=== PATIENT | female | born 1935 | race African-American/Black ===

== ENCOUNTER 2016-05-02 10:50 | Inpatient (IN) | payer MEDICARE, MEDICAID ==
[2016-05-02] MEDS ORDERED: ASPIRIN 81 MG TABLET, CHEWABLE PO ONE (11:33)
--- NOTE | 2016-05-02 11:35 | ER Document Report ---
ED Medical Screen (RME) - General Chief Complaint: Leg Swelling Stated Complaint: WHEEZING,LEG SWELLING Mode of Arrival: Wheelchair Information source: Patient, Relative Notes: pt c/o cp, sob, wheezing and leg swelling for the past week. No fever. No hx of CHF. hx: DM, HTN, cholesterol TRAVEL OUTSIDE OF THE [place] IN LAST 30 DAYS: No - Related Data Allergies/Adverse Reactions: oxycodone [Oxycodone] Allergy (Verified 11/24/13 13:27) Past Medical History - Past Medical History Cardiac Medical History: Reports: Hx Atrial Fibrillation, Hx Hypercholesterolemia, Hx Hypertension - TAKES MEDICATION Denies: Hx Heart Attack Pulmonary Medical History: Denies: Hx Asthma, Hx Tuberculosis Neurological Medical History: Denies: Hx Cerebrovascular Accident, Hx Seizures Endocrine Medical History: Reports: Hx Diabetes Mellitus Type 2 GI Medical History: Reports: Hx Gastroesophageal Reflux Disease Musculoskeltal Medical History: Reports Hx Gout Psychiatric Medical History: Denies: Hx Depression - Immunizations Hx Diphtheria, Pertussis, Tetanus Vaccination: Yes Physical Exam - Vital signs Vitals: Temp Pulse Resp BP Pulse Ox 98.0 F 48 L 18 177/83 H 93 05/02/16 11:19 05/02/16 11:19 05/02/16 11:19 05/02/16 11:19 05/02/16 11:19 - Respiratory Respiratory status: No respiratory distress Chest status: Pain with cough Breath sounds: Nonproductive cough Course - Vital Signs Vital signs: Temp Pulse Resp BP Pulse Ox 98.0 F 48 L 18 177/83 H 93 05/02/16 11:19 05/02/16 11:19 05/02/16 11:19 05/02/16 11:19 05/02/16 11:19
[2016-05-02 12:22] LABS: ABSOLUTE BASOPHILS # (AUTO) 0.1 10^3/uL (0.0-0.2); ABSOLUTE LYMPHOCYTES (AUTO) 0.6 10^3/uL (0.5-4.7); ABSOLUTE MONOCYTES (AUTO) 0.2 10^3/uL (0.1-1.4); ABSOLUTE NEUT (AUTO) 3.2 10^3/uL (1.7-8.2); BASOPHILS % (AUTO) 1.9 % (0-2); EOSINOPHILS % (AUTO) 0.7 % (0-6); HEMATOCRIT 37.6 % (36.0-47.0); HEMOGLOBIN 11.6 g/dL (12.0-15.5); HGB HCT DIFFERENCE -2.8; LYMPHOCYTES % (AUTO) 15.1 % (13-45); MEAN CORPUSCULAR HEMOGLOBIN 25.8 pg (27.0-33.4); MEAN CORPUSCULAR HGB CONC 30.9 g/dL (32.0-36.0); MEAN CORPUSCULAR VOLUME 83 fl (80-97); MONOCYTES % (AUTO) 4.5 % (3-13); RED BLOOD COUNT 4.51 10^6/uL (3.72-5.28); SEGMENTED NEUTROPHILS % (AUTO) 77.8 % (42-78); WHITE BLOOD COUNT 4.1 10^3/uL (4.0-10.5)
--- NOTE | 2016-05-02 12:22 | EKG REPORT ---
SEVERITY:- ABNORMAL ECG - A-FLUTTER W/ VARIED AV BLOCK, A-RATE 294 RIGHT BUNDLE BRANCH BLOCK AND LAFB LVH WITH IVCD AND SECONDARY REPOL ABNRM : Confirmed by: Dexter García MD 02-May-2016 12:21:38
[2016-05-02 12:33] LABS: APPEARANCE,URINE CLOUDY; BILIRUBIN,URINE NEGATIVE (NEGATIVE); GLUCOSE, URINE 150 mg/dL (NEGATIVE); KETONES,URINE NEGATIVE (NEGATIVE); LEUKOCYTE ESTERASE,URINE LARGE (NEGATIVE); NITRITE,URINE NEGATIVE (NEGATIVE); PROTEIN,URINE >=500 mg/dL (NEGATIVE); UROBILINOGEN,URINE NEGATIVE mg/dL (<2.0)
[2016-05-02 12:47] LABS: ALANINE AMINOTRANSFERASE 62 U/L (9-52); ALBUMIN 3.3 g/dL (3.5-5.0); ALKALINE PHOSPHATASE 200 U/L (38-126); ANION GAP 11 (5-19); ASPARTATE AMINO TRANSFERASE 61 U/L (14-36); BILIRUBIN,TOTAL 0.9 mg/dL (0.2-1.3); BLOOD UREA NITROGEN 31 mg/dL (7-20); CALCIUM 9.1 mg/dL (8.4-10.2); CARBON DIOXIDE 24 mmol/L (22-30); CHLORIDE 103 mmol/L (98-107); CREATINE KINASE 101 U/L (30-135); CREATININE RESULT 1.91 mg/dL (0.52-1.25); GLUCOSE 289 mg/dL (75-110); LIPASE 853.3 U/L (23-300); POTASSIUM 4.1 mmol/L (3.6-5.0); TOTAL PROTEIN 6.1 g/dL (6.3-8.2)
[2016-05-02 12:56] LABS: CREATINE KINASE MB 2.42 ng/mL (<4.55)
[2016-05-02 13:02] LABS: TROPONIN I 0.077 ng/mL
[2016-05-02] MEDS ORDERED: FUROSEMIDE INJ/PF 40 MG/4 ML SDV IV ONE (14:56)
[2016-05-02 16:37] LABS: CREATINE KINASE MB 2.04 ng/mL (<4.55)
[2016-05-02 16:39] LABS: TROPONIN I 0.067 ng/mL
--- NOTE | 2016-05-02 17:49 | ER Document Report ---
ED General - General Chief Complaint: Leg Swelling Stated Complaint: WHEEZING,LEG SWELLING Mode of Arrival: Wheelchair TRAVEL OUTSIDE OF THE [place] IN LAST 30 DAYS: No - Related Data Allergies/Adverse Reactions: oxycodone [Oxycodone] Allergy (Verified 11/24/13 13:27) Past Medical History - General Information source: Patient, Relative Last Menstrual Period: menoause - Social History Smoking Status: Never Smoker Frequency of alcohol use: None Drug Abuse: None Family History: Reviewed & Not Pertinent, CAD Patient has suicidal ideation: No Patient has homicidal ideation: No - Past Medical History Cardiac Medical History: Reports: Hx Atrial Fibrillation, Hx Hypercholesterolemia, Hx Hypertension - TAKES MEDICATION Denies: Hx Heart Attack Pulmonary Medical History: Denies: Hx Asthma, Hx Tuberculosis Neurological Medical History: Denies: Hx Cerebrovascular Accident, Hx Seizures Endocrine Medical History: Reports: Hx Diabetes Mellitus Type 2 GI Medical History: Reports: Hx Gastroesophageal Reflux Disease Musculoskeltal Medical History: Reports Hx Gout Psychiatric Medical History: Denies: Hx Depression - Immunizations Hx Diphtheria, Pertussis, Tetanus Vaccination: Yes Physical Exam - Vital signs Vitals: Temp Pulse Resp BP Pulse Ox 98.0 F 48 L 18 177/83 H 93 05/02/16 11:19 05/02/16 11:19 05/02/16 11:19 05/02/16 11:19 05/02/16 11:19 Course - Vital Signs Vital signs: Temp Pulse Resp BP Pulse Ox 98.0 F 48 L 21 H 189/107 H 93 05/02/16 11:19 05/02/16 11:19 05/02/16 17:01 05/02/16 17:01 05/02/16 17:01 - Laboratory Result Diagrams: 05/02/16 12:00 05/02/16 12:00 Laboratory results interpreted by me: 05/02/16 05/02/16 05/02/16 12:00 12:00 12:00 Hgb 11.6 L MCH 25.8 L MCHC 30.9 L RDW 18.0 H BUN 31 H Creatinine 1.91 H Est GFR ( Amer) 31 L Est GFR (Non-Af Amer) 25 L Glucose 289 H AST 61 H ALT 62 H Alkaline Phosphatase 200 H NT-Pro-B Natriuret Pep 2770 H Total Protein 6.1 L Albumin 3.3 L Lipase 853.3 H Urine Protein Urine Glucose (UA) Ur Leukocyte Esterase 05/02/16 12:00 Hgb MCH MCHC RDW BUN Creatinine Est GFR ( Amer) Est GFR (Non-Af Amer) Glucose AST ALT Alkaline Phosphatase NT-Pro-B Natriuret Pep Total Protein Albumin Lipase Urine Protein >=500 H Urine Glucose (UA) 150 H Ur Leukocyte Esterase LARGE H Discharge - Discharge Clinical Impression: Edema of foot Congestive heart failure Qualifiers: Congestive heart failure type: unspecified congestive heart failure type Congestive heart failure chronicity: unspecified congestive heart failure chronicity Qualified Code(s): I50.9 - Heart failure, unspecified Pancreatitis Qualifiers: Pancreatitis type: unspecified pancreatitis type Acute pancreatitis complication: unspecified Condition: Stable Disposition: ADMITTED INPATIENT Admitting Provider: Alejandra kat Unit Admitted: Telemetry
[2016-05-02] MEDS ORDERED: (PENDING PHARMACY ID) (Dexlansoprazole [Dexilant 30 Mg Capsule] 30 MG) PO SCH (19:30)
[2016-05-02] MEDS ORDERED: FISH OIL PO SCH (19:30)
[2016-05-02] MEDS ORDERED: OMEGA PO SCH (19:30)
[2016-05-02] MEDS ORDERED: FATTY ACIDS PO SCH (19:30)
[2016-05-02] MEDS ORDERED: (PENDING PHARMACY ID) (Olmesartan Medoxomil [Benicar] 40 MG) PO SCH (19:30)
[2016-05-02] MEDS ORDERED: [UNRECOGNIZED DRUG - OTHER] PO SCH (19:30)
[2016-05-02] MEDS ORDERED: MORPHINE SULFATE 10 MG/ML INJ IV PRN (19:31)
[2016-05-02 20:32] LABS: CREATINE KINASE MB 2.4 ng/mL (<4.55)
[2016-05-02 20:37] LABS: TROPONIN I 0.077 ng/mL
[2016-05-02 20:50] LABS: THYROID STIMULATING HORMONE 1.19 uIU/mL (0.47-4.68)
[2016-05-02] MEDS ORDERED: OMEGA-3 ACID ETHYL ESTERS 1 GM CAPSULE PO ONE (21:30)
[2016-05-02] MEDS ORDERED: LOSARTAN POTASSIUM 50 MG TABLET PO ONE (21:30)
[2016-05-02] MEDS ORDERED: LANSOPRAZOLE 15 MG TAB.RAP.DR PO ONE (21:30)
[2016-05-02] MEDS: HEPARIN SOD (PORCINE) 5,000 UNIT/ML 1 ML SYRINGE SUBCUT SCH (21:48)
[2016-05-03 02:34] LABS: CREATINE KINASE MB 1.88 ng/mL (<4.55); TROPONIN I 0.08 ng/mL
[2016-05-03] MEDS ORDERED: DEXTROSE 40% GEL 15 GM TUBE PO PRN (03:07)
[2016-05-03] MEDS ORDERED: DEXTROSE 40% GEL 15 GM TUBE X 2 PO PRN (03:07)
[2016-05-03] MEDS ORDERED: DEXTROSE 50%-WATER SYRINGE 12.5 GM/25 ML DOSE IV PRN (03:07)
[2016-05-03] MEDS ORDERED: GLUCAGON,HUMAN RECOMB 1 MG INJ IM PRN (03:07)
[2016-05-03] MEDS ORDERED: DEXTROSE 50%-WATER SYRINGE 25 GM/50 ML DOSE IV PRN (03:07)
[2016-05-03] MEDS: HEPARIN SOD (PORCINE) 5,000 UNIT/ML 1 ML SYRINGE SUBCUT SCH ×3 (05:46→22:22)
[2016-05-03] MEDS: LANSOPRAZOLE 15 MG TAB.RAP.DR PO SCH (05:46)
[2016-05-03 07:53] LABS: ABSOLUTE BASOPHILS # (AUTO) 0.1 10^3/uL (0.0-0.2); ABSOLUTE LYMPHOCYTES (AUTO) 1.2 10^3/uL (0.5-4.7); ABSOLUTE MONOCYTES (AUTO) 0.3 10^3/uL (0.1-1.4); ABSOLUTE NEUT (AUTO) 2.7 10^3/uL (1.7-8.2); BASOPHILS % (AUTO) 1.5 % (0-2); EOSINOPHILS % (AUTO) 1.1 % (0-6); HEMATOCRIT 37.7 % (36.0-47.0); HEMOGLOBIN 12.1 g/dL (12.0-15.5); HGB HCT DIFFERENCE -1.4; LYMPHOCYTES % (AUTO) 27.3 % (13-45); MEAN CORPUSCULAR HEMOGLOBIN 26.3 pg (27.0-33.4); MEAN CORPUSCULAR HGB CONC 32.2 g/dL (32.0-36.0); MEAN CORPUSCULAR VOLUME 82 fl (80-97); MONOCYTES % (AUTO) 7.1 % (3-13); RED BLOOD COUNT 4.61 10^6/uL (3.72-5.28); RED CELL DISTRIBUTION WIDTH 18.1 % (11.5-14.0); WHITE BLOOD COUNT 4.3 10^3/uL (4.0-10.5)
[2016-05-03] MEDS: GLIPIZIDE XL 5 MG TAB.ER.24 PO SCH (08:05)
[2016-05-03 08:20] LABS: ANION GAP 10 (5-19); BLOOD UREA NITROGEN 26 mg/dL (7-20); CALCIUM 9.4 mg/dL (8.4-10.2); CARBON DIOXIDE 27 mmol/L (22-30); CHLORIDE 101 mmol/L (98-107); CREATININE RESULT 1.54 mg/dL (0.52-1.25); GLUCOSE 173 mg/dL (75-110); POTASSIUM 3.8 mmol/L (3.6-5.0)
[2016-05-03 08:31] LABS: TROPONIN I 0.082 ng/mL
[2016-05-03 08:36] LABS: CREATINE KINASE MB 2.79 ng/mL (<4.55)
[2016-05-03] MEDS: OMEGA-3 ACID ETHYL ESTERS 1 GM CAPSULE PO SCH (09:56)
[2016-05-03] MEDS: FUROSEMIDE INJ/PF 40 MG/4 ML SDV IV SCH (09:56)
[2016-05-03] MEDS: ALLOPURINOL 100 MG TABLET PO SCH (09:56)
[2016-05-03] MEDS: ASPIRIN 81 MG TABLET, ENT COATED PO SCH (09:57)
[2016-05-03] MEDS: LOSARTAN POTASSIUM 50 MG TABLET PO SCH (09:57)
[2016-05-03] MEDS: INSULIN LISPRO 100 UNIT/ML 3 ML VIAL SUBCUT PRN ×3 (11:46→22:22)
--- NOTE | 2016-05-03 20:48 | HISTORY AND PHYSICAL E ---
History and Physical NAME: CAROLINA KAYE : 1935 AGE: 80Y ADMITTED: 05/02/2016 ROOM: 328 CHIEF COMPLAINT: Worsening leg swelling. HISTORY OF PRESENT ILLNESS: The patient is an 80-year-old black male patient known to my practice who was brought to the emergency room by family members on 05/02/2016 for above-mentioned complaint. The patient's family reported that over the last preceding couple of days the patient's leg swelling has been worsening with associated shortness of breath and wheezing and due to the office being closed on the presenting date, they decided to come to the emergency room. The patient claimed compliance with medications as well as dietary restriction with regard to salt and restricted fluid intake. He denied any palpitation or associated chest pain. He did admit to 2-pillow orthopnea and paroxysmal nocturnal dyspnea. The patient denied any fever or chills. Upon initial assessment in the emergency room, there was concern for elevated NT-proBNP at over 2000. There was also concern with regard to elevated lipase level about 853. The patient does have a history of diabetes mellitus type 2 on Tradjenta therapy. Also of note, he does have a history of atrial fibrillation as well as hypertension. The patient reported fairly stable home Accu-Chek readings. She denied any nausea, vomiting, constipation, diarrhea or abdominal pain. She denied any alcohol ingestion. REVIEW OF SYSTEMS: Extensive review of HEENT, respiratory, cardiovascular, gastrointestinal, genitourinary, musculoskeletal, [employer] WORK[employer], endocrine, hematologic and psychiatry are all unrevealing except as noted above. PAST MEDICAL HISTORY: 1. Chronic atrial fibrillation. 2. Hypertension. 3. Hyperlipidemia. 4. History of diabetes mellitus type 2. 5. Gastroesophageal reflux disease. 6. Osteoarthritis. 7. History of gouty arthritis. ALLERGIES: OXYCODONE. HOME MEDICATIONS: As listed under on the [facility] system under home medications. This was reviewed and authenticated by myself earlier today. FAMILY HISTORY: Noncontributory to his current acute medical problems. PERSONAL/SOCIAL HISTORY: He denied any cigarette smoke, alcohol abuse or illicit drug usage. The patient does reside with family with good support. PHYSICAL EXAMINATION: GENERAL: Elderly, not in any acute distress at the time of my assessment. VITAL SIGNS: Temperature is 97.4 degrees Fahrenheit. Pulse is 145 per minute, blood pressure 186/132, respiratory rate of 22 per minute, O2 saturation 94% on room air at the time of my assessment earlier this morning. HEENT: Normocephalic, atraumatic. There is no pallor, no icterus. Pupils are equal and reactive to light. Extraocular muscles are intact. Oral mucosa is fairly moist. There is no oropharyngeal inflammation or orifice discharge. There is no elevated JVD, no palpable thyromegaly or adenopathy. CHEST/LUNGS: Satisfactory excursion of air entry bilaterally. There are no rales or rhonchi. HEART: Irregularly irregular rhythm. Normal S1 and S2. No appreciable gallop or murmur. ABDOMEN: Full, soft. Bowel sounds are present. No palpable mass, tenderness, guarding or rebound. EXTREMITIES: There is minimal pitting edema bilaterally. There are features in terms of osteoarthritis. CENTRAL NERVOUS SYSTEM: Generalized deconditioning without any focal motor deficit. Cranial nerves II-XII are essentially intact. SKIN: Warm to touch. Turgor is fair. Integrity is intact. PSYCHIATRIC: Mood and affect are satisfactory. Insight and judgment are satisfactory. LABORATORY ASSESSMENT: Presenting CBC with differential: WBC was 4.1 with normal differential, hemoglobin 11.6, hematocrit 27.6, MCV 83, RDW 18.0 and platelet count of 195,000, aPTT was 34.21 sec. Presenting comprehensive metabolic panel: BUN 31, creatinine 1.91, estimated GFR at 31, glucose 289, AST 61, ALT 62, alkaline phosphatase 200, total protein 6.1, albumin 3.3, otherwise normal indices. Serum lipase was 853.3 and amylase was 169. Total CK was 101, CK-MB 2.42, troponin I 0.077. NT-proBNP was 2770. Urinalysis did reveal yellow cloudy urine with proteinuria over 500 mg, glycosuria at 150 mg/dL and large leukocyte esterase. Otherwise yellow cloudy urine, pH 5.0, specific gravity 1.020. Microscopy did reveal WBC 44, RBC 2, hyaline casts 3, bacteria 1+, squamous epithelial cells 84, urine mucus was rare and urine ascorbic acid was negative. Initial abdominal/pelvic CT scan without contrast was unrevealing with regard to possibility of pancreatitis. There was small bilateral pleural effusion with moderate cardiac enlargement. There was no acute suspicious intraabdominal abnormalities. Chest x-ray did confirm cardiac enlargement and vascular congestion. There was no mass or positive pneumothorax or demonstrable pleural effusion on the chest x-ray. A 12-lead EKG did suggest atrial flutter with a first-degree AV block at a rate of 294, right bundle branch block with left anterior fascicular block, LVH with intraventricular conduction delay and secondary repolarization abnormality. Abdominal ultrasound that was done in view of noncontrast abdominal pelvis CT scan for further evaluation of pancreas did not reveal any pancreatic tissue abnormality. There was right kidney echogenicity suggestive of chronic kidney medical disease. There was a right pleural effusion. IMPRESSION: 1. Uosnm-hc-[id number] diastolic congestive heart failure probably related to chronic atrial fibrillation with rapid ventricular rate. 2. Elevated lipase and amylase level suggestive of acute pancreatitis, although CT scan of abdomen and pelvis along with abdominal ultrasound were not confirming. The patient has been on Tradjenta as a new diabetic medication management, which could account for elevated lipase level. 3. Chronic diseases including chronic atrial fibrillation, hypertension, diabetes mellitus type 2, hyperlipidemia, gouty arthritis and osteoarthritis. PLAN: The patient will be admitted to [facility] and managed appropriately. Please see admission orders for details. It is my hope that he will improve and be discharged soon. Also of note with regard to laboratory assessment, there is concern for possible urinary tract infection in view of urinalysis finding. I will look further into this and treat appropriately. TIME SPENT: Care plan did consume over an hour of my time. DICTATING PHYSICIAN: GABRIELLA SHOOK M.D. [id number] PHY#: [id number] ID: [id number] JOB#: [id number] ACCT: [id number] cc:GABRIELLA SHOOK M.D. > [facility] CENTERFelipa
[2016-05-04] MEDS: LANSOPRAZOLE 15 MG TAB.RAP.DR PO SCH (05:24)
[2016-05-04] MEDS: HEPARIN SOD (PORCINE) 5,000 UNIT/ML 1 ML SYRINGE SUBCUT SCH ×3 (05:26→22:40)
[2016-05-04 06:47] LABS: ABSOLUTE LYMPHOCYTES (AUTO) 1.3 10^3/uL (0.5-4.7); ABSOLUTE MONOCYTES (AUTO) 0.3 10^3/uL (0.1-1.4); ABSOLUTE NEUT (AUTO) 2.3 10^3/uL (1.7-8.2); HEMATOCRIT 38.5 % (36.0-47.0); HEMOGLOBIN 12.3 g/dL (12.0-15.5); HGB HCT DIFFERENCE -1.6; LYMPHOCYTES % (AUTO) 31.9 % (13-45); MEAN CORPUSCULAR HEMOGLOBIN 26.2 pg (27.0-33.4); MEAN CORPUSCULAR HGB CONC 31.8 g/dL (32.0-36.0); MEAN CORPUSCULAR VOLUME 82 fl (80-97); MONOCYTES % (AUTO) 8.3 % (3-13); RED BLOOD COUNT 4.67 10^6/uL (3.72-5.28); RED CELL DISTRIBUTION WIDTH 17.9 % (11.5-14.0); SEGMENTED NEUTROPHILS % (AUTO) 57.8 % (42-78)
[2016-05-04 07:04] LABS: ANION GAP 11 (5-19); BLOOD UREA NITROGEN 21 mg/dL (7-20); CALCIUM 9.4 mg/dL (8.4-10.2); CARBON DIOXIDE 26 mmol/L (22-30); CHLORIDE 101 mmol/L (98-107); CREATININE RESULT 1.36 mg/dL (0.52-1.25); GLUCOSE 145 mg/dL (75-110); LIPASE 603.5 U/L (23-300); PHOSPHORUS 4.2 mg/dL (2.5-4.5); POTASSIUM 3.7 mmol/L (3.6-5.0)
[2016-05-04] MEDS ORDERED: METOPROLOL TARTRATE 50 MG TABLET ONE (07:29)
[2016-05-04] MEDS ORDERED: METOPROLOL TARTRATE 25 MG TABLET PO ONE (08:00)
--- NOTE | 2016-05-04 08:07 | EKG REPORT ---
SEVERITY:- DEFECTIVE ECG - SINUS TACHYCARDIA ARM LEADS REVERSAL, PLEASE REPEAT WITH PROPER LEAD PLACEMENT. : Confirmed by: Dexter García MD 04-May-2016 08:06:23
[2016-05-04] MEDS: GLIPIZIDE XL 5 MG TAB.ER.24 PO SCH (08:12)
--- NOTE | 2016-05-04 09:14 | PDOC PROGRESS REPORT ---
[id number] breathing. No fever or chills since last office visit. Tolerating oral feeding. No nausea or vomiting. No abdominal pain. No diarrhea. No dysuria. There has been episodes of tachycardia with irregular rhythm since last clinical evaluation. Awaiting official report of complete transthoracic echocardiography. Physical Exam Vital Signs: Temp Pulse Resp BP Pulse Ox 97.3 F 115 H 19 150/115 H 97 05/04/16 07:40 05/04/16 08:41 05/04/16 07:40 05/04/16 07:40 05/04/16 07:40 Intake & Output 05/03/16 05/04/16 05/05/16 06:59 06:59 06:59 Intake Total 0 2300 Output Total 400 200 Balance -400 2100 Weight 95.3 kg 94.2 kg General appearance: PRESENT: no acute distress, well-developed, well-nourished Head exam: PRESENT: atraumatic, normocephalic Eye exam: PRESENT: conjunctiva pink, EOMI, PERRLA. ABSENT: scleral icterus Ear exam: PRESENT: normal external ear exam Mouth exam: PRESENT: moist, tongue midline Neck exam: PRESENT: full ROM. ABSENT: carotid bruit, JVD, lymphadenopathy, thyromegaly Respiratory exam: ABSENT: accessory muscle use, chest wall tenderness, clear to auscultation nurys, crackles, decreased breath sounds, prolonged expiratory phas, rales, retraction, rhonchi, stridor, symmetrical, tachypnea, unlabored, wheezes , other Cardiovascular exam: PRESENT: irregular rhythm, tachycardia Vascular exam: PRESENT: normal capillary refill GI/Abdominal exam: PRESENT: normal bowel sounds, soft. ABSENT: distended, guarding, mass, organolmegaly, rebound, tenderness Extremities exam: PRESENT: full ROM Musculoskeletal exam: PRESENT: deformity - of arthrtis, other - improving lower extremities edema. Neurological exam: PRESENT: alert, awake, oriented to person, oriented to place , oriented to time, oriented to situation, CN II-XII grossly intact. ABSENT: motor sensory deficit Psychiatric exam: PRESENT: appropriate affect, normal mood. ABSENT: homicidal ideation, suicidal ideation Skin exam: PRESENT: dry, intact, warm. ABSENT: cyanosis, rash Results Laboratory Results: 05/04/16 05:54 05/04/16 05:54 05/04/16 05/04/16 05:54 05:54 WBC 4.0 RBC 4.67 Hgb 12.3 Hct 38.5 MCV 82 MCH 26.2 L MCHC 31.8 L RDW 17.9 H Plt Count 178 Seg Neutrophils % 57.8 Lymphocytes % 31.9 Monocytes % 8.3 Eosinophils % 1.0 Basophils % 1.0 Absolute Neutrophils 2.3 Absolute Lymphocytes 1.3 Absolute Monocytes 0.3 Absolute Eosinophils 0.0 Absolute Basophils 0.0 Sodium 138.0 Potassium 3.7 Chloride 101 Carbon Dioxide 26 Anion Gap 11 BUN 21 H Creatinine 1.36 H Est GFR ( Amer) 45 L Est GFR (Non-Af Amer) 37 L Glucose 145 H Calcium 9.4 Phosphorus 4.2 Lipase 603.5 H 05/02/16 20:20 Sputum Gram Stain - Final 05/02/16 20:20 Sputum Sputum Culture - Final 05/02/16 05/03/16 05/03/16 19:40 01:54 07:42 CK-MB (CK-2) 2.40 1.88 2.79 Troponin I 0.077 0.080 0.082 Impressions: Abdomen/Pelvis CT 05/02/16 00:00 IMPRESSION: Small bilateral pleural effusions. Moderate cardiac enlargement. No acute or suspicious noncontrast CT abnormality of the abdomen -pelvis. Chest X-Ray 05/02/16 11:33 IMPRESSION: CARDIAC ENLARGEMENT. VASCULAR CONGESTION. Abdomen Ultrasound 05/02/16 14:55 IMPRESSION: Echogenic right kidney. No other significant findings. Status: Imported from PACS Assessment & Plan - Diagnosis (1) Chronic atrial fibrillation with rapid ventricular response Is this a current diagnosis for this admission?: YesPlan: Start on Metoprolol 25 mg po bid with first dose stat in view of her rapid ventricular response rate. Maintain on all other current medication management. In view of Echo official report findings, I will start patient on Eliquis 2.5 mg p.o bid for anticoagulation therapy. I will discontinue SC Heparin for DVT prophylaxis last dose tonight. (2) Congestive heart failure Qualifiers: Congestive heart failure type: diastolic Congestive heart failure chronicity: acute on chronic Qualified Code(s): I50.33 - Acute on chronic diastolic (congestive) heart failure Is this a current diagnosis for this admission?: YesPlan: Continue anti failure therapy with diuretic and ACEI treatment. MAintain on fluid restriction to 1000 ml per day. (3) Pancreatitis Qualifiers: Pancreatitis type: drug induced Acute pancreatitis complication: no infection or necrosis Is this a current diagnosis for this admission?: YesPlan: Maintain off Tradjenta therapy for diabetes mellitus management. Follow up on serum Lipase level. Maintain on Full liquid diet at present time. (4) Chronic kidney disease (CKD) stage G3a/A1, moderately decreased glomerular filtration rate (GFR) between 45-59 mL/min/1.73 square meter and albuminuria creatinine ratio less than 30 mg/g Is this a current diagnosis for this admission?: YesPlan: improving renal indices. - Time Critical Time spent with patient: 25-34 minutes Medications reviewed and adjusted accordingly: Yes - Adjustment made as indicated. Anticipated discharge: Home with Homehealth Within: Other - Inpatient Certification Medical Necessity: Need Close Monitoring Due to Risk of Patient Decompensation, Need For Continuous Telemetry Monitoring, Risk of Complication if Not Cared For in Hospital Post Hospital Care: D/C Psychological Tests Sales Agent Documentation - Plan Summary Plan Summary: Continue above listed medication changes and orders. Follow up on echo official report. Monitor rate control. Repeat serum Lipase in AM.
[2016-05-04] MEDS: LOSARTAN POTASSIUM 50 MG TABLET PO SCH (09:53)
[2016-05-04] MEDS: FUROSEMIDE INJ/PF 40 MG/4 ML SDV IV SCH (09:53)
[2016-05-04] MEDS: TRAMADOL HCL 50 MG TABLET PO PRN ×2 (09:54→20:36)
[2016-05-04] MEDS: OMEGA-3 ACID ETHYL ESTERS 1 GM CAPSULE PO SCH (09:54)
[2016-05-04] MEDS: ALLOPURINOL 100 MG TABLET PO SCH (09:54)
[2016-05-04] MEDS: ASPIRIN 81 MG TABLET, ENT COATED PO SCH (09:55)
[2016-05-04] MEDS: INSULIN LISPRO 100 UNIT/ML 3 ML VIAL SUBCUT PRN ×2 (12:12→17:05)
[2016-05-04] MEDS: METOPROLOL TARTRATE 25 MG TABLET PO SCH (17:06)
--- NOTE | 2016-05-04 18:04 | XCELERA REPORT ---
[address] [address] Transthoracic Echocardiogram Report Name: CAROLINA KAYE Age: 80 yrs Gender: Female : 1935 Patient Status: Inpatient Patient Location: [id number]\S\328\S\A Study Date: 05/03/2016 05:38 PM Height: 66 in Weight: 216 lb BSA: 2.1 m2 Reason For Study: CHF Ordering Physician: RAMONE MARK Performed By: Alisha Kat Interpretation Summary LV diastolic function could not be adequately assessed due to atrial fibrilation.LV systolic function is <25%, severe .with multiple severe segmental disease, see diagrams. Mild and mild AR. peak gradient 16, high possib. of low output low gradient . Mild MS with mild MR but severe LA enlargement Mild TR with mod pulm hypertension, RVSP 48. MMode/2D Measurements \T\ Calculations RVDd: 2.7 cm LVIDd: 3.7 cm FS: 26.4 % Ao root diam: 2.9 cm IVSd: 1.6 cm LVIDs: 2.7 cm EDV(Teich): 58.1 ml LVPWd: 1.4 cm ESV(Teich): 27.6 ml Ao root area: 6.7 cm2 EF(Teich): 52.5 % LA dimension: 4.1 cm LVOT diam: 2.0 cm LVOT area: 3.3 cm2 Doppler Measurements \T\ Calculations MV E max lucy: MV P1/2t max lucy: Ao V2 max: AI max lucy: 187.4 cm/sec 189.7 cm/sec 200.0 cm/sec 401.2 cm/sec MV P1/2t: 76.5 msec Ao max PG: AI max PG: MVA(P1/2t): 2.9 cm2 16.2 mmHg 65.0 mmHg MV dec slope: Ao V2 mean: AI dec slope: 726.1 cm/sec2 131.8 cm/sec 133.0 cm/sec2 MV dec time: Ao mean PG: AI P1/2t: 0.25 sec 8.3 mmHg 883.4 msec Ao V2 VTI: 30.9 cm SHILO(I,D): 1.7 cm2 SHILO(V,D): 1.5 cm2 LV V1 max PG: MR max lucy: SV(LVOT): 51.5 mlPA V2 max: 3.6 mmHg 663.0 cm/sec 68.4 cm/sec LV V1 mean PG: MR max PG: PA max P.0 mmHg 1.7 mmHg 175.8 mmHg LV V1 max: 94.3 cm/sec LV V1 mean: 57.7 cm/sec LV V1 VTI: 15.9 cm LV dP/dt: 1136 mmHg/s PI end-d lucy: TR max lucy: 202.2 cm/sec 306.5 cm/sec TR max P.6 mmHg Left Ventricle The left ventricular cavity is small. Left ventricular systolic function is severely reduced. LV diastolic function could not be adequately assessed due to atrial fibrilation. There is severe global hypokinesis of the left ventricle. There is a small apical thrombus. apical posterior. Right Ventricle The right ventricle is moderately dilated. Atria The right atrium is normal in size. The left atrium is moderately dilated. The interatrial septum is intact with no evidence for an atrial septal defect. Mitral Valve The mitral valve leaflets are sclerotic and show some degree of functional abnormality. There is severe mitral annular calcification. There is no evidence of mitral valve prolapse. There is no vegetation seen on the mitral valve. There is moderate mitral stenosis. There is a mild to moderate amount of mitral regurgitation. Aortic Valve The aortic valve is sclerotic and shows some degree of functional abnormality. The aortic valve is not well visualized secondary to technical limitations. Cannot exclude aortic valvular vegetation. There is mild aortic stenosis. There is a mild amount of aortic regurgitation. Tricuspid Valve There is a mild amount of tricuspid regurgitation. Right ventricular systolic pressure is estimated to be elevated at 40-50mmHg. Pulmonic Valve The pulmonic valve is not well visualized. There is a trace or physiologic amount of pulmonic regurgitation. Great Vessels There is aortic root sclerosis/calcification. Effusions There is no pericardial effusion. I WMSI = 2.43 % Normal = 0 Segments Size X - Cannot 1 - Normal 2 - 3 - Akinetic4 - 1-2 small Interpret Hypokinetic Dyskinetic 3-5 moderate 5 - 6-14 large Aneurysmal 15-16 diffuse : RAMONE MARK > Dexter García
[2016-05-04] MEDS: APIXABAN 2.5 MG TABLET PO SCH (18:46)
[2016-05-05] MEDS: LANSOPRAZOLE 15 MG TAB.RAP.DR PO SCH (05:15)
[2016-05-05] MEDS: METOPROLOL TARTRATE 25 MG TABLET PO SCH ×2 (05:15→18:11)
[2016-05-05 06:10] LABS: ABSOLUTE LYMPHOCYTES (AUTO) 1.8 10^3/uL (0.5-4.7); ABSOLUTE MONOCYTES (AUTO) 0.4 10^3/uL (0.1-1.4); ABSOLUTE NEUT (AUTO) 2.2 10^3/uL (1.7-8.2); EOSINOPHILS % (AUTO) 0.4 % (0-6); HEMATOCRIT 39.7 % (36.0-47.0); HEMOGLOBIN 12.6 g/dL (12.0-15.5); HGB HCT DIFFERENCE -1.9; LYMPHOCYTES % (AUTO) 40.3 % (13-45); MEAN CORPUSCULAR HGB CONC 31.8 g/dL (32.0-36.0); MEAN CORPUSCULAR VOLUME 82 fl (80-97); MONOCYTES % (AUTO) 8.9 % (3-13); RED BLOOD COUNT 4.86 10^6/uL (3.72-5.28); SEGMENTED NEUTROPHILS % (AUTO) 49.4 % (42-78); WHITE BLOOD COUNT 4.4 10^3/uL (4.0-10.5)
[2016-05-05 06:19] LABS: ANION GAP 12 (5-19); BLOOD UREA NITROGEN 27 mg/dL (7-20); CALCIUM 9.3 mg/dL (8.4-10.2); CARBON DIOXIDE 26 mmol/L (22-30); CHLORIDE 99 mmol/L (98-107); CREATININE RESULT 1.82 mg/dL (0.52-1.25); GLUCOSE 100 mg/dL (75-110); LIPASE 815.4 U/L (23-300); PHOSPHORUS 5.1 mg/dL (2.5-4.5); POTASSIUM 3.9 mmol/L (3.6-5.0)
[2016-05-05] MEDS: GLIPIZIDE XL 5 MG TAB.ER.24 PO SCH (08:45)
[2016-05-05] MEDS: APIXABAN 2.5 MG TABLET PO SCH ×2 (08:46→18:11)
[2016-05-05] MEDS: TRAMADOL HCL 50 MG TABLET PO PRN ×2 (08:52→21:02)
[2016-05-05] MEDS: ASPIRIN 81 MG TABLET, ENT COATED PO SCH (10:58)
[2016-05-05] MEDS: OMEGA-3 ACID ETHYL ESTERS 1 GM CAPSULE PO SCH (10:58)
[2016-05-05] MEDS: LOSARTAN POTASSIUM 50 MG TABLET PO SCH (10:58)
[2016-05-05] MEDS: ALLOPURINOL 100 MG TABLET PO SCH (10:58)
[2016-05-05] MEDS: FUROSEMIDE INJ/PF 40 MG/4 ML SDV IV SCH (10:58)
--- NOTE | 2016-05-05 18:56 | PDOC PROGRESS REPORT ---
Subjective Subjective:: Patient denied any chest pain or difficulty with breathing. No fever or chills since last office visit. Tolerating oral feeding. No nausea or vomiting. No abdominal pain. No diarrhea. No dysuria. She is ambulatory on the floor without any significant SOB. Rhythm on monitor mostly sinus with occasional PVCs on Metoprolol therapy. Physical Exam Vital Signs: Temp Pulse Resp BP Pulse Ox 97.4 F 74 19 142/93 H 95 05/05/16 15:48 05/05/16 15:48 05/05/16 15:48 05/05/16 15:48 05/05/16 15:48 Intake & Output 05/04/16 05/05/16 05/06/16 06:59 06:59 06:59 Intake Total 2300 1048 118 Output Total 200 Balance 2100 1048 118 Weight 94.2 kg 94.2 kg General appearance: PRESENT: no acute distress, well-developed, well-nourished Head exam: PRESENT: atraumatic, normocephalic Eye exam: PRESENT: conjunctiva pink, EOMI, PERRLA. ABSENT: scleral icterus Mouth exam: PRESENT: moist, tongue midline Neck exam: PRESENT: full ROM. ABSENT: carotid bruit, JVD, lymphadenopathy, thyromegaly Respiratory exam: ABSENT: accessory muscle use, chest wall tenderness, clear to auscultation nurys, crackles, decreased breath sounds, prolonged expiratory phas, rales, retraction, rhonchi, stridor, symmetrical, tachypnea, unlabored, wheezes , other Cardiovascular exam: PRESENT: irregular rhythm. ABSENT: bradycardia, clicks, diastolic murmur, gallop, RRR, rubs, +S1, +S2, systolic murmur, tachycardia, other GI/Abdominal exam: PRESENT: normal bowel sounds, soft. ABSENT: distended, guarding, mass, organolmegaly, rebound, tenderness Extremities exam: PRESENT: pedal edema - improved. Musculoskeletal exam: PRESENT: ambulatory, deformity - of arthritis, full ROM Neurological exam: PRESENT: alert, awake, oriented to person, oriented to place , oriented to time, oriented to situation, CN II-XII grossly intact. ABSENT: motor sensory deficit Psychiatric exam: PRESENT: appropriate affect, normal mood. ABSENT: homicidal ideation, suicidal ideation Skin exam: PRESENT: dry, intact, warm. ABSENT: cyanosis, rash Results Laboratory Results: 12/29/16 05:21 05/05/16 05:21 05/05/16 05/05/16 05:21 05:21 WBC 4.4 RBC 4.86 Hgb 12.6 Hct 39.7 MCV 82 MCH 26.0 L MCHC 31.8 L RDW 18.0 H Plt Count 182 Seg Neutrophils % 49.4 Lymphocytes % 40.3 Monocytes % 8.9 Eosinophils % 0.4 Basophils % 1.0 Absolute Neutrophils 2.2 Absolute Lymphocytes 1.8 Absolute Monocytes 0.4 Absolute Eosinophils 0.0 Absolute Basophils 0.0 Sodium 137.0 Potassium 3.9 Chloride 99 Carbon Dioxide 26 Anion Gap 12 BUN 27 H Creatinine 1.82 H Est GFR ( Amer) 32 L Est GFR (Non-Af Amer) 27 L Glucose 100 Calcium 9.3 Phosphorus 5.1 H Lipase 815.4 H 05/02/16 05/03/16 05/03/16 19:40 01:54 07:42 CK-MB (CK-2) 2.40 1.88 2.79 Troponin I 0.077 0.080 0.082 Impressions: Abdomen/Pelvis CT 05/02/16 00:00 IMPRESSION: Small bilateral pleural effusions. Moderate cardiac enlargement. No acute or suspicious noncontrast CT abnormality of the abdomen -pelvis. Chest X-Ray 05/02/16 11:33 IMPRESSION: CARDIAC ENLARGEMENT. VASCULAR CONGESTION. Abdomen Ultrasound 05/02/16 14:55 IMPRESSION: Echogenic right kidney. No other significant findings. Assessment & Plan - Diagnosis (1) Chronic atrial fibrillation with rapid ventricular response Is this a current diagnosis for this admission?: YesPlan: Maintain on Metoprolol 25 mg po bid for rapid ventricular response rate control. Maintain on all other current medication management. Continue on Eliquis 2.5 mg p.o bid for anticoagulation therapy. (2) Congestive heart failure Qualifiers: Congestive heart failure type: combined Congestive heart failure chronicity: acute on chronic Qualified Code(s): I50.43 - Acute on chronic combined systolic (congestive) and diastolic (congestive) heart failure Is this a current diagnosis for this admission?: YesPlan: Continue anti failure therapy with ACEI treatment but d/c IV Lasix usage. Liberalized fluid restriction to 1200 ml per day in view of worsening renal indices. I will consider starting oral furosemide as her renal indices improves (3) Pancreatitis Qualifiers: Pancreatitis type: drug induced Acute pancreatitis complication: no infection or necrosis Is this a current diagnosis for this admission?: YesPlan: Follow up on serum Lipase level in view of upward trend today. Maintain on Full liquid diet at present time. (4) Chronic kidney disease (CKD) stage G3a/A1, moderately decreased glomerular filtration rate (GFR) between 45-59 mL/min/1.73 square meter and albuminuria creatinine ratio less than 30 mg/g Is this a current diagnosis for this admission?: Yes - Time Time Spent with patient: 25-34 minutes Medications reviewed and adjusted accordingly: Yes Anticipated discharge: Home with Homehealth - Inpatient Certification Based on my medical assessment, after consideration of the patient's comorbidities, presenting symptoms, or acuity I expect that the services needed warrant INPATIENT care.: Yes I certify that my determination is in accordance with my understanding of Medicare's requirements for reasonable and necessary INPATIENT services [42 CFR 412.3e].: Yes Medical Necessity: Need Close Monitoring Due to Risk of Patient Decompensation, Need For Continuous Telemetry Monitoring, Risk of Complication if Not Cared For in Hospital, Risk of Diagnosis Which Will Require Inpatient Eval/Care/Monitoring Post Hospital Care: D/C Compensation/Benefits Specialist Documentation - Plan Summary Plan Summary: See attending physician orders for details.
[2016-05-05] MEDS: INSULIN LISPRO 100 UNIT/ML 3 ML VIAL SUBCUT PRN (22:20)
[2016-05-06] MEDS: LANSOPRAZOLE 15 MG TAB.RAP.DR PO SCH (05:40)
[2016-05-06] MEDS: METOPROLOL TARTRATE 25 MG TABLET PO SCH ×2 (05:40→21:20)
[2016-05-06 06:20] LABS: ANION GAP 9 (5-19); BLOOD UREA NITROGEN 38 mg/dL (7-20); CALCIUM 8.7 mg/dL (8.4-10.2); CARBON DIOXIDE 27 mmol/L (22-30); CHLORIDE 96 mmol/L (98-107); CREATININE RESULT 2.18 mg/dL (0.52-1.25); GLUCOSE 167 mg/dL (75-110); LIPASE 1211.3 U/L (23-300); SODIUM 131.8 mmol/L (137-145)
[2016-05-06] MEDS: APIXABAN 2.5 MG TABLET PO SCH ×2 (06:41→19:20)
[2016-05-06] MEDS: GLIPIZIDE XL 5 MG TAB.ER.24 PO SCH (08:13)
[2016-05-06] MEDS ORDERED: NORMAL SALINE 1000 ML 1,000 ML IV PRN (08:50)
[2016-05-06] MEDS: LOSARTAN POTASSIUM 50 MG TABLET PO SCH (10:32)
[2016-05-06] MEDS: TRAMADOL HCL 50 MG TABLET PO PRN (10:33)
[2016-05-06] MEDS: OMEGA-3 ACID ETHYL ESTERS 1 GM CAPSULE PO SCH (10:33)
[2016-05-06] MEDS: ALLOPURINOL 100 MG TABLET PO SCH (10:33)
[2016-05-06] MEDS: INSULIN LISPRO 100 UNIT/ML 3 ML VIAL SUBCUT PRN (12:05)
--- NOTE | 2016-05-06 17:05 | PDOC PROGRESS REPORT ---
Subjective Progress Note for:: 05/06/16 Subjective:: Patient denied any chest pain or difficulty with breathing. No fever or chills since last office visit. Tolerated oral feeding. No nausea or vomiting. No abdominal pain. No diarrhea. Monitored rhythm mostly sinus with occasional PVCs and episodes of bradycardia on current dosing of Metoprolol tartrate. Physical Exam Vital Signs: Temp Pulse Resp BP Pulse Ox 97.3 F 69 18 127/85 H 98 05/06/16 11:48 05/06/16 11:48 05/06/16 11:48 05/06/16 11:48 05/06/16 11:48 Intake & Output 05/05/16 05/06/16 05/07/16 06:59 06:59 06:59 Intake Total 1048 662 459 Output Total 550 200 Balance 1048 112 259 Weight 94.2 kg 95.9 kg General appearance: PRESENT: no acute distress, cooperative, obese Head exam: PRESENT: atraumatic, normocephalic Eye exam: PRESENT: conjunctiva pink, EOMI, PERRLA. ABSENT: scleral icterus Mouth exam: PRESENT: moist, tongue midline Neck exam: PRESENT: full ROM. ABSENT: carotid bruit, JVD, lymphadenopathy, thyromegaly Respiratory exam: PRESENT: clear to auscultation nurys Cardiovascular exam: PRESENT: irregular rhythm, RRR. ABSENT: diastolic murmur, rubs, systolic murmur GI/Abdominal exam: PRESENT: normal bowel sounds, soft. ABSENT: distended, guarding, mass, organolmegaly, rebound, tenderness Extremities exam: PRESENT: full ROM, pedal edema - improved. ABSENT: left AKA, right AKA, left BKA, right BKA, calf tenderness, joint swelling, tenderness, other Musculoskeletal exam: PRESENT: ambulatory, deformity - features ad deformities of arthritis, full ROM Neurological exam: PRESENT: alert, awake, oriented to person, oriented to place , oriented to time, oriented to situation, CN II-XII grossly intact. ABSENT: motor sensory deficit Psychiatric exam: PRESENT: appropriate affect, normal mood. ABSENT: homicidal ideation, suicidal ideation Skin exam: PRESENT: dry, intact, warm. ABSENT: cyanosis, rash Results Laboratory Results: 05/05/16 05:21 05/06/16 05:19 05/06/16 05:19 Sodium 131.8 L Potassium 4.0 Chloride 96 L Carbon Dioxide 27 Anion Gap 9 BUN 38 H Creatinine 2.18 H Est GFR ( Amer) 26 L Est GFR (Non-Af Amer) 22 L Glucose 167 H Calcium 8.7 Lipase 1211.3 H 05/02/16 05/03/16 05/03/16 19:40 01:54 07:42 CK-MB (CK-2) 2.40 1.88 2.79 Troponin I 0.077 0.080 0.082 Impressions: Abdomen/Pelvis CT 05/02/16 00:00 IMPRESSION: Small bilateral pleural effusions. Moderate cardiac enlargement. No acute or suspicious noncontrast CT abnormality of the abdomen -pelvis. Chest X-Ray 05/02/16 11:33 IMPRESSION: CARDIAC ENLARGEMENT. VASCULAR CONGESTION. Abdomen Ultrasound 05/02/16 14:55 IMPRESSION: Echogenic right kidney. No other significant findings. Assessment & Plan - Diagnosis (1) Chronic atrial fibrillation with rapid ventricular response Is this a current diagnosis for this admission?: YesPlan: Maintain on Metoprolol tartrate but decrease dosage to 12.5 mg p.o bid for rapid ventricular response rate control. Maintain on all other current medication management. Continue on Eliquis 2.5 mg p.o bid for anticoagulation therapy. (2) Congestive heart failure Qualifiers: Congestive heart failure type: combined Congestive heart failure chronicity: acute on chronic Qualified Code(s): I50.43 - Acute on chronic combined systolic (congestive) and diastolic (congestive) heart failure Is this a current diagnosis for this admission?: YesPlan: Continue anti failure therapy with ACEI treatment but d/c IV Lasix usage. In view of her worsening renal indices, I miguel angel give IV fluid infusion of normal saline 1 Liter at 50 mL / hour. I will hold diuretic therapy at this time. (3) Pancreatitis Qualifiers: Pancreatitis type: drug induced Acute pancreatitis complication: no infection or necrosis Is this a current diagnosis for this admission?: YesPlan: In view of her worsening serum Lipase level, I will make patient NPO. Follow up on serum Lipase level in view of upward trend today. (4) Chronic kidney disease (CKD) stage G3a/A1, moderately decreased glomerular filtration rate (GFR) between 45-59 mL/min/1.73 square meter and albuminuria creatinine ratio less than 30 mg/g Is this a current diagnosis for this admission?: YesPlan: Worsening renal indices may be consequence of forced diuretic therapy. I will hydrate with normal saline 1Liter total and repeat BMP for further evaluation and adjustment in care I will re-evaluate ULISES-I usage if serum creatinine raise above 2.0. 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 - Diabetes mellitus due to underlying condition with diabetic chronic kidney disease; N18.3 - Chronic kidney disease, stage 3 (moderate) Is this a current diagnosis for this admission?: Yes (6) Hyperlipidemia associated with type 2 diabetes mellitus Is this a current diagnosis for this admission?: Yes (7) Osteoarthritis involving multiple joints on both sides of body Is this a current diagnosis for this admission?: Yes (8) Gouty arthropathy, chronic, 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 Overall prognosis remain guided in view of her worsening renal indices and acute pancreatitis picture.
[2016-05-07] MEDS: APIXABAN 2.5 MG TABLET PO SCH ×2 (06:15→19:12)
[2016-05-07] MEDS: LANSOPRAZOLE 15 MG TAB.RAP.DR PO SCH (06:16)
[2016-05-07 06:38] LABS: ANION GAP 12 (5-19); BLOOD UREA NITROGEN 36 mg/dL (7-20); CARBON DIOXIDE 23 mmol/L (22-30); CHLORIDE 100 mmol/L (98-107); CREATININE RESULT 1.94 mg/dL (0.52-1.25); GLUCOSE 127 mg/dL (75-110); LIPASE 1254.9 U/L (23-300); POTASSIUM 4.1 mmol/L (3.6-5.0); SODIUM 135.3 mmol/L (137-145)
[2016-05-07] MEDS: GLIPIZIDE XL 5 MG TAB.ER.24 PO SCH (08:55)
--- NOTE | 2016-05-07 10:33 | PDOC PROGRESS REPORT ---
Subjective Progress Note for:: 05/07/16 Subjective:: Patient is doing well denied any abdominal pain no nausea no vomiting no chest pain no shortness of the breath. Patient is lipase slightly elevated but clinically patient's looks much better and denied any abdominal pain at this stage patient's kidney function is also improving patient's family on the bedside and the patient's want to eat and will start the patient on clear liquid diet Physical Exam Vital Signs: Temp Pulse Resp BP Pulse Ox 97.5 F 46 L 20 113/69 95 05/07/16 07:47 05/07/16 07:47 05/07/16 07:47 05/07/16 07:47 05/07/16 07:47 Intake & Output 05/06/16 05/07/16 05/08/16 06:59 06:59 06:59 Intake Total 662 1814 Output Total 550 1750 Balance 112 64 Weight 95.9 kg 95.7 kg General appearance: PRESENT: no acute distress Head exam: PRESENT: normocephalic Eye exam: PRESENT: PERRLA Mouth exam: PRESENT: neck supple Respiratory exam: PRESENT: clear to auscultation nurys Cardiovascular exam: PRESENT: +S1, +S2 GI/Abdominal exam: PRESENT: normal bowel sounds, soft. ABSENT: tenderness Extremities exam: ABSENT: pedal edema Neurological exam: PRESENT: alert, awake, oriented to person, oriented to place , oriented to time, oriented to situation Skin exam: PRESENT: normal color Results Laboratory Results: 05/05/16 05:21 05/07/16 04:56 05/07/16 04:56 Sodium 135.3 L Potassium 4.1 Chloride 100 Carbon Dioxide 23 Anion Gap 12 BUN 36 H Creatinine 1.94 H Est GFR ( Amer) 30 L Est GFR (Non-Af Amer) 25 L Glucose 127 H Calcium 9.0 Lipase 1254.9 H 05/02/16 05/03/16 05/03/16 19:40 01:54 07:42 CK-MB (CK-2) 2.40 1.88 2.79 Troponin I 0.077 0.080 0.082 Impressions: Abdomen/Pelvis CT 05/02/16 00:00 IMPRESSION: Small bilateral pleural effusions. Moderate cardiac enlargement. No acute or suspicious noncontrast CT abnormality of the abdomen -pelvis. Chest X-Ray 05/02/16 11:33 IMPRESSION: CARDIAC ENLARGEMENT. VASCULAR CONGESTION. Abdomen Ultrasound 05/02/16 14:55 IMPRESSION: Echogenic right kidney. No other significant findings. 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, without long-term current use of insulin Qualifiers: Chronic kidney disease stage: stage 3 (moderate) Qualified Code(s): E08.22 - Diabetes mellitus due to underlying condition with diabetic chronic kidney disease Is this a current diagnosis for this admission?: YesPlan: Stable continues the current medications and sliding scale (4) Hyperlipidemia associated with type 2 diabetes mellitus Is this a current diagnosis for this admission?: Yes (5) Pancreatitis Qualifiers: Pancreatitis type: drug induced Acute pancreatitis complication: no infection or necrosis Is this a current diagnosis for this admission?: YesPlan: Clinically patient's looks much better with start the clear liquids in the lipase is slightly elevated and repeat the lipase in the morning (6) Chronic kidney disease (CKD) stage G3a/A1, moderately decreased glomerular filtration rate (GFR) between 45-59 mL/min/1.73 square meter and albuminuria creatinine ratio less than 30 mg/g Is this a current diagnosis for this admission?: YesPlan: Improvement the kidney functions - Time Time Spent with patient: 15-24 minutes Medications reviewed and adjusted accordingly: Yes Anticipated discharge: Home - Inpatient Certification Medical Necessity: Need Close Monitoring Due to Risk of Patient Decompensation, Need For IV Fluids - Plan Summary Plan Summary: Discussed with the patient and the family about the patient's condition start the patient on a clear liquid diets
[2016-05-07] MEDS: OMEGA-3 ACID ETHYL ESTERS 1 GM CAPSULE PO SCH (10:59)
[2016-05-07] MEDS: ALLOPURINOL 100 MG TABLET PO SCH (11:00)
[2016-05-07] MEDS: METOPROLOL TARTRATE 25 MG TABLET PO SCH ×2 (11:00→21:04)
[2016-05-07] MEDS: LOSARTAN POTASSIUM 50 MG TABLET PO SCH (11:01)
[2016-05-07] MEDS: INSULIN LISPRO 100 UNIT/ML 3 ML VIAL SUBCUT PRN ×2 (17:16→21:23)
[2016-05-08] MEDS: TRAMADOL HCL 50 MG TABLET PO PRN (03:41)
[2016-05-08] MEDS: LANSOPRAZOLE 15 MG TAB.RAP.DR PO SCH (05:47)
[2016-05-08 05:49] LABS: ABSOLUTE LYMPHOCYTES (AUTO) 1.6 10^3/uL (0.5-4.7); ABSOLUTE MONOCYTES (AUTO) 0.3 10^3/uL (0.1-1.4); BASOPHILS % (AUTO) 1.1 % (0-2); HEMATOCRIT 38.8 % (36.0-47.0); HEMOGLOBIN 12.6 g/dL (12.0-15.5); LYMPHOCYTES % (AUTO) 39.8 % (13-45); MEAN CORPUSCULAR HEMOGLOBIN 26.6 pg (27.0-33.4); MEAN CORPUSCULAR HGB CONC 32.6 g/dL (32.0-36.0); MEAN CORPUSCULAR VOLUME 82 fl (80-97); MONOCYTES % (AUTO) 8.4 % (3-13); RED BLOOD COUNT 4.75 10^6/uL (3.72-5.28); SEGMENTED NEUTROPHILS % (AUTO) 49.7 % (42-78)
[2016-05-08] MEDS: APIXABAN 2.5 MG TABLET PO SCH ×2 (06:05→19:27)
[2016-05-08 06:14] LABS: ANION GAP 11 (5-19); BLOOD UREA NITROGEN 35 mg/dL (7-20); CALCIUM 9.1 mg/dL (8.4-10.2); CARBON DIOXIDE 25 mmol/L (22-30); CHLORIDE 102 mmol/L (98-107); CREATININE RESULT 1.63 mg/dL (0.52-1.25); GLUCOSE 138 mg/dL (75-110); LIPASE 1555.8 U/L (23-300); POTASSIUM 3.9 mmol/L (3.6-5.0); SODIUM 138.3 mmol/L (137-145)
[2016-05-08] MEDS: GLIPIZIDE XL 5 MG TAB.ER.24 PO SCH (08:13)
[2016-05-08] MEDS: LOSARTAN POTASSIUM 50 MG TABLET PO SCH (10:25)
[2016-05-08] MEDS: OMEGA-3 ACID ETHYL ESTERS 1 GM CAPSULE PO SCH (10:25)
[2016-05-08] MEDS: ALLOPURINOL 100 MG TABLET PO SCH (10:26)
[2016-05-08] MEDS: METOPROLOL TARTRATE 25 MG TABLET PO SCH (10:26)
--- NOTE | 2016-05-08 10:28 | PDOC PROGRESS REPORT ---
Subjective Progress Note for:: 05/08/16 Subjective:: Patient is doing well denied any abdominal pain no nausea no vomiting no chest pain no shortness of the breath on patient's heart rate is dropping Dr. the 30 and 40 range overnight she is currently on a beta chente patient's denied any other symptoms no dizziness no headache and is also on Eliquis. Patient's lipase is slightly elevated but patient's denied any other symptoms patient's kidney function is also improving Physical Exam Vital Signs: Temp Pulse Resp BP Pulse Ox 97.4 F 68 19 147/103 H 98 05/08/16 07:38 05/08/16 07:38 05/08/16 07:38 05/08/16 07:38 05/08/16 07:38 Intake & Output 05/07/16 05/08/16 05/09/16 06:59 06:59 06:59 Intake Total 1814 506 Output Total 1750 850 Balance 64 -344 Weight 95.7 kg 95.6 kg General appearance: PRESENT: no acute distress Head exam: PRESENT: normocephalic Eye exam: PRESENT: PERRLA Mouth exam: PRESENT: neck supple Respiratory exam: PRESENT: clear to auscultation nurys. ABSENT: wheezes Cardiovascular exam: PRESENT: +S1, +S2 GI/Abdominal exam: PRESENT: normal bowel sounds, soft. ABSENT: tenderness Extremities exam: ABSENT: pedal edema Psychiatric exam: PRESENT: normal mood Skin exam: PRESENT: normal color Results Laboratory Results: 05/08/16 05:03 05/08/16 05:03 05/08/16 05/08/16 05:03 05:03 WBC 4.0 RBC 4.75 Hgb 12.6 Hct 38.8 MCV 82 MCH 26.6 L MCHC 32.6 RDW 18.0 H Plt Count 166 Seg Neutrophils % 49.7 Lymphocytes % 39.8 Monocytes % 8.4 Eosinophils % 1.0 Basophils % 1.1 Absolute Neutrophils 2.0 Absolute Lymphocytes 1.6 Absolute Monocytes 0.3 Absolute Eosinophils 0.0 Absolute Basophils 0.0 Sodium 138.3 Potassium 3.9 Chloride 102 Carbon Dioxide 25 Anion Gap 11 BUN 35 H Creatinine 1.63 H Est GFR ( Amer) 37 L Est GFR (Non-Af Amer) 30 L Glucose 138 H Calcium 9.1 Lipase 1555.8 H 05/02/16 21:18 Blood Blood Culture - Final NO GROWTH IN 5 DAYS 05/02/16 19:40 Blood Blood Culture - Final NO GROWTH IN 5 DAYS 05/02/16 05/03/16 05/03/16 19:40 01:54 07:42 CK-MB (CK-2) 2.40 1.88 2.79 Troponin I 0.077 0.080 0.082 Impressions: Abdomen/Pelvis CT 05/02/16 00:00 IMPRESSION: Small bilateral pleural effusions. Moderate cardiac enlargement. No acute or suspicious noncontrast CT abnormality of the abdomen -pelvis. Chest X-Ray 05/02/16 11:33 IMPRESSION: CARDIAC ENLARGEMENT. VASCULAR CONGESTION. Abdomen Ultrasound 05/02/16 14:55 IMPRESSION: Echogenic right kidney. No other significant findings. Assessment & Plan - Diagnosis (1) Chronic atrial fibrillation with rapid ventricular response Is this a current diagnosis for this admission?: YesPlan: Due to the low heart rate was stop the beta chente today. 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, without long-term current use of insulin Qualifiers: Chronic kidney disease stage: stage 3 (moderate) Qualified Code(s): E08.22 - Diabetes mellitus due to underlying condition with diabetic chronic kidney disease Is this a current diagnosis for this admission?: YesPlan: Stable continues the current medications and sliding scale (4) Hyperlipidemia associated with type 2 diabetes mellitus Is this a current diagnosis for this admission?: Yes (5) Pancreatitis Qualifiers: Pancreatitis type: drug induced Acute pancreatitis complication: no infection or necrosis Is this a current diagnosis for this admission?: YesPlan: Patient is doing well this still continues a clear liquid diet and if the patient's remained clinically good will increase the for liquid tomorrow (6) Chronic kidney disease (CKD) stage G3a/A1, moderately decreased glomerular filtration rate (GFR) between 45-59 mL/min/1.73 square meter and albuminuria creatinine ratio less than 30 mg/g Is this a current diagnosis for this admission?: YesPlan: Improvement the kidney functions - Time Time Spent with patient: 15-24 minutes Medications reviewed and adjusted accordingly: Yes Anticipated discharge: Home - Inpatient Certification Medical Necessity: Significant Comorbidiites Make Outpatient Treatment Too Risky , Need Close Monitoring Due to Risk of Patient Decompensation - Plan Summary Plan Summary: Discussed with the patient and family member on the room denied the patient's current conditions patient still multiple comorbidity and continues to close monitor the patient
[2016-05-08] MEDS ORDERED: AMLODIPINE BESYLATE 5 MG TABLET PO ONE (15:45)
[2016-05-08] MEDS ORDERED: AMLODIPINE BESYLATE 5 MG TABLET PO SCH (18:00)
[2016-05-08] MEDS: AMLODIPINE BESYLATE 5 MG TABLET PO SCH (21:04)
[2016-05-09] MEDS: TRAMADOL HCL 50 MG TABLET PO PRN (02:49)
[2016-05-09 06:00] LABS: ABSOLUTE BASOPHILS # (AUTO) 0.1 10^3/uL (0.0-0.2); ABSOLUTE EOSINOPHILS # (AUTO) 0.1 10^3/uL (0.0-0.6); ABSOLUTE MONOCYTES (AUTO) 0.4 10^3/uL (0.1-1.4); ABSOLUTE NEUT (AUTO) 2.2 10^3/uL (1.7-8.2); BASOPHILS % (AUTO) 1.7 % (0-2); EOSINOPHILS % (AUTO) 1.6 % (0-6); HEMATOCRIT 39.6 % (36.0-47.0); HEMOGLOBIN 12.7 g/dL (12.0-15.5); HGB HCT DIFFERENCE -1.5; LYMPHOCYTES % (AUTO) 27.7 % (13-45); MEAN CORPUSCULAR HEMOGLOBIN 26.2 pg (27.0-33.4); MEAN CORPUSCULAR HGB CONC 31.9 g/dL (32.0-36.0); MEAN CORPUSCULAR VOLUME 82 fl (80-97); RED BLOOD COUNT 4.82 10^6/uL (3.72-5.28); RED CELL DISTRIBUTION WIDTH 17.9 % (11.5-14.0); WHITE BLOOD COUNT 3.8 10^3/uL (4.0-10.5)
[2016-05-09 06:18] LABS: ANION GAP 13 (5-19); BLOOD UREA NITROGEN 25 mg/dL (7-20); CALCIUM 9.5 mg/dL (8.4-10.2); CARBON DIOXIDE 26 mmol/L (22-30); CHLORIDE 103 mmol/L (98-107); CREATININE RESULT 1.45 mg/dL (0.52-1.25); GLUCOSE 146 mg/dL (75-110); LIPASE 1154.6 U/L (23-300); POTASSIUM 3.9 mmol/L (3.6-5.0); SODIUM 142.2 mmol/L (137-145); TOTAL PROTEIN 6.5 g/dL (6.3-8.2)
[2016-05-09 06:23] LABS: ASPARTATE AMINO TRANSFERASE 44 U/L (14-36)
[2016-05-09 06:24] LABS: ALANINE AMINOTRANSFERASE 54 U/L (9-52); ALKALINE PHOSPHATASE 172 U/L (38-126)
[2016-05-09] MEDS: LANSOPRAZOLE 15 MG TAB.RAP.DR PO SCH (06:48)
[2016-05-09] MEDS: APIXABAN 2.5 MG TABLET PO SCH ×2 (06:48→18:21)
--- NOTE | 2016-05-09 09:29 | PDOC PROGRESS REPORT ---
Subjective Progress Note for:: 05/09/16 Subjective:: Patient is doing very well patient's denied any abdominal pain no nausea no vomiting patient started the clear liquid diet well. Patient's heart is to go down up to 30-40 range some beta chente was stopped since TSH is normal alsos tart norvasc 5 mg for elevated blood pressures Physical Exam Vital Signs: Temp Pulse Resp BP Pulse Ox 97.3 F 40 L 19 155/58 H 92 05/09/16 07:47 05/09/16 07:47 05/09/16 07:47 05/09/16 07:47 05/09/16 07:47 Intake & Output 05/08/16 05/09/16 05/10/16 06:59 06:59 06:59 Intake Total 506 822 Output Total 850 2900 Balance -344 -2071 Weight 95.6 kg 95.6 kg General appearance: PRESENT: no acute distress Head exam: PRESENT: normocephalic Eye exam: PRESENT: PERRLA Mouth exam: PRESENT: neck supple Respiratory exam: PRESENT: clear to auscultation nurys Cardiovascular exam: PRESENT: +S1, +S2 GI/Abdominal exam: PRESENT: normal bowel sounds, soft. ABSENT: tenderness Extremities exam: PRESENT: pedal edema Neurological exam: PRESENT: alert, awake, oriented to person, oriented to place , oriented to time, oriented to situation Psychiatric exam: PRESENT: normal mood Skin exam: PRESENT: normal color Results Laboratory Results: 05/09/16 05:39 05/09/16 05:39 05/08/16 05/09/16 05/09/16 05:03 05:39 05:39 WBC 3.8 L RBC 4.82 Hgb 12.7 Hct 39.6 MCV 82 MCH 26.2 L MCHC 31.9 L RDW 17.9 H Plt Count 177 Seg Neutrophils % 59.0 Lymphocytes % 27.7 Monocytes % 10.0 Eosinophils % 1.6 Basophils % 1.7 Absolute Neutrophils 2.2 Absolute Lymphocytes 1.0 Absolute Monocytes 0.4 Absolute Eosinophils 0.1 Absolute Basophils 0.1 Sodium 142.2 Potassium 3.9 Chloride 103 Carbon Dioxide 26 Anion Gap 13 BUN 25 H Creatinine 1.45 H Est GFR ( Amer) 42 L Est GFR (Non-Af Amer) 35 L Glucose 146 H Calcium 9.5 Total Bilirubin 1.0 AST 44 H ALT 54 H Alkaline Phosphatase 172 H Total Protein 6.5 Albumin 3.0 L Lipase 1154.6 H TSH 1.95 05/02/16 05/03/16 05/03/16 19:40 01:54 07:42 CK-MB (CK-2) 2.40 1.88 2.79 Troponin I 0.077 0.080 0.082 Impressions: Abdomen/Pelvis CT 05/02/16 00:00 IMPRESSION: Small bilateral pleural effusions. Moderate cardiac enlargement. No acute or suspicious noncontrast CT abnormality of the abdomen -pelvis. Chest X-Ray 05/02/16 11:33 IMPRESSION: CARDIAC ENLARGEMENT. VASCULAR CONGESTION. Abdomen Ultrasound 05/02/16 14:55 IMPRESSION: Echogenic right kidney. No other significant findings. Assessment & Plan - Diagnosis (1) Chronic atrial fibrillation with rapid ventricular response Is this a current diagnosis for this admission?: YesPlan: Due to the low heart rate was stop the beta chente today. 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, without long-term current use of insulin Qualifiers: Chronic kidney disease stage: stage 3 (moderate) Qualified Code(s): E08.22 - Diabetes mellitus due to underlying condition with diabetic chronic kidney disease Is this a current diagnosis for this admission?: YesPlan: Stable continues the current medications and sliding scale (4) Hyperlipidemia associated with type 2 diabetes mellitus Is this a current diagnosis for this admission?: Yes (5) Pancreatitis Qualifiers: Pancreatitis type: drug induced Acute pancreatitis complication: no infection or necrosis Is this a current diagnosis for this admission?: YesPlan: All lipases coming down with increased the full liquid diet today (6) Chronic kidney disease (CKD) stage G3a/A1, moderately decreased glomerular filtration rate (GFR) between 45-59 mL/min/1.73 square meter and albuminuria creatinine ratio less than 30 mg/g Is this a current diagnosis for this admission?: YesPlan: Improvement the kidney functions (7) Bradycardia Is this a current diagnosis for this admission?: YesPlan: The beta chente today. We consulted cardiology for further evaluation in the setting of A. fib with the bradycardia - Time Time Spent with patient: 15-24 minutes Medications reviewed and adjusted accordingly: Yes Anticipated discharge: Home - Inpatient Certification Medical Necessity: Significant Comorbidiites Make Outpatient Treatment Too Risky , Need Close Monitoring Due to Risk of Patient Decompensation Post Hospital Care: D/C [employer] Documentation - Plan Summary Plan Summary: Continues the Norvasc and hold the for the beta chente and CONSULT THE CARDIOLOGY AND DISCUSSED WITH THE PATIENT AND THE FAMILY IN THE ROOM AND ALSO INCREASE TO FULL LIQUID DIET AND REPEAT THE LIPASE IN THE MORNING
[2016-05-09] MEDS: GLIPIZIDE XL 5 MG TAB.ER.24 PO SCH (09:52)
[2016-05-09] MEDS: AMLODIPINE BESYLATE 5 MG TABLET PO SCH ×2 (09:52→22:45)
[2016-05-09] MEDS: ALLOPURINOL 100 MG TABLET PO SCH (09:52)
[2016-05-09] MEDS: OMEGA-3 ACID ETHYL ESTERS 1 GM CAPSULE PO SCH (09:52)
[2016-05-09] MEDS: LOSARTAN POTASSIUM 50 MG TABLET PO SCH (09:53)
[2016-05-09] MEDS: INSULIN LISPRO 100 UNIT/ML 3 ML VIAL SUBCUT PRN (12:34)
--- NOTE | 2016-05-09 20:43 | CONSULTATION REPORT E ---
Consultation Report NAME: CAROLINA KAYE : 1935 AGE: 80Y DATE: 05/09/2015 328 A TO: JAIME LUNA M.D. FROM: GABRIELLA SHOOK M.D. Requesting Physician REASON FOR CONSULTATION: Bradycardia in a patient with chronic atrial fibrillation. HISTORY: The patient is an 80-year-old female with a known history of diabetes mellitus type 2 non-insulin dependent, hypertension, chronic kidney disease stage 3, hypertension, hyperlipidemia, and chronic atrial fibrillation who was admitted on 05/02/2016 for symptoms of worsening leg edema, PND, orthopnea, shortness of breath, and wheezing. There is no cough or sputum production. The patient was treated and felt much better. Note that the patient was on metoprolol 25 mg p.o. q. 12 hours and also the patient's Cozaar substituting for the patient's Benicar, which she takes at home. Her LV ejection fraction was reported as severely reduced. This echocardiogram was done on 05/03/2016 and the report states that LV diastolic function could not be assessed due to atrial fibrillation. LV systolic function is less than 25% with severe global hypokinesis. There is mild aortic stenosis, mild aortic regurgitation, peak AV gradient is 16 mmHg, high possibility of low output, low gradient , mild MS with mild MR but severe left atrial enlargement, mild TR with moderate pulmonary hypertension, right ventricular systolic pressure 48 mmHg. Note that LV ejection fraction has changed from her 2014 echo which showed an LV ejection fraction which was normal at 65%. The patient, on beta chente, was noted to have heart rate in the 30s to 40s with a stable blood pressure and without any symptoms and hence, Cardiology consulted. The patient's beta chente has been stopped and at present, the patient's heart rate is in the 70s to the 90s. The patient denies any chest pain or discomfort. Since the treatment, she has no PND or orthopnea. She is able to lie down flat in bed. There is only trace pedal edema bilaterally. There is no chest pain or discomfort. There is no palpitations or syncope. The patient did have a rapid heart rate in the 120-130 atrial fibrillation when she came in but subsequently her heart rate was controlled and when she went to sleep, her heart rate went to 30-40 beats per minute with the patient being asymptomatic. There was no chest pain or discomfort. There were no palpitations. There was no PND or leg edema. There was no dizziness or near syncope. There were no palpitations. There were no recent symptoms of TIA or CVA. PAST MEDICAL HISTORY: Positive for history of chronic atrial fibrillation. The patient, this admission, has been placed on Eliquis 2.5 mg p.o. b.i.d. She also has a history of chronic kidney disease stage 3. She has a history of hypertension, history of diabetes mellitus type 2 non-insulin dependent. She has a history of GERD. She has a history of gouty arthritis and osteoarthritis. There is no history of GI bleed. She also has a history of hyperlipidemia. ALLERGIES: OXYCODONE. SURGICAL HISTORY: Negative. FAMILY HISTORY: Positive for diabetes mellitus and hypertension and negative for congestive heart failure, coronary artery disease or [place]. MEDICATIONS: Her medications include: 1. Allopurinol 200 mg p.o. daily. 2. Amlodipine 5 mg p.o. q. 12 hours. 3. Eliquis 2.5 mg p.o. q. 12 hours. 4. Glucose 40% gel 15 grams or 30 grams p.o. p.r.n. hypoglycemia. 5. Hypoglycemic precautions with Dextrose 50% 12.5 g IV and 25 g IV respectively p.r.n. hypoglycemia. 6. Glipizide 10 mg p.o. a.m. 7. Glucagon 1 mg IM p.r.n. 8. Accuchecks AC TID and HS with sliding scale insulin coverage. 9. Prevacid 15 mg p.o. q. 6:00 a.m. 10. Losartan 100 mg p.o. daily. 11. [place] 3 acid 1 g p.o. daily, that is, fish oil 1 gram p.o. daily. 12. Tramadol 50 mg p.o. q.i.d. p.r.n. REVIEW OF SYSTEMS: CONSTITUTIONAL: Denies any fevers, chills or rigors. Complains of generalized fatigue and weakness. HEAD: Denies headaches or head injury. No history of dizziness. EYES: No history of amblyopia or diplopia. No history of amaurosis fugax. EARS: No history of hearing loss. No history of tinnitus. No history of vertigo. NOSE: No history of nosebleeds. No history of nasal polyps. No history of hay fever. MOUTH: No altered taste sensation. No ulcers in the mouth. No bleeding from the gums. THROAT: No odynophagia or dysphagia. No history of recurrent sore throats. SKIN: There is no pruritus. There is no psoriasis. There is no skin cancer. NECK: No neck pain. No swelling in the neck. No goiter. LUNGS: No history of asthma or COPD. The patient is a nonsmoker. There is no history of sleep apnea. No history of pulmonary embolism. No history of pleuritic chest pain. No history of hemoptysis. The patient did have orthopnea but that may be related to her biventricular failure due to severely reduced LV ejection fraction. CARDIAC: History of hypertension. History of chronic atrial fibrillation. At present, the patient is on anticoagulation. There is no bleeding on this admission on anticoagulation. She her LV ejection fraction since 2013 has gone down very much and is less than 25%. She was admitted with symptoms of biventricular failure with leg edema and then PND and orthopnea also. There was no chest pain or discomfort. No history of [place]. No history of syncope. History of chronic atrial fibrillation present. GASTROINTESTINAL: History of GERD present. No history of fatty food intolerance. No history of abdominal pain. No history of altered bowel movements. Note, when the patient first came in, her CT scan was unremarkable and there was suspicion about pancreatitis. She had an ultrasound done which did not show pancreatitis. The abdominal ultrasound done on 05/02/2016 showed there is a right pleural effusion. No other significant findings. The right kidney measures 10.7 cm in length. Echogenicity is increased. No hydronephrosis. The gallbladder with no stones. Pancreas: The pancreas is largely obscured by *------* bowel gas. There were no masses. Echotexture is normal. Inferior vena cava normal flow. Aorta: No aneurysm. The common bile duct and the intrahepatic ducts are normal in caliber. No altered bowel movements. No history of GI bleed. No abdominal pain. MUSCULOSKELETAL: History of osteoarthritis present and history of gouty arthritis present. METABOLIC: History of hyperlipidemia. History of gout present. RENAL: History of chronic kidney disease stage 3 has remained the same. There are no symptoms of UTI. No hematuria, pyuria or dysuria. CENTRAL NERVOUS SYSTEM: No history of TIA or CVA. No history of seizures, headaches or migraines. No history of gait imbalance. PSYCHIATRIC: No history of anxiety or depression. No history of suicidal ideation. VASCULAR: No history of calf or buttock claudication. No history of DVT. HEMATOLOGICAL: No history of bleeding diathesis. No history of clotting disorders. DISPOSITION: THE PATIENT IS FULL CODE. Her daughter is the surrogate healthcare decision maker. PHYSICAL EXAMINATION: GENERAL: At present, the patient is lying flat in no acute distress. VITAL SIGNS: She is afebrile with a temperature of 97.3 degrees Fahrenheit. She is mildly obese. No acute distress. She is well nourished. Her pulse is 70 beats per minute. Earlier this morning, it was 40 beats per minute with a stable blood pressure, with the patient being asymptomatic. Her blood pressure now is 146/94. Respirations 19 per minute. O2 sats are 99% on room air. HEENT: Head is atraumatic and normocephalic. Eyes: Pupils are equal, round, regular, reactive to light and accommodation. Extraocular movements are normal. There is no conjunctival pallor. There is no scleral icterus. Ears: Tympanic membranes are intact. External auditory canals are clear. Nose: There is no deviated nasal septum. There is no inflammation of the nasal mucous membranes. Mouth: Mucous membranes of the mouth are moist. The tongue is moist. There are no ulcers. There is no bleeding from the gums. Throat: There is no redness of the oropharynx. There are no exudates. SKIN: There are no skin rashes. There is no petechia or ecchymosis. There are no skin lesions. NECK: Supple. There is mild JVD present. Carotids are equal. There is no bruit. There is no goiter. Trachea is central. LUNGS: Show a small area of absent breath sounds in the right base with dullness. The rest of the lungs are clear without any rhonchi, rales or wheezing. There are no rales of CHF. HEART: S1 and S2 is heard. There is variable S1 in intensity. There is no S3 gallop. There is no S4 gallop. There is mild aortic stenosis murmur present. There is a mild mitral regurgitation murmur present. There is no rub. ABDOMEN: Soft and nontender. There is no hepatosplenomegaly. Bowel sounds are well heard. There are no tender areas or masses. EXTREMITIES: Femorals are diminished. There are no femoral bruits. Leg pulses are diminished. There is trace to mild pedal edema bilaterally. There is no calf tenderness. There is no cellulitis There is no cyanosis or clubbing. CENTRAL NERVOUS SYSTEM: The patient is conscious, awake, alert, and oriented x3 with no focal deficits. PSYCHIATRIC: The patient judgment and insight are intact. Her affect is normal. DIAGNOSTICS: The patient's chest x-ray on admission showed cardiac enlargement with vascular congestion. No masses or contour abnormality. Hardware: None in the chest. Lungs with no opacity, masses, or pneumothorax. No pleural effusion. There is cardiac enlargement with vascular congestion. The patient's echocardiogram, as mentioned earlier, showed an LV ejection fraction of less than 25%. There is mild aortic stenosis and mild aortic regurgitation. There is moderate pulmonary hypertension with right ventricular systolic pressure of 48 mmHg. Her initial EKG on admission on 05/02 showed that she had atrial flutter with variable AV block, right bundle branch block pattern, with left fascicular block, LVH with IVCD and secondary repolarization abnormality. Ventricular rate was 106. The patient's EKG done on 05/04 showed a heart rate of 139 beats per minute, which is most likely atrial flutter with right bundle branch block pattern and left anterior fascicular block. LVH with same pattern most likely. 1 PAC. The patient's white count shows 3800; hemoglobin is 12.7; hematocrit is 39.6; and platelet count is 177,000. The patient's sodium is 142.2, potassium 3.9, chloride 103, CO2 is 26, the patient's BUN is 25, creatinine is 1.45, and GFR is at 42 mL which is stage 3 chronic kidney disease; her glucose is 237, her calcium is 9.7. The patient's AST is elevated at 44, ALT is elevated at 54, alk phos is 172. Direct bilirubin is 0. The total bilirubin is 1.0. The patient's lipase is 1154.6 but albumin is 3.0. The total protein is 6.5. Her TSH is 1.95. The patient's lipase is coming down. On the , it was 1558.8. The patient's hemoglobin A1c was 7.9 on the . IMPRESSION: 1. Bradycardia. 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 Note that the patient has aortic stenosis and there could be calcification of the conduction system. 2. Chronic atrial fibrillation. The patient's heart rate was fast on admission. This could have been related to her heart failure. 3. Cardiomyopathy, severely reduced left ventricular ejection fraction. This is new from a normal left ventricular ejection fraction in 2013. 4. Hypertension, well controlled. 5. Diabetes mellitus type 2, non-insulin dependent. 6. Hyperlipidemia. 7. Gastroesophageal reflux disease. 8. Osteoarthritis and gouty arthritis. 9. Abnormal liver function tests secondary to most likely right heart failure along with left heart failure. 10. Biventricular acute on chronic systolic heart failure most likely, which is now compensated. 11. CKD stage 3. RECOMMENDATIONS: I would continue the patient's Cozaar. Continue the Eliquis. We will hold the patient's beta chente for now and see how she does. She may have AV dmitry disease in addition to SA dmitry disease. If the patient does have tachybrady syndrome and this is proven, then the patient may need a biventricular AICD or a single chamber right ventricular AICD. We will hold the beta chente for now and subsequently once the heart rate remains stable, we will start the patient on Coreg at 3.125 mg p.o. b.i.d. and slowly increase it. Also, continue the patient on Cozaar. We will follow with you. TIME SPENT: Of note, 45 minutes was spent on this patient with more than 50% of the time spent on direct patient care and also review of the patient's old records and current records, and discussion's with the patient, and discussions with Dr. Kadi Curtis, the attending covering Dr. Shook, who is the attending physician on record. We will follow with you. DICTATING PHYSICIAN: JAIME LUNA M.D. [id number] PHY#: [id number] ID: [id number] JOB#: [id number] ACCT: [id number] cc:JAIME LUNA M.D. > MTDD
[2016-05-10 06:18] LABS: ANION GAP 10 (5-19); BLOOD UREA NITROGEN 20 mg/dL (7-20); CARBON DIOXIDE 25 mmol/L (22-30); CHLORIDE 104 mmol/L (98-107); CREATININE RESULT 1.24 mg/dL (0.52-1.25); GLUCOSE 170 mg/dL (75-110); POTASSIUM 3.7 mmol/L (3.6-5.0); SODIUM 139.2 mmol/L (137-145)
[2016-05-10] MEDS: APIXABAN 2.5 MG TABLET PO SCH ×2 (06:25→18:32)
[2016-05-10] MEDS: LANSOPRAZOLE 15 MG TAB.RAP.DR PO SCH (06:25)
[2016-05-10] MEDS: INSULIN LISPRO 100 UNIT/ML 3 ML VIAL SUBCUT PRN ×4 (08:42→22:48)
[2016-05-10] MEDS: GLIPIZIDE XL 5 MG TAB.ER.24 PO SCH (08:54)
[2016-05-10] MEDS: OMEGA-3 ACID ETHYL ESTERS 1 GM CAPSULE PO SCH (11:20)
[2016-05-10] MEDS: AMLODIPINE BESYLATE 5 MG TABLET PO SCH ×2 (11:21→22:43)
[2016-05-10] MEDS: ALLOPURINOL 100 MG TABLET PO SCH (11:21)
[2016-05-10] MEDS: LOSARTAN POTASSIUM 50 MG TABLET PO SCH (11:22)
[2016-05-10] MEDS ORDERED: CARVEDILOL 3.125 MG TABLET PO ONE (11:30)
--- NOTE | 2016-05-10 15:33 | PROGRESS NOTE E ---
Progress Note NAME: CAROLINA KAYE : 1935 AGE: 80Y DATE: 05/10/2016 ROOM: 328 SUBJECTIVE: The patient denies any chest pain or discomfort. There is no further bradycardia. Heart rate is in the 80s. She denies any PND or orthopnea. Her leg edema is much improved. She has no chest pain or discomfort. There are no TIA or CVA symptoms. The patient is in chronic atrial fibrillation with a controlled ventricular response. OBJECTIVE: GENERAL: On examination, the patient is mildly obese in no acute distress. She is well groomed. VITAL SIGNS: She is afebrile with a temperature of 97.7 degrees Fahrenheit. Pulse is 75-80 beats per minute, blood pressure is 150/92, respirations are 14 per minute and O2 saturations are 99% on room air. HEENT: Head is atraumatic, normocephalic. Eyes: Pupils are equal, round, regular and reactive to light and accommodation. Extraocular movements are normal. There is no conjunctival pallor. There is no scleral icterus. ENT is negative. NECK: Supple. There is JVD. Carotids are equal. There is no bruit. There is no goiter. Trachea is central. LUNGS: Clear without any rales, rhonchi or wheezing. There are no areas of dullness today. HEART: S1 and S2 are heard. S1 is of variable intensity. There is no S3 gallop. There is no S4 gallop. There is mild aortic stenosis murmur present with preserved A2. There is mild mitral regurgitation murmur present. There is no rub. ABDOMEN: Soft, nontender. There is no hepatosplenomegaly. Bowel sounds are well heard. There are no tender areas or masses. EXTREMITIES: Femorals are diminished. There are no femoral bruits. Leg pulses are diminished. There is trace pedal edema bilaterally. There is no calf tenderness. There is no cellulitis. There is no cyanosis or clubbing. CENTRAL NERVOUS SYSTEM: The patient is conscious, awake, alert and oriented x2 with no focal deficits. PSYCHIATRIC: The patient's judgment and insight are intact. Her affect is normal. DIAGNOSTIC DATA: The patient's 24-hr intake is 1642 mL and output is 2500 mL. The patient's sodium is 139.2, potassium is 3.7, chloride is 104, CO2 is 25, the patient's BUN is 20, creatinine is 1.24, GFR is improved to 50 mL but still stage 3 and glucose is 157, and calcium is 9.0. IMPRESSION: 1. Bradycardia. This has resolved. In view of patient having a higher heart rate with atrial fibrillation when she came in, we will start the patient on Coreg 3.125 mg p.o. b.i.d. and slowly increase as tolerated. The patient will most likely need a 30-day event monitor to assess for sick sinus and AV dmitry disease, in which case the patient may need an AICD placement. 2. Chronic atrial fibrillation. The patient's heart rate at present is in the 70s to 80s. The patient's metoprolol has been stopped. We will start the patient on Coreg 3.125 mg p.o. b.i.d. and increase as tolerated. 3. Cardiomyopathy with severely reduced left ventricular ejection fraction. This is new from a normal left ventricular ejection fraction in 2013. At present, the heart rate seems to be compensated, although on admission she had symptoms of biventricular failure, which is now controlled. 4. Hypertension. Blood pressure is still slightly on the higher side. 5. Diabetes mellitus type 2, non-insulin dependent. 6. Hyperlipidemia. 7. Gastroesophageal reflux disease. 8. Osteoarthritis and gouty arthritis. 9. Abnormal liver function tests secondary to most likely right heart failure along with left heart failure. 10. Biventricular acute on chronic systolic heart failure (right ventricular systolic and left ventricular systolic heart failure), at present compensated. 11. CKD Stage 3. RECOMMENDATIONS: Continue the patient's Cozaar. Continue Eliquis. We will start the patient on Coreg 3.125 mg p.o. b.i.d. and watch the heart rate. The patient will be recommended to have a 30-day event monitor to assess for bradytachy syndrome, in which case the patient may need an AICD/pacemaker. Also would recommend that the patient as an outpatient to have an IV Lexiscan Cardiolite stress test in view of the sudden deterioration of the LV function. Discussed with the patient and the patient's daughter. TIME SPENT: Thirty-five minutes was spent on this patient including review of the patient's medications and starting patient on current new medication which is Coreg, and also discussions with the attending physician, Dr. Roberts, the attending physician on record. Discussed with the patient's physician. We will follow with you. Thanking you. DICTATING PHYSICIAN: JAIME LUNA M.D. [id number] PHY#: [id number] ID: [id number] JOB#: [id number] ACCT: [id number] cc: > MTDD
--- NOTE | 2016-05-10 18:11 | PDOC PROGRESS REPORT ---
Subjective Progress Note for:: 05/10/16 Subjective:: Patient denied any chest pain or difficulty with breathing. No fever or chills since last office visit. Tolerated oral feeding on full liquid diet. No nausea or vomiting. No abdominal pain. No diarrhea. Monitored rhythm mostly sinus with occasional PVCs and episodes of bradycardia. Currently on Carvedalol. Interval input from Drs. Curtis and Va appreciated. Physical Exam Vital Signs: Temp Pulse Resp BP Pulse Ox 98.3 F 56 L 14 155/82 H 98 05/10/16 15:55 05/10/16 15:55 05/10/16 15:55 05/10/16 15:55 05/10/16 15:55 Intake & Output 05/09/16 05/10/16 05/11/16 06:59 06:59 06:59 Intake Total 822 1642 Output Total 2900 2500 Balance -8 -858 Weight 95.6 kg 92.1 kg General appearance: PRESENT: no acute distress, well-developed, well-nourished Head exam: PRESENT: atraumatic, normocephalic Eye exam: PRESENT: conjunctiva pink, EOMI, PERRLA. ABSENT: scleral icterus Ear exam: PRESENT: normal external ear exam Mouth exam: PRESENT: moist, tongue midline Teeth exam: ABSENT: dental caries, dental tenderness, edentulous, poor dentation , other Throat exam: ABSENT: post pharyngeal erythema, tonsillar erythema, tonsillar exudate, tonsillogmegaly, other Neck exam: PRESENT: full ROM. ABSENT: carotid bruit, JVD, lymphadenopathy, thyromegaly Respiratory exam: ABSENT: accessory muscle use, chest wall tenderness, clear to auscultation nurys, crackles, decreased breath sounds, prolonged expiratory phas, rales, retraction, rhonchi, stridor, symmetrical, tachypnea, unlabored, wheezes , other Cardiovascular exam: PRESENT: irregular rhythm, systolic murmur Pulses: PRESENT: normal dorsalis pedis pul, +2 pedal pulses bilateral Vascular exam: PRESENT: normal capillary refill GI/Abdominal exam: PRESENT: normal bowel sounds, soft. ABSENT: distended, guarding, mass, organolmegaly, rebound, tenderness Extremities exam: PRESENT: full ROM Musculoskeletal exam: PRESENT: ambulatory, deformity - due to arthritis, full ROM Neurological exam: PRESENT: alert, awake, oriented to person, oriented to place , oriented to time, oriented to situation, CN II-XII grossly intact. ABSENT: motor sensory deficit Psychiatric exam: PRESENT: appropriate affect, normal mood. ABSENT: homicidal ideation, suicidal ideation Skin exam: PRESENT: dry, intact, warm. ABSENT: cyanosis, rash Results Laboratory Results: 05/09/16 05:39 05/10/16 04:49 05/10/16 04:49 Sodium 139.2 Potassium 3.7 Chloride 104 Carbon Dioxide 25 Anion Gap 10 BUN 20 Creatinine 1.24 Est GFR ( Amer) 50 L Est GFR (Non-Af Amer) 42 L Glucose 170 H Calcium 9.0 05/02/16 05/03/16 05/03/16 19:40 01:54 07:42 CK-MB (CK-2) 2.40 1.88 2.79 Troponin I 0.077 0.080 0.082 Impressions: Abdomen/Pelvis CT 05/02/16 00:00 IMPRESSION: Small bilateral pleural effusions. Moderate cardiac enlargement. No acute or suspicious noncontrast CT abnormality of the abdomen -pelvis. Chest X-Ray 05/02/16 11:33 IMPRESSION: CARDIAC ENLARGEMENT. VASCULAR CONGESTION. Abdomen Ultrasound 05/02/16 14:55 IMPRESSION: Echogenic right kidney. No other significant findings. Assessment & Plan - Diagnosis (1) Chronic atrial fibrillation with rapid ventricular response Is this a current diagnosis for this admission?: YesPlan: Maintain on Carvedalol therapy. Her bradycardia may be due to unvealing of sick sinus syndrome with addition of Norvasc to her Metoprolol therapy. We will continue to monitor her response and blood pressure control on Carvedalol therapy. Maintain on all other current medication management. Continue on Eliquis 2.5 mg p.o bid for anticoagulation therapy. She will need further cardiovascular evaluation including event monitor and possible cardiac catheterization in view of her echocardiogram findings. (2) Congestive heart failure Qualifiers: Congestive heart failure type: combined Congestive heart failure chronicity: acute on chronic Qualified Code(s): I50.43 - Acute on chronic combined systolic (congestive) and diastolic (congestive) heart failure Is this a current diagnosis for this admission?: Yes (3) Pancreatitis Qualifiers: Pancreatitis type: drug induced Acute pancreatitis complication: no infection or necrosis Is this a current diagnosis for this admission?: YesPlan: Patient continue to demonstrate elevated serum Lipase level. She is currently on full liquid diet. Her elevated Lipase may be due to non pancreatitis source, particularly chronic kidney disease in view of her normal abdominal findings. Follow up on serum Lipase and Amylase levels today. If her Amylase level is normal and Lipase show downward trend in view of her improved renal indices, I will advance diet appropriately. (4) Chronic kidney disease (CKD) stage G3a/A1, moderately decreased glomerular filtration rate (GFR) between 45-59 mL/min/1.73 square meter and albuminuria creatinine ratio less than 30 mg/g Is this a current diagnosis for this admission?: YesPlan: Improved renal indices with rehydration efforts. 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 - Diabetes mellitus due to underlying condition with diabetic chronic kidney disease Is this a current diagnosis for this admission?: Yes (6) Hyperlipidemia associated with type 2 diabetes mellitus Is this a current diagnosis for this admission?: Yes (7) Osteoarthritis involving multiple joints on both sides of body Is this a current diagnosis for this admission?: Yes (8) Gouty arthropathy, chronic, 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
[2016-05-10] MEDS ORDERED: TRAMADOL HCL 50 MG TABLET PO PRN (19:07)
[2016-05-10] MEDS: FAMOTIDINE 20 MG TABLET PO SCH (22:43)
[2016-05-10] MEDS: CARVEDILOL 3.125 MG TABLET PO SCH (22:43)
[2016-05-11] MEDS: APIXABAN 2.5 MG TABLET PO SCH ×2 (06:32→18:16)
[2016-05-11 06:52] LABS: AMYLASE 184 U/L (30-110); ANION GAP 8 (5-19); BLOOD UREA NITROGEN 18 mg/dL (7-20); CALCIUM 8.9 mg/dL (8.4-10.2); CARBON DIOXIDE 29 mmol/L (22-30); CHLORIDE 102 mmol/L (98-107); CHOLESTEROL 176.98 mg/dL (0-200); CREATININE RESULT 1.32 mg/dL (0.52-1.25); Direct HDL 49 mg/dL (>40); GLUCOSE 93 mg/dL (75-110); LIPASE 1375.2 U/L (23-300); POTASSIUM 3.7 mmol/L (3.6-5.0); SODIUM 139.1 mmol/L (137-145); TRIGLYCERIDES 90 mg/dL (<150)
[2016-05-11 07:03] LABS: DIRECT LDL 110 mg/dL (<100)
[2016-05-11] MEDS: FAMOTIDINE 20 MG TABLET PO SCH ×2 (09:23→21:23)
[2016-05-11] MEDS: LOSARTAN POTASSIUM 50 MG TABLET PO SCH (09:24)
[2016-05-11] MEDS: OMEGA-3 ACID ETHYL ESTERS 1 GM CAPSULE PO SCH (09:24)
[2016-05-11] MEDS: CARVEDILOL 3.125 MG TABLET PO SCH (09:24)
[2016-05-11] MEDS: AMLODIPINE BESYLATE 5 MG TABLET PO SCH ×2 (09:25→21:23)
[2016-05-11] MEDS: ALLOPURINOL 100 MG TABLET PO SCH (09:25)
[2016-05-11] MEDS: GLIPIZIDE XL 5 MG TAB.ER.24 PO SCH (09:25)
[2016-05-11] MEDS: INSULIN LISPRO 100 UNIT/ML 3 ML VIAL SUBCUT PRN ×2 (11:45→21:52)
--- NOTE | 2016-05-11 15:45 | EKG REPORT ---
SEVERITY:- ABNORMAL ECG - ATRIAL FIBRILLATION VENTRICULAR PREMATURE COMPLEXES RIGHT BUNDLE BRANCH BLOCK LVH WITH IVCD AND SECONDARY REPOL ABNRM : Confirmed by: Vijaya Mayer 11-May-2016 15:44:52
--- NOTE | 2016-05-11 18:12 | PDOC PROGRESS REPORT ---
Subjective Progress Note for:: 05/11/16 Subjective:: Patient denied any chest pain. No difficulty with breathing. No fever or chills since last office visit. Tolerated oral feeding on full liquid diet. No nausea or vomiting. No abdominal pain. No diarrhea. Monitored rhythm mostly sinus with occasional PVCs. I conference with Dr Ling, printing supplies sales representative, on this case with worsening serum lipase and amylase levels in absence of clinical indication for acute pancreatitis for several days. We concluded to approach case as mild disease process and restart on adequate oral feeding. If she develop abdominal symptoms further evaluation with possible endoscopic ultrasound for deeper assessment of the pancreatic tissue may be necessary. Physical Exam Vital Signs: Temp Pulse Resp BP Pulse Ox 97.9 F 53 L 16 132/99 H 100 05/11/16 15:53 05/11/16 15:53 05/11/16 15:53 05/11/16 15:53 05/11/16 15:53 Intake & Output 05/10/16 05/11/16 05/12/16 06:59 06:59 06:59 Intake Total 1642 2028 Output Total 2500 2250 Balance -858 -222 Weight 92.1 kg 92.2 kg General appearance: PRESENT: no acute distress, well-developed, well-nourished Head exam: PRESENT: atraumatic, normocephalic Eye exam: PRESENT: conjunctiva pink, EOMI, PERRLA. ABSENT: scleral icterus Mouth exam: PRESENT: moist, tongue midline Neck exam: PRESENT: full ROM. ABSENT: carotid bruit, JVD, lymphadenopathy, thyromegaly Respiratory exam: ABSENT: accessory muscle use, chest wall tenderness, clear to auscultation nurys, crackles, decreased breath sounds, prolonged expiratory phas, rales, retraction, rhonchi, stridor, symmetrical, tachypnea, unlabored, wheezes , other Cardiovascular exam: PRESENT: RRR. ABSENT: diastolic murmur, rubs, systolic murmur GI/Abdominal exam: PRESENT: normal bowel sounds, soft. ABSENT: distended, guarding, mass, organolmegaly, rebound, tenderness Extremities exam: PRESENT: full ROM Musculoskeletal exam: PRESENT: ambulatory, deformity - with multiple joints features of arthritis, full ROM, normal inspection Psychiatric exam: PRESENT: appropriate affect, normal mood. ABSENT: homicidal ideation, suicidal ideation Skin exam: PRESENT: dry, intact, warm. ABSENT: cyanosis, rash Results Laboratory Results: 05/09/16 05:39 05/11/16 05:41 05/10/16 05/10/16 05/11/16 04:49 04:49 05:41 Sodium 139.1 Potassium 3.7 Chloride 102 Carbon Dioxide 29 Anion Gap 8 BUN 18 Creatinine 1.32 H Est GFR ( Amer) 47 L Est GFR (Non-Af Amer) 39 L Glucose 93 Calcium 8.9 Triglycerides 90 Cholesterol 176.98 LDL Cholesterol Direct 110 H VLDL Cholesterol 18.0 HDL Cholesterol 49 Amylase 178 H 184 H Lipase 1335.1 H 1375.2 H 05/02/16 05/03/16 05/03/16 19:40 01:54 07:42 CK-MB (CK-2) 2.40 1.88 2.79 Troponin I 0.077 0.080 0.082 NT-Pro-B Natriuret Pep 05/11/16 05:41 CK-MB (CK-2) Troponin I NT-Pro-B Natriuret Pep 1930 H Impressions: Abdomen/Pelvis CT 05/02/16 00:00 IMPRESSION: Small bilateral pleural effusions. Moderate cardiac enlargement. No acute or suspicious noncontrast CT abnormality of the abdomen -pelvis. Chest X-Ray 05/02/16 11:33 IMPRESSION: CARDIAC ENLARGEMENT. VASCULAR CONGESTION. Abdomen Ultrasound 05/02/16 14:55 IMPRESSION: Echogenic right kidney. No other significant findings. Assessment & Plan - Diagnosis (1) Chronic atrial fibrillation with rapid ventricular response Is this a current diagnosis for this admission?: Yes (2) Congestive heart failure Qualifiers: Congestive heart failure type: combined Congestive heart failure chronicity: acute on chronic Qualified Code(s): I50.43 - Acute on chronic combined systolic (congestive) and diastolic (congestive) heart failure Is this a current diagnosis for this admission?: Yes (3) Pancreatitis Qualifiers: Pancreatitis type: drug induced Acute pancreatitis complication: no infection or necrosis Is this a current diagnosis for this admission?: YesPlan: Patient continue to demonstrate elevated serum Lipase level. She is currently on full liquid diet. Her elevated Lipase may be due to non pancreatitis source, particularly chronic kidney disease in view of her normal abdominal findings. Follow up on serum Lipase and Amylase levels today. I will advance diet to mechanical soft with cut meat, cardiac and diabetic dietary limitations. 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 - Diabetes mellitus due to underlying condition with diabetic chronic kidney disease Is this a current diagnosis for this admission?: Yes (6) Hyperlipidemia associated with type 2 diabetes mellitus Is this a current diagnosis for this admission?: Yes (7) Osteoarthritis involving multiple joints on both sides of body Is this a current diagnosis for this admission?: Yes (8) Gouty arthropathy, chronic, 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
--- NOTE | 2016-05-11 20:23 | PROGRESS NOTE E ---
Progress Note NAME: CAROLINA KAYE : 1935 AGE: 80Y DATE: 05/11/2016 ROOM: 328 SUBJECTIVE: The patient denies any chest pain or discomfort. The patient continues to be without any leg edema. There is no PND or orthopnea. The patient continues to be in atrial fibrillation at present. Ventricular response is anywhere from 73 to 92. There is no further bradycardia with the patient tolerating Coreg well. There are no TIA or CVA symptoms. There is no bleeding on Eliquis. OBJECTIVE: GENERAL: On examination, the patient is mildly obese in no acute distress. She is well groomed. VITAL SIGNS: She is afebrile with a temperature of 97.5 degrees Fahrenheit. Pulse is 73 beats per minute. Blood pressure 127/96. Respirations are 16 per minute. O2 saturations are 99% on room air. HEENT: Head is atraumatic, normocephalic. Eyes: Pupils are equal, round, regular, reactive to light and accommodation. Extraocular movements normal. There is no conjunctival pallor. There is no scleral icterus. ENT is negative. NECK: Supple. There is no JVD. Carotids are equal; there is no bruit. There is no goiter. Trachea is central. LUNGS: Clear without any rales, rhonchi or wheezing. There are no areas of dullness. CARDIOVASCULAR: S1, S2 are heard. S1 is of variable intensity. There is no S3 gallop. There is no S4 gallop. There is mild aortic stenosis murmur present with preserved A2. There is mild mitral regurgitation murmur present. There is no rub. ABDOMEN: Soft, nontender. There is no hepatosplenomegaly. Bowel sounds are well heard. There are no tender areas or masses. EXTREMITIES: Femorals are diminished. There are no femoral bruits. Leg pulses are diminished. There is no pedal edema. There is no calf tenderness. There is no cyanosis or clubbing. There is no cellulitis. CENTRAL NERVOUS SYSTEM: The patient is conscious, awake, alert, oriented x3 with no focal deficit. PSYCHIATRIC: The patient's judgement and insight are intact. Her affect is normal. DIAGNOSTIC TESTS: The patient's EKG shows atrial fibrillation, ventricular premature complexes, right bundle branch block pattern, LVH with IVCD and secondary repolarization abnormality. The patient's sodium is 139.1, potassium 3.7, chloride 102, CO2 29. The patient's BUN is 18; creatinine is 1.32. GFR is 47 which is chronic kidney disease stage 3. The patient's glucose is 94. The patient's calcium is 8.9. The patient's anti-ProBNP is 1930; earlier it was 2770. ASSESSMENT: 1. BRADYCARDIA. This has resolved. The patient is on Coreg 3.125 mg p.o. b.i.d. We will increase it to 6.25 mg p.o. b.i.d. 2. CHRONIC ATRIAL FIBRILLATION. The patient's heart rate is at present in 70s to 80s. The patient's metoprolol has been stopped. He is on Coreg which will be increased. The patient is also on Eliquis. 3. CARDIOMYOPATHY WITH SEVERELY REDUCED LEFT VENTRICULAR EJECTION FRACTION. This is new from normal left ventricular ejection fraction in 2013. At present, the heart failure seems to be compensated. The patient has no PND or orthopnea or leg edema and no shortness of breath. 4. HYPERTENSION. Diastolic blood pressure is slightly elevated. 5. DIABETES MELLITUS NON-INSULIN DEPENDENT. Blood sugar slightly up. 6. HYPERLIPIDEMIA. 7. GASTROESOPHAGEAL REFLUX DISEASE. 8. OSTEOARTHRITIS AND GOUTY ARTHRITIS. 9. ABNORMAL LIVER FUNCTION TESTS SECONDARY TO MOST LIKELY RIGHT HEART FAILURE AND LEFT VENTRICULAR HEART FAILURE. 10. BIVENTRICULAR ACUTE ON CHRONIC SYSTOLIC HEART FAILURE, RIGHT VENTRICULAR SYSTOLIC AND LEFT VENTRICULAR SYSTOLIC HEART FAILURE, AT PRESENT COMPENSATED. RECOMMENDATIONS: We will increase the patient's Coreg. Continue Eliquis. Continue the patient on Cozaar. We will follow with you. TIME SPENT: Note 35 minutes spent on this patient including review of the patient's medications and adjusting the patient's medications and discussion with the patient and also with the patient's daughter and also with Dr. Roberts, the attending on record. We will follow with you. DICTATING PHYSICIAN: JAIME LUNA M.D. [id number] PHY#: [id number] ID: [id number] JOB#: [id number] ACCT: [id number] cc: >
[2016-05-11] MEDS: CARVEDILOL 6.25 MG TABLET PO SCH (21:52)
[2016-05-11] MEDS ORDERED: CARVEDILOL 3.125 MG TABLET PO SCH (22:00)
[2016-05-12] MEDS: APIXABAN 2.5 MG TABLET PO SCH ×2 (06:42→19:41)
--- NOTE | 2016-05-12 08:16 | PDOC PROGRESS REPORT ---
Subjective Progress Note for:: 05/12/16 Subjective:: Patient denied any chest pain. No difficulty with breathing. No fever or chills since last office visit. Tolerated advanced oral feeding on mechanical soft with cut meat diet. No nausea or vomiting. No abdominal pain. No diarrhea. Monitored rhythm mostly sinus with occasional PVCs and reported episode of significant bradycardia since increase of her Carvedalol to 6.25mg po bid. Physical Exam Vital Signs: Temp Pulse Resp BP Pulse Ox 98.1 F 86 16 147/79 H 100 05/12/16 07:48 05/12/16 08:00 05/12/16 07:48 05/12/16 07:48 05/12/16 07:48 Intake & Output 05/11/16 05/12/16 05/13/16 06:59 06:59 06:59 Intake Total 2027 2211 Output Total 2250 1800 Balance -222 411 Weight 92.2 kg 94.3 kg General appearance: PRESENT: no acute distress, well-developed, well-nourished Head exam: PRESENT: atraumatic, normocephalic Eye exam: PRESENT: conjunctiva pink, EOMI, PERRLA. ABSENT: scleral icterus Respiratory exam: ABSENT: accessory muscle use, chest wall tenderness, clear to auscultation nurys, crackles, decreased breath sounds, prolonged expiratory phas, rales, retraction, rhonchi, stridor, symmetrical, tachypnea, unlabored, wheezes , other Cardiovascular exam: PRESENT: RRR. ABSENT: diastolic murmur, rubs, systolic murmur GI/Abdominal exam: PRESENT: normal bowel sounds, soft. ABSENT: distended, guarding, mass, organolmegaly, rebound, tenderness Extremities exam: PRESENT: full ROM Musculoskeletal exam: PRESENT: ambulatory, deformity - due to multiple joints arthritis, full ROM Neurological exam: PRESENT: alert, awake, oriented to person, oriented to place , oriented to time, oriented to situation, CN II-XII grossly intact. ABSENT: motor sensory deficit Psychiatric exam: PRESENT: appropriate affect, normal mood. ABSENT: homicidal ideation, suicidal ideation Skin exam: PRESENT: dry, intact, warm. ABSENT: cyanosis, rash Results Laboratory Results: 05/09/16 05:39 05/11/16 05:41 05/12/16 06:09 Lipase 1517.8 H 05/02/16 05/03/16 05/03/16 19:40 01:54 07:42 CK-MB (CK-2) 2.40 1.88 2.79 Troponin I 0.077 0.080 0.082 NT-Pro-B Natriuret Pep 05/11/16 05:41 CK-MB (CK-2) Troponin I NT-Pro-B Natriuret Pep 1930 H Impressions: Abdomen/Pelvis CT 05/02/16 00:00 IMPRESSION: Small bilateral pleural effusions. Moderate cardiac enlargement. No acute or suspicious noncontrast CT abnormality of the abdomen -pelvis. Chest X-Ray 05/02/16 11:33 IMPRESSION: CARDIAC ENLARGEMENT. VASCULAR CONGESTION. Abdomen Ultrasound 05/02/16 14:55 IMPRESSION: Echogenic right kidney. No other significant findings. Assessment & Plan - Diagnosis (1) Chronic atrial fibrillation with rapid ventricular response Is this a current diagnosis for this admission?: YesPlan: Maintain on Carvedalol therapy with possible decrease of dosage to 3.125 mg po bid. Maintain on all other current medication management. Continue on Eliquis 2.5 mg p.o bid for anticoagulation therapy. She will need further cardiovascular evaluation including event monitor and possible event monitor and cardiac catheterization upon discharge. (2) Congestive heart failure Qualifiers: Congestive heart failure type: combined Congestive heart failure chronicity: acute on chronic Qualified Code(s): I50.43 - Acute on chronic combined systolic (congestive) and diastolic (congestive) heart failure Is this a current diagnosis for this admission?: Yes (3) Pancreatitis Qualifiers: Pancreatitis type: drug induced Acute pancreatitis complication: no infection or necrosis Is this a current diagnosis for this admission?: YesPlan: Patient continue to demonstrate elevated serum Lipase level. She is currently on mechanical soft with cut meat diet. I will continue to monitor her serum Lipase level and clinical indices for acute pancreatitis. I will advance diet to regular consistence diet with cardiac and diabetic dietary limitations. 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 - Diabetes mellitus due to underlying condition with diabetic chronic kidney disease Is this a current diagnosis for this admission?: Yes (6) Hyperlipidemia associated with type 2 diabetes mellitus Is this a current diagnosis for this admission?: Yes (7) Osteoarthritis involving multiple joints on both sides of body Is this a current diagnosis for this admission?: Yes (8) Gouty arthropathy, chronic, 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
[2016-05-12] MEDS: GLIPIZIDE XL 5 MG TAB.ER.24 PO SCH (08:31)
[2016-05-12] MEDS: FAMOTIDINE 20 MG TABLET PO SCH ×2 (09:32→22:17)
[2016-05-12] MEDS: LOSARTAN POTASSIUM 50 MG TABLET PO SCH (09:32)
[2016-05-12] MEDS: ALLOPURINOL 100 MG TABLET PO SCH (09:32)
[2016-05-12] MEDS: OMEGA-3 ACID ETHYL ESTERS 1 GM CAPSULE PO SCH (09:32)
[2016-05-12] MEDS: CARVEDILOL 6.25 MG TABLET PO SCH ×2 (09:32→22:17)
[2016-05-12] MEDS: AMLODIPINE BESYLATE 5 MG TABLET PO SCH ×2 (09:32→22:17)
[2016-05-12] MEDS: INSULIN LISPRO 100 UNIT/ML 3 ML VIAL SUBCUT PRN (22:17)
--- NOTE | 2016-05-12 22:18 | PROGRESS NOTE E ---
Progress Note NAME: CAROLINA KAYE : 1935 AGE: 80Y DATE: 05/12/2016 ROOM: 328 SUBJECTIVE: Note that the patient denies any chest pain or discomfort. The patient continues to be without any leg edema. There is no PND or orthopnea. The patient continues to be in atrial fibrillation. At present the heart rate is controlled but the nurse reported that there was a transient drop of the heart rate to the 20's with the patient being asymptomatic and lasting only a few seconds. She states that she was eating something? Patient coughed. But there are no bradycardia episodes. The least amount of Coreg dose to be effective in cardiomyopathy must be at least 6.25 mg p.o. b.i.d. Hence, we will continue this and monitor the patient for any untoward bradycardia. She denied any chest pain or discomfort. There is no leg edema. There is no PND or orthopnea. There are no TIA or CVA symptoms. There is no bleeding on Eliquis. OBJECTIVE: GENERAL: On examination, the patient is mildly obese in no acute distress. She is well groomed. VITAL SIGNS: The patient is afebrile with a temperature of 97.5 degrees Fahrenheit. Pulse is 72 beats per minute. Blood pressure 131/84. Respirations are 18 per minute. O2 saturations are 98% on room air. There are occasional PVC's seen on the monitor but no sustained or nonsustained ventricular tachycardia. HEENT: Head is atraumatic, normocephalic. Eyes: Pupils are equal, round, regular, reactive to light and accommodation. Extraocular movements normal. There is no conjunctival pallor. There is no scleral icterus. ENT is negative. NECK: Supple. There is no JVD. Carotids are equal; there is no bruit. There is no goiter. Trachea is central. LUNGS: Clear without any rales, rhonchi or wheezing. There are no areas of dullness. CARDIOVASCULAR: S1, S2 are heard. S1 is of variable intensity. There is no S3 gallop. There is no S4 gallop. There is mild aortic stenosis murmur present with preserved A2. There is mild mitral regurgitation murmur present. There is no rub. ABDOMEN: Soft. There is no hepatosplenomegaly. Bowel sounds are well heard. There are no tender areas or masses. EXTREMITIES: Femorals are diminished. There are no femoral bruits. Leg pulses are diminished. There is no pedal edema. There is no calf tenderness. There is no cyanosis or clubbing. There is no cellulitis. CENTRAL NERVOUS SYSTEM: The patient is conscious, awake, alert, oriented x3 with no focal deficits. PSYCHIATRIC: The patient's judgement and insight are intact. Her affect is normal. LABORATORY DATA: The patient's blood sugar is 233. ASSESSMENT: 1. BRADYCARDIA. One episode but the patient has remained relatively with a stable heart rate. 2. CHRONIC ATRIAL FIBRILLATION. The patient's heart rate is in 70s to 80s. She is on Coreg 6.25 mg p.o. b.i.d. Will watch for any significant bradycardic episodes. Note that the patient is also on Eliquis for stroke prophylaxis. 3. CARDIOMYOPATHY WITH SEVERELY REDUCED LEFT VENTRICULAR EJECTION FRACTION. At present stable. No evidence of congestive heart failure clinically or symptomatically. 4. HYPERTENSION. The blood pressure systolic and diastolic are well controlled. 5. HYPERLIPIDEMIA. 6. DIABETES MELLITUS NON-INSULIN DEPENDENT. Blood sugar still slightly up. 7. GASTROESOPHAGEAL REFLUX DISEASE. 8. OSTEOARTHRITIS AND GOUTY ARTHRITIS. 9. ABNORMAL LIVER FUNCTION TESTS SECONDARY TO MOST LIKELY RIGHT HEART FAILURE AND LEFT VENTRICULAR HEART FAILURE. Will recheck the patient's liver function tests tomorrow. 10. BIVENTRICULAR ACUTE ON CHRONIC SYSTOLIC HEART FAILURE (RIGHT VENTRICULAR SYSTOLIC AND LEFT VENTRICULAR SYSTOLIC HEART FAILURE), AT PRESENT COMPENSATED. RECOMMENDATIONS: Continue Coreg. Continue Eliquis. Continue the patient on Cozaar. Will check a chest x-ray in the morning and also check liver function tests. TIME SPENT: Note 35 minutes spent on the patient including review of the patient's medications and discussion with the patient and with Dr. Roberts, the attending on record. Note more than 50% of the time spent on direct patient care. Tests ordered. Will follow with you. Will recommend that the patient as an outpatient have a 30-day event monitor to assess tachy/angelo control and also an IV Lexiscan Cardiolite stress test to make sure that coronary artery disease is not contributing to the patient's cardiomyopathy. DICTATING PHYSICIAN: JAIME LUNA M.D. [id number] Y#: [id number] ID: [id number] JOB#: [id number] ACCT: [id number] cc: >
[2016-05-13 05:58] LABS: ALANINE AMINOTRANSFERASE 48 U/L (9-52); ALBUMIN 2.4 g/dL (3.5-5.0); ALKALINE PHOSPHATASE 142 U/L (38-126); ANION GAP 8 (5-19); ASPARTATE AMINO TRANSFERASE 34 U/L (14-36); BILIRUBIN,TOTAL 0.3 mg/dL (0.2-1.3); BLOOD UREA NITROGEN 31 mg/dL (7-20); CALCIUM 8.5 mg/dL (8.4-10.2); CARBON DIOXIDE 28 mmol/L (22-30); CHLORIDE 101 mmol/L (98-107); CREATININE RESULT 1.85 mg/dL (0.52-1.25); GLUCOSE 187 mg/dL (75-110); LIPASE 1848.7 U/L (23-300); MAGNESIUM 1.3 mg/dL (1.6-2.3); POTASSIUM 3.9 mmol/L (3.6-5.0); TOTAL PROTEIN 5.4 g/dL (6.3-8.2)
[2016-05-13] MEDS: APIXABAN 2.5 MG TABLET PO SCH (06:57)
[2016-05-13] MEDS: CARVEDILOL 6.25 MG TABLET PO SCH (09:09)
[2016-05-13] MEDS: FAMOTIDINE 20 MG TABLET PO SCH (09:15)
[2016-05-13] MEDS: AMLODIPINE BESYLATE 5 MG TABLET PO SCH (09:15)
[2016-05-13] MEDS: LOSARTAN POTASSIUM 50 MG TABLET PO SCH (09:15)
[2016-05-13] MEDS: OMEGA-3 ACID ETHYL ESTERS 1 GM CAPSULE PO SCH (09:15)
[2016-05-13] MEDS: GLIPIZIDE XL 5 MG TAB.ER.24 PO SCH (09:15)
[2016-05-13] MEDS: ALLOPURINOL 100 MG TABLET PO SCH (09:15)
[2016-05-13] MEDS: MAGNESIUM SULFATE/D5W 1 GM/100 ML RTUPB IV SCH ×2 (11:08→14:03)
[2016-05-13 16:06] VITALS: BP 111/71
[2016-05-13] MEDS: INSULIN LISPRO 100 UNIT/ML 3 ML VIAL SUBCUT PRN (16:54)
--- NOTE | 2016-05-13 17:02 | PDOC DISCHARGE SUMMARY ---
General - Admit/Disc Date/PCP Admission Date/Primary Care Provider: 05/02/16 19:24 Discharge Date: 05/13/16 - Discharge Diagnosis (1) Chronic atrial fibrillation with rapid ventricular response Is this a current diagnosis for this admission?: Yes (2) Congestive heart failure Is this a current diagnosis for this admission?: Yes (3) Pancreatitis Is this a current diagnosis for this admission?: Yes 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, without long-term current use of insulin Is this a current diagnosis for this admission?: Yes (6) Hyperlipidemia associated with type 2 diabetes mellitus Is this a current diagnosis for this admission?: Yes (7) Osteoarthritis involving multiple joints on both sides of body Is this a current diagnosis for this admission?: Yes (8) Gouty arthropathy, chronic, 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 Is this a current diagnosis for this admission?: Yes - Additional Information Discharge Diet: Cardiac, Diabetic Discharge Activity: Activity As Tolerated, Balance Activity w/Rest, Weigh Daily Home Medications: Allopurinol [Zyloprim 100 mg Tablet] 200 mg PO DAILY 05/02/16 Aspirin [Adult Low Dose Aspirin EC] 81 mg PO DAILY 05/02/16 Dexlansoprazole [Dexilant 30 mg Capsule] 30 mg PO DAILY 05/02/16 Glipizide [Glipizide Xl] 10 mg PO DAILY 05/02/16 Multivitamin [Daily Multiple Vitamin] 1 each PO DAILY 05/02/16 Olmesartan Medoxomil [Benicar] 40 mg PO DAILY 05/02/16 [place]-3 Fatty Acids/Fish Oil [Fish Oil 1,[address]] 1 each PO DAILY Tramadol HCl 50 mg PO QIDP PRN 05/02/16 Amlodipine Besylate [Norvasc 5 mg Tablet] 5 mg PO Q12 #60 tablet 05/13/16 Apixaban [Eliquis 2.5 mg Tablet] 2.5 mg PO Q12@0700,1900 #60 tablet 05/13/16 Carvedilol [Coreg 6.25 mg Tablet] 6.25 mg PO Q12 #60 tablet 05/13/16 History of Present Illness Patient complains of: worsening leg swelling History of Present Illness: CAROLINA KAYE is a 80 year old female admitted on 05/02/2016 for worsening leg swelling. Patient reported onset of symptoms about 3 days prior to presentation with associated worsening SOB, wheezing 2 pillow orthopnea and PND. Her initial NT-pro BNP was over 2000. Her serum Lipase was elevated at 853 with concern for possible acute pancreatitis. She has history of Diabetes Mellitus type 2 and prior to admission was started on Tradjenta therapy. She has history of chronic atrial fibrillation and hypertension. She denied any other significant associated symptoms. Please see her dictated H&P for further details. Hospital Course Hospital Course: Patient did respond to IV Lasix therapy. There was concern for over diuresis with worsening renal indices necessitating IV fluid normal saline 1 liter administration. Her renal indices did improved subsequently. In view of her presentation she had echocardiogram that revealed significant LVEF reduction at less than 25 %. There were episodes of tachybradycardic rhythm suggestive of sick sinus syndrome. She was sen in consultation by Dr. De Dios, financial analysis advisor. She was managed with Metoprolol which was eventually changed to Carvedilol. She remain on ARB therapy. In view of her elevated blood pressure Norvasc was added to her regimen with fairly satisfactory response. It is recommended for cardiac follow up for further outpatient evaluation with eventual need for AICD implant. Patient and family did [facility] in view of her last cardiac event admission and stress test findings. Of concern during this hospitalization was her elevated Lipase level. There was no significant clinical examination findings supportive of acute pancreatitis. I discussed case with Dr. Ling, sr. manager marketing, with recommendation for conservative management. Due to absence of any significant CT scan abdomen and pelvic radiographic findings, an MRI abdomen without contrast was completed today that did not reveal any significant pancreatic pathology. Her renal function indices limit contrast usage. In view of her persistently elevated serum Lipase, patient will follow up wit Dr Ling on outpatient basis for further evaluation and management. Patient did insist upon discharge home today despite persistence of elevated Lipase level. She denied any nausea, vomiting or abdominal pain an tolerating regular consistency diet. Physical Exam Vital Signs: Temp Pulse Resp BP Pulse Ox 97.3 F 84 16 111/71 98 05/13/16 15:59 05/13/16 15:59 05/13/16 15:59 05/13/16 15:59 05/13/16 15:59 Intake & Output 05/12/16 05/13/16 05/14/16 06:59 06:59 06:59 Intake Total 2211 1350 Output Total 1800 1300 Balance 411 50 Weight 94.3 kg 96.6 kg General appearance: PRESENT: no acute distress, well-developed, well-nourished Head exam: PRESENT: atraumatic, normocephalic Eye exam: PRESENT: conjunctiva pink, EOMI, PERRLA. ABSENT: scleral icterus Ear exam: PRESENT: normal external ear exam Mouth exam: PRESENT: moist, tongue midline Teeth exam: ABSENT: dental caries, dental tenderness, edentulous, poor dentation , other Throat exam: ABSENT: post pharyngeal erythema, tonsillar erythema, tonsillar exudate, tonsillogmegaly, other Neck exam: PRESENT: full ROM. ABSENT: carotid bruit, JVD, lymphadenopathy, thyromegaly Respiratory exam: ABSENT: accessory muscle use, chest wall tenderness, clear to auscultation nurys, crackles, decreased breath sounds, prolonged expiratory phas, rales, retraction, rhonchi, stridor, symmetrical, tachypnea, unlabored, wheezes , other Cardiovascular exam: PRESENT: bradycardia, irregular rhythm. ABSENT: clicks, diastolic murmur, gallop, RRR, rubs, +S1, +S2, systolic murmur, tachycardia, other Pulses: PRESENT: normal dorsalis pedis pul, +2 pedal pulses bilateral Vascular exam: PRESENT: normal capillary refill GI/Abdominal exam: PRESENT: normal bowel sounds, soft. ABSENT: distended, guarding, mass, organolmegaly, rebound, tenderness Extremities exam: PRESENT: full ROM, pedal edema - minimal to legs Musculoskeletal exam: PRESENT: ambulatory, deformity - arthritic deformities multiple joints, full ROM Neurological exam: PRESENT: alert, awake, oriented to person, oriented to place , oriented to time, oriented to situation, CN II-XII grossly intact. ABSENT: motor sensory deficit Psychiatric exam: PRESENT: appropriate affect, normal mood. ABSENT: homicidal ideation, suicidal ideation Skin exam: PRESENT: dry, intact, warm. ABSENT: cyanosis, rash Results Laboratory Results: 05/09/16 05:39 05/13/16 04:40 05/13/16 04:40 Sodium 137.0 Potassium 3.9 Chloride 101 Carbon Dioxide 28 Anion Gap 8 BUN 31 H Creatinine 1.85 H Est GFR ( Amer) 32 L Est GFR (Non-Af Amer) 26 L Glucose 187 H Calcium 8.5 Magnesium 1.3 L Total Bilirubin 0.3 AST 34 ALT 48 Alkaline Phosphatase 142 H Total Protein 5.4 L Albumin 2.4 L Lipase 1848.7 H 05/02/16 05/03/16 05/03/16 19:40 01:54 07:42 CK-MB (CK-2) 2.40 1.88 2.79 Troponin I 0.077 0.080 0.082 NT-Pro-B Natriuret Pep 05/11/16 05:41 CK-MB (CK-2) Troponin I NT-Pro-B Natriuret Pep 1930 H Impressions: Abdomen/Pelvis CT 05/02/16 00:00 IMPRESSION: Small bilateral pleural effusions. Moderate cardiac enlargement. No acute or suspicious noncontrast CT abnormality of the abdomen -pelvis. Abdomen Ultrasound 05/02/16 14:55 IMPRESSION: Echogenic right kidney. No other significant findings. Chest X-Ray 05/13/16 06:00 IMPRESSION: No significant interval change. Cardiomegaly with mild pulmonary vascular congestion. No acute consolidations are identified. Abdomen MRI 05/13/16 08:45 IMPRESSION: NORMAL HEPATOBILIARY SYSTEM. NO STONES OR COMMON DUCT ABNORMALITIES. NO PANCREATIC DUCTAL DILATATION. NO PERIPANCREATIC INFLAMMATION OR FLUID COLLECTIONS. NO RETROPERITONEAL INFLAMMATION. Qualifiers PATEINT BEING DISCHARGED WITH ANY OF THE FOLLOWING DIAGNOSIS?: Heart Failure - systolic type with LVEF < 25 % HF Pt being discharged on ACEI for LVEF less than 40%?: No Reason(s) for not prescribing ACEI:: Medical Contraindication HF Pt being discharged on ARBS for LVEF less than 40%?: Yes HF Pt with Afib discharged with Warfarin?: Yes HF Pt discharged on evidence-based Beta Poppy?: Yes Plan Discharge Plan: Patient was discharged home on Eliquis 2.5 mg po bid not warfarin for anticoagulation therapy in management of her chronic atrial fibrillation. She will remain on all other medications as noted above. Time Spent: Greater than 30 Minutes
--- NOTE | 2016-05-13 20:53 | PROGRESS NOTE E ---
Progress Note NAME: CAROLINA KAYE : 1935 AGE: 80Y DATE: 05/13/2016 ROOM: 328 SUBJECTIVE: The patient denies any atrial fibrillation. There are transient episodes where her heart rate goes down to 39 but lasts only a few seconds and the patient is asymptomatic. The patient denies any PND, orthopnea or leg edema. There are no palpitations or syncope or near syncope. There are no TIA or CVA symptoms. There is no bleeding on Eliquis. The patient has no chest pain. OBJECTIVE: GENERAL: On examination, the patient is moderately obese in no acute distress. VITAL SIGNS: She is afebrile with a temperature of 97.6 degrees Fahrenheit. Pulse is 70 beats per minute. Blood pressure is 111/71. Respirations are 16 per minute. Oxygen saturations are 98% on room air. HEENT: Head is atraumatic, normocephalic. Eyes: Pupils are equal, round, regular, reactive to light and accommodation. Extraocular movements normal. There is no conjunctival pallor. There is no scleral icterus. ENT is negative. NECK: Supple. There is no JVD. Carotids are equal; there is no bruit. There is no goiter. Trachea is central. LUNGS: Clear without any rales, rhonchi or wheezing. There are no areas of dullness. CARDIOVASCULAR: S1, S2 are heard. S1 is of variable intensity. There is no S3 gallop. There is no S4 gallop. There is mild aortic stenosis murmur present with preserved A2. There is mild mitral regurgitation murmur present. There is no rub. ABDOMEN: Soft. There is no hepatosplenomegaly. Bowel sounds are well heard. There are no tender areas or masses. EXTREMITIES: Femorals are diminished. There are no femoral bruits. Leg pulses are diminished. There is no DVT or cellulitis. There is no cyanosis or clubbing. There is calf tenderness. There is no pedal edema. CENTRAL NERVOUS SYSTEM: The patient is conscious, awake, alert, oriented x3 with no focal deficits. PSYCHIATRIC: The patient's judgement and insight are intact. Her affect is normal. LABORATORY DATA: The patient had an MRI of the abdomen due to the patient's lipase being high, and this did not show any evidence of pancreatitis or any acute abdominal findings. The patient's sodium was 137, potassium 3.9, chloride 101, CO2 28, the patient's BUN is 31, creatinine 1.85, GFR is reduced to 37 which is chronic kidney disease kenia 3B. The patient's glucose is 183. The patient's gabe is 8.5. The patient's magnesium is low at 1.3. Liver functions are normal with increased alkaline phosphatase of 142. The patient's albumin is 2.4, total protein is 5.4. The patient's 24-hr intake is 1350 mL, output is 1300 mL. ASSESSMENT: 1. BRADYCARDIA. Very rare episodes. 2. CHRONIC ATRIAL FIBRILLATION WITH EPISODES OF TACHYCARDIA ON ADMISSION. Currently the patient is on Coreg 6.25 mg p.o. b.i.d. and will need a 30-day event monitor as an outpatient. 3. CARDIOMYOPATHY WITH SEVERELY REDUCED LEFT VENTRICULAR EJECTION FRACTION. Stable at present. No evidence of congestive heart failure clinically or symptomatically. 4. HYPOMAGNESEMIA Magnesium to be replaced. 5. HYPERTENSION. The blood pressure is well controlled. 5. HYPERLIPIDEMIA. 6. DIABETES MELLITUS NON-INSULIN DEPENDENT WITH CHRONIC KIDNEY DISEASE. Continue her anti-diabetic medication. 7. GASTROESOPHAGEAL REFLUX DISEASE. 8. OSTEOARTHRITIS AND GOUTY ARTHRITIS. 9. ABNORMAL LIVER FUNCTION TESTS SECONDARY TO MOST LIKELY RIGHT HEART FAILURE AND LEFT VENTRICULAR FAILURE. The patient's liver function tests are normal except for a slightly elevated alkaline phosphatase of 142. The rest of the liver function is normal. 10. BIVENTRICULAR ACUTE ON CHRONIC SYSTOLIC HEART FAILURE (RIGHT VENTRICULAR SYSTOLIC AND LEFT VENTRICULAR SYSTOLIC HEART FAILURE), AT PRESENT COMPENSATED. RECOMMENDATIONS: The patient wants to go home. She will be discharged home today since the MRI of the abdomen did not show any major problems and most likely it is elevation secondary to [id number] renal insufficiency. Continue Coreg. Continue Eliquis. Continue the patient ULISES inhibitor. The patient is desirous of following up with me in the outpatient. We will get a 30-day event monitor. Also the patient needs a repeat echo in 3 months to see if the LV ejection fraction is 35% or below in which case she would need to be referred to EP cardiology for possible AICD placement. Note, as per Dr. Roberts, the patient in the recent past has had a Lexiscan Cardiolite stress test in [facility] which was reported as being negative for ischemia or LA. Will try to get the report. Will sign off the case and follow the patient in the office. Note that the patient is given my cell number to call me if there are any problems. TIME SPENT: Note 30 minutes spent on the patient with more than 50% of the time spent on direct patient care and also discussions with the patient of future recommended tests. Also discussed with Dr. Roberts. Will follow with you. Thanking you. DICTATING PHYSICIAN: JAIME LUNA M.D. [id number] PHY#: [id number] ID: [id number] JOB#: [id number] ACCT: [id number] cc: >
== END 2016-05-13 17:15 | disposition home or self-care (01) | DRG 291 ==
LOC: ER 10:50 → UNDOADMIN 18:48 → EH 18:48 → 3S 05-03 01:02
PROVIDERS: ADMIT Internal Medicine Geriatric Medicine; ATTEND Internal Medicine Geriatric Medicine
DX: I13.0 Hypertensive heart and chronic kidney disease with heart failure and stage 1 through stage 4 chronic kidney disease, or unspecified chronic kidney disease (principal); K85.30 Drug induced acute pancreatitis without necrosis or infection; I50.43 Acute on chronic combined systolic (congestive) and diastolic (congestive) heart failure; I45.2 Bifascicular block; I48.2 Chronic atrial fibrillation; I42.9 Cardiomyopathy, unspecified; E11.22 Type 2 diabetes mellitus with diabetic chronic kidney disease; I27.2 Other secondary pulmonary hypertension; I08.3 Combined rheumatic disorders of mitral, aortic and tricuspid valves; K21.9 Gastro-esophageal reflux disease without esophagitis; E78.4 Other hyperlipidemia; M15.9 Polyosteoarthritis, unspecified; M1A.9XX0 Chronic gout, unspecified, without tophus (tophi); E66.9 Obesity, unspecified; N18.3 Chronic kidney disease, stage 3 (moderate); Z79.82 Long term (current) use of aspirin; Z68.34 Body mass index [BMI] 34.0-34.9, adult; Z79.84 Long term (current) use of oral hypoglycemic drugs; Z83.3 Family history of diabetes mellitus; Z82.49 Family history of ischemic heart disease and other diseases of the circulatory system; T38.3X5A Adverse effect of insulin and oral hypoglycemic [antidiabetic] drugs, initial encounter; Y92.018 Other place in single-family (private) house as the place of occurrence of the external cause
CPT/HCPCS: 36415; 71010; 71020; 74176; 74181; 76705; 80048; 80053; 80061; 80076; 81001; 82140; 82150; 82550; 82553; 82962; 83036; 83690; 83735; 83880; 84100; 84439; 84443; 84484; 85025; 85730; 87040; 87070; 87086; 87205; 93005; 93010; 93306; 96374; 99285; J1644; J1815; J1940; J3475

== ENCOUNTER → 2016-05-19 | Outpatient (CLI) | payer MEDICARE, MEDICAID ==
[2016-05-19 10:27] LABS: LIPASE 820.4 U/L (23-300)
== END ==
LOC: OD 08:50
PROVIDERS: ATTEND Internal Medicine Geriatric Medicine
DX: K85.30 Drug induced acute pancreatitis without necrosis or infection (principal)
CPT/HCPCS: 36415; 82150; 83690

== ENCOUNTER → 2016-05-30 | Outpatient (CLI) | payer MEDICARE, MEDICAID ==
[2016-05-30 13:22] LABS: HEMATOCRIT 37.5 % (36.0-47.0); HEMOGLOBIN 11.7 g/dL (12.0-15.5); HGB HCT DIFFERENCE -2.4; MEAN CORPUSCULAR HGB CONC 31.1 g/dL (32.0-36.0); MEAN CORPUSCULAR VOLUME 80 fl (80-97); RED BLOOD COUNT 4.66 10^6/uL (3.72-5.28); RED CELL DISTRIBUTION WIDTH 17.5 % (11.5-14.0); WHITE BLOOD COUNT 4.4 10^3/uL (4.0-10.5)
[2016-05-30 13:33] LABS: PROTHROMBIN TIME 15.6 SEC (11.4-15.4)
[2016-05-30 13:55] LABS: ALANINE AMINOTRANSFERASE 40 U/L (9-52); ALBUMIN 3.7 g/dL (3.5-5.0); ALKALINE PHOSPHATASE 243 U/L (38-126); ANION GAP 15 (5-19); ASPARTATE AMINO TRANSFERASE 32 U/L (14-36); BILIRUBIN,TOTAL 0.6 mg/dL (0.2-1.3); BLOOD UREA NITROGEN 45 mg/dL (7-20); CALCIUM 9.8 mg/dL (8.4-10.2); CARBON DIOXIDE 28 mmol/L (22-30); CHLORIDE 99 mmol/L (98-107); CHOLESTEROL 187.41 mg/dL (0-200); Direct HDL 64 mg/dL (>40); GLUCOSE 253 mg/dL (75-110); POTASSIUM 3.7 mmol/L (3.6-5.0); SODIUM 142.4 mmol/L (137-145); TOTAL PROTEIN 7.1 g/dL (6.3-8.2); TRIGLYCERIDES 108 mg/dL (<150)
[2016-05-30 14:06] LABS: DIRECT LDL 92 mg/dL (<100)
[2016-05-30 14:49] LABS: THYROID STIMULATING HORMONE 1.64 uIU/mL (0.47-4.68)
== END ==
LOC: OD 12:15
PROVIDERS: ATTEND Internal Medicine Cardiovascular Disease
DX: I48.2 Chronic atrial fibrillation (principal); I50.22 Chronic systolic (congestive) heart failure; I42.9 Cardiomyopathy, unspecified; I10 Essential (primary) hypertension; E78.2 Mixed hyperlipidemia; R06.09 Other forms of dyspnea; Z79.01 Long term (current) use of anticoagulants
CPT/HCPCS: 36415; 80053; 80061; 83880; 84439; 84443; 85027; 85610

== ENCOUNTER 2016-06-28 14:15 | Day surgery (SDC) | payer MEDICARE, MEDICAID ==
[2016-06-28] MEDS ORDERED: MIDAZOLAM 2 MG/2 ML INJ ONE (15:33)
[2016-06-28] MEDS ORDERED: NALOXONE HCL INJ/PF 0.4 MG/1 ML SDV ONE ×2 (15:33→15:35)
[2016-06-28] MEDS ORDERED: PROMETHAZINE HCL INJ 25 MG/1 ML VIAL ONE (15:33)
[2016-06-28] MEDS ORDERED: GLUCAGON,HUMAN RECOMB 1 MG INJ ONE (15:34)
[2016-06-28] MEDS ORDERED: EPINEPHRINE INJ 1 MG/10 ML DISP.SYRIN ONE ×2 (15:34→17:43)
[2016-06-28] MEDS ORDERED: FLUMAZENIL INJ 0.5 MG/5 ML VIAL IV ONE (15:34)
[2016-06-28] MEDS ORDERED: ONDANSETRON HCL INJ/PF 4 MG/2 ML SDV ONE (15:35)
[2016-06-28] MEDS: FENTANYL CITRATE INJ/PF 100 MCG/2 ML AMPUL ONE ×2 (16:25→16:32)
[2016-06-28] MEDS ORDERED: INDOMETHACIN 50 MG SUPP.RECT PR ONE (16:30)
--- NOTE | 2016-06-28 16:58 | Operative Report ---
Operative Report DATE OF SURGERY: 06/28/16 Operative Report: Pre-op diagnosis: Recurrent abdominal pain, elevated lipase and transient LFT elevation Post-op diagnosis: Common bile duct sludge Surgery: ERCP with sphincterotomy and balloon sludge extraction Medications: Versed 2mg Fentanyl 50mcg IV push Tissue removed: None Procedure: After informed consent obtained from patient, the throat was sprayed with Hurricane and conscious sedation was achieved. The ERCP endoscope was then inserted into the esophagus blindly and advanced into the stomach. The duodenum was entered and the ampulla was identified. Using the triple-lumen sphincterotomy catheter the common bile duct was freely cannulated. A cholangiogram was obtained which showed possible filling defect in the distal common bile duct. The common bile duct and intrahepatic ducts did not appear dilated. A good sized sphincterotomy was then performed using the endocut mode. The catheter was removed over the guidewire before a 9-12 mm balloon catheter was inserted. The balloon was inflated to 12 mm in the proximal common bile duct and pulled down the duct. Some sludge was extracted. The duct was swept one more time. A balloon occlusion cholangiogram was normal. Patient tolerated procedure well. Findings Common bile duct: Normal size ducts with small amount of sludge Intrahepatic ducts: Normal Pancreatic duct: Partially opacified and Normal Plan: Indomethacin 100 mg MA given. We'll keep in the hospital overnight OPERATION: .
--- NOTE | 2016-06-28 16:59 | PDOC DISCHARGE SUMMARY ---
Discharge Summary (SDC) - Discharge Final Diagnosis: Common bile duct sludge Date of Surgery: 06/28/16 Condition: Stable Discharge Diet: As Tolerated Discharge Activity: Activity As Tolerated Report the Following to Your Physician Immediately: Shortness of Breath, Redness , Swelling, Warmth
[2016-06-28] MEDS ORDERED: 1/2 NORMAL SALINE 1,000 ML IV PRN (18:14)
[2016-06-28] MEDS ORDERED: ONDANSETRON HCL INJ/PF 4 MG/2 ML SDV IV PRN (18:14)
[2016-06-28] MEDS ORDERED: TRAMADOL HCL 50 MG TABLET PO PRN (22:26)
[2016-06-28] MEDS ORDERED: GLUCAGON,HUMAN RECOMB 1 MG INJ IM PRN (22:29)
[2016-06-28] MEDS ORDERED: DEXTROSE 50%-WATER SYRINGE 12.5 GM/25 ML DOSE IV PRN (22:29)
[2016-06-28] MEDS ORDERED: DEXTROSE 40% GEL 15 GM TUBE PO PRN (22:29)
[2016-06-28] MEDS ORDERED: DEXTROSE 40% GEL 15 GM TUBE X 2 PO PRN (22:29)
[2016-06-28] MEDS ORDERED: DEXTROSE 50%-WATER SYRINGE 25 GM/50 ML DOSE IV PRN (22:29)
[2016-06-28] MEDS ORDERED: INSULIN REG, HUMAN 100 UNIT/ML 3 ML VIAL (PYX) SUBCUT PRN (22:29)
[2016-06-28] MEDS ORDERED: TRAMADOL HCL 50 MG TABLET PO ONE (23:00)
[2016-06-29 08:01] LABS: ABSOLUTE LYMPHOCYTES (AUTO) 1.5 10^3/uL (0.5-4.7); ABSOLUTE MONOCYTES (AUTO) 0.6 10^3/uL (0.1-1.4); ABSOLUTE NEUT (AUTO) 4.2 10^3/uL (1.7-8.2); BASOPHILS % (AUTO) 0.5 % (0-2); EOSINOPHILS % (AUTO) 0.4 % (0-6); HEMATOCRIT 31.8 % (36.0-47.0); HEMOGLOBIN 10.1 g/dL (12.0-15.5); HGB HCT DIFFERENCE -1.5; LYMPHOCYTES % (AUTO) 23.3 % (13-45); MEAN CORPUSCULAR HEMOGLOBIN 24.9 pg (27.0-33.4); MEAN CORPUSCULAR HGB CONC 31.9 g/dL (32.0-36.0); MEAN CORPUSCULAR VOLUME 78 fl (80-97); MONOCYTES % (AUTO) 10.2 % (3-13); RED BLOOD COUNT 4.08 10^6/uL (3.72-5.28); RED CELL DISTRIBUTION WIDTH 17.5 % (11.5-14.0); SEGMENTED NEUTROPHILS % (AUTO) 65.6 % (42-78); WHITE BLOOD COUNT 6.4 10^3/uL (4.0-10.5)
[2016-06-29 08:16] LABS: BILIRUBIN,TOTAL 0.6 mg/dL (0.2-1.3); TOTAL PROTEIN 6.5 g/dL (6.3-8.2)
[2016-06-29 09:09] VITALS: BP 119/73
== END 2016-06-29 09:45 | disposition home or self-care (01) ==
LOC: END 14:15 → 2N 18:02 → 2S 18:02 → 2N 18:20 → END 21:30
PROVIDERS: ATTEND Internal Medicine Gastroenterology
PROC: 0FC98ZZ Extirpation of Matter from Common Bile Duct, Via Natural or Artificial Opening Endoscopic (ICD-10-PCS; principal; 2016-06-28 15:30)
PROC: 0F798ZZ Dilation of Common Bile Duct, Via Natural or Artificial Opening Endoscopic (ICD-10-PCS; 2016-06-28 15:30)
DX: K83.8 Other specified diseases of biliary tract (principal); R74.9 Abnormal serum enzyme level, unspecified; R94.5 Abnormal results of liver function studies; I10 Essential (primary) hypertension; E11.9 Type 2 diabetes mellitus without complications; I50.9 Heart failure, unspecified; Z79.899 Other long term (current) drug therapy; Z88.8 Allergy status to other drugs, medicaments and biological substances
CPT/HCPCS: 43264; 43262; 36415; 82962; 85025; 80076; 74328; J2250; J0171; J3010; A9270 ×4; J2405; J1610; J1815; J2310; J2550; J3490

== ENCOUNTER → 2016-08-11 | Outpatient (CLI) | payer MEDICARE ==
[2016-08-11 14:04] LABS: ANION GAP 14 (5-19); BLOOD UREA NITROGEN 39 mg/dL (7-20); CALCIUM 10.4 mg/dL (8.4-10.2); CARBON DIOXIDE 30 mmol/L (22-30); CHLORIDE 100 mmol/L (98-107); CREATININE RESULT 1.68 mg/dL (0.52-1.25); GLUCOSE 207 mg/dL (75-110); POTASSIUM 4.3 mmol/L (3.6-5.0); SODIUM 144.1 mmol/L (137-145)
== END ==
LOC: OD 12:48
PROVIDERS: ATTEND Internal Medicine Geriatric Medicine
DX: E11.21 Type 2 diabetes mellitus with diabetic nephropathy (principal)
CPT/HCPCS: 36415; 80048

== ENCOUNTER → 2017-03-07 | Outpatient (CLI) | payer MEDICARE, MEDICAID ==
--- NOTE | 2017-03-07 15:44 | WOMENS IMAGING REPORT ---
EXAM DESCRIPTION: 3D SCREENING MAMMO BILAT COMPLETED DATE/TIME: 03/07/2017 2:19 pm REASON FOR STUDY: ROUTINE SCREENING;Z12.31 Z12.31 ENCNTR SCREEN MAMMOGRAM FOR MALIGNANT NEOPLASM OF KEY COMPARISON: 04/10/2013 and 11/03/2010. TECHNIQUE: Standard craniocaudal and mediolateral oblique views of each breast recorded using digita l acquisition and breast tomosynthesis. LIMITATIONS: None. FINDINGS: Findings present which are benign by mammographic criteria. No suspicious masses, calcifi cations or architectural distortion. Pertinent benign findings: Stable calcifications, mostly vascular. Read with the assistance of CAD. .[facility] - R2 Cenova Version 1.3 .[facility] Imaging - R2 Cenova Version 1.3 .[facility] - R2 Cenova Version 2.4 .[facility] [place] - R2 Cenova Version 2.4 .[facility] - R2 Pattern [employer] Builder Version 9.2 Benign mammographic findings may include one or more of the following: Smooth masses, popcorn/rim/co arse calcifications, asymmetries, post-procedure changes, and lesions with long-standing stability. IMPRESSION: BENIGN MAMMOGRAPHIC FINDINGS. BIRADS 2 BREAST DENSITY: b. There are scattered areas of fibroglandular density. BIRAD: 2 BENIGN FINDING(S) RECOMMENDATION: RECOMMENDATION: ROUTINE SCREENING COMMENT: The patient has been notified of the results by letter per SA requirements. Additional no tification policies are in place for contacting patient with suspicious or incomplete findings. Quality ID #225: The [employer] recommends an annual screening mammogram for women aged 40 years or over. This facility utilizes a reminder system to ensure that all patients receive reminder letters, and/or direct phone calls for appointments. This includes reminders for routine scr eening mammograms, diagnostic mammograms, or other Breast Imaging Interventions when appropriate. Th is patient will be placed in the appropriate reminder system. The [employer] (ACR) has developed recommendations for screening MRI of the breast s in certain patient populations, to be used in conjunction with mammography. Breast MRI surveillanc e may be appropriate for women with more than 20% lifetime risk of developing breast cancer as deter mined by genetic testing, significant family history of the disease, or history of mantle radiation f or Hodgkins Disease. ACR Practice Guidelines 2008. DBT Technology DBT is a type of tomographic mammography. With conventional mammography, overlapping breast tissue ma y make lesions difficult to detect, even with good compression. DBT uses an x-ray tube that rotates a round the breast, taking images at different angles. These images are then combined to create thin sl ices of the breast that the radiologist can view as a 3D reconstruction. The [employer]io[employer] unit can perform full-field digital mammograms (2D imaging); or DBT (3D imaging); or both, in a combination mode that quickly performs both the mammogram and the tomosynthesis scan while the breast is still compressed. PQRS 6045F: Fluoroscopic imaging is not utilized for breast tomosynthesis. TECHNICAL DOCUMENTATION: FINDING NUMBER: (1) ASSESSMENT: (1) JOB ID: [id number] [employer]- All Rights Reserved
== END ==
LOC: WI 13:51
PROVIDERS: ATTEND Internal Medicine Geriatric Medicine
DX: Z12.31 Encounter for screening mammogram for malignant neoplasm of breast (principal)
CPT/HCPCS: 77063; G0202; 77067

== ENCOUNTER 2018-02-28 02:53 | Inpatient (IN) | payer MEDICARE, MEDICAID ==
[2018-02-28] MEDS ORDERED: ONDANSETRON HCL INJ/PF 4 MG/2 ML SDV IV ONE ×2 (03:09→03:54)
[2018-02-28] MEDS ORDERED: MORPHINE SULFATE 10 MG/ML INJ IV ONE ×2 (03:09→03:54)
[2018-02-28] MEDS ORDERED: NORMAL SALINE 500 ML IV ONE (03:10)
--- NOTE | 2018-02-28 03:13 | ER Document Report ---
ED General - General Chief Complaint: Nausea/Vomiting/Diarrhea Stated Complaint: NAUSEA/VOMITING Time Seen by Provider: 02/28/18 03:03 Notes: Patient is a very pleasant 82-year-old female who presents with complaint of abdominal pain, vomiting, and some loose stool. Says pain is epigastric. It started Monday is worsened and became much worse tonight. She has some vomiting but no blood or emesis. No fevers. She does have hypertension and takes high blood pressure medication for this. She is followed by Dr. Roberts. She has not yet seen him about her current symptoms. No chest pain. Some mild shortness of breath. Some cough. She does have a history of diabetes as well as chronic renal insufficiency. TRAVEL OUTSIDE OF THE [place] IN LAST 30 DAYS: No - Related Data Allergies/Adverse Reactions: oxycodone [Oxycodone] Allergy (Verified 06/24/16 13:42) Past Medical History - Social History Smoking Status: Never Smoker Frequency of alcohol use: None Drug Abuse: None Family History: Reviewed & Not Pertinent, CAD - Past Medical History Cardiac Medical History: Reports: Hx Atrial Fibrillation, Hx Heart Attack, Hx Hypercholesterolemia, Hx Hypertension Denies: Hx Coronary Artery Disease Pulmonary Medical History: Denies: Hx Asthma, Hx Bronchitis, Hx COPD, Hx Pneumonia, Hx Tuberculosis Neurological Medical History: Reports: Hx Cerebrovascular Accident. Denies: Hx Seizures Endocrine Medical History: Reports: Hx Diabetes Mellitus Type 2 GI Medical History: Reports: Hx Gastroesophageal Reflux Disease Musculoskeletal Medical History: Reports Hx Arthritis - KNEES & ARMS & HANDS, OSTEOARTHRITIS, Reports Hx Gout Psychiatric Medical History: Denies: Hx Depression Past Surgical History: Denies: Hx Hysterectomy - Immunizations Hx Diphtheria, Pertussis, Tetanus Vaccination: Yes Physical Exam - Vital signs Vitals: Resp Pulse Ox 25 H 95 02/28/18 03:00 02/28/18 03:00 Course - Re-evaluation Re-evalutation: 02/28/18 03:54 Reevaluation patient is the morphine has helped her pain some. Is not made her feel unwell and therefore I will give her another milligram morphine to try to ease her pain a bit more. She is drinking almost 1 bottle the contrast but is having a hard time sleeping it and continues to feel nauseous and continues to spit up some of it. She is not really tolerating oral contrast well and therefore I will change CT scan with IV contrast being that her kidney function is within range we can still do a CT scan with IV contrast. 02/28/18 05:25 I reviewed the patient's CT scan results. I did reevaluate her abdomen. Her pain is only in the epigastric region on reevaluation. She has no pain in the lower abdomen. No pain in the right lower quadrant. Think is unlikely she has appendicitis. Due to her ongoing pain and vomiting and thinks appropriate to admit her to hospital. I have sent that a call to Dr. Roberts and am waiting to hear back. 02/28/18 06:[address] Roberts who agrees to accept the patient for admission. He does want surgery to evaluate the patient. I did speak with Dr. Correa who is about the check out to the incoming surgeon. He will check patient out to the incoming surgeon and they will performed a consult. - Vital Signs Vital signs: Temp Pulse Resp BP Pulse Ox 98.1 F 27 H 186/85 H 94 02/28/18 05:20 02/28/18 06:16 02/28/18 06:16 02/28/18 06:16 - Laboratory Result Diagrams: 02/28/18 03:05 02/28/18 03:05 Laboratory results interpreted by me: 02/28/18 02/28/18 02/28/18 03:05 03:05 03:25 Hgb 11.1 L Hct 34.4 L RDW 17.3 H Seg Neutrophils % 79.2 H Potassium 5.5 H BUN 41 H Creatinine 1.55 H Est GFR ( Amer) 39 L Est GFR (Non-Af Amer) 32 L Glucose 293 H Direct Bilirubin 0.5 H AST 44 H Alkaline Phosphatase 188 H Lipase 692.6 H Urine Protein 100 H Urine Glucose (UA) >=500 H Discharge - Discharge Clinical Impression: Elevated lipase Abdominal pain Qualifiers: Abdominal location: epigastric Qualified Code(s): R10.13 - Epigastric pain Vomiting Qualifiers: Vomiting type: unspecified Vomiting Intractability: intractable Nausea presence : with nausea Qualified Code(s): R11.2 - Nausea with vomiting, unspecified Condition: Stable Disposition: ADMITTED INPATIENT Admitting Provider: Alejandra Unit Admitted: [facility] Referrals: OSUNKOYA,GABRIELLA, MD [Primary Care Provider] - Follow up as needed
[2018-02-28 03:17] LABS: ABSOLUTE EOSINOPHILS # (AUTO) 0.1 10^3/uL (0.0-0.6); ABSOLUTE LYMPHOCYTES (AUTO) 0.9 10^3/uL (0.5-4.7); ABSOLUTE MONOCYTES (AUTO) 0.2 10^3/uL (0.1-1.4); ABSOLUTE NEUT (AUTO) 4.8 10^3/uL (1.7-8.2); BASOPHILS % (AUTO) 0.5 % (0-2); EOSINOPHILS % (AUTO) 1.1 % (0-6); HEMATOCRIT 34.4 % (36.0-47.0); HEMOGLOBIN 11.1 g/dL (12.0-15.5); LYMPHOCYTES % (AUTO) 15.4 % (13-45); MEAN CORPUSCULAR HEMOGLOBIN 27.6 pg (27.0-33.4); MEAN CORPUSCULAR HGB CONC 32.1 g/dL (32.0-36.0); MEAN CORPUSCULAR VOLUME 86 fl (80-97); MONOCYTES % (AUTO) 3.8 % (3-13); PLATELET COUNT 166 10^3/uL (150-450); RED CELL DISTRIBUTION WIDTH 17.3 % (11.5-14.0); SEGMENTED NEUTROPHILS % (AUTO) 79.2 % (42-78); TOTAL CELLS COUNTED % (AUTO) 100 %; WHITE BLOOD COUNT 6.1 10^3/uL (4.0-10.5)
[2018-02-28 03:31] LABS: ALANINE AMINOTRANSFERASE 47 U/L (9-52); ALBUMIN 3.9 g/dL (3.5-5.0); ALKALINE PHOSPHATASE 188 U/L (38-126); ANION GAP 10 (5-19); ASPARTATE AMINO TRANSFERASE 44 U/L (14-36); BILIRUBIN,DIRECT 0.5 mg/dL (0.0-0.4); BLOOD UREA NITROGEN 41 mg/dL (7-20); CALCIUM 9.9 mg/dL (8.4-10.2); CARBON DIOXIDE 23 mmol/L (22-30); CHLORIDE 105 mmol/L (98-107); GLUCOSE 293 mg/dL (75-110); LIPASE 692.6 U/L (23-300); POTASSIUM 5.5 mmol/L (3.6-5.0); SODIUM 137.7 mmol/L (137-145); TOTAL PROTEIN 7.6 g/dL (6.3-8.2)
[2018-02-28 03:46] LABS: APPEARANCE,URINE CLEAR; BILIRUBIN,URINE NEGATIVE (NEGATIVE); COLOR,URINE STRAW; GLUCOSE, URINE >=500 mg/dL (NEGATIVE); KETONES,URINE NEGATIVE (NEGATIVE); LEUKOCYTE ESTERASE,URINE NEGATIVE (NEGATIVE); NITRITE,URINE NEGATIVE (NEGATIVE); PROTEIN,URINE 100 mg/dL (NEGATIVE); URINE SPECIFIC GRAVITY 1.007; UROBILINOGEN,URINE NEGATIVE mg/dL (<2.0)
--- NOTE | 2018-02-28 04:43 | RADIOLOGY REPORT (SQ) ---
CT abdomen and pelvis with contrast on 02/28/2018 at 4:10 AM CLINICAL INDICATION: Generalized abdominal pain TECHNIQUE: Multiple axial images are obtained throughout the abdomen and pelvis following the administration of IV contrast. This exam was performed according to our departmental dose-optimization program, which includes automated exposure control, adjustment of the mA and/or kV according to patient size and/or use of iterative reconstruction technique. Total DLP is 3228.5 mGy*cm. COMPARISON: None currently available FINDINGS: Abdomen: Coronary artery calcifications and other vascular calcifications are noted. Small bilateral renal cysts are noted. The lung bases are clear. The solid abdominal organs are otherwise unremarkable. There is no abdominal adenopathy. There is no free fluid or free air within the abdomen. The abdominal portion of the GI tract is unremarkable. Pelvis: There is an appendicolith within a dilated appendix that measures up to 9 mm. No adjacent periappendiceal fat stranding is noted. The appearance may be related to a megaappendix but cannot exclude very early acute appendicitis. Recommend clinical correlation and consider short-term follow-up exam with IV and oral contrast if indicated. There is mild diverticulosis. Pelvic portion of the GI tract is otherwise unremarkable. Pelvic organs appear unremarkable by CT. There is no free fluid in the pelvis. There is no pelvic adenopathy. There is rectus diastases and a small umbilical hernia containing only fat. Degenerative changes are noted in the spine. IMPRESSION: 1. Findings raising question of very early acute appendicitis. If surgery is not initially considered would recommend clinical follow-up and consider short-term follow-up CT as above. 2. Mild diverticulosis.
[2018-02-28] MEDS ORDERED: HYDRALAZINE HCL INJ/PF 20 MG/1 ML SDV IV ONE ×2 (05:14→06:39)
[2018-02-28] MEDS ORDERED: DEXTROSE 40% GEL 15 GM TUBE PO PRN ×2 (08:52)
[2018-02-28] MEDS ORDERED: GLUCAGON,HUMAN RECOMB 1 MG INJ IM PRN (08:52)
[2018-02-28] MEDS ORDERED: DEXTROSE 50%-WATER 25 GM/50 ML DISP.SYRIN IV PRN ×2 (08:52)
[2018-02-28] MEDS ORDERED: ONDANSETRON HCL INJ/PF 4 MG/2 ML SDV IV PRN (08:55)
--- NOTE | 2018-02-28 09:01 | PDOC CONSULTATION ---
Consultation Consult Date: 02/28/18 Consult reason:: epigastric pain History of Present Illness Admission Date/PCP: 02/28/18 07:27 GABRIELLA BOONE History of Present Illness: CAROLINA KAYE is a 82 year old female with a 2 day hx of epigastric pain, nausea, she came to the ER with the above complaints and a CT scan A/P has been done revealing an enlarged appendix (9 mm with appendicolith); however, there is no evidence of acute appendicitis and the patient has no complaint of right lower abdominal pain. Her blood work reveals an elevate lipase of 692. The patient's daughter reports that her mother suffered from one episode of pancreatitis 6 months ago, she was transfered to [facility] where she underwent a heart catheterizations and it was negative. The final diagnosis was acute pancreatitis at that time. The patient denies the abuse of alcohol. Past Medical History Cardiac Medical History: Reports: Atrial Fibrillation, Myocardial Infarction, Hyperlipidema, Hypertension Denies: Coronary Artery Disease Pulmonary Medical History: Denies: Asthma, Bronchitis, Chronic Obstructive Pulmonary Disease (COPD), Pneumonia, Tuberculosis Neurological Medical History: Denies: Seizures Endocrine Medical History: Reports: Diabetes Mellitus Type 2 GI Medical History: Reports: Gastroesophageal Reflux Disease Musculoskeltal Medical History: Reports: Arthritis - KNEES & ARMS & HANDS, OSTEOARTHRITIS, Gout Psychiatric Medical History: Denies: Depression Hematology: Denies: Anemia, Sickle Cell Disease Past Surgical History Past Surgical History: Denies: Amputation, Hysterectomy Social History Smoking Status: Never Smoker Frequency of Alcohol Use: None Hx Recreational Drug Use: No Hx Prescription Drug Abuse: No - Advance Directive Resuscitation Status: Full Code Family History Family History: Reviewed & Not Pertinent, CAD Parental Family History Reviewed: No Children Family History Reviewed: No Sibling(s) Family History Reviewed.: No Medication/Allergy Allergies/Adverse Reactions: oxycodone [Oxycodone] Allergy (Verified 06/24/16 13:42) Physical Exam Vital Signs: Temp Pulse Resp BP Pulse Ox 97.8 F 22 H 184/76 H 98 02/28/18 06:47 02/28/18 07:00 02/28/18 07:00 02/28/18 07:00 General appearance: PRESENT: no acute distress Head exam: PRESENT: atraumatic Eye exam: PRESENT: EOMI Mouth exam: PRESENT: neck supple Neck exam: PRESENT: full ROM Respiratory exam: PRESENT: clear to auscultation nurys Cardiovascular exam: PRESENT: RRR GI/Abdominal exam: PRESENT: soft, tenderness - localized at epigastrium Rectal exam: PRESENT: deferred Extremities exam: PRESENT: full ROM Musculoskeletal exam: PRESENT: full ROM Neurological exam: PRESENT: alert, awake, oriented to situation Skin exam: PRESENT: warm Results Impressions: Abdomen/Pelvis CT 02/28/18 03:53 IMPRESSION: 1. Findings raising question of very early acute appendicitis. If surgery is not initially considered would recommend clinical follow-up and consider short-term follow-up CT as above. 2. Mild diverticulosis. Assessment & Plan - Diagnosis (1) Pancreatitis Qualifiers: Pancreatitis type: unspecified pancreatitis type Acute pancreatitis complication: no infection or necrosis Is this a current diagnosis for this admission?: Yes - Plan Summary Plan Summary: A/ Epigastric pain Elevated lipase (692) as per acute pancreatitis Hx of pancreatitis 6 months ago of unknown origin No hx of alcohol abuse 9 mm dilated appendix with appendicolith P/ Recommend US liver and gallbladder to r/o cholelithiasis as cause of pancreatitis In regard to the dilated appendix, I am recommending that the patient undergo elective appendectomy once this episode of pancreatitis has cleared and the cause for it has been identified. NPO IVF Diet can be resumed once the epigastric pain subsides
[2018-02-28] MEDS: PANTOPRAZOLE SODIUM 40 MG VIAL IV SCH ×2 (10:04→21:32)
[2018-02-28] MEDS: MORPHINE SULFATE 10 MG/ML INJ IV PRN (10:04)
[2018-02-28] MEDS: ENOXAPARIN SODIUM INJ 40 MG/0.4 ML DISP.SYRIN SUBCUT SCH (10:04)
[2018-02-28] MEDS: DEXTROSE 5%-NORMAL SALINE 1,000 ML IV PRN (10:04)
[2018-02-28 10:40] LABS: ABSOLUTE BASOPHILS # (AUTO) 0.1 10^3/uL (0.0-0.2); ABSOLUTE EOSINOPHILS # (AUTO) 0.1 10^3/uL (0.0-0.6); ABSOLUTE LYMPHOCYTES (AUTO) 1.5 10^3/uL (0.5-4.7); ABSOLUTE MONOCYTES (AUTO) 0.4 10^3/uL (0.1-1.4); ABSOLUTE NEUT (AUTO) 4.8 10^3/uL (1.7-8.2); BASOPHILS % (AUTO) 1.2 % (0-2); EOSINOPHILS % (AUTO) 1.1 % (0-6); HEMATOCRIT 32.6 % (36.0-47.0); HEMOGLOBIN 10.6 g/dL (12.0-15.5); LYMPHOCYTES % (AUTO) 21.4 % (13-45); MEAN CORPUSCULAR HEMOGLOBIN 27.3 pg (27.0-33.4); MEAN CORPUSCULAR HGB CONC 32.4 g/dL (32.0-36.0); MEAN CORPUSCULAR VOLUME 85 fl (80-97); MONOCYTES % (AUTO) 6.2 % (3-13); PLATELET COUNT 157 10^3/uL (150-450); RED BLOOD COUNT 3.87 10^6/uL (3.72-5.28); RED CELL DISTRIBUTION WIDTH 16.9 % (11.5-14.0); SEGMENTED NEUTROPHILS % (AUTO) 70.1 % (42-78); TOTAL CELLS COUNTED % (AUTO) 100 %; WHITE BLOOD COUNT 6.8 10^3/uL (4.0-10.5)
[2018-02-28 11:33] LABS: ALANINE AMINOTRANSFERASE 42 U/L (9-52); ALBUMIN 3.5 g/dL (3.5-5.0); ALKALINE PHOSPHATASE 170 U/L (38-126); ANION GAP 11 (5-19); ASPARTATE AMINO TRANSFERASE 31 U/L (14-36); BILIRUBIN,DIRECT 0.2 mg/dL (0.0-0.4); BILIRUBIN,TOTAL 0.7 mg/dL (0.2-1.3); BLOOD UREA NITROGEN 37 mg/dL (7-20); CALCIUM 9.6 mg/dL (8.4-10.2); CARBON DIOXIDE 21 mmol/L (22-30); CHLORIDE 105 mmol/L (98-107); GLUCOSE 224 mg/dL (75-110); SODIUM 137.2 mmol/L (137-145); TOTAL PROTEIN 6.7 g/dL (6.3-8.2)
[2018-02-28] MEDS: HYDRALAZINE HCL INJ/PF 20 MG/1 ML SDV IV SCH ×3 (12:56→23:57)
--- NOTE | 2018-02-28 15:04 | RADIOLOGY REPORT (SQ) ---
EXAM DESCRIPTION: U/S ABDOMEN COMPLETE W/DOPPLER COMPLETED DATE/TIME: 02/28/2018 2:51 pm REASON FOR STUDY: Abdominal pain, nausea, vomiting COMPARISON: 05/02/2016 TECHNIQUE: Dynamic and static grayscale images acquired of the abdomen and recorded on PACS. Nayelyo jody selected color Doppler and spectral images recorded. LIMITATIONS: None. FINDINGS: PANCREAS: No masses. Pancreatic tail was not seen. LIVER: No masses. Echotexture normal. LIVER VASCULATURE: Normal directional flow of the main portal vein and hepatic veins. GALLBLADDER: No stones. Normal wall thickness. No pericholecystic fluid. ULTRASOUND-DETECTED BECERRA'S SIGN: Negative. INTRAHEPATIC DUCTS AND COMMON DUCT: Common bile duct is borderline at 6.8 mm. INFERIOR VENA CAVA: Patent. AORTA: No aneurysm. RIGHT KIDNEY: Normal size, 8.8 cm. Normal echogenicity. No solid or suspicious masses. No hydr onephrosis. No calcifications. LEFT KIDNEY: Normal size, 8.4 cm. Normal echogenicity. No solid or suspicious masses. No hydro nephrosis. No calcifications. SPLEEN: Normal size, 7.2 cm. No solid masses. PERITONEAL AND PLEURAL SPACES: No ascites or effusions. OTHER: No other significant finding. IMPRESSION: There is prominence of the common bile duct at 6.8 mm. Correlate for biliary obstructio n. TECHNICAL DOCUMENTATION: JOB ID: [id number] [employer]- All Rights Reserved Reading location - IP/workstation name: [email or web address]
[2018-02-28] MEDS: INSULIN LISPRO 100 UNIT/ML 3 ML VIAL SUBCUT PRN ×2 (18:13→22:29)
--- NOTE | 2018-02-28 19:21 | PDOC H&P ---
History of Present Illness Admission Date/PCP: 02/28/18 07:27 [facility] Patient complains of: Nausea, vomiting and abdominal pain History of Present Illness: CAROLINA KAYE is a 82 year old female known to my practice who presented to the ED with complaints of nausea, vomiting and worsening abdominal pain over last 3 days prior to her presentation. She reported associated loose stool but no miroslava diarrhea, hematochezia, or hematemesis. She localized pain to her epigastric region without any significant radiation. She described pain as colic and tearing in character. She denied any associated fever or chills. No flank pain or hematuria. She denied any chest pain but reported some degree of shortness of breath due to her abdominal pain. Her initial evaluation in the ED was significant for elevated serum lipase level and CT scan of abdomen suggestive of dilated appendix. Due to concern for acute pancreatitis and possible appendicitis she was advised hospitalization for further evaluation and management. Her morbidities include Diabetes Mellitus Type 2, Hypertension, intermittent Atrial fibrillation, Hyperlipidemia, GERD, osteoarthritis and prior CVA with limited motor deficit. Past Medical History Cardiac Medical History: Reports: Atrial Fibrillation, Myocardial Infarction, Hyperlipidema, Hypertension Denies: Coronary Artery Disease Pulmonary Medical History: Denies: Asthma, Bronchitis, Chronic Obstructive Pulmonary Disease (COPD), Pneumonia, Tuberculosis Neurological Medical History: Denies: Seizures Endocrine Medical History: Reports: Diabetes Mellitus Type 2 GI Medical History: Reports: Gastroesophageal Reflux Disease Musculoskeltal Medical History: Reports: Arthritis - KNEES & ARMS & HANDS, OSTEOARTHRITIS, Gout Psychiatric Medical History: Denies: Depression Hematology: Denies: Anemia, Sickle Cell Disease Past Surgical History Past Surgical History: Denies: Amputation, Hysterectomy Social History Smoking Status: Never Smoker Frequency of Alcohol Use: None Hx Recreational Drug Use: No Drugs: None Hx Prescription Drug Abuse: No - Advance Directive Resuscitation Status: Full Code Family History Family History: Reviewed & Not Pertinent, CAD Parental Family History Reviewed: Yes Children Family History Reviewed: Yes Sibling(s) Family History Reviewed.: Yes Medication/Allergy Home Medications: Allopurinol [Zyloprim 100 mg Tablet] 200 mg PO DAILY 02/28/18 Calcitriol [Rocaltrol 0.25 mcg Capsule] 0.25 mcg PO MOWEFR 02/28/18 Carvedilol [Coreg 6.25 mg Tablet] 6.25 mg PO Q12 02/28/18 Insulin Aspart [Novolog Flexpen] 0 units SQ .PERSLIDINGSCALE 02/28/18 Irbesartan [Avapro] 300 mg PO DAILY 02/28/18 Multivit-Min/Iron/Folic/Lutein [Centrum Silver Women Tablet] 1 tab PO DAILY Nateglinide [Starlix] 120 mg PO TID 02/28/18 George-3 Acid Ethyl Esters [Lovaza 1 gm Capsule] 1 gm PO DAILY 02/28/18 Rosuvastatin Calcium [Crestor 10 mg Tablet] 10 mg PO QHS 02/28/18 Torsemide [Demadex 20 mg Tablet] 20 mg PO DAILY 02/28/18 Tramadol HCl [Ultram 50 mg Tablet] 50 mg PO Q12HP PRN 02/28/18 Allergies/Adverse Reactions: oxycodone [Oxycodone] Allergy (Verified 06/24/16 13:42) Review of Systems Constitutional: PRESENT: chills Eyes: PRESENT: visual disturbances Ears: ABSENT: hearing changes Nose, Mouth, and Throat: ABSENT: as per HPI, headache(s), mouth pain, sore throat, vertigo, other Cardiovascular: ABSENT: chest pain, dyspnea on exertion, edema, orthropnea, palpitations Respiratory: PRESENT: cough, dyspnea - with abdominal pain Gastrointestinal: PRESENT: abdominal pain, nausea, vomiting. ABSENT: as per HPI , bloating, coffee ground emesis, constipation, diarrhea, dysphagia, heartburn, hematemesis, hematochezia, melena, other Genitourinary: ABSENT: dysuria, hematuria Musculoskeletal: PRESENT: deformity - related to multiple joints involvement with arthritis Integumentary: ABSENT: rash, wounds Neurological: ABSENT: abnormal gait, abnormal speech, confusion, dizziness, focal weakness, syncope Psychiatric: ABSENT: anxiety, depression, homidical ideation, suicidal ideation Endocrine: ABSENT: cold intolerance, heat intolerance, polydipsia, polyuria Hematologic/Lymphatic: ABSENT: easy bleeding, easy bruising, lymphadenopathy Allergic/Immunologic: ABSENT: seasonal rhinorrhea Physical Exam Vital Signs: Temp Pulse Resp BP Pulse Ox 97.8 F 70 16 166/67 H 100 02/28/18 16:16 02/28/18 18:40 02/28/18 16:16 02/28/18 16:16 02/28/18 16:16 Intake & Output 10/02/28/18 03/01/18 06:59 06:59 06:59 Weight 99.5 kg General appearance: PRESENT: no acute distress, obese Head exam: PRESENT: atraumatic, normocephalic Eye exam: PRESENT: conjunctiva pink, EOMI, PERRLA. ABSENT: scleral icterus Ear exam: PRESENT: normal external ear exam Mouth exam: PRESENT: moist Neck exam: PRESENT: full ROM. ABSENT: carotid bruit, JVD, lymphadenopathy, thyromegaly Respiratory exam: PRESENT: clear to auscultation nurys Cardiovascular exam: PRESENT: RRR. ABSENT: diastolic murmur, rubs, systolic murmur Pulses: PRESENT: +1 pedal pulses bilateral Vascular exam: PRESENT: normal capillary refill. ABSENT: pallor GI/Abdominal exam: PRESENT: normal bowel sounds, soft, tenderness - epigastric region. ABSENT: guarding, Grissom's sign, organolmegaly, rebound Rectal exam: PRESENT: deferred Extremities exam: ABSENT: pedal edema Musculoskeletal exam: PRESENT: deformity - related o multiple joints involvement with arthritis Neurological exam: PRESENT: alert, awake, oriented to person, oriented to place , oriented to time, oriented to situation, CN II-XII grossly intact. ABSENT: motor sensory deficit Psychiatric exam: PRESENT: appropriate affect, normal mood. ABSENT: homicidal ideation, suicidal ideation Skin exam: PRESENT: dry, intact, warm. ABSENT: cyanosis, rash Results Laboratory Results: 02/28/18 10:23 02/28/18 10:23 02/28/18 02/28/18 10:23 10:23 WBC 6.8 RBC 3.87 Hgb 10.6 L Hct 32.6 L MCV 85 MCH 27.3 MCHC 32.4 RDW 16.9 H Plt Count 157 Seg Neutrophils % 70.1 Lymphocytes % 21.4 Monocytes % 6.2 Eosinophils % 1.1 Basophils % 1.2 Absolute Neutrophils 4.8 Absolute Lymphocytes 1.5 Absolute Monocytes 0.4 Absolute Eosinophils 0.1 Absolute Basophils 0.1 Sodium 137.2 Potassium 5.0 Chloride 105 Carbon Dioxide 21 L Anion Gap 11 BUN 37 H Creatinine 1.58 H Est GFR ( Amer) 38 L Est GFR (Non-Af Amer) 31 L Glucose 224 H Calcium 9.6 Total Bilirubin 0.7 AST 31 ALT 42 Alkaline Phosphatase 170 H Total Protein 6.7 Albumin 3.5 Impressions: Abdomen Ultrasound 02/28/18 00:00 IMPRESSION: There is prominence of the common bile duct at 6.8 mm. Correlate for biliary obstruction. Abdomen/Pelvis CT 02/28/18 03:53 IMPRESSION: 1. Findings raising question of very early acute appendicitis. If surgery is not initially considered would recommend clinical follow-up and consider short-term follow-up CT as above. 2. Mild diverticulosis. Assessment & Plan - Diagnosis (1) Acute pancreatitis Qualifiers: Pancreatitis type: unspecified pancreatitis type Acute pancreatitis complication: unspecified Qualified Code(s): K85.90 - Acute pancreatitis without necrosis or infection, unspecified Is this a current diagnosis for this admission?: Yes Plan: See admitting attending physician orders. (2) Appendicolith Is this a current diagnosis for this admission?: Yes Plan: See admitting attending physician orders. I discussed case with surgicalist and presently less likely appendicitis and no urgent surgical intervention need at this time. (3) GERD (gastroesophageal reflux disease) Qualifiers: Esophagitis presence: without esophagitis Qualified Code(s): K21.9 - Gastro -esophageal reflux disease without esophagitis Is this a current diagnosis for this admission?: Yes Plan: See admitting attending physician orders. (4) Diabetes mellitus type 2 in obese Is this a current diagnosis for this admission?: Yes Plan: See admitting attending physician orders. (5) Intermittent atrial fibrillation Is this a current diagnosis for this admission?: Yes Plan: See admitting attending physician orders. (6) HTN (hypertension) Qualifiers: Hypertension type: essential hypertension Qualified Code(s): I10 - Essential (primary) hypertension Is this a current diagnosis for this admission?: Yes Plan: See admitting attending physician orders. (7) Chronic atrial fibrillation Is this a current diagnosis for this admission?: Yes Plan: See admitting attending physician orders. (8) Hyperlipidemia associated with type 2 diabetes mellitus Is this a current diagnosis for this admission?: Yes Plan: See admitting attending physician orders. (9) Osteoarthritis involving multiple joints on both sides of body Is this a current diagnosis for this admission?: Yes Plan: See admitting attending physician orders. 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 - Time Time Spent: 50 to 70 Minutes Medications reviewed and adjusted accordingly: Yes Anticipated discharge: Home with Homehealth Within: Other - Inpatient Certification Based on my medical assessment, after consideration of the patient's comorbidities, presenting symptoms, or acuity I expect that the services needed warrant INPATIENT care.: Yes I certify that my determination is in accordance with my understanding of Medicare's requirements for reasonable and necessary INPATIENT services [42 CFR 412.3e].: Yes Medical Necessity: Need Close Monitoring Due to Risk of Patient Decompensation, Need For IV Fluids, Need For Continuous Telemetry Monitoring, Need for Pain Control, Need for Surgery, Risk of Complication if Not Cared For in Hospital Post Hospital Care: D/C Corporate Consultant Documentation - Plan Summary Plan Summary: See admitting attending physician orders.
[2018-03-01] MEDS: DEXTROSE 5%-NORMAL SALINE 1,000 ML IV PRN ×2 (02:34→18:45)
[2018-03-01 05:03] LABS: ABSOLUTE BASOPHILS # (AUTO) 0.1 10^3/uL (0.0-0.2); ABSOLUTE EOSINOPHILS # (AUTO) 0.1 10^3/uL (0.0-0.6); ABSOLUTE LYMPHOCYTES (AUTO) 1.5 10^3/uL (0.5-4.7); ABSOLUTE MONOCYTES (AUTO) 0.4 10^3/uL (0.1-1.4); ABSOLUTE NEUT (AUTO) 3.8 10^3/uL (1.7-8.2); BASOPHILS % (AUTO) 0.9 % (0-2); EOSINOPHILS % (AUTO) 1.4 % (0-6); HEMATOCRIT 34.8 % (36.0-47.0); HEMOGLOBIN 11.1 g/dL (12.0-15.5); LYMPHOCYTES % (AUTO) 24.8 % (13-45); MEAN CORPUSCULAR HEMOGLOBIN 26.9 pg (27.0-33.4); MEAN CORPUSCULAR HGB CONC 31.8 g/dL (32.0-36.0); MEAN CORPUSCULAR VOLUME 84 fl (80-97); MONOCYTES % (AUTO) 7.7 % (3-13); PLATELET COUNT 168 10^3/uL (150-450); RED BLOOD COUNT 4.12 10^6/uL (3.72-5.28); RED CELL DISTRIBUTION WIDTH 17.5 % (11.5-14.0); SEGMENTED NEUTROPHILS % (AUTO) 65.2 % (42-78); TOTAL CELLS COUNTED % (AUTO) 100 %; WHITE BLOOD COUNT 5.8 10^3/uL (4.0-10.5)
[2018-03-01] MEDS: HYDRALAZINE HCL INJ/PF 20 MG/1 ML SDV IV SCH ×4 (05:16→23:30)
[2018-03-01] MEDS: INSULIN LISPRO 100 UNIT/ML 3 ML VIAL SUBCUT PRN ×4 (05:57→21:56)
[2018-03-01] MEDS ORDERED: LANSOPRAZOLE 30 MG TAB.RAP.DR PO SCH (06:00)
[2018-03-01 07:53] LABS: ALANINE AMINOTRANSFERASE 30 U/L (9-52); ALBUMIN 3.3 g/dL (3.5-5.0); ALKALINE PHOSPHATASE 151 U/L (38-126); ANION GAP 9 (5-19); ASPARTATE AMINO TRANSFERASE 27 U/L (14-36); BILIRUBIN,DIRECT 0.4 mg/dL (0.0-0.4); BILIRUBIN,TOTAL 0.9 mg/dL (0.2-1.3); BLOOD UREA NITROGEN 35 mg/dL (7-20); CALCIUM 9.3 mg/dL (8.4-10.2); CARBON DIOXIDE 21 mmol/L (22-30); CHLORIDE 109 mmol/L (98-107); GLUCOSE 232 mg/dL (75-110); LIPASE 504.8 U/L (23-300); SODIUM 138.9 mmol/L (137-145); TOTAL PROTEIN 6.8 g/dL (6.3-8.2)
[2018-03-01 08:30] LABS: AMYLASE 149 U/L (30-110)
--- NOTE | 2018-03-01 08:51 | PDOC PROGRESS REPORT ---
Subjective Progress Note for:: 03/01/18 Subjective:: No nausea, vomiting or abdominal pain. No chest pain or difficulty with breathing. No fever or chills. Reason For Visit: NAUSEA,VOMITING,ACUTE PANCREATITIS Physical Exam Vital Signs: Temp Pulse Resp BP Pulse Ox 98.1 F 76 20 164/58 H 95 03/01/18 03:46 03/01/18 03:46 03/01/18 03:46 03/01/18 03:46 03/01/18 03:46 Intake & Output 02/28/18 03/01/18 03/02/18 06:59 06:59 06:59 Intake Total 1000 Balance 1000 Weight 101.5 kg General appearance: PRESENT: no acute distress, obese Head exam: PRESENT: atraumatic, normocephalic Eye exam: PRESENT: conjunctiva pink, EOMI, PERRLA. ABSENT: scleral icterus Ear exam: PRESENT: normal external ear exam Mouth exam: PRESENT: moist Respiratory exam: PRESENT: clear to auscultation nurys Cardiovascular exam: PRESENT: RRR. ABSENT: diastolic murmur, rubs, systolic murmur Vascular exam: PRESENT: normal capillary refill. ABSENT: pallor GI/Abdominal exam: PRESENT: normal bowel sounds, soft. ABSENT: distended, guarding, mass, organolmegaly, rebound, tenderness Extremities exam: ABSENT: pedal edema Musculoskeletal exam: PRESENT: deformity - related to multiple joints involvement with arthritis Neurological exam: PRESENT: alert, awake, oriented to person, oriented to place , oriented to time, oriented to situation, CN II-XII grossly intact. ABSENT: motor sensory deficit Psychiatric exam: PRESENT: appropriate affect, normal mood. ABSENT: homicidal ideation, suicidal ideation Skin exam: PRESENT: dry, intact, warm. ABSENT: cyanosis, rash Results Laboratory Results: 03/01/18 04:53 03/01/18 06:25 02/28/18 02/28/18 03/01/18 10:23 10:23 04:53 WBC 6.8 RBC 3.87 Hgb 10.6 L Hct 32.6 L MCV 85 MCH 27.3 MCHC 32.4 RDW 16.9 H Plt Count 157 Seg Neutrophils % 70.1 Lymphocytes % 21.4 Monocytes % 6.2 Eosinophils % 1.1 Basophils % 1.2 Absolute Neutrophils 4.8 Absolute Lymphocytes 1.5 Absolute Monocytes 0.4 Absolute Eosinophils 0.1 Absolute Basophils 0.1 Sodium 137.2 Cancelled Potassium 5.0 Cancelled Chloride 105 Cancelled Carbon Dioxide 21 L Cancelled Anion Gap 11 Cancelled BUN 37 H Cancelled Creatinine 1.58 H Cancelled Est GFR ( Amer) 38 L Cancelled Est GFR (Non-Af Amer) 31 L Cancelled Glucose 224 H Cancelled Calcium 9.6 Cancelled Total Bilirubin 0.7 Cancelled AST 31 Cancelled ALT 42 Cancelled Alkaline Phosphatase 170 H Cancelled Total Protein 6.7 Cancelled Albumin 3.5 Cancelled Amylase Cancelled Lipase Cancelled 03/01/18 03/01/18 04:53 06:25 WBC 5.8 RBC 4.12 Hgb 11.1 L Hct 34.8 L MCV 84 MCH 26.9 L MCHC 31.8 L RDW 17.5 H Plt Count 168 Seg Neutrophils % 65.2 Lymphocytes % 24.8 Monocytes % 7.7 Eosinophils % 1.4 Basophils % 0.9 Absolute Neutrophils 3.8 Absolute Lymphocytes 1.5 Absolute Monocytes 0.4 Absolute Eosinophils 0.1 Absolute Basophils 0.1 Sodium 138.9 Potassium 5.0 Chloride 109 H Carbon Dioxide 21 L Anion Gap 9 BUN 35 H Creatinine 1.96 H Est GFR ( Amer) 30 L Est GFR (Non-Af Amer) 24 L Glucose 232 H Calcium 9.3 Total Bilirubin 0.9 AST 27 ALT 30 Alkaline Phosphatase 151 H Total Protein 6.8 Albumin 3.3 L Amylase 149 H Lipase 504.8 H Impressions: Abdomen Ultrasound 02/28/18 00:00 IMPRESSION: There is prominence of the common bile duct at 6.8 mm. Correlate for biliary obstruction. Abdomen/Pelvis CT 02/28/18 03:53 IMPRESSION: 1. Findings raising question of very early acute appendicitis. If surgery is not initially considered would recommend clinical follow-up and consider short-term follow-up CT as above. 2. Mild diverticulosis. Assessment & Plan - Diagnosis (1) Acute pancreatitis Qualifiers: Pancreatitis type: unspecified pancreatitis type Acute pancreatitis complication: unspecified Qualified Code(s): K85.90 - Acute pancreatitis without necrosis or infection, unspecified Is this a current diagnosis for this admission?: Yes Plan: Maintain NPO status. Follow up on serum Lipase and Amylase levels. (2) Appendicolith Is this a current diagnosis for this admission?: Yes Plan: Continue current observation status. (3) GERD (gastroesophageal reflux disease) Qualifiers: Esophagitis presence: without esophagitis Qualified Code(s): K21.9 - Gastro -esophageal reflux disease without esophagitis Is this a current diagnosis for this admission?: Yes (4) Diabetes mellitus type 2 in obese Is this a current diagnosis for this admission?: Yes Plan: Maintain on accuchek and IV fluid D5N/S infusion. (5) Intermittent atrial fibrillation Is this a current diagnosis for this admission?: Yes (6) HTN (hypertension) Qualifiers: Hypertension type: essential hypertension Qualified Code(s): I10 - Essential (primary) hypertension Is this a current diagnosis for this admission?: Yes Plan: Continue current management. 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 Is this a current diagnosis for this admission?: Yes - Time Time Spent with patient: 25-34 minutes Medications reviewed and adjusted accordingly: Yes Anticipated discharge: Home with Homehealth Within: Other - Inpatient Certification Based on my medical assessment, after consideration of the patient's comorbidities, presenting symptoms, or acuity I expect that the services needed warrant INPATIENT care.: Yes I certify that my determination is in accordance with my understanding of Medicare's requirements for reasonable and necessary INPATIENT services [42 CFR 412.3e].: Yes Medical Necessity: Need Close Monitoring Due to Risk of Patient Decompensation, Need For IV Fluids, Need For Continuous Telemetry Monitoring, Need for Pain Control, Risk of Complication if Not Cared For in Hospital Post Hospital Care: D/C Exit Booth Agent Documentation - Plan Summary Plan Summary: Continue NPO status with IV fluid support. Follow up on serum Lipase and Amylase level. No need for surgical intervention at this point.
--- NOTE | 2018-03-01 09:11 | EKG REPORT ---
SEVERITY:- ABNORMAL ECG - SINUS RHYTHM FIRST DEGREE AV BLOCK RIGHT BUNDLE BRANCH BLOCK LVH WITH IVCD AND SECONDARY REPOL ABNRM : Confirmed by: Vijaya Mayer 01-Mar-2018 09:10:49
[2018-03-01] MEDS: ENOXAPARIN SODIUM INJ 40 MG/0.4 ML DISP.SYRIN SUBCUT SCH (09:41)
[2018-03-01] MEDS: PANTOPRAZOLE SODIUM 40 MG VIAL IV SCH ×2 (09:41→21:53)
--- NOTE | 2018-03-01 15:39 | PDOC PROGRESS REPORT ---
Subjective Progress Note for:: 03/01/18 Subjective:: This is an 82-year-old female with acute pancreatitis. She reports feeling better today. She denies any abdominal pain. She specifically denies any right lower quadrant pain. She has not had any fevers or chills. She denies chest pain, shortness of breath, nausea, vomiting, melena, hematochezia, dizziness, orthostasis. Reason For Visit: NAUSEA,VOMITING,ACUTE PANCREATITIS Physical Exam Vital Signs: Temp Pulse Resp BP Pulse Ox 98.9 F 70 16 140/70 H 94 03/01/18 12:31 03/01/18 12:31 03/01/18 12:31 03/01/18 12:31 03/01/18 12:31 Intake & Output 02/28/18 03/01/18 03/02/18 06:59 06:59 06:59 Intake Total 1000 Balance 1000 Weight 101.5 kg General appearance: PRESENT: no acute distress Head exam: PRESENT: atraumatic, normocephalic Eye exam: PRESENT: EOMI, PERRLA. ABSENT: scleral icterus Mouth exam: PRESENT: neck supple Neck exam: ABSENT: meningismus, tenderness, thyromegaly, tracheal deviation Respiratory exam: PRESENT: clear to auscultation nurys. ABSENT: chest wall tenderness Cardiovascular exam: PRESENT: RRR Pulses: PRESENT: normal radial pulses Vascular exam: PRESENT: normal capillary refill. ABSENT: pallor GI/Abdominal exam: PRESENT: soft. ABSENT: distended, rebound, tenderness Rectal exam: PRESENT: deferred Extremities exam: ABSENT: clubbing Musculoskeletal exam: ABSENT: deformity Neurological exam: PRESENT: alert, awake, oriented to person, oriented to place , oriented to time, oriented to situation, CN II-XII grossly intact Psychiatric exam: ABSENT: agitated, anxious, depressed Focused psych exam: ABSENT: delusional Skin exam: ABSENT: cyanosis, erythema, jaundice Results Laboratory Results: 03/01/18 04:53 03/01/18 06:25 03/01/18 03/01/18 03/01/18 04:53 04:53 06:25 WBC 5.8 RBC 4.12 Hgb 11.1 L Hct 34.8 L MCV 84 MCH 26.9 L MCHC 31.8 L RDW 17.5 H Plt Count 168 Seg Neutrophils % 65.2 Lymphocytes % 24.8 Monocytes % 7.7 Eosinophils % 1.4 Basophils % 0.9 Absolute Neutrophils 3.8 Absolute Lymphocytes 1.5 Absolute Monocytes 0.4 Absolute Eosinophils 0.1 Absolute Basophils 0.1 Sodium Cancelled 138.9 Potassium Cancelled 5.0 Chloride Cancelled 109 H Carbon Dioxide Cancelled 21 L Anion Gap Cancelled 9 BUN Cancelled 35 H Creatinine Cancelled 1.96 H Est GFR ( Amer) Cancelled 30 L Est GFR (Non-Af Amer) Cancelled 24 L Glucose Cancelled 232 H Calcium Cancelled 9.3 Total Bilirubin Cancelled 0.9 AST Cancelled 27 ALT Cancelled 30 Alkaline Phosphatase Cancelled 151 H Total Protein Cancelled 6.8 Albumin Cancelled 3.3 L Amylase Cancelled 149 H Lipase Cancelled 504.8 H Impressions: Abdomen Ultrasound 02/28/18 00:00 IMPRESSION: There is prominence of the common bile duct at 6.8 mm. Correlate for biliary obstruction. Abdomen/Pelvis CT 02/28/18 03:53 IMPRESSION: 1. Findings raising question of very early acute appendicitis. If surgery is not initially considered would recommend clinical follow-up and consider short-term follow-up CT as above. 2. Mild diverticulosis. Assessment & Plan - Diagnosis (1) Acute pancreatitis Qualifiers: Pancreatitis type: unspecified pancreatitis type Acute pancreatitis complication: unspecified Qualified Code(s): K85.90 - Acute pancreatitis without necrosis or infection, unspecified Is this a current diagnosis for this admission?: Yes - Plan Summary Plan Summary: This is an 82-year-old female with acute pancreatitis. The patient does not have gallstones or sludge. It is possible that her pancreatitis could be medication related. At this time I do not recommend cholecystectomy. If the patient has recurrent episodes of idiopathic pancreatitis, cholecystectomy may be warranted. There was some concern for possible appendicitis on CT scan. The patient has no signs or symptoms consistent with acute appendicitis. I would not recommend appendectomy at this time. I will see the patient again on an as-needed basis. Please renotify with any questions or concerns.
[2018-03-02] MEDS: HYDRALAZINE HCL INJ/PF 20 MG/1 ML SDV IV SCH ×4 (05:12→23:47)
[2018-03-02] MEDS: INSULIN LISPRO 100 UNIT/ML 3 ML VIAL SUBCUT PRN ×4 (06:29→21:53)
[2018-03-02 06:42] LABS: LIPASE 539.3 U/L (23-300)
[2018-03-02] MEDS: DEXTROSE 5%-NORMAL SALINE 1,000 ML IV PRN ×2 (08:07→21:57)
[2018-03-02] MEDS: PANTOPRAZOLE SODIUM 40 MG VIAL IV SCH (11:40)
[2018-03-02] MEDS: ENOXAPARIN SODIUM INJ 40 MG/0.4 ML DISP.SYRIN SUBCUT SCH (11:41)
--- NOTE | 2018-03-02 17:47 | PDOC PROGRESS REPORT ---
Subjective Progress Note for:: 03/02/18 Subjective:: Patient experienced hunger cramps today and demanding for soup! There is associated nausea but no vomiting. No chest pain or difficulty with breathing. No fever or chills. Reason For Visit: NAUSEA,VOMITING,ACUTE PANCREATITIS Physical Exam Vital Signs: Temp Pulse Resp BP Pulse Ox 97.6 F 73 16 167/73 H 97 03/02/18 11:30 03/02/18 11:30 03/02/18 11:30 03/02/18 11:30 03/02/18 11:30 Intake & Output 03/01/18 03/02/18 03/03/18 06:59 06:59 06:59 Intake Total 1000 1000 1000 Balance 1000 1000 1000 Weight 101.5 kg 101.6 kg General appearance: PRESENT: no acute distress, obese Head exam: PRESENT: atraumatic, normocephalic Eye exam: PRESENT: conjunctiva pink, EOMI, PERRLA. ABSENT: scleral icterus Ear exam: PRESENT: normal external ear exam Mouth exam: PRESENT: moist Respiratory exam: PRESENT: clear to auscultation nurys Cardiovascular exam: PRESENT: RRR. ABSENT: diastolic murmur, rubs, systolic murmur Vascular exam: PRESENT: normal capillary refill. ABSENT: pallor GI/Abdominal exam: PRESENT: normal bowel sounds, soft. ABSENT: distended, guarding, mass, organolmegaly, rebound, tenderness Extremities exam: ABSENT: pedal edema Musculoskeletal exam: PRESENT: deformity - related to multiple joints involvement with arthritis Neurological exam: PRESENT: alert, awake, oriented to person, oriented to place , oriented to time, oriented to situation, CN II-XII grossly intact. ABSENT: motor sensory deficit Psychiatric exam: PRESENT: appropriate affect, normal mood. ABSENT: homicidal ideation, suicidal ideation Skin exam: PRESENT: dry, intact, warm. ABSENT: cyanosis, rash Results Laboratory Results: 03/01/18 04:53 03/01/18 06:25 03/02/18 04:58 Amylase 134 H Lipase 539.3 H Impressions: Abdomen Ultrasound 02/28/18 00:00 IMPRESSION: There is prominence of the common bile duct at 6.8 mm. Correlate for biliary obstruction. Abdomen/Pelvis CT 02/28/18 03:53 IMPRESSION: 1. Findings raising question of very early acute appendicitis. If surgery is not initially considered would recommend clinical follow-up and consider short-term follow-up CT as above. 2. Mild diverticulosis. Assessment & Plan - Diagnosis (1) Acute pancreatitis Qualifiers: Pancreatitis type: unspecified pancreatitis type Acute pancreatitis complication: unspecified Qualified Code(s): K85.90 - Acute pancreatitis without necrosis or infection, unspecified Is this a current diagnosis for this admission?: Yes Plan: Maintain NPO status. Allow to use few ice chips or stick on swab to moisten mouth. Follow up on serum Lipase and Amylase levels. I had extensive discussion with patient and daughter at bedside regarding care plan. I issued educational material on pancreatitis as well as copy of her serum lipase and amylase level trend. She expressed understanding and agreed to ongoing care plan. (2) Appendicolith Is this a current diagnosis for this admission?: Yes Plan: Continue observational status. (3) GERD (gastroesophageal reflux disease) Qualifiers: Esophagitis presence: without esophagitis Qualified Code(s): K21.9 - Gastro -esophageal reflux disease without esophagitis Is this a current diagnosis for this admission?: Yes Plan: D/C IV Protonix due to adverse reaction including pancreatitis. Start on IV Pepcid 20 mg q12 hours. (4) Diabetes mellitus type 2 in obese Is this a current diagnosis for this admission?: Yes Plan: Continue current medication management. (5) Intermittent atrial fibrillation Is this a current diagnosis for this admission?: Yes Plan: Continue current medication management. (6) HTN (hypertension) Qualifiers: Hypertension type: essential hypertension Qualified Code(s): I10 - Essential (primary) hypertension Is this a current diagnosis for this admission?: Yes Plan: Continue current medication management. (7) Hyperlipidemia associated with type 2 diabetes mellitus Is this a current diagnosis for this admission?: Yes Plan: Continue current medication management. (8) Osteoarthritis involving multiple joints on both sides of body Is this a current diagnosis for this admission?: Yes Plan: Continue current medication management. 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 - Time Time Spent with patient: 25-34 minutes Medications reviewed and adjusted accordingly: Yes Anticipated discharge: Home Within: Other - Inpatient Certification Based on my medical assessment, after consideration of the patient's comorbidities, presenting symptoms, or acuity I expect that the services needed warrant INPATIENT care.: Yes I certify that my determination is in accordance with my understanding of Medicare's requirements for reasonable and necessary INPATIENT services [42 CFR 412.3e].: Yes Medical Necessity: Need Close Monitoring Due to Risk of Patient Decompensation, Need For IV Fluids, Need For Continuous Telemetry Monitoring, Need for Pain Control, Risk of Complication if Not Cared For in Hospital Post Hospital Care: D/C Wooden Fence Erector Documentation - Plan Summary Plan Summary: See medication changes regarding PPI usage. Continue other current medication management.
[2018-03-02] MEDS: FAMOTIDINE INJ/PF 20 MG/2 ML SDV IV SCH (21:20)
[2018-03-03] MEDS: HYDRALAZINE HCL INJ/PF 20 MG/1 ML SDV IV SCH ×3 (05:08→17:35)
[2018-03-03 05:35] LABS: LIPASE 585.4 U/L (23-300)
[2018-03-03] MEDS: INSULIN LISPRO 100 UNIT/ML 3 ML VIAL SUBCUT PRN ×4 (05:45→21:33)
[2018-03-03] MEDS: FAMOTIDINE INJ/PF 20 MG/2 ML SDV IV SCH ×2 (09:02→21:33)
[2018-03-03] MEDS: ENOXAPARIN SODIUM INJ 40 MG/0.4 ML DISP.SYRIN SUBCUT SCH (09:03)
[2018-03-03] MEDS: DEXTROSE 5%-NORMAL SALINE 1,000 ML IV PRN (11:09)
[2018-03-03] MEDS: CARVEDILOL 6.25 MG TABLET PO SCH ×2 (14:14→21:34)
[2018-03-03] MEDS: LOSARTAN POTASSIUM 50 MG TABLET PO SCH (14:14)
[2018-03-03] MEDS: TORSEMIDE 20 MG TABLET PO SCH (14:15)
--- NOTE | 2018-03-03 17:05 | PDOC PROGRESS REPORT ---
Subjective Progress Note for:: 03/03/18 Subjective:: Patient is seen by the bedside, there is no vomiting, she was admitted for the management of acute pancreatitis Reason For Visit: NAUSEA,VOMITING,ACUTE PANCREATITIS Physical Exam Vital Signs: Temp Pulse Resp BP Pulse Ox 98.5 F 74 20 155/104 H 100 03/03/18 15:44 03/03/18 15:44 03/03/18 15:44 03/03/18 15:44 03/03/18 15:44 Intake & Output 03/02/18 03/03/18 03/04/18 06:59 06:59 06:59 Intake Total 1000 2000 990 Output Total 300 Balance 1000 1700 990 Weight 101.6 kg 99 kg General appearance: PRESENT: no acute distress Eye exam: PRESENT: PERRLA Respiratory exam: PRESENT: clear to auscultation nurys Cardiovascular exam: PRESENT: +S1, +S2 GI/Abdominal exam: PRESENT: soft Neurological exam: PRESENT: alert Results Laboratory Results: 03/01/18 04:53 03/01/18 06:25 03/03/18 04:59 Amylase 117 H Lipase 585.4 H Impressions: Abdomen Ultrasound 02/28/18 00:00 IMPRESSION: There is prominence of the common bile duct at 6.8 mm. Correlate for biliary obstruction. Abdomen/Pelvis CT 02/28/18 03:53 IMPRESSION: 1. Findings raising question of very early acute appendicitis. If surgery is not initially considered would recommend clinical follow-up and consider short-term follow-up CT as above. 2. Mild diverticulosis. Assessment & Plan - Diagnosis (1) Acute pancreatitis Qualifiers: Pancreatitis type: unspecified pancreatitis type Acute pancreatitis complication: unspecified Qualified Code(s): K85.90 - Acute pancreatitis without necrosis or infection, unspecified Is this a current diagnosis for this admission?: Yes Plan: Patient admitted for the management of acute pancreatitis, there is no vomiting , present clinical study suggest a better clinical outcome when patient with acute pancreatitis started on p.o. diet as soon as possible as long as there is no vomiting, serial lipase is not necessary any longer to determine when to initiate feeds, patient will be started on liquid diet and advance as tolerated.
[2018-03-04] MEDS: HYDRALAZINE HCL INJ/PF 20 MG/1 ML SDV IV SCH ×5 (00:38→23:33)
[2018-03-04] MEDS ORDERED: (PENDING PHARMACY ID) (Irbesartan [Avapro] 300 MG) PO SCH (10:00)
[2018-03-04] MEDS: CARVEDILOL 6.25 MG TABLET PO SCH (10:08)
[2018-03-04] MEDS: TORSEMIDE 20 MG TABLET PO SCH (10:08)
[2018-03-04] MEDS: FAMOTIDINE INJ/PF 20 MG/2 ML SDV IV SCH ×2 (10:08→21:37)
[2018-03-04] MEDS: LOSARTAN POTASSIUM 50 MG TABLET PO SCH (10:08)
[2018-03-04] MEDS: ENOXAPARIN SODIUM INJ 40 MG/0.4 ML DISP.SYRIN SUBCUT SCH (10:09)
[2018-03-04] MEDS: INSULIN LISPRO 100 UNIT/ML 3 ML VIAL SUBCUT PRN ×3 (12:04→21:37)
[2018-03-04] MEDS ORDERED: CARVEDILOL 6.25 MG TABLET PO SCH (13:39)
--- NOTE | 2018-03-04 13:39 | PDOC PROGRESS REPORT ---
Subjective Progress Note for:: 03/04/18 Subjective:: Patient seen by the bedside, she tolerated liquid diet yesterday no more abdominal pain, will advance diet to regular CCD diet, the blood pressure has been somewhat elevated through the day patient stated that typically her blood pressure is controlled at home but it has been elevated since being in the hospital. Reason For Visit: NAUSEA,VOMITING,ACUTE PANCREATITIS Physical Exam Vital Signs: Temp Pulse Resp BP Pulse Ox 98.2 F 67 24 H 178/78 H 98 03/04/18 11:46 03/04/18 12:34 03/04/18 11:46 03/04/18 12:34 03/04/18 11:46 Intake & Output 03/03/18 03/04/18 03/05/18 06:59 06:59 06:59 Intake Total 2000 1090 1505 Output Total 300 1500 Balance 1700 -410 1505 Weight 99 kg 99.2 kg General appearance: PRESENT: no acute distress, well-developed, well-nourished Head exam: PRESENT: atraumatic, normocephalic Eye exam: PRESENT: conjunctiva pink, EOMI, PERRLA Ear exam: PRESENT: normal external ear exam Mouth exam: PRESENT: moist, tongue midline Neck exam: PRESENT: full ROM Respiratory exam: PRESENT: clear to auscultation nurys Cardiovascular exam: PRESENT: RRR, +S1, +S2 Pulses: PRESENT: normal dorsalis pedis pul, +2 pedal pulses bilateral Vascular exam: PRESENT: normal capillary refill GI/Abdominal exam: PRESENT: normal bowel sounds, soft Rectal exam: PRESENT: deferred Neurological exam: PRESENT: alert, awake, oriented to person, oriented to place , oriented to time, oriented to situation, CN II-XII grossly intact. ABSENT: motor sensory deficit Psychiatric exam: PRESENT: appropriate affect, normal mood. ABSENT: homicidal ideation, suicidal ideation Skin exam: PRESENT: dry, intact, warm Results Laboratory Results: 03/01/18 04:53 03/01/18 06:25 Impressions: Abdomen Ultrasound 02/28/18 00:00 IMPRESSION: There is prominence of the common bile duct at 6.8 mm. Correlate for biliary obstruction. Abdomen/Pelvis CT 02/28/18 03:53 IMPRESSION: 1. Findings raising question of very early acute appendicitis. If surgery is not initially considered would recommend clinical follow-up and consider short-term follow-up CT as above. 2. Mild diverticulosis. Assessment & Plan - Diagnosis (1) Acute pancreatitis Qualifiers: Pancreatitis type: unspecified pancreatitis type Acute pancreatitis complication: unspecified Qualified Code(s): K85.90 - Acute pancreatitis without necrosis or infection, unspecified Is this a current diagnosis for this admission?: Yes Plan: Advance diet to regular diet (2) Essential hypertension Is this a current diagnosis for this admission?: Yes Plan: Adjust medication, increase Coreg
[2018-03-04] MEDS ORDERED: (PENDING PHARMACY ID) (Nateglinide [Starlix] 120 MG) PO SCH (14:00)
[2018-03-04] MEDS: ALLOPURINOL 100 MG TABLET PO SCH (14:29)
[2018-03-04] MEDS: OMEGA-3 ACID ETHYL ESTERS 1 GM CAPSULE PO SCH (14:29)
[2018-03-04] MEDS: NATEGLINIDE 60 MG TABLET PO SCH (17:13)
[2018-03-04] MEDS: CARVEDILOL 12.5 MG TABLET PO SCH (21:37)
[2018-03-05] MEDS: HYDRALAZINE HCL INJ/PF 20 MG/1 ML SDV IV SCH ×3 (05:53→17:17)
[2018-03-05 06:49] LABS: ABSOLUTE EOSINOPHILS # (AUTO) 0.2 10^3/uL (0.0-0.6); ABSOLUTE LYMPHOCYTES (AUTO) 1.3 10^3/uL (0.5-4.7); ABSOLUTE MONOCYTES (AUTO) 0.5 10^3/uL (0.1-1.4); ABSOLUTE NEUT (AUTO) 1.8 10^3/uL (1.7-8.2); BASOPHILS % (AUTO) 0.3 % (0-2); EOSINOPHILS % (AUTO) 4.4 % (0-6); HEMATOCRIT 35.8 % (36.0-47.0); HEMOGLOBIN 11.7 g/dL (12.0-15.5); LYMPHOCYTES % (AUTO) 34.3 % (13-45); MEAN CORPUSCULAR HEMOGLOBIN 27.4 pg (27.0-33.4); MEAN CORPUSCULAR HGB CONC 32.6 g/dL (32.0-36.0); MEAN CORPUSCULAR VOLUME 84 fl (80-97); MONOCYTES % (AUTO) 12.4 % (3-13); PLATELET COUNT 154 10^3/uL (150-450); RED BLOOD COUNT 4.26 10^6/uL (3.72-5.28); SEGMENTED NEUTROPHILS % (AUTO) 48.6 % (42-78); TOTAL CELLS COUNTED % (AUTO) 100 %; WHITE BLOOD COUNT 3.7 10^3/uL (4.0-10.5)
[2018-03-05 07:14] LABS: ALANINE AMINOTRANSFERASE 23 U/L (9-52); ALBUMIN 3.3 g/dL (3.5-5.0); ALKALINE PHOSPHATASE 131 U/L (38-126); ANION GAP 12 (5-19); ASPARTATE AMINO TRANSFERASE 29 U/L (14-36); BILIRUBIN,DIRECT 0.4 mg/dL (0.0-0.4); BILIRUBIN,TOTAL 1.1 mg/dL (0.2-1.3); BLOOD UREA NITROGEN 23 mg/dL (7-20); CALCIUM 8.9 mg/dL (8.4-10.2); CARBON DIOXIDE 23 mmol/L (22-30); CHLORIDE 106 mmol/L (98-107); GLUCOSE 161 mg/dL (75-110); LIPASE 619.6 U/L (23-300); POTASSIUM 4.2 mmol/L (3.6-5.0); SODIUM 141.1 mmol/L (137-145); TOTAL PROTEIN 6.8 g/dL (6.3-8.2)
[2018-03-05] MEDS: INSULIN LISPRO 100 UNIT/ML 3 ML VIAL SUBCUT PRN ×3 (08:24→17:17)
[2018-03-05] MEDS: NATEGLINIDE 60 MG TABLET PO SCH ×3 (08:24→17:17)
[2018-03-05] MEDS: LOSARTAN POTASSIUM 50 MG TABLET PO SCH (10:45)
[2018-03-05] MEDS: ALLOPURINOL 100 MG TABLET PO SCH (10:45)
[2018-03-05] MEDS: TORSEMIDE 20 MG TABLET PO SCH (10:45)
[2018-03-05] MEDS: CALCITRIOL 0.25 MCG CAPSULE PO SCH (10:45)
[2018-03-05] MEDS: OMEGA-3 ACID ETHYL ESTERS 1 GM CAPSULE PO SCH (10:45)
[2018-03-05] MEDS: FAMOTIDINE INJ/PF 20 MG/2 ML SDV IV SCH (10:46)
[2018-03-05] MEDS: ENOXAPARIN SODIUM INJ 40 MG/0.4 ML DISP.SYRIN SUBCUT SCH (10:46)
[2018-03-05] MEDS: CARVEDILOL 12.5 MG TABLET PO SCH ×2 (10:46→21:08)
--- NOTE | 2018-03-05 18:25 | PDOC PROGRESS REPORT ---
Subjective Progress Note for:: 03/05/18 Subjective:: Patient denied any abdominal pain, nausea, or vomiting. Currently on regular diet with diabetic carbohydrate restriction level 3. No chest pain or difficulty with breathing. No fever or chills. Reason For Visit: NAUSEA,VOMITING,ACUTE PANCREATITIS Physical Exam Vital Signs: Temp Pulse Resp BP Pulse Ox 98.0 F 61 20 151/71 H 100 03/05/18 15:40 03/05/18 15:40 03/05/18 15:40 03/05/18 15:40 03/05/18 15:40 Intake & Output 03/04/18 03/05/18 03/06/18 06:59 06:59 06:59 Intake Total 1090 1505 655 Output Total 1500 1150 600 Balance -410 355 55 Weight 99.2 kg 97.5 kg Results Laboratory Results: 03/05/18 06:40 03/05/18 06:40 03/05/18 03/05/18 06:40 06:40 WBC 3.7 L RBC 4.26 Hgb 11.7 L Hct 35.8 L MCV 84 MCH 27.4 MCHC 32.6 RDW 17.0 H Plt Count 154 Seg Neutrophils % 48.6 Lymphocytes % 34.3 Monocytes % 12.4 Eosinophils % 4.4 Basophils % 0.3 Absolute Neutrophils 1.8 Absolute Lymphocytes 1.3 Absolute Monocytes 0.5 Absolute Eosinophils 0.2 Absolute Basophils 0.0 Sodium 141.1 Potassium 4.2 Chloride 106 Carbon Dioxide 23 Anion Gap 12 BUN 23 H Creatinine 2.26 H Est GFR ( Amer) 25 L Est GFR (Non-Af Amer) 21 L Glucose 161 H Calcium 8.9 Total Bilirubin 1.1 AST 29 ALT 23 Alkaline Phosphatase 131 H Total Protein 6.8 Albumin 3.3 L Lipase 619.6 H Impressions: Abdomen Ultrasound 02/28/18 00:00 IMPRESSION: There is prominence of the common bile duct at 6.8 mm. Correlate for biliary obstruction. Abdomen/Pelvis CT 02/28/18 03:53 IMPRESSION: 1. Findings raising question of very early acute appendicitis. If surgery is not initially considered would recommend clinical follow-up and consider short-term follow-up CT as above. 2. Mild diverticulosis. Assessment & Plan - Diagnosis (1) Acute pancreatitis Qualifiers: Pancreatitis type: unspecified pancreatitis type Acute pancreatitis complication: unspecified Qualified Code(s): K85.90 - Acute pancreatitis without necrosis or infection, unspecified Is this a current diagnosis for this admission?: Yes Plan: Worsening serum lipase level. Change diet to clear liquid with carbohydrate restrictions to level 3. Monitor lipase/amylase levels. (2) Appendicolith Is this a current diagnosis for this admission?: Yes Plan: Continue with observational status. (3) GERD (gastroesophageal reflux disease) Qualifiers: Esophagitis presence: without esophagitis Qualified Code(s): K21.9 - Gastro -esophageal reflux disease without esophagitis Is this a current diagnosis for this admission?: Yes Plan: Continue current medication management. (4) Diabetes mellitus type 2 in obese Is this a current diagnosis for this admission?: Yes Plan: Continue current medication management. (5) Intermittent atrial fibrillation Is this a current diagnosis for this admission?: Yes Plan: Continue current medication management. (6) HTN (hypertension) Qualifiers: Hypertension type: essential hypertension Qualified Code(s): I10 - Essential (primary) hypertension Is this a current diagnosis for this admission?: Yes Plan: Continue current medication management. (7) Hyperlipidemia associated with type 2 diabetes mellitus Is this a current diagnosis for this admission?: Yes Plan: Continue current medication management. (8) Osteoarthritis involving multiple joints on both sides of body Is this a current diagnosis for this admission?: Yes Plan: Continue current medication management. 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 - Time Time Spent with patient: 25-34 minutes Medications reviewed and adjusted accordingly: Yes Anticipated discharge: Home with Homehealth Within: Other - Inpatient Certification Based on my medical assessment, after consideration of the patient's comorbidities, presenting symptoms, or acuity I expect that the services needed warrant INPATIENT care.: Yes I certify that my determination is in accordance with my understanding of Medicare's requirements for reasonable and necessary INPATIENT services [42 CFR 412.3e].: Yes Medical Necessity: Need Close Monitoring Due to Risk of Patient Decompensation, Need For Continuous Telemetry Monitoring, Need for Pain Control, Risk of Complication if Not Cared For in Hospital Post Hospital Care: D/C Decorative Engraver Apprentice Documentation - Plan Summary Plan Summary: Continue current medication management. See attending physician orders.
[2018-03-05] MEDS: HYDRALAZINE HCL 25 MG TABLET PO SCH (20:32)
[2018-03-05] MEDS: MORPHINE SULFATE 10 MG/ML INJ IV PRN (20:36)
[2018-03-06] MEDS: HYDRALAZINE HCL 25 MG TABLET PO SCH ×4 (00:33→18:10)
[2018-03-06] MEDS: HYDRALAZINE HCL INJ/PF 20 MG/1 ML SDV IV SCH ×2 (00:35→05:54)
[2018-03-06 05:08] LABS: ABSOLUTE EOSINOPHILS # (AUTO) 0.1 10^3/uL (0.0-0.6); ABSOLUTE LYMPHOCYTES (AUTO) 1.6 10^3/uL (0.5-4.7); ABSOLUTE MONOCYTES (AUTO) 0.6 10^3/uL (0.1-1.4); ABSOLUTE NEUT (AUTO) 1.5 10^3/uL (1.7-8.2); BASOPHILS % (AUTO) 0.7 % (0-2); EOSINOPHILS % (AUTO) 3.1 % (0-6); HEMATOCRIT 37.3 % (36.0-47.0); MEAN CORPUSCULAR HEMOGLOBIN 27.2 pg (27.0-33.4); MEAN CORPUSCULAR VOLUME 85 fl (80-97); MONOCYTES % (AUTO) 14.8 % (3-13); PLATELET COUNT 174 10^3/uL (150-450); RED BLOOD COUNT 4.39 10^6/uL (3.72-5.28); RED CELL DISTRIBUTION WIDTH 16.8 % (11.5-14.0); SEGMENTED NEUTROPHILS % (AUTO) 40.4 % (42-78); TOTAL CELLS COUNTED % (AUTO) 100 %; WHITE BLOOD COUNT 3.8 10^3/uL (4.0-10.5)
[2018-03-06 05:22] LABS: ALANINE AMINOTRANSFERASE 25 U/L (9-52); ALBUMIN 3.6 g/dL (3.5-5.0); ALKALINE PHOSPHATASE 135 U/L (38-126); AMYLASE 126 U/L (30-110); ANION GAP 13 (5-19); ASPARTATE AMINO TRANSFERASE 30 U/L (14-36); BILIRUBIN,DIRECT 0.4 mg/dL (0.0-0.4); BILIRUBIN,TOTAL 0.9 mg/dL (0.2-1.3); BLOOD UREA NITROGEN 27 mg/dL (7-20); CARBON DIOXIDE 25 mmol/L (22-30); CHLORIDE 102 mmol/L (98-107); GLUCOSE 126 mg/dL (75-110); LIPASE 673.5 U/L (23-300); POTASSIUM 4.5 mmol/L (3.6-5.0); SODIUM 140.2 mmol/L (137-145); TOTAL PROTEIN 7.1 g/dL (6.3-8.2)
[2018-03-06] MEDS: NATEGLINIDE 60 MG TABLET PO SCH (08:11)
[2018-03-06] MEDS ORDERED: DEXTROSE 50%-WATER 25 GM/50 ML DISP.SYRIN IV PRN (08:37)
[2018-03-06] MEDS ORDERED: GLUCAGON,HUMAN RECOMB 1 MG INJ SUBCUT PRN (08:37)
--- NOTE | 2018-03-06 08:45 | PDOC PROGRESS REPORT ---
Subjective Progress Note for:: 03/06/18 Subjective:: No abdominal pain, nausea, or vomiting. No chest pain or difficulty with breathing. No fever or chills. Reason For Visit: NAUSEA,VOMITING,ACUTE PANCREATITIS Physical Exam Vital Signs: Temp Pulse Resp BP Pulse Ox 98.0 F 58 L 17 123/58 L 100 03/06/18 07:58 03/06/18 07:58 03/06/18 07:58 03/06/18 07:58 03/06/18 07:58 Intake & Output 03/05/18 03/06/18 03/07/18 06:59 06:59 06:59 Intake Total 1505 892 Output Total 1150 903 Balance 355 -11 Weight 97.5 kg 97.2 kg Physical Exam: General appearance: PRESENT: no acute distress, obese Head exam: PRESENT: atraumatic, normocephalic Ear exam: PRESENT: normal external ear exam Mouth exam: PRESENT: moist Respiratory exam: PRESENT: clear to auscultation nurys, decreased breath sounds - at lung bases Cardiovascular exam: PRESENT: RRR. ABSENT: diastolic murmur, rubs, systolic murmur Vascular exam: PRESENT: normal capillary refill. ABSENT: pallor GI/Abdominal exam: PRESENT: normal bowel sounds, soft. ABSENT: distended, guarding, mass, organomegaly, rebound, tenderness Extremities exam: PRESENT: pedal edema - chronic stasis edema Musculoskeletal exam: PRESENT: deformity - related to multiple joints involvement with arthritis Neurological exam: PRESENT: alert, awake, oriented to person, oriented to place , oriented to time, oriented to situation, CN II-XII grossly intact. ABSENT: motor sensory deficit Psychiatric exam: PRESENT: appropriate affect, normal mood. ABSENT: homicidal ideation, suicidal ideation Skin exam: PRESENT: dry, intact, warm. ABSENT: cyanosis, rash Results Laboratory Results: 03/06/18 04:20 03/06/18 04:20 03/06/18 03/06/18 04:20 04:20 WBC 3.8 L RBC 4.39 Hgb 12.0 Hct 37.3 MCV 85 MCH 27.2 MCHC 32.0 RDW 16.8 H Plt Count 174 Seg Neutrophils % 40.4 L Lymphocytes % 41.0 Monocytes % 14.8 H Eosinophils % 3.1 Basophils % 0.7 Absolute Neutrophils 1.5 L Absolute Lymphocytes 1.6 Absolute Monocytes 0.6 Absolute Eosinophils 0.1 Absolute Basophils 0.0 Sodium 140.2 Potassium 4.5 Chloride 102 Carbon Dioxide 25 Anion Gap 13 BUN 27 H Creatinine 2.70 H Est GFR ( Amer) 20 L Est GFR (Non-Af Amer) 17 L Glucose 126 H Calcium 9.0 Total Bilirubin 0.9 AST 30 ALT 25 Alkaline Phosphatase 135 H Total Protein 7.1 Albumin 3.6 Amylase 126 H Lipase 673.5 H Impressions: Abdomen Ultrasound 02/28/18 00:00 IMPRESSION: There is prominence of the common bile duct at 6.8 mm. Correlate for biliary obstruction. Abdomen/Pelvis CT 02/28/18 03:53 IMPRESSION: 1. Findings raising question of very early acute appendicitis. If surgery is not initially considered would recommend clinical follow-up and consider short-term follow-up CT as above. 2. Mild diverticulosis. Assessment & Plan - Diagnosis (1) Acute pancreatitis Qualifiers: Pancreatitis type: unspecified pancreatitis type Acute pancreatitis complication: unspecified Qualified Code(s): K85.90 - Acute pancreatitis without necrosis or infection, unspecified Is this a current diagnosis for this admission?: Yes Plan: Worsening serum Lipase and Amylase levels. Change diet to NPO status. Allow ice chips and moisten swab usage. (2) Appendicolith Is this a current diagnosis for this admission?: Yes (3) GERD (gastroesophageal reflux disease) Qualifiers: Esophagitis presence: without esophagitis Qualified Code(s): K21.9 - Gastro -esophageal reflux disease without esophagitis Is this a current diagnosis for this admission?: Yes (4) Diabetes mellitus type 2 in obese Is this a current diagnosis for this admission?: Yes Plan: Continue current medication management. (5) Intermittent atrial fibrillation Is this a current diagnosis for this admission?: Yes Plan: Decrease Carvedilol to 12.5 mg po q12 hours due to reported significant bradycardia. (6) HTN (hypertension) Qualifiers: Hypertension type: essential hypertension Qualified Code(s): I10 - Essential (primary) hypertension Is this a current diagnosis for this admission?: Yes Plan: Continue current medication management. Change IV Hydralazine to q6 prn for sbp > 160 mmHg. 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 Is this a current diagnosis for this admission?: Yes - Time Time Spent with patient: 25-34 minutes Medications reviewed and adjusted accordingly: Yes Anticipated discharge: Home with Homehealth Within: Other - Inpatient Certification Based on my medical assessment, after consideration of the patient's comorbidities, presenting symptoms, or acuity I expect that the services needed warrant INPATIENT care.: Yes I certify that my determination is in accordance with my understanding of Medicare's requirements for reasonable and necessary INPATIENT services [42 CFR 412.3e].: Yes Medical Necessity: Need Close Monitoring Due to Risk of Patient Decompensation, Need For IV Fluids, Need For Continuous Telemetry Monitoring, Need for Pain Control, Risk of Complication if Not Cared For in Hospital Post Hospital Care: D/C Wind Development Director Documentation - Plan Summary Plan Summary: Continue current medication management with adjustment and change in diet. See attending physician orders.
[2018-03-06] MEDS ORDERED: HYDRALAZINE HCL INJ/PF 20 MG/1 ML SDV IV PRN (08:47)
[2018-03-06] MEDS: ENOXAPARIN SODIUM INJ 30 MG/0.3 ML DISP.SYRIN SUBCUT SCH (09:36)
[2018-03-06] MEDS: FAMOTIDINE 20 MG TABLET PO SCH (09:36)
[2018-03-06] MEDS: DEXTROSE 5%-NORMAL SALINE 1,000 ML IV PRN (09:36)
[2018-03-06] MEDS: CARVEDILOL 12.5 MG TABLET PO SCH ×2 (10:23→21:24)
[2018-03-06] MEDS: INSULIN LISPRO 100 UNIT/ML 3 ML VIAL SUBCUT PRN (18:13)
[2018-03-07] MEDS: HYDRALAZINE HCL 25 MG TABLET PO SCH ×4 (00:10→17:26)
[2018-03-07] MEDS: DEXTROSE 5%-NORMAL SALINE 1,000 ML IV PRN (05:26)
[2018-03-07 10:16] LABS: LIPASE 694.7 U/L (23-300)
[2018-03-07] MEDS: ENOXAPARIN SODIUM INJ 30 MG/0.3 ML DISP.SYRIN SUBCUT SCH (10:38)
[2018-03-07] MEDS: CALCITRIOL 0.25 MCG CAPSULE PO SCH (10:38)
[2018-03-07] MEDS: FAMOTIDINE 20 MG TABLET PO SCH (10:38)
[2018-03-07] MEDS: CARVEDILOL 12.5 MG TABLET PO SCH ×2 (10:38→21:19)
--- NOTE | 2018-03-07 18:14 | PDOC PROGRESS REPORT ---
Subjective Progress Note for:: 03/07/18 Subjective:: Patient denied any abdominal pain, nausea, vomiting or diarrhea. No fever or chills. She remain NPO in last 498 hours. No chest pain or difficulty with breathing. Reason For Visit: NAUSEA,VOMITING,ACUTE PANCREATITIS Physical Exam Vital Signs: Temp Pulse Resp BP Pulse Ox 98.1 F 63 16 146/89 H 100 03/07/18 15:56 03/07/18 15:56 03/07/18 15:56 03/07/18 15:56 03/07/18 15:56 Intake & Output 03/06/18 03/07/18 03/08/18 06:59 06:59 06:59 Intake Total 892 992 Output Total 903 600 Balance -11 392 Weight 97.2 kg 97 kg Physical Exam: General appearance: PRESENT: no acute distress, obese Head exam: PRESENT: atraumatic, normocephalic Ear exam: PRESENT: normal external ear exam Mouth exam: PRESENT: fairly moist Respiratory exam: PRESENT: clear to auscultation nurys, decreased breath sounds - at lung bases Cardiovascular exam: PRESENT: RRR. ABSENT: diastolic murmur, rubs, systolic murmur Vascular exam: ABSENT: pallor GI/Abdominal exam: PRESENT: normal bowel sounds, soft. ABSENT: distended, guarding, mass, organomegaly, rebound, tenderness Extremities exam: PRESENT: pedal edema - chronic stasis edema Musculoskeletal exam: PRESENT: deformity - related to multiple joints involvement with arthritis Neurological exam: PRESENT: alert, awake, oriented to person, oriented to place , oriented to time, oriented to situation, CN II-XII grossly intact. ABSENT: motor sensory deficit Psychiatric exam: PRESENT: appropriate affect, normal mood. ABSENT: homicidal ideation, suicidal ideation Skin exam: PRESENT: dry, intact, warm. ABSENT: cyanosis, rash Results Laboratory Results: 03/06/18 04:20 03/06/18 04:20 03/07/18 09:12 Amylase 116 H Lipase 694.7 H Impressions: Abdomen Ultrasound 02/28/18 00:00 IMPRESSION: There is prominence of the common bile duct at 6.8 mm. Correlate for biliary obstruction. Abdomen/Pelvis CT 02/28/18 03:53 IMPRESSION: 1. Findings raising question of very early acute appendicitis. If surgery is not initially considered would recommend clinical follow-up and consider short-term follow-up CT as above. 2. Mild diverticulosis. Assessment & Plan - Diagnosis (1) Acute pancreatitis Qualifiers: Pancreatitis type: unspecified pancreatitis type Acute pancreatitis complication: unspecified Qualified Code(s): K85.90 - Acute pancreatitis without necrosis or infection, unspecified Is this a current diagnosis for this admission?: Yes Plan: There is persistently elevated serum Lipase level with minimal improvement in her Amylase level today. If her Lipase level continue to raise consider repeat CT abdomen to evaluate for any worsening inflammation versus pseudocyst formation. (2) Appendicolith Is this a current diagnosis for this admission?: Yes (3) GERD (gastroesophageal reflux disease) Qualifiers: Esophagitis presence: without esophagitis Qualified Code(s): K21.9 - Gastro -esophageal reflux disease without esophagitis Is this a current diagnosis for this admission?: Yes (4) Diabetes mellitus type 2 in obese Is this a current diagnosis for this admission?: Yes Plan: Continue current medication management. 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 Is this a current diagnosis for this admission?: Yes - Time Time Spent with patient: 25-34 minutes Medications reviewed and adjusted accordingly: Yes Anticipated discharge: Home with Homehealth Within: Other - Inpatient Certification Based on my medical assessment, after consideration of the patient's comorbidities, presenting symptoms, or acuity I expect that the services needed warrant INPATIENT care.: Yes I certify that my determination is in accordance with my understanding of Medicare's requirements for reasonable and necessary INPATIENT services [42 CFR 412.3e].: Yes Medical Necessity: Need Close Monitoring Due to Risk of Patient Decompensation, Need For IV Fluids, Need For Continuous Telemetry Monitoring, Risk of Complication if Not Cared For in Hospital Post Hospital Care: D/C Tube Winder Hand Documentation - Plan Summary Plan Summary: Continue all current medication management and IV fluid support. Obtain Lipase, Amylase, CMP, CBC with diff in AM.
[2018-03-08] MEDS: HYDRALAZINE HCL 25 MG TABLET PO SCH ×2 (00:37→05:32)
[2018-03-08] MEDS: DEXTROSE 5%-NORMAL SALINE 1,000 ML IV PRN (00:38)
[2018-03-08 05:24] LABS: ABSOLUTE EOSINOPHILS # (AUTO) 0.1 10^3/uL (0.0-0.6); ABSOLUTE LYMPHOCYTES (AUTO) 1.2 10^3/uL (0.5-4.7); ABSOLUTE MONOCYTES (AUTO) 0.7 10^3/uL (0.1-1.4); ABSOLUTE NEUT (AUTO) 1.9 10^3/uL (1.7-8.2); BASOPHILS % (AUTO) 1.1 % (0-2); EOSINOPHILS % (AUTO) 2.6 % (0-6); HEMATOCRIT 36.6 % (36.0-47.0); HEMOGLOBIN 11.5 g/dL (12.0-15.5); LYMPHOCYTES % (AUTO) 31.3 % (13-45); MEAN CORPUSCULAR HGB CONC 31.5 g/dL (32.0-36.0); MEAN CORPUSCULAR VOLUME 86 fl (80-97); MONOCYTES % (AUTO) 17.3 % (3-13); PLATELET COUNT 190 10^3/uL (150-450); RED BLOOD COUNT 4.27 10^6/uL (3.72-5.28); RED CELL DISTRIBUTION WIDTH 16.5 % (11.5-14.0); SEGMENTED NEUTROPHILS % (AUTO) 47.7 % (42-78); TOTAL CELLS COUNTED % (AUTO) 100 %; WHITE BLOOD COUNT 3.9 10^3/uL (4.0-10.5)
[2018-03-08 05:45] LABS: ALANINE AMINOTRANSFERASE 20 U/L (9-52); ALBUMIN 3.6 g/dL (3.5-5.0); ALKALINE PHOSPHATASE 129 U/L (38-126); AMYLASE 121 U/L (30-110); ANION GAP 15 (5-19); ASPARTATE AMINO TRANSFERASE 30 U/L (14-36); BILIRUBIN,DIRECT 0.3 mg/dL (0.0-0.4); BILIRUBIN,TOTAL 0.9 mg/dL (0.2-1.3); BLOOD UREA NITROGEN 27 mg/dL (7-20); CALCIUM 9.1 mg/dL (8.4-10.2); CARBON DIOXIDE 22 mmol/L (22-30); CHLORIDE 108 mmol/L (98-107); GLUCOSE 172 mg/dL (75-110); LIPASE 654.6 U/L (23-300); POTASSIUM 4.2 mmol/L (3.6-5.0); TOTAL PROTEIN 7.1 g/dL (6.3-8.2)
[2018-03-08] MEDS: INSULIN LISPRO 100 UNIT/ML 3 ML VIAL SUBCUT PRN (06:12)
--- NOTE | 2018-03-08 08:37 | PDOC PROGRESS REPORT ---
Subjective Progress Note for:: 03/08/18 Subjective:: No chest pain or difficulty with breathing. No abdominal pain, nausea, vomiting or diarrhea. No fever or chills. She remain NPO with slight decline in her serum lipase level. Reason For Visit: NAUSEA,VOMITING,ACUTE PANCREATITIS Physical Exam Vital Signs: Temp Pulse Resp BP Pulse Ox 97.5 F 58 L 20 167/76 H 94 03/08/18 03:04 03/08/18 07:00 03/08/18 03:04 03/08/18 03:04 03/08/18 03:04 Intake & Output 03/07/18 03/08/18 03/09/18 06:59 06:59 06:59 Intake Total 992 960 Output Total 600 1450 Balance 392 -490 Weight 97 kg 95.5 kg Physical Exam: General appearance: PRESENT: no acute distress, obese Head exam: PRESENT: atraumatic, normocephalic Ear exam: PRESENT: normal external ear exam Mouth exam: PRESENT: fairly moist Respiratory exam: PRESENT: clear to auscultation nurys, decreased breath sounds - at lung bases Cardiovascular exam: PRESENT: RRR. ABSENT: diastolic murmur, rubs, systolic murmur Vascular exam: ABSENT: pallor GI/Abdominal exam: PRESENT: normal bowel sounds, soft. ABSENT: distended, guarding, mass, organomegaly, rebound, tenderness Extremities exam: PRESENT: pedal edema - chronic stasis edema Musculoskeletal exam: PRESENT: deformity - related to multiple joints involvement with arthritis Neurological exam: PRESENT: alert, awake, oriented to person, oriented to place , oriented to time, oriented to situation, CN II-XII grossly intact. ABSENT: motor sensory deficit Psychiatric exam: PRESENT: appropriate affect, normal mood. ABSENT: homicidal ideation, suicidal ideation Skin exam: PRESENT: dry, intact, warm. ABSENT: cyanosis, rash Results Laboratory Results: 03/08/18 04:39 03/08/18 04:39 03/07/18 03/08/18 03/08/18 09:12 04:39 04:39 WBC 3.9 L RBC 4.27 Hgb 11.5 L Hct 36.6 MCV 86 MCH 27.0 MCHC 31.5 L RDW 16.5 H Plt Count 190 Seg Neutrophils % 47.7 Lymphocytes % 31.3 Monocytes % 17.3 H Eosinophils % 2.6 Basophils % 1.1 Absolute Neutrophils 1.9 Absolute Lymphocytes 1.2 Absolute Monocytes 0.7 Absolute Eosinophils 0.1 Absolute Basophils 0.0 Sodium 145.0 Potassium 4.2 Chloride 108 H Carbon Dioxide 22 Anion Gap 15 BUN 27 H Creatinine 1.78 H Est GFR ( Amer) 33 L Est GFR (Non-Af Amer) 27 L Glucose 172 H Calcium 9.1 Total Bilirubin 0.9 AST 30 ALT 20 Alkaline Phosphatase 129 H Total Protein 7.1 Albumin 3.6 Amylase 116 H 121 H Lipase 694.7 H 654.6 H Impressions: Abdomen Ultrasound 02/28/18 00:00 IMPRESSION: There is prominence of the common bile duct at 6.8 mm. Correlate for biliary obstruction. Abdomen/Pelvis CT 02/28/18 03:53 IMPRESSION: 1. Findings raising question of very early acute appendicitis. If surgery is not initially considered would recommend clinical follow-up and consider short-term follow-up CT as above. 2. Mild diverticulosis. Assessment & Plan - Diagnosis (1) Acute pancreatitis Qualifiers: Pancreatitis type: unspecified pancreatitis type Acute pancreatitis complication: unspecified Qualified Code(s): K85.90 - Acute pancreatitis without necrosis or infection, unspecified Is this a current diagnosis for this admission?: Yes Plan: Continue NPO status. Hold off on CT A/P with contrast in view f her renal status and last evaluation was on 02/28 and decreasing Lipase level. Continue IV fluid support. (2) Appendicolith Is this a current diagnosis for this admission?: Yes (3) GERD (gastroesophageal reflux disease) Qualifiers: Esophagitis presence: without esophagitis Qualified Code(s): K21.9 - Gastro -esophageal reflux disease without esophagitis Is this a current diagnosis for this admission?: Yes (4) Diabetes mellitus type 2 in obese Is this a current diagnosis for this admission?: Yes Plan: Continue current medication management and [id number] accu chek with sliding scale humalog insulin coverage. (5) Intermittent atrial fibrillation Is this a current diagnosis for this admission?: Yes (6) HTN (hypertension) Qualifiers: Hypertension type: essential hypertension Qualified Code(s): I10 - Essential (primary) hypertension Is this a current diagnosis for this admission?: Yes Plan: Increase oral Hydralazine to 50mg po [id number]. Maintain on other current medication management. 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 Is this a current diagnosis for this admission?: Yes - Time Time Spent with patient: 25-34 minutes Medications reviewed and adjusted accordingly: Yes Anticipated discharge: Home with Homehealth Within: Other - Inpatient Certification Based on my medical assessment, after consideration of the patient's comorbidities, presenting symptoms, or acuity I expect that the services needed warrant INPATIENT care.: Yes I certify that my determination is in accordance with my understanding of Medicare's requirements for reasonable and necessary INPATIENT services [42 CFR 412.3e].: Yes Medical Necessity: Need Close Monitoring Due to Risk of Patient Decompensation, Need For IV Fluids, Need For Continuous Telemetry Monitoring, Need for Pain Control, Risk of Complication if Not Cared For in Hospital Post Hospital Care: D/C Pathology Laboratory Technologist Documentation - Plan Summary Plan Summary: See attending physician orders.
[2018-03-08] MEDS: ENOXAPARIN SODIUM INJ 30 MG/0.3 ML DISP.SYRIN SUBCUT SCH (10:24)
[2018-03-08] MEDS: CARVEDILOL 12.5 MG TABLET PO SCH ×2 (10:24→21:40)
[2018-03-08] MEDS: FAMOTIDINE 20 MG TABLET PO SCH (10:24)
[2018-03-08] MEDS: HYDRALAZINE HCL 50 MG TABLET PO SCH ×2 (14:30→21:36)
[2018-03-09] MEDS: HYDRALAZINE HCL 50 MG TABLET PO SCH ×3 (05:01→21:32)
[2018-03-09 05:41] LABS: LIPASE 589.9 U/L (23-300)
[2018-03-09] MEDS: DEXTROSE 5%-NORMAL SALINE 1,000 ML IV PRN (06:51)
[2018-03-09] MEDS: INSULIN LISPRO 100 UNIT/ML 3 ML VIAL SUBCUT PRN (06:56)
[2018-03-09] MEDS: CALCITRIOL 0.25 MCG CAPSULE PO SCH (10:17)
[2018-03-09] MEDS: CARVEDILOL 12.5 MG TABLET PO SCH ×2 (10:17→22:00)
[2018-03-09] MEDS: FAMOTIDINE 20 MG TABLET PO SCH (10:17)
[2018-03-09] MEDS: ENOXAPARIN SODIUM INJ 30 MG/0.3 ML DISP.SYRIN SUBCUT SCH (10:18)
[2018-03-09] MEDS: HYDRALAZINE HCL INJ/PF 20 MG/1 ML SDV IV PRN (11:28)
--- NOTE | 2018-03-09 16:05 | PDOC PROGRESS REPORT ---
Subjective Progress Note for:: 03/09/18 Subjective:: No chest pain or difficulty with breathing. No abdominal pain, nausea, vomiting or diarrhea. No fever or chills. She remain NPO. Reason For Visit: NAUSEA,VOMITING,ACUTE PANCREATITIS Physical Exam Vital Signs: Temp Pulse Resp BP Pulse Ox 98.1 F 57 L 18 169/67 H 97 03/09/18 11:16 03/09/18 14:00 03/09/18 11:16 03/09/18 11:16 03/09/18 11:16 Intake & Output 03/08/18 03/09/18 03/10/18 06:59 06:59 06:59 Intake Total 960 1000 Output Total 1450 850 Balance -490 150 Weight 95.5 kg 95.4 kg Physical Exam: General appearance: PRESENT: no acute distress, obese Head exam: PRESENT: atraumatic, normocephalic Ear exam: PRESENT: normal external ear exam Mouth exam: PRESENT: fairly moist Respiratory exam: PRESENT: clear to auscultation nurys, decreased breath sounds - at lung bases Cardiovascular exam: PRESENT: RRR. ABSENT: diastolic murmur, rubs, systolic murmur Vascular exam: ABSENT: pallor GI/Abdominal exam: PRESENT: normal bowel sounds, soft. ABSENT: distended, guarding, mass, organomegaly, rebound, tenderness Extremities exam: PRESENT: pedal edema - chronic stasis edema Musculoskeletal exam: PRESENT: deformity - related to multiple joints involvement with arthritis Neurological exam: PRESENT: alert, awake, oriented to person, oriented to place , oriented to time, oriented to situation, CN II-XII grossly intact. ABSENT: motor sensory deficit Psychiatric exam: PRESENT: appropriate affect, normal mood. ABSENT: homicidal ideation, suicidal ideation Skin exam: PRESENT: dry, intact, warm. ABSENT: cyanosis, rash Results Laboratory Results: 03/08/18 04:39 03/08/18 04:39 03/09/18 04:56 Amylase 106 Lipase 589.9 H Impressions: Abdomen Ultrasound 02/28/18 00:00 IMPRESSION: There is prominence of the common bile duct at 6.8 mm. Correlate for biliary obstruction. Abdomen/Pelvis CT 02/28/18 03:53 IMPRESSION: 1. Findings raising question of very early acute appendicitis. If surgery is not initially considered would recommend clinical follow-up and consider short-term follow-up CT as above. 2. Mild diverticulosis. Assessment & Plan - Diagnosis (1) Acute pancreatitis Qualifiers: Pancreatitis type: unspecified pancreatitis type Acute pancreatitis complication: unspecified Qualified Code(s): K85.90 - Acute pancreatitis without necrosis or infection, unspecified Is this a current diagnosis for this admission?: Yes Plan: Maintain on NPO status. Continue IV fluid support. Acute Pancreatitis may be due to combination use of Calcitrol, Torsamide and Rosuvastatin. (2) Appendicolith Is this a current diagnosis for this admission?: Yes (3) GERD (gastroesophageal reflux disease) Qualifiers: Esophagitis presence: without esophagitis Qualified Code(s): K21.9 - Gastro -esophageal reflux disease without esophagitis Is this a current diagnosis for this admission?: Yes (4) Diabetes mellitus type 2 in obese Is this a current diagnosis for this admission?: Yes Plan: Continue current medication management. (5) Intermittent atrial fibrillation Is this a current diagnosis for this admission?: Yes (6) HTN (hypertension) Qualifiers: Hypertension type: essential hypertension Qualified Code(s): I10 - Essential (primary) hypertension Is this a current diagnosis for this admission?: Yes Plan: Continue current medication management. 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 Is this a current diagnosis for this admission?: Yes - Time Time Spent with patient: 25-34 minutes Medications reviewed and adjusted accordingly: Yes Anticipated discharge: Home with Homehealth Within: Other - Inpatient Certification Based on my medical assessment, after consideration of the patient's comorbidities, presenting symptoms, or acuity I expect that the services needed warrant INPATIENT care.: Yes I certify that my determination is in accordance with my understanding of Medicare's requirements for reasonable and necessary INPATIENT services [42 CFR 412.3e].: Yes Medical Necessity: Need Close Monitoring Due to Risk of Patient Decompensation, Need For IV Fluids, Need For Continuous Telemetry Monitoring, Need for Pain Control, Risk of Complication if Not Cared For in Hospital Post Hospital Care: D/C Pan Cleaner Documentation - Plan Summary Plan Summary: Continue NPO status. Serum Amylase in normal range with slight improvement in her serum Lipase level. Maintain on current medication management and IV fluid support. We will consider starting on clear liquid if Lipase is less than 350. Patient continue to need hospitalization due to acute pancreatitis of unknown etiology but concern for drug induced.
[2018-03-10] MEDS: DEXTROSE 5%-NORMAL SALINE 1,000 ML IV PRN ×2 (03:25→23:34)
[2018-03-10] MEDS: HYDRALAZINE HCL 50 MG TABLET PO SCH ×3 (05:23→21:08)
[2018-03-10] MEDS: INSULIN LISPRO 100 UNIT/ML 3 ML VIAL SUBCUT PRN ×2 (05:26→13:06)
[2018-03-10 05:37] LABS: LIPASE 531.6 U/L (23-300)
[2018-03-10] MEDS: ENOXAPARIN SODIUM INJ 30 MG/0.3 ML DISP.SYRIN SUBCUT SCH (09:18)
[2018-03-10] MEDS: FAMOTIDINE 20 MG TABLET PO SCH (09:19)
[2018-03-10] MEDS: CARVEDILOL 12.5 MG TABLET PO SCH ×2 (09:19→21:06)
--- NOTE | 2018-03-10 10:14 | PDOC PROGRESS REPORT ---
Subjective Progress Note for:: 03/10/18 Subjective:: Patient is feeling much better She is denied any abdominal pain denied any nausea no vomiting Admitted for the pancreatitis She is still currently n.p.o. pt wants to eat Reason For Visit: NAUSEA,VOMITING,ACUTE PANCREATITIS Physical Exam Vital Signs: Temp Pulse Resp BP Pulse Ox 97.9 F 60 18 158/72 H 96 03/10/18 07:30 03/10/18 07:30 03/10/18 07:30 03/10/18 07:30 03/10/18 07:30 Intake & Output 03/09/18 03/10/18 03/11/18 06:59 06:59 05:59 Intake Total 1000 1150 Output Total 850 850 Balance 150 300 Weight 95.4 kg 95.7 kg General appearance: PRESENT: no acute distress, well-developed, well-nourished Head exam: PRESENT: atraumatic, normocephalic Eye exam: PRESENT: conjunctiva pink, EOMI, PERRLA. ABSENT: scleral icterus Ear exam: PRESENT: normal external ear exam Mouth exam: PRESENT: moist, tongue midline Neck exam: PRESENT: full ROM. ABSENT: carotid bruit, JVD, lymphadenopathy, thyromegaly Respiratory exam: PRESENT: clear to auscultation nurys Cardiovascular exam: PRESENT: RRR. ABSENT: diastolic murmur, rubs, systolic murmur Pulses: PRESENT: normal dorsalis pedis pul, +2 pedal pulses bilateral Vascular exam: PRESENT: normal capillary refill GI/Abdominal exam: PRESENT: normal bowel sounds, soft. ABSENT: distended, guarding, mass, organolmegaly, rebound, tenderness Rectal exam: PRESENT: deferred Extremities exam: ABSENT: pedal edema Neurological exam: PRESENT: alert, awake, oriented to person, oriented to place , oriented to time, oriented to situation, CN II-XII grossly intact. ABSENT: motor sensory deficit Psychiatric exam: PRESENT: appropriate affect, normal mood. ABSENT: homicidal ideation, suicidal ideation Skin exam: PRESENT: dry, intact, warm. ABSENT: cyanosis, rash Results Laboratory Results: 03/08/18 04:39 03/08/18 04:39 03/10/18 04:33 Amylase 90 Lipase 531.6 H Impressions: Abdomen Ultrasound 02/28/18 00:00 IMPRESSION: There is prominence of the common bile duct at 6.8 mm. Correlate for biliary obstruction. Abdomen/Pelvis CT 02/28/18 03:53 IMPRESSION: 1. Findings raising question of very early acute appendicitis. If surgery is not initially considered would recommend clinical follow-up and consider short-term follow-up CT as above. 2. Mild diverticulosis. Assessment & Plan - Diagnosis (1) Acute pancreatitis Qualifiers: Pancreatitis type: unspecified pancreatitis type Acute pancreatitis complication: unspecified Qualified Code(s): K85.90 - Acute pancreatitis without necrosis or infection, unspecified Is this a current diagnosis for this admission?: Yes Plan: Currently all stable patient's lipase is still at about 400 patient is desperately wants to eat will try some clear fluid repeat the lipase in the morning (2) Appendicolith Is this a current diagnosis for this admission?: Yes (3) Diabetes mellitus type 2 in obese Is this a current diagnosis for this admission?: Yes Plan: cont the current medication (4) Essential hypertension Is this a current diagnosis for this admission?: Yes Plan: Currently all stable (5) Cerebrovascular accident Is this a current diagnosis for this admission?: Yes (6) Chronic kidney disease (CKD) stage G3a/A1, moderately decreased glomerular filtration rate (GFR) between 45-59 mL/min/1.73 square meter and albuminuria creatinine ratio less than 30 mg/g Is this a current diagnosis for this admission?: Yes (7) Congestive heart failure Qualifiers: Qualified Code(s): I50.43 - Acute on chronic combined systolic (congestive) and diastolic (congestive) heart failure Is this a current diagnosis for this admission?: Yes (8) Osteoarthritis involving multiple joints on both sides of body Is this a current diagnosis for this admission?: Yes - Time Time Spent with patient: 15-24 minutes Medications reviewed and adjusted accordingly: Yes Anticipated discharge: Other Within: Other - Inpatient Certification Based on my medical assessment, after consideration of the patient's comorbidities, presenting symptoms, or acuity I expect that the services needed warrant INPATIENT care.: Yes I certify that my determination is in accordance with my understanding of Medicare's requirements for reasonable and necessary INPATIENT services [42 CFR 412.3e].: Yes Medical Necessity: Need For IV Fluids, Need For Continuous Telemetry Monitoring Post Hospital Care: D/C Material Handling Equipment [employer] Documentation - Plan Summary Plan Summary: Will start some clear fluid while the patient does not have a pain for almost more than 5 days will monitor the patient's blood work
[2018-03-10] MEDS: HYDRALAZINE HCL INJ/PF 20 MG/1 ML SDV IV PRN (23:35)
[2018-03-11] MEDS: INSULIN LISPRO 100 UNIT/ML 3 ML VIAL SUBCUT PRN ×3 (01:26→18:17)
[2018-03-11] MEDS: HYDRALAZINE HCL 50 MG TABLET PO SCH ×3 (05:11→21:04)
[2018-03-11 06:04] LABS: ABSOLUTE EOSINOPHILS # (AUTO) 0.1 10^3/uL (0.0-0.6); ABSOLUTE LYMPHOCYTES (AUTO) 1.1 10^3/uL (0.5-4.7); ABSOLUTE MONOCYTES (AUTO) 0.5 10^3/uL (0.1-1.4); ABSOLUTE NEUT (AUTO) 1.3 10^3/uL (1.7-8.2); BASOPHILS % (AUTO) 0.7 % (0-2); HEMATOCRIT 35.8 % (36.0-47.0); HEMOGLOBIN 11.4 g/dL (12.0-15.5); LYMPHOCYTES % (AUTO) 37.1 % (13-45); MEAN CORPUSCULAR HEMOGLOBIN 27.1 pg (27.0-33.4); MEAN CORPUSCULAR HGB CONC 31.7 g/dL (32.0-36.0); MEAN CORPUSCULAR VOLUME 86 fl (80-97); MONOCYTES % (AUTO) 15.6 % (3-13); PLATELET COUNT 205 10^3/uL (150-450); RED BLOOD COUNT 4.18 10^6/uL (3.72-5.28); RED CELL DISTRIBUTION WIDTH 17.5 % (11.5-14.0); SEGMENTED NEUTROPHILS % (AUTO) 43.6 % (42-78); TOTAL CELLS COUNTED % (AUTO) 100 %
[2018-03-11 06:22] LABS: AMYLASE 84 U/L (30-110); ANION GAP 13 (5-19); BLOOD UREA NITROGEN 13 mg/dL (7-20); CALCIUM 9.5 mg/dL (8.4-10.2); CARBON DIOXIDE 21 mmol/L (22-30); CHLORIDE 110 mmol/L (98-107); GLUCOSE 182 mg/dL (75-110); LIPASE 557.2 U/L (23-300); POTASSIUM 4.1 mmol/L (3.6-5.0); SODIUM 143.7 mmol/L (137-145)
--- NOTE | 2018-03-11 09:05 | PDOC PROGRESS REPORT ---
Subjective Progress Note for:: 03/11/18 Subjective:: Patient is feeling much better She is denied any abdominal pain denied any nausea no vomiting Admitted for the pancreatitis She is still currently n.p.o. pt wants to eat Reason For Visit: NAUSEA,VOMITING,ACUTE PANCREATITIS Physical Exam Vital Signs: Temp Pulse Resp BP Pulse Ox 98.2 F 66 24 H 158/73 H 100 03/11/18 03:42 03/11/18 07:00 03/11/18 03:42 03/11/18 03:42 03/11/18 03:42 Intake & Output 03/10/18 03/11/18 03/12/18 07:59 06:59 06:59 Intake Total Output Total Balance Weight General appearance: PRESENT: no acute distress, well-developed, well-nourished Head exam: PRESENT: atraumatic, normocephalic Eye exam: PRESENT: conjunctiva pink, EOMI, PERRLA. ABSENT: scleral icterus Ear exam: PRESENT: normal external ear exam Mouth exam: PRESENT: moist, tongue midline Neck exam: PRESENT: full ROM. ABSENT: carotid bruit, JVD, lymphadenopathy, thyromegaly Respiratory exam: PRESENT: clear to auscultation nurys Cardiovascular exam: PRESENT: RRR. ABSENT: diastolic murmur, rubs, systolic murmur Pulses: PRESENT: normal dorsalis pedis pul, +2 pedal pulses bilateral Vascular exam: PRESENT: normal capillary refill GI/Abdominal exam: PRESENT: normal bowel sounds, soft. ABSENT: distended, guarding, mass, organolmegaly, rebound, tenderness Rectal exam: PRESENT: deferred Extremities exam: ABSENT: pedal edema Musculoskeletal exam: PRESENT: ambulatory Neurological exam: PRESENT: alert, awake, oriented to person, oriented to place , oriented to time, oriented to situation, CN II-XII grossly intact. ABSENT: motor sensory deficit Psychiatric exam: PRESENT: appropriate affect, normal mood. ABSENT: homicidal ideation, suicidal ideation Skin exam: PRESENT: dry, intact, warm. ABSENT: cyanosis, rash Results Laboratory Results: 03/11/18 05:14 03/11/18 05:14 03/11/18 03/11/18 05:14 05:14 WBC 3.0 L RBC 4.18 Hgb 11.4 L Hct 35.8 L MCV 86 MCH 27.1 MCHC 31.7 L RDW 17.5 H Plt Count 205 Seg Neutrophils % 43.6 Lymphocytes % 37.1 Monocytes % 15.6 H Eosinophils % 3.0 Basophils % 0.7 Absolute Neutrophils 1.3 L Absolute Lymphocytes 1.1 Absolute Monocytes 0.5 Absolute Eosinophils 0.1 Absolute Basophils 0.0 Sodium 143.7 Potassium 4.1 Chloride 110 H Carbon Dioxide 21 L Anion Gap 13 BUN 13 Creatinine 1.33 H Est GFR ( Amer) 46 L Est GFR (Non-Af Amer) 38 L Glucose 182 H Calcium 9.5 Amylase 84 Lipase 557.2 H Impressions: Abdomen Ultrasound 02/28/18 00:00 IMPRESSION: There is prominence of the common bile duct at 6.8 mm. Correlate for biliary obstruction. Abdomen/Pelvis CT 02/28/18 03:53 IMPRESSION: 1. Findings raising question of very early acute appendicitis. If surgery is not initially considered would recommend clinical follow-up and consider short-term follow-up CT as above. 2. Mild diverticulosis. Assessment & Plan - Diagnosis (1) Acute pancreatitis Qualifiers: Pancreatitis type: unspecified pancreatitis type Acute pancreatitis complication: unspecified Qualified Code(s): K85.90 - Acute pancreatitis without necrosis or infection, unspecified Is this a current diagnosis for this admission?: Yes Plan: Patient is clinically doing much better we will start the patient on a clear liquid and advance to the full liquid diet (2) Appendicolith Is this a current diagnosis for this admission?: Yes (3) Diabetes mellitus type 2 in obese Is this a current diagnosis for this admission?: Yes Plan: cont the current medication (4) Essential hypertension Is this a current diagnosis for this admission?: Yes Plan: Currently all stable (5) Cerebrovascular accident Is this a current diagnosis for this admission?: Yes (6) Chronic kidney disease (CKD) stage G3a/A1, moderately decreased glomerular filtration rate (GFR) between 45-59 mL/min/1.73 square meter and albuminuria creatinine ratio less than 30 mg/g Is this a current diagnosis for this admission?: Yes (7) Congestive heart failure Qualifiers: Qualified Code(s): I50.43 - Acute on chronic combined systolic (congestive) and diastolic (congestive) heart failure Is this a current diagnosis for this admission?: Yes (8) Osteoarthritis involving multiple joints on both sides of body Is this a current diagnosis for this admission?: Yes - Time Time Spent with patient: 15-24 minutes Medications reviewed and adjusted accordingly: Yes Anticipated discharge: Home Within: Other - Inpatient Certification Based on my medical assessment, after consideration of the patient's comorbidities, presenting symptoms, or acuity I expect that the services needed warrant INPATIENT care.: Yes I certify that my determination is in accordance with my understanding of Medicare's requirements for reasonable and necessary INPATIENT services [42 CFR 412.3e].: Yes Medical Necessity: Need Close Monitoring Due to Risk of Patient Decompensation Post Hospital Care: D/C Superintendent Terminal Documentation - Plan Summary Plan Summary: Event patient's lipase and a 500 range but clinically patient is doing well will increase the clear liquid diet and advance to full liquid and continues to monitor
[2018-03-11] MEDS: FAMOTIDINE 20 MG TABLET PO SCH (10:02)
[2018-03-11] MEDS: CARVEDILOL 12.5 MG TABLET PO SCH ×2 (10:02→21:03)
[2018-03-11] MEDS: ENOXAPARIN SODIUM INJ 30 MG/0.3 ML DISP.SYRIN SUBCUT SCH (10:02)
[2018-03-12] MEDS: DEXTROSE 5%-NORMAL SALINE 1,000 ML IV PRN (00:57)
[2018-03-12] MEDS: HYDRALAZINE HCL 50 MG TABLET PO SCH ×3 (05:23→21:34)
[2018-03-12 06:40] LABS: ANION GAP 13 (5-19); BLOOD UREA NITROGEN 12 mg/dL (7-20); CALCIUM 8.9 mg/dL (8.4-10.2); CARBON DIOXIDE 20 mmol/L (22-30); CHLORIDE 109 mmol/L (98-107); GLUCOSE 166 mg/dL (75-110); POTASSIUM 3.8 mmol/L (3.6-5.0); SODIUM 142.4 mmol/L (137-145)
[2018-03-12] MEDS: INSULIN LISPRO 100 UNIT/ML 3 ML VIAL SUBCUT PRN ×4 (07:34→23:56)
--- NOTE | 2018-03-12 08:33 | PDOC PROGRESS REPORT ---
Subjective Progress Note for:: 03/12/18 Subjective:: Patient continue to deny any significant abdominal pain. Tolerating clear liquid diet. No nausea, vomiting or diarrhea. No chest pain or difficulty with breathing. No fever or chills. Reason For Visit: NAUSEA,VOMITING,ACUTE PANCREATITIS Physical Exam Vital Signs: Temp Pulse Resp BP Pulse Ox 97.6 F 65 16 144/80 H 96 03/12/18 03:48 03/12/18 08:12 03/12/18 08:12 03/12/18 08:12 03/12/18 08:12 Intake & Output 03/11/18 03/12/18 03/13/18 06:59 06:59 06:59 Intake Total 1731 Output Total Balance 1731 Weight 98 kg Physical Exam: General appearance: PRESENT: no acute distress, obese Head exam: PRESENT: atraumatic, normocephalic Ear exam: PRESENT: normal external ear exam Mouth exam: PRESENT: fairly moist Respiratory exam: PRESENT: clear to auscultation nurys, decreased breath sounds - at lung bases Cardiovascular exam: PRESENT: RRR. ABSENT: diastolic murmur, rubs, systolic murmur Vascular exam: ABSENT: pallor GI/Abdominal exam: PRESENT: normal bowel sounds, soft. ABSENT: distended, guarding, mass, organomegaly, rebound, tenderness Extremities exam: PRESENT: pedal edema - chronic stasis edema Musculoskeletal exam: PRESENT: deformity - related to multiple joints involvement with arthritis Neurological exam: PRESENT: alert, awake, oriented to person, oriented to place , oriented to time, oriented to situation, CN II-XII grossly intact. ABSENT: motor sensory deficit Psychiatric exam: PRESENT: appropriate affect, normal mood. ABSENT: homicidal ideation, suicidal ideation Skin exam: PRESENT: dry, intact, warm. ABSENT: cyanosis, rash Results Laboratory Results: 03/11/18 05:14 03/12/18 05:18 03/12/18 05:18 Sodium 142.4 Potassium 3.8 Chloride 109 H Carbon Dioxide 20 L Anion Gap 13 BUN 12 Creatinine 1.45 H Est GFR ( Amer) 42 L Est GFR (Non-Af Amer) 35 L Glucose 166 H Calcium 8.9 Impressions: Abdomen Ultrasound 02/28/18 00:00 IMPRESSION: There is prominence of the common bile duct at 6.8 mm. Correlate for biliary obstruction. Abdomen/Pelvis CT 02/28/18 03:53 IMPRESSION: 1. Findings raising question of very early acute appendicitis. If surgery is not initially considered would recommend clinical follow-up and consider short-term follow-up CT as above. 2. Mild diverticulosis. Assessment & Plan - Diagnosis (1) Acute pancreatitis Qualifiers: Pancreatitis type: unspecified pancreatitis type Acute pancreatitis complication: unspecified Qualified Code(s): K85.90 - Acute pancreatitis without necrosis or infection, unspecified Is this a current diagnosis for this admission?: Yes (2) Appendicolith Is this a current diagnosis for this admission?: Yes (3) GERD (gastroesophageal reflux disease) Qualifiers: Esophagitis presence: without esophagitis Qualified Code(s): K21.9 - Gastro -esophageal reflux disease without esophagitis Is this a current diagnosis for this admission?: Yes (4) Diabetes mellitus type 2 in obese Is this a current diagnosis for this admission?: Yes 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 Is this a current diagnosis for this admission?: Yes - Time Time Spent with patient: 25-34 minutes Medications reviewed and adjusted accordingly: Yes Anticipated discharge: Home with Homehealth Within: Other - Inpatient Certification Based on my medical assessment, after consideration of the patient's comorbidities, presenting symptoms, or acuity I expect that the services needed warrant INPATIENT care.: Yes I certify that my determination is in accordance with my understanding of Medicare's requirements for reasonable and necessary INPATIENT services [42 CFR 412.3e].: Yes Medical Necessity: Need Close Monitoring Due to Risk of Patient Decompensation, Need For IV Fluids, Need For Continuous Telemetry Monitoring, Risk of Complication if Not Cared For in Hospital Post Hospital Care: D/C Clinical Product Manager Documentation - Plan Summary Plan Summary: Continue clear liquid diet. Obtain serum Amylase and Lipase levels. D/C Calcitrol due to possible contribution to her pancreatitis. Maintain on all other current medication management.
[2018-03-12] MEDS: FAMOTIDINE 20 MG TABLET PO SCH (09:16)
[2018-03-12] MEDS: ENOXAPARIN SODIUM INJ 30 MG/0.3 ML DISP.SYRIN SUBCUT SCH (09:18)
[2018-03-12] MEDS: CARVEDILOL 12.5 MG TABLET PO SCH ×3 (09:19→23:43)
[2018-03-12 09:37] LABS: LIPASE 473.8 U/L (23-300)
[2018-03-13] MEDS: HYDRALAZINE HCL 50 MG TABLET PO SCH (05:22)
[2018-03-13 05:37] LABS: ANION GAP 12 (5-19); BLOOD UREA NITROGEN 10 mg/dL (7-20); CALCIUM 8.8 mg/dL (8.4-10.2); CARBON DIOXIDE 20 mmol/L (22-30); CHLORIDE 111 mmol/L (98-107); GLUCOSE 120 mg/dL (75-110); POTASSIUM 3.8 mmol/L (3.6-5.0); SODIUM 142.7 mmol/L (137-145)
--- NOTE | 2018-03-13 07:57 | PDOC PROGRESS REPORT ---
Subjective Progress Note for:: 03/13/18 Subjective:: Patient is tolerating clear liquid diet. No abdominal pain, nausea, vomiting or diarrhea. No chest pain or difficulty with breathing. No fever or chills. Reason For Visit: NAUSEA,VOMITING,ACUTE PANCREATITIS Physical Exam Vital Signs: Temp Pulse Resp BP Pulse Ox 97.8 F 61 20 149/66 H 97 03/13/18 04:24 03/13/18 07:00 03/13/18 04:24 03/13/18 04:24 03/13/18 04:24 Intake & Output 03/12/18 03/13/18 03/14/18 06:59 06:59 06:59 Intake Total 1731 2936 Balance 1731 2936 Weight 98 kg 97.1 kg Physical Exam: General appearance: PRESENT: no acute distress, obese Head exam: PRESENT: atraumatic, normocephalic Ear exam: PRESENT: normal external ear exam Mouth exam: PRESENT: fairly moist Respiratory exam: PRESENT: clear to auscultation nurys, decreased breath sounds - at lung bases Cardiovascular exam: PRESENT: RRR. ABSENT: diastolic murmur, rubs, systolic murmur Vascular exam: ABSENT: pallor GI/Abdominal exam: PRESENT: normal bowel sounds, soft. ABSENT: distended, guarding, mass, organomegaly, rebound, tenderness Extremities exam: PRESENT: pedal edema - chronic stasis edema Musculoskeletal exam: PRESENT: deformity - related to multiple joints involvement with arthritis Neurological exam: PRESENT: alert, awake, oriented to person, oriented to place , oriented to time, oriented to situation, CN II-XII grossly intact. ABSENT: motor sensory deficit Psychiatric exam: PRESENT: appropriate affect, normal mood. ABSENT: homicidal ideation, suicidal ideation Skin exam: PRESENT: dry, intact, warm. ABSENT: cyanosis, rash Results Laboratory Results: 03/11/18 05:14 03/13/18 04:43 03/12/18 03/13/18 05:18 04:43 Sodium 142.7 Potassium 3.8 Chloride 111 H Carbon Dioxide 20 L Anion Gap 12 BUN 10 Creatinine 1.33 H Est GFR ( Amer) 46 L Est GFR (Non-Af Amer) 38 L Glucose 120 H Calcium 8.8 Amylase 84 Lipase 473.8 H Impressions: Abdomen Ultrasound 02/28/18 00:00 IMPRESSION: There is prominence of the common bile duct at 6.8 mm. Correlate for biliary obstruction. Abdomen/Pelvis CT 02/28/18 03:53 IMPRESSION: 1. Findings raising question of very early acute appendicitis. If surgery is not initially considered would recommend clinical follow-up and consider short-term follow-up CT as above. 2. Mild diverticulosis. Assessment & Plan - Diagnosis (1) Acute pancreatitis Qualifiers: Pancreatitis type: unspecified pancreatitis type Acute pancreatitis complication: unspecified Qualified Code(s): K85.90 - Acute pancreatitis without necrosis or infection, unspecified Is this a current diagnosis for this admission?: Yes (2) Appendicolith Is this a current diagnosis for this admission?: Yes (3) GERD (gastroesophageal reflux disease) Qualifiers: Esophagitis presence: without esophagitis Qualified Code(s): K21.9 - Gastro -esophageal reflux disease without esophagitis Is this a current diagnosis for this admission?: Yes (4) Diabetes mellitus type 2 in obese Is this a current diagnosis for this admission?: Yes 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 Is this a current diagnosis for this admission?: Yes - Time Time Spent with patient: 25-34 minutes - Inpatient Certification Based on my medical assessment, after consideration of the patient's comorbidities, presenting symptoms, or acuity I expect that the services needed warrant INPATIENT care.: Yes I certify that my determination is in accordance with my understanding of Medicare's requirements for reasonable and necessary INPATIENT services [42 CFR 412.3e].: Yes Medical Necessity: Need Close Monitoring Due to Risk of Patient Decompensation, Need For IV Fluids, Need For Continuous Telemetry Monitoring, Risk of Complication if Not Cared For in Hospital Post Hospital Care: D/C Legal Instructor Documentation - Plan Summary Plan Summary: Advance diet gradually as tolerated to regular consistency today. Obtain Lipase level as add on to this am lab request. D/C IV fluid support. Possible d/c home tomorrow.
[2018-03-13] MEDS: CARVEDILOL 12.5 MG TABLET PO SCH ×2 (09:22→21:25)
[2018-03-13] MEDS: VALSARTAN 160 MG TABLET PO SCH (09:23)
[2018-03-13] MEDS: MULTIVITAMIN TABLET PO SCH (09:24)
[2018-03-13] MEDS: FAMOTIDINE 20 MG TABLET PO SCH (09:24)
[2018-03-13] MEDS: ENOXAPARIN SODIUM INJ 30 MG/0.3 ML DISP.SYRIN SUBCUT SCH (09:24)
[2018-03-13] MEDS: INSULIN LISPRO 100 UNIT/ML 3 ML VIAL SUBCUT PRN (12:06)
[2018-03-13] MEDS: NATEGLINIDE 60 MG TABLET PO SCH ×2 (16:59→21:25)
[2018-03-13] MEDS ORDERED: ATORVASTATIN CALCIUM 20 MG TABLET PO SCH (22:00)
[2018-03-14] MEDS: INSULIN LISPRO 100 UNIT/ML 3 ML VIAL SUBCUT PRN (00:10)
[2018-03-14] MEDS: NATEGLINIDE 60 MG TABLET PO SCH (05:40)
--- NOTE | 2018-03-14 08:18 | PDOC DISCHARGE SUMMARY ---
General - Admit/Disc Date/PCP Admission Date/Primary Care Provider: 02/28/18 07:27 GABRIELLAVIC SHOOK Discharge Date: 03/14/18 - Discharge Diagnosis (1) Acute pancreatitis Is this a current diagnosis for this admission?: Yes (2) Appendicolith Is this a current diagnosis for this admission?: Yes (3) GERD (gastroesophageal reflux disease) Is this a current diagnosis for this admission?: Yes (4) Diabetes mellitus type 2 in obese Is this a current diagnosis for this admission?: Yes (5) Intermittent atrial fibrillation Is this a current diagnosis for this admission?: Yes (6) HTN (hypertension) Is this a current diagnosis for this admission?: Yes 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 Is this a current diagnosis for this admission?: Yes - Additional Information Resuscitation Status: Full Code Home Medications: RX: Allopurinol [Zyloprim 100 mg Tablet] 200 mg PO DAILY 02/28/18 RX: Carvedilol [Coreg 6.25 mg Tablet] 6.25 mg PO Q12 02/28/18 RX: Insulin Aspart [Novolog Flexpen] 0 units SQ .PERSLIDINGSCALE 02/28/18 RX: Irbesartan [Avapro] 300 mg PO DAILY 02/28/18 RX: Multivit-Min/Iron/Folic/Lutein [Centrum Silver Women Tablet] 1 tab PO DAILY 02/28/18 RX: Nateglinide [Starlix] 120 mg PO TID 02/28/18 RX: [place]-3 Acid Ethyl Esters [Lovaza 1 gm Capsule] 1 gm PO DAILY 02/28/18 RX: Tramadol HCl [Ultram 50 mg Tablet] 50 mg PO Q12HP PRN 02/28/18 History of Present Illness Patient complains of: Nausea, vomitng, abdominal pain History of Present Illness: CAROLINA KAYE is a 82 year old female known to my practice who presented to the ED with complaints of nausea, vomiting and worsening abdominal pain over last 3 days prior to her presentation. She reported associated loose stool but no miroslava diarrhea, hematochezia, or hematemesis. She localized pain to her epigastric region without any significant radiation. She described pain as colic and tearing in character. She denied any associated fever or chills. No flank pain or hematuria. She denied any chest pain but reported some degree of shortness of breath due to her abdominal pain. Her initial evaluation in the ED was significant for elevated serum lipase level and CT scan of abdomen suggestive of dilated appendix. Due to concern for acute pancreatitis and possible appendicitis she was advised hospitalization for further evaluation and management. Her morbidities include Diabetes Mellitus Type 2, Hypertension, intermittent Atrial fibrillation, Hyperlipidemia, GERD, osteoarthritis and prior CVA with limited motor deficit. Hospital Course Hospital Course: She was admitted for acute pancreatitis and possible appendicitis. She was seen by surgicalist team with less concern for acute appendicitis and related appendix distention to possible appendicolith. Her serum lipase initially revealed downward trend but due to early re-feeding show upward surge that delay her progress and prolong her hospitalization. She eventually was restarted on feeding with continue downward trend in her serum lipase and resolution o her elevated Amylase level to normal range. She remain free of abdominal pain and resolution of her nausea and vomiting. She will follow up with the surgical team and myself as instructed upon discharge. Physical Exam Vital Signs: Temp Pulse Resp BP Pulse Ox 97.6 F 54 L 16 155/62 H 98 03/14/18 04:04 03/14/18 07:00 03/14/18 04:04 03/14/18 04:04 03/14/18 04:04 Intake & Output 03/13/18 03/14/18 03/15/18 06:59 06:59 06:59 Intake Total 2936 1762 Balance 2936 1762 Weight 97.1 kg 91.8 kg Physical Exam: General appearance: PRESENT: no acute distress, obese Head exam: PRESENT: atraumatic, normocephalic Ear exam: PRESENT: normal external ear exam Mouth exam: PRESENT: fairly moist Respiratory exam: PRESENT: clear to auscultation nurys, decreased breath sounds - at lung bases Cardiovascular exam: PRESENT: RRR. ABSENT: diastolic murmur, rubs, systolic murmur Vascular exam: ABSENT: pallor GI/Abdominal exam: PRESENT: normal bowel sounds, soft. ABSENT: distended, guarding, mass, organomegaly, rebound, tenderness Extremities exam: PRESENT: pedal edema - chronic stasis edema Musculoskeletal exam: PRESENT: deformity - related to multiple joints involvement with arthritis Neurological exam: PRESENT: alert, awake, oriented to person, oriented to place , oriented to time, oriented to situation, CN II-XII grossly intact. ABSENT: motor sensory deficit Psychiatric exam: PRESENT: appropriate affect, normal mood. ABSENT: homicidal ideation, suicidal ideation Skin exam: PRESENT: dry, intact, warm. ABSENT: cyanosis, rash Results Laboratory Results: 03/11/18 05:14 03/13/18 04:43 03/13/18 04:43 Lipase 488.3 H Impressions: Abdomen Ultrasound 02/28/18 00:00 IMPRESSION: There is prominence of the common bile duct at 6.8 mm. Correlate for biliary obstruction. Abdomen/Pelvis CT 02/28/18 03:53 IMPRESSION: 1. Findings raising question of very early acute appendicitis. If surgery is not initially considered would recommend clinical follow-up and consider short-term follow-up CT as above. 2. Mild diverticulosis. Qualifiers - * PATIENT BEING DISCHARGED WITH ANY OF THE FOLLOWING DIAGNOSIS: No Plan Discharge Plan: D/C home today. Follow up with surgical team and myself as instructed upon discharge.
[2018-03-14] MEDS: FAMOTIDINE 20 MG TABLET PO SCH (09:13)
[2018-03-14] MEDS: MULTIVITAMIN TABLET PO SCH (09:13)
[2018-03-14] MEDS: VALSARTAN 160 MG TABLET PO SCH (09:13)
[2018-03-14] MEDS: CARVEDILOL 12.5 MG TABLET PO SCH (09:14)
[2018-03-14] MEDS: ENOXAPARIN SODIUM INJ 30 MG/0.3 ML DISP.SYRIN SUBCUT SCH (09:15)
[2018-03-14 09:41] VITALS: BP 160/82
== END 2018-03-14 11:27 | disposition home or self-care (01) | DRG 440 ==
LOC: ER 02:53 → EH 07:27 → 3N 09:05 → 3S 03-11 15:42
PROVIDERS: ADMIT Internal Medicine Geriatric Medicine; ATTEND Internal Medicine Geriatric Medicine
DX: K85.90 Acute pancreatitis without necrosis or infection, unspecified (principal); K38.1 Appendicular concretions; I48.91 Unspecified atrial fibrillation; I10 Essential (primary) hypertension; E78.5 Hyperlipidemia, unspecified; E11.9 Type 2 diabetes mellitus without complications; K21.9 Gastro-esophageal reflux disease without esophagitis; M19.90 Unspecified osteoarthritis, unspecified site; M1A.9XX0 Chronic gout, unspecified, without tophus (tophi); Z79.899 Other long term (current) drug therapy; Z79.4 Long term (current) use of insulin; Z86.73 Personal history of transient ischemic attack (TIA), and cerebral infarction without residual deficits; I25.2 Old myocardial infarction; Z88.8 Allergy status to other drugs, medicaments and biological substances
CPT/HCPCS: 36415; 74177; 76700; 80048; 80053; 81001; 82150; 82962; 83690; 85025; 93005; 93010; 93976; 96361; 96374; 96375; 96376; 99285; J0360; J1650; J1815; J2270; J2405; J7040; S0028; S0164

== ENCOUNTER → 2018-03-20 | Outpatient (CLI) | payer MEDICARE, MEDICAID ==
[2018-03-20 11:30] LABS: LIPASE 409.5 U/L (23-300)
== END ==
LOC: OD 09:48
PROVIDERS: ATTEND Internal Medicine Geriatric Medicine
DX: K85.90 Acute pancreatitis without necrosis or infection, unspecified (principal)
CPT/HCPCS: 36415; 82150; 83690

== ENCOUNTER → 2018-04-05 | Outpatient (CLI) | payer MEDICARE, MEDICAID ==
--- NOTE | 2018-04-05 08:30 | WOMENS IMAGING REPORT ---
EXAM DESCRIPTION: 3D SCREENING MAMMO BILAT COMPLETED DATE/TIME: 04/05/2018 8:10 am REASON FOR STUDY: SCREENING MAMMO Z12.31 ENCNTR SCREEN MAMMOGRAM FOR MALIGNANT NEOPLASM OF KEY COMPARISON: 04/10/2013 and 11/03/2010. TECHNIQUE: Standard craniocaudal and mediolateral oblique views of each breast recorded using digita l acquisition and breast tomosynthesis. LIMITATIONS: None. FINDINGS: No masses, calcifications or architectural distortion. No areas of suspicion. Read with the assistance of CAD. .[facility] R2 Cenova Version 1.3 .[facility] - R2 Cenova Version 1.3 .[facility] - R2 Cenova Version 2.4 [place] [place]ova Version 2.4 .[facility] - R2 [facility] Social [employer]er Version 9.2 IMPRESSION: NORMAL MAMMOGRAM. BIRADS 1. BREAST DENSITY: b. There are scattered areas of fibroglandular density. BIRAD: 1 NEGATIVE RECOMMENDATION: ROUTINE SCREENING COMMENT: The patient has been notified of the results by letter per SA requirements. Additional no tification policies are in place for contacting patient with suspicious or incomplete findings. Quality ID #[id number]: The [employer] recommends an annual screening mammogram for women aged 40 years or over. This facility utilizes a reminder system to ensure that all patients receive reminder letters, and/or direct phone calls for appointments. This includes reminders for routine scr eening mammograms, diagnostic mammograms, or other Breast Imaging Interventions when appropriate. Th is patient will be placed in the appropriate reminder system. The [employer] (ACR) has developed recommendations for screening MRI of the breast s in certain patient populations, to be used in conjunction with mammography. Breast MRI surveillanc e may be appropriate for women with more than 20% lifetime risk of developing breast cancer as deter mined by genetic testing, significant family history of the disease, or history of mantle radiation f or Hodgkins Disease. ACR Practice Guidelines 2008. DBT Technology DBT is a type of tomographic mammography. With conventional mammography, overlapping breast tissue ma y make lesions difficult to detect, even with good compression. DBT uses an x-ray tube that rotates a round the breast, taking images at different angles. These images are then combined to create thin sl ices of the breast that the radiologist can view as a 3D reconstruction. The [facility] unit can perform full-field digital mammograms (2D imaging); or DBT (3D imaging); or both, in a combination mode that quickly performs both the mammogram and the tomosynthesis scan while the breast is still compressed. PQRS 6045F: Fluoroscopic imaging is not utilized for breast tomosynthesis. TECHNICAL DOCUMENTATION: FINDING NUMBER: (1) ASSESSMENT: (1) JOB ID: [id number] [employer]- All Rights Reserved Reading location - IP/workstation name: [facility]-[email or web address]
== END ==
LOC: WI 07:36
PROVIDERS: ATTEND Internal Medicine Geriatric Medicine
DX: Z12.31 Encounter for screening mammogram for malignant neoplasm of breast (principal)
CPT/HCPCS: 77063; 77067

== ENCOUNTER 2018-04-09 12:02 | Inpatient (IN) | payer MEDICARE, MEDICAID ==
--- NOTE | 2018-04-09 14:52 | ER Document Report ---
ED Medical Screen (RME) - General Chief Complaint: Shortness Of Breath Stated Complaint: SHORTNESS OF BREATH,SWELLING Time Seen by Provider: 04/09/18 14:52 Mode of Arrival: Ambulatory Information source: Patient Notes: 82-year-old female with a history of hypertension, CHF, chronic kidney disease who presents to the emergency room with shortness of breath, dyspnea exertion and increased lower extremity edema. TRAVEL OUTSIDE OF THE [place] IN LAST 30 DAYS: No - Related Data Allergies/Adverse Reactions: oxycodone [Oxycodone] Allergy (Verified 04/09/18 12:02) Past Medical History - Past Medical History Cardiac Medical History: Reports: Hx Atrial Fibrillation, Hx Heart Attack, Hx Hypercholesterolemia, Hx Hypertension Denies: Hx Coronary Artery Disease Pulmonary Medical History: Denies: Hx Asthma, Hx Bronchitis, Hx COPD, Hx Pneumonia, Hx Tuberculosis Neurological Medical History: Reports: Hx Cerebrovascular Accident. Denies: Hx Seizures Endocrine Medical History: Reports: Hx Diabetes Mellitus Type 2 Renal/ Medical History: Denies: Hx Peritoneal Dialysis GI Medical History: Reports: Hx Gastroesophageal Reflux Disease Musculoskeltal Medical History: Reports Hx Arthritis - KNEES & ARMS & HANDS, OSTEOARTHRITIS, Reports Hx Gout Psychiatric Medical History: Denies: Hx Depression Infectious Medical History: Past Surgical History: Denies: Hx Hysterectomy - Immunizations Hx Diphtheria, Pertussis, Tetanus Vaccination: Yes Physical Exam - Vital signs Vitals: Temp Pulse Resp BP Pulse Ox 98.2 F 67 14 169/82 H 94 04/09/18 12:03 04/09/18 12:03 04/09/18 12:03 04/09/18 12:03 04/09/18 12:03 Course - Vital Signs Vital signs: Temp Pulse Resp BP Pulse Ox 98.2 F 67 14 169/82 H 94 04/09/18 12:03 04/09/18 12:03 04/09/18 12:03 04/09/18 12:03 04/09/18 12:03 Doctor's Discharge - Discharge Referrals: GABRIELLA SHOOK MD [Primary Care Provider] - Follow up as needed
[2018-04-09] MEDS ORDERED: CARVEDILOL 6.25 MG TABLET PO ONE (15:32)
[2018-04-09] MEDS ORDERED: FUROSEMIDE INJ/PF 20 MG/2 ML SDV IV ONE (15:32)
--- NOTE | 2018-04-09 15:39 | ER Document Report ---
ED General - General Chief Complaint: Shortness Of Breath Stated Complaint: SHORTNESS OF BREATH,SWELLING Time Seen by Provider: 04/09/18 14:52 Mode of Arrival: Ambulatory TRAVEL OUTSIDE OF THE [place] IN LAST 30 DAYS: No - HPI Notes: Patient is an 82-year-old female with a history of Diabetes Mellitus Type 2, Hypertension, intermittent Atrial fibrillation, Hyperlipidemia, GERD, osteoarthritis and prior CVA with limited motor deficit who presents to the ED complaining of increased bilateral lower extremity edema and shortness of breath with exertion only times 2 weeks. Patient was admitted around the same time and and had some of her medications stopped due to the elevation in her lipase at that time. Patient states that she did not take her blood pressure medications today which is why her blood pressure is elevated. She is otherwise been able to eat and drink without any difficulties. She is urinating normally and having normal bowel movements. Patient denies any history of coronary artery disease or stent placement. Denies any headache, fever, neck pain, URI, sore throat, chest pain, palpitations, syncope, cough, wheeze, abdominal pain, nausea/vomiting/diarrhea, urinary retention, dysuria, hematuria, or rash. - Related Data Allergies/Adverse Reactions: oxycodone [Oxycodone] Allergy (Verified 04/09/18 12:02) Past Medical History - General Information source: Patient - Social History Smoking Status: Never Smoker Chew tobacco use (# tins/day): No Drug Abuse: None Family History: Reviewed & Not Pertinent, CAD Patient has suicidal ideation: No Patient has homicidal ideation: No - Past Medical History Cardiac Medical History: Reports: Hx Atrial Fibrillation, Hx Heart Attack, Hx Hypercholesterolemia, Hx Hypertension Denies: Hx Coronary Artery Disease Pulmonary Medical History: Denies: Hx Asthma, Hx Bronchitis, Hx COPD, Hx Pneumonia, Hx Tuberculosis Neurological Medical History: Reports: Hx Cerebrovascular Accident. Denies: Hx Seizures Endocrine Medical History: Reports: Hx Diabetes Mellitus Type 2 Renal/ Medical History: Denies: Hx Peritoneal Dialysis GI Medical History: Reports: Hx Gastroesophageal Reflux Disease Musculoskeletal Medical History: Reports Hx Arthritis - KNEES & ARMS & HANDS, OSTEOARTHRITIS, Reports Hx Gout Psychiatric Medical History: Denies: Hx Depression Infectious Medical History: Past Surgical History: Denies: Hx Hysterectomy - Immunizations Hx Diphtheria, Pertussis, Tetanus Vaccination: Yes Review of Systems - Review of Systems -: Yes All other systems reviewed and negative Physical Exam - Vital signs Vitals: Temp Pulse Resp BP Pulse Ox 98.2 F 67 14 169/82 H 94 04/09/18 12:03 04/09/18 12:03 04/09/18 12:03 04/09/18 12:03 04/09/18 12:03 - Notes Notes: PHYSICAL EXAMINATION: GENERAL: Well-appearing, well-nourished and in no acute distress. A&Ox4. Answers questions appropriately. HEAD: Atraumatic, normocephalic. EYES: Pupils equal round and reactive to light, extraocular movements intact, sclera anicteric, conjunctiva are normal. ENT: Nares patent and without discharge. oropharynx clear without exudates. No tonsilar hypertrophy or erythema. Moist mucous membranes. NECK: Normal range of motion, supple without lymphadenopathy LUNGS: bibasilar rales noted. HEART: Regular rate and rhythm without murmurs, rubs, gallops. ABDOMEN: Soft, nontender, nondistended abdomen. No guarding, no rebound. No masses appreciated. Normal bowel sounds present. No CVA tenderness bilaterally. Musculoskeletal: FROM to passive/active. Strength 5+/5. Cintia neg. No asymmetry to LE's. Extremities: 2+ pitting edema b/l LE's. Peripheral pulses 2+. Capillary refill less than 3 seconds. NEUROLOGICAL: Normal speech, normal gait. PSYCH: Normal mood, normal affect. SKIN: Warm, Dry, normal turgor, no rashes or lesions noted. Course - Re-evaluation Re-evalutation: 04/09/18 17:42 Patient is an afebrile, well-hydrated, 82-year-old female who presents to the ED with new onset a flutter as well as acute exacerbation of congestive heart failure. Vitals are currently acceptable in regards to not being tachycardic, tachypneic, or hypoxic. Blood pressure has been slowly improving after medicines were provided. She is currently 186/111 after receiving Coreg, Lasix , and clonidine. Patient is currently asymptomatic at rest. CBC, CMP, cardiac enzymes are otherwise acceptable. BNP was elevated to 3200 from previous 1900. Chest x-ray was unremarkable. Patient has no new concerns or complaints. I did review with Dr. Palacio who recommended admit. I spoke with Dr. Shook who would like Valsartan 320mg given PO now and to admit to IMCU. Patient is in agreement with this plan. No further labs or imaging warranted at this time. - Vital Signs Vital signs: Temp Pulse Resp BP Pulse Ox 98.2 F 67 20 186/111 H 93 04/09/18 12:03 04/09/18 12:03 04/09/18 17:01 04/09/18 17:01 04/09/18 17:01 - Laboratory Result Diagrams: 04/09/18 15:47 04/09/18 15:47 Laboratory results interpreted by me: 04/09/18 04/09/18 04/09/18 15:47 15:47 15:47 Hgb 10.7 L Hct 33.9 L MCHC 31.6 L RDW 17.9 H VBG HCO3 Carbon Dioxide 33 H BUN 24 H Creatinine 1.81 H Est GFR ( Amer) 32 L Est GFR (Non-Af Amer) 27 L Glucose 199 H Direct Bilirubin 0.5 H AST 54 H Alkaline Phosphatase 172 H NT-Pro-B Natriuret Pep 3260 H Urine Protein Urine Glucose (UA) Urine Urobilinogen Ur Leukocyte Esterase 04/09/18 04/09/18 15:47 16:00 Hgb Hct MCHC RDW VBG HCO3 32.6 H Carbon Dioxide BUN Creatinine Est GFR ( Amer) Est GFR (Non-Af Amer) Glucose Direct Bilirubin AST Alkaline Phosphatase NT-Pro-B Natriuret Pep Urine Protein 100 H Urine Glucose (UA) 50 H Urine Urobilinogen 4.0 H Ur Leukocyte Esterase TRACE H Discharge - Discharge Clinical Impression: New onset atrial flutter Acute exacerbation of CHF (congestive heart failure) Qualifiers: Heart failure type: unspecified Qualified Code(s): I50.9 - Heart failure, unspecified Condition: Stable Disposition: ADMITTED INPATIENT Admitting Provider: Alejandra Unit Admitted: IMCU Referrals: GABRIELLA SHOOK MD [Primary Care Provider] - Follow up as needed
[2018-04-09 15:58] LABS: VENOUS BLOOD BASE EXCESS 6.4 mmol/L; VENOUS BLOOD HCO3 32.6 mmol/L (20-32); VENOUS BLOOD PCO2 55.4 mmHg (35-63); VENOUS BLOOD PH 7.39 (7.30-7.42)
[2018-04-09 16:04] LABS: ABSOLUTE BASOPHILS # (AUTO) 0.1 10^3/uL (0.0-0.2); ABSOLUTE EOSINOPHILS # (AUTO) 0.1 10^3/uL (0.0-0.6); ABSOLUTE LYMPHOCYTES (AUTO) 1.4 10^3/uL (0.5-4.7); ABSOLUTE MONOCYTES (AUTO) 0.4 10^3/uL (0.1-1.4); ABSOLUTE NEUT (AUTO) 2.3 10^3/uL (1.7-8.2); BASOPHILS % (AUTO) 1.8 % (0-2); EOSINOPHILS % (AUTO) 1.6 % (0-6); HEMATOCRIT 33.9 % (36.0-47.0); HEMOGLOBIN 10.7 g/dL (12.0-15.5); LYMPHOCYTES % (AUTO) 32.6 % (13-45); MEAN CORPUSCULAR HEMOGLOBIN 27.1 pg (27.0-33.4); MEAN CORPUSCULAR HGB CONC 31.6 g/dL (32.0-36.0); MEAN CORPUSCULAR VOLUME 86 fl (80-97); MONOCYTES % (AUTO) 9.1 % (3-13); PLATELET COUNT 221 10^3/uL (150-450); RED BLOOD COUNT 3.95 10^6/uL (3.72-5.28); RED CELL DISTRIBUTION WIDTH 17.9 % (11.5-14.0); SEGMENTED NEUTROPHILS % (AUTO) 54.9 % (42-78); TOTAL CELLS COUNTED % (AUTO) 100 %; WHITE BLOOD COUNT 4.2 10^3/uL (4.0-10.5)
--- NOTE | 2018-04-09 16:09 | RADIOLOGY REPORT (SQ) ---
EXAM DESCRIPTION: CHEST SINGLE VIEW COMPLETED DATE/TIME: 04/09/2018 3:48 pm REASON FOR STUDY: sob COMPARISON: 05/13/2016 EXAM PARAMETERS: NUMBER OF VIEWS: One view. TECHNIQUE: Single frontal radiographic view of the chest acquired. RADIATION DOSE: NA LIMITATIONS: None. FINDINGS: LUNGS AND PLEURA: No opacities, masses or pneumothorax. No pleural effusion. MEDIASTINUM AND HILAR STRUCTURES: No masses. Contour normal. HEART AND VASCULAR STRUCTURES: Cardiomegaly. No pulmonary edema. BONES: No acute findings. HARDWARE: None in the chest. OTHER: No other significant finding. IMPRESSION: Cardiomegaly without pulmonary edema. TECHNICAL DOCUMENTATION: JOB ID: [id number] [employer]- All Rights Reserved Reading location - IP/workstation name: [email or web address]
[2018-04-09 16:20] LABS: ALANINE AMINOTRANSFERASE 41 U/L (9-52); ALBUMIN 3.5 g/dL (3.5-5.0); ALKALINE PHOSPHATASE 172 U/L (38-126); ANION GAP 8 (5-19); ASPARTATE AMINO TRANSFERASE 54 U/L (14-36); BILIRUBIN,DIRECT 0.5 mg/dL (0.0-0.4); BILIRUBIN,TOTAL 0.9 mg/dL (0.2-1.3); BLOOD UREA NITROGEN 24 mg/dL (7-20); CALCIUM 9.5 mg/dL (8.4-10.2); CARBON DIOXIDE 33 mmol/L (22-30); CHLORIDE 102 mmol/L (98-107); CREATINE KINASE 63 U/L (30-135); GLUCOSE 199 mg/dL (75-110); POTASSIUM 4.4 mmol/L (3.6-5.0); SODIUM 142.8 mmol/L (137-145); TOTAL PROTEIN 7.2 g/dL (6.3-8.2)
[2018-04-09 16:29] LABS: CREATINE KINASE MB 0.97 ng/mL (<4.55)
[2018-04-09 16:36] LABS: APPEARANCE,URINE SLIGHTLY-CLOUDY; BILIRUBIN,URINE NEGATIVE (NEGATIVE); COLOR,URINE YELLOW; GLUCOSE, URINE 50 mg/dL (NEGATIVE); KETONES,URINE NEGATIVE (NEGATIVE); LEUKOCYTE ESTERASE,URINE TRACE (NEGATIVE); NITRITE,URINE NEGATIVE (NEGATIVE); PROTEIN,URINE 100 mg/dL (NEGATIVE); URINE SPECIFIC GRAVITY 1.013
[2018-04-09 16:45] LABS: TROPONIN I 0.048 ng/mL
[2018-04-09] MEDS ORDERED: CLONIDINE HCL 0.2 MG TABLET PO ONE (16:47)
[2018-04-09] MEDS ORDERED: VALSARTAN 160 MG TABLET PO ONE (17:41)
--- NOTE | 2018-04-09 18:36 | EKG REPORT ---
SEVERITY:- ABNORMAL ECG - A-FLUTTER W/ PREDOM 4:1 AV BLOCK, A-RATE 273 RIGHT BUNDLE BRANCH BLOCK LVH WITH IVCD AND SECONDARY REPOL ABNRM : Confirmed by: Vijaya Mayer 09-Apr-2018 18:36:01
[2018-04-09] MEDS ORDERED: DEXTROSE 40% GEL 15 GM TUBE PO PRN ×2 (20:42)
[2018-04-09] MEDS ORDERED: GLUCAGON,HUMAN RECOMB 1 MG INJ IM PRN (20:42)
[2018-04-09] MEDS ORDERED: DEXTROSE 50%-WATER 25 GM/50 ML DISP.SYRIN IV PRN ×2 (20:42)
[2018-04-09 22:19] LABS: TROPONIN I 0.052 ng/mL
[2018-04-09 22:21] LABS: CREATINE KINASE MB 0.84 ng/mL (<4.55)
[2018-04-09] MEDS: HEPARIN SOD (PORCINE) 5,000 UNIT/ML 1 ML SYRINGE SUBCUT SCH (22:38)
[2018-04-09] MEDS: CARVEDILOL 6.25 MG TABLET PO SCH (23:41)
[2018-04-10 03:49] LABS: ABSOLUTE BASOPHILS # (AUTO) 0.1 10^3/uL (0.0-0.2); ABSOLUTE EOSINOPHILS # (AUTO) 0.1 10^3/uL (0.0-0.6); ABSOLUTE LYMPHOCYTES (AUTO) 1.3 10^3/uL (0.5-4.7); ABSOLUTE MONOCYTES (AUTO) 0.3 10^3/uL (0.1-1.4); ABSOLUTE NEUT (AUTO) 1.8 10^3/uL (1.7-8.2); BASOPHILS % (AUTO) 1.7 % (0-2); HEMATOCRIT 31.5 % (36.0-47.0); HEMOGLOBIN 9.9 g/dL (12.0-15.5); LYMPHOCYTES % (AUTO) 36.1 % (13-45); MEAN CORPUSCULAR HEMOGLOBIN 26.8 pg (27.0-33.4); MEAN CORPUSCULAR HGB CONC 31.5 g/dL (32.0-36.0); MEAN CORPUSCULAR VOLUME 85 fl (80-97); MONOCYTES % (AUTO) 8.6 % (3-13); PLATELET COUNT 177 10^3/uL (150-450); RED BLOOD COUNT 3.71 10^6/uL (3.72-5.28); RED CELL DISTRIBUTION WIDTH 17.8 % (11.5-14.0); SEGMENTED NEUTROPHILS % (AUTO) 50.6 % (42-78); TOTAL CELLS COUNTED % (AUTO) 100 %; WHITE BLOOD COUNT 3.5 10^3/uL (4.0-10.5)
[2018-04-10 04:14] LABS: ALANINE AMINOTRANSFERASE 41 U/L (9-52); ALBUMIN 2.9 g/dL (3.5-5.0); ALKALINE PHOSPHATASE 149 U/L (38-126); ANION GAP 9 (5-19); ASPARTATE AMINO TRANSFERASE 37 U/L (14-36); BILIRUBIN,DIRECT 0.4 mg/dL (0.0-0.4); BILIRUBIN,TOTAL 0.8 mg/dL (0.2-1.3); BLOOD UREA NITROGEN 24 mg/dL (7-20); CARBON DIOXIDE 30 mmol/L (22-30); CHLORIDE 103 mmol/L (98-107); GLUCOSE 204 mg/dL (75-110); PHOSPHORUS 3.5 mg/dL (2.5-4.5); POTASSIUM 4.1 mmol/L (3.6-5.0); SODIUM 141.8 mmol/L (137-145); URIC ACID 6.2 mg/dL (2.5-7.5)
[2018-04-10 04:21] LABS: CREATINE KINASE MB 0.77 ng/mL (<4.55); TROPONIN I 0.046 ng/mL
[2018-04-10] MEDS: LANSOPRAZOLE 30 MG TAB.RAP.DR PO SCH (05:37)
[2018-04-10] MEDS: OMEGA-3 ACID ETHYL ESTERS 1 GM CAPSULE PO SCH (09:50)
[2018-04-10] MEDS: CARVEDILOL 6.25 MG TABLET PO SCH ×2 (09:50→21:13)
[2018-04-10] MEDS: MULTIVITAMIN TABLET PO SCH (09:50)
[2018-04-10] MEDS: LOSARTAN POTASSIUM 50 MG TABLET PO SCH (09:50)
[2018-04-10] MEDS: HEPARIN SOD (PORCINE) 5,000 UNIT/ML 1 ML SYRINGE SUBCUT SCH (09:51)
[2018-04-10] MEDS: NATEGLINIDE 60 MG TABLET PO SCH ×3 (09:51→17:22)
[2018-04-10] MEDS: FUROSEMIDE INJ/PF 20 MG/2 ML SDV IV SCH (09:51)
[2018-04-10] MEDS ORDERED: ALLOPURINOL 100 MG TABLET PO SCH (10:00)
[2018-04-10] MEDS ORDERED: (PENDING PHARMACY ID) (Irbesartan [Avapro] 300 MG) PO SCH (10:00)
[2018-04-10] MEDS ORDERED: (PENDING PHARMACY ID) (Nateglinide [Starlix] 120 MG) PO SCH (10:00)
[2018-04-10 10:37] LABS: CREATINE KINASE MB 0.67 ng/mL (<4.55); TROPONIN I 0.039 ng/mL
[2018-04-10] MEDS: INSULIN LISPRO 100 UNIT/ML 3 ML VIAL SUBCUT PRN ×2 (12:33→17:22)
--- NOTE | 2018-04-10 19:09 | PDOC H&P ---
History of Present Illness Admission Date/PCP: 04/09/18 17:48 GABRIELLA SHOOK History of Present Illness: CAROLINA KAYE is a 82 year old female known to my practice who presented to the Ed with 2 weeks episodes of exertional difficulty with breathing that has been progressively worse. She denied any chest pain, palpitation, orthopnea or PND. She reported associated bilateral lower extremities swelling. She claimed compliance with her medications and dietary restrictions but did not take her blood pressure medication upon presenting to the ED. Her initial evaluation in the ED was significant for severely elevated blood pressure and cardiac monitoring as well as 12 lead EKG revealing atrial flutter. Her laboratory evaluation suggested elevated NT Pro-BNP and worsening renal indices. She was advised hospitalization for further evaluation of uncontrolled hypertension with acute on chronic CHF and chronic kidney disease. Her morbidities include Diabetes Mellitus Type 2, Hypertension, Chronic Atrial fibrillation, Hyperlipidemia, GERD, chronic gouty arthritis, Osteoarthritis and history of CVA with minimal motor deficit and recently treated drug induced pancreatitis. Past Medical History Cardiac Medical History: Reports: Atrial Fibrillation, Myocardial Infarction, Hyperlipidema, Hypertension Denies: Coronary Artery Disease Pulmonary Medical History: Denies: Asthma, Bronchitis, Chronic Obstructive Pulmonary Disease (COPD), Pneumonia, Tuberculosis Neurological Medical History: Denies: Seizures Endocrine Medical History: Reports: Diabetes Mellitus Type 2 GI Medical History: Reports: Gastroesophageal Reflux Disease Musculoskeltal Medical History: Reports: Arthritis - KNEES & ARMS & HANDS, OSTEOARTHRITIS, Gout Psychiatric Medical History: Denies: Depression Hematology: Denies: Anemia, Sickle Cell Disease Past Surgical History Past Surgical History: Denies: Amputation, Hysterectomy Social History Smoking Status: Never Smoker Frequency of Alcohol Use: None Hx Recreational Drug Use: No Drugs: None Hx Prescription Drug Abuse: No Family History Family History: Reviewed & Not Pertinent, CAD Parental Family History Reviewed: Yes Children Family History Reviewed: Yes Sibling(s) Family History Reviewed.: Yes Medication/Allergy Home Medications: Allopurinol [Zyloprim 100 mg Tablet] 200 mg PO DAILY 02/28/18 Carvedilol [Coreg 6.25 mg Tablet] 6.25 mg PO Q12 02/28/18 Insulin Aspart [Novolog Flexpen] 0 units SQ .PERSLIDINGSCALE 02/28/18 Irbesartan [Avapro] 300 mg PO DAILY 02/28/18 Multivit-Min/Iron/Folic/Lutein [Centrum Silver Women Tablet] 1 tab PO DAILY Nateglinide [Starlix] 120 mg PO TID 02/28/18 [place]-3 Acid Ethyl Esters [Lovaza 1 gm Capsule] 1 gm PO DAILY 02/28/18 Tramadol HCl [Ultram 50 mg Tablet] 50 mg PO Q12HP PRN 02/28/18 Allergies/Adverse Reactions: oxycodone [Oxycodone] Allergy (Verified 04/09/18 12:02) Review of Systems Constitutional: ABSENT: chills, fever(s), headache(s), weight gain, weight loss Eyes: PRESENT: visual disturbances Ears: ABSENT: hearing changes Nose, Mouth, and Throat: ABSENT: as per HPI, headache(s), mouth pain, sore throat, vertigo, other Cardiovascular: PRESENT: dyspnea on exertion, edema. ABSENT: as per HPI, chest pain, orthropnea, palpitations, other Respiratory: PRESENT: dyspnea. ABSENT: as per HPI, cough, hemoptysis, sputum, other Gastrointestinal: ABSENT: abdominal pain, constipation, diarrhea, hematemesis, hematochezia, nausea, vomiting Genitourinary: ABSENT: dysuria, hematuria Musculoskeletal: PRESENT: deformity - related to multiple joints involvement with arthritis Integumentary: ABSENT: rash, wounds Neurological: ABSENT: abnormal gait, abnormal speech, confusion, dizziness, focal weakness, syncope Psychiatric: ABSENT: anxiety, depression, homidical ideation, suicidal ideation Endocrine: ABSENT: cold intolerance, heat intolerance, polydipsia, polyuria Hematologic/Lymphatic: ABSENT: easy bleeding, easy bruising, lymphadenopathy Physical Exam Vital Signs: Temp Pulse Resp BP Pulse Ox 98.2 F 67 25 H 195/105 H 93 04/09/18 12:03 04/09/18 12:03 04/09/18 21:10 04/09/18 21:10 04/09/18 21:10 General appearance: PRESENT: no acute distress, obese Head exam: PRESENT: atraumatic, normocephalic Eye exam: PRESENT: conjunctiva pink, EOMI, PERRLA. ABSENT: scleral icterus Ear exam: PRESENT: normal external ear exam Mouth exam: PRESENT: moist Neck exam: PRESENT: full ROM. ABSENT: carotid bruit, JVD, lymphadenopathy, thyromegaly Respiratory exam: PRESENT: clear to auscultation nurys, decreased breath sounds Cardiovascular exam: PRESENT: irregular rhythm, +S1, +S2. ABSENT: diastolic murmur, rubs, systolic murmur Vascular exam: PRESENT: normal capillary refill. ABSENT: pallor GI/Abdominal exam: PRESENT: normal bowel sounds, soft. ABSENT: distended, guarding, mass, organolmegaly, rebound, tenderness Rectal exam: PRESENT: deferred Extremities exam: PRESENT: pedal edema - chronic 1+ bilateral pitting edema Musculoskeletal exam: PRESENT: ambulatory Neurological exam: PRESENT: alert, awake, oriented to person, oriented to place , oriented to time, oriented to situation, CN II-XII grossly intact. ABSENT: motor sensory deficit Psychiatric exam: PRESENT: appropriate affect, normal mood. ABSENT: homicidal ideation, suicidal ideation Skin exam: PRESENT: dry, intact, warm. ABSENT: cyanosis, rash Results Impressions: Chest X-Ray 04/09/18 14:52 IMPRESSION: Cardiomegaly without pulmonary edema. Assessment & Plan - Diagnosis (1) Acute exacerbation of CHF (congestive heart failure) Qualifiers: Heart failure type: systolic Qualified Code(s): I50.23 - Acute on chronic systolic (congestive) heart failure Is this a current diagnosis for this admission?: Yes Plan: See admitting attending physician orders. (2) Chronic atrial fibrillation with rapid ventricular response Is this a current diagnosis for this admission?: Yes Plan: See admitting attending physician orders. (3) HTN, goal below 140/80 Is this a current diagnosis for this admission?: Yes Plan: See admitting attending physician orders. (4) CKD (chronic kidney disease) stage 3, GFR 30-59 ml/min Is this a current diagnosis for this admission?: Yes Plan: See admitting attending physician orders. (5) Diabetes mellitus type 2 in obese Is this a current diagnosis for this admission?: Yes Plan: See admitting attending physician orders. (6) HLD (hyperlipidemia) Qualifiers: Hyperlipidemia type: unspecified Qualified Code(s): E78.5 - Hyperlipidemia , unspecified Is this a current diagnosis for this admission?: Yes Plan: See admitting attending physician orders. (7) Gouty arthropathy, chronic, 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 Is this a current diagnosis for this admission?: Yes Plan: See admitting attending physician orders. - Time Time Spent: 50 to 70 Minutes Medications reviewed and adjusted accordingly: Yes Anticipated discharge: Home with Homehealth Within: Other - Inpatient Certification Based on my medical assessment, after consideration of the patient's comorbidities, presenting symptoms, or acuity I expect that the services needed warrant INPATIENT care.: Yes I certify that my determination is in accordance with my understanding of Medicare's requirements for reasonable and necessary INPATIENT services [42 CFR 412.3e].: Yes Medical Necessity: Need Close Monitoring Due to Risk of Patient Decompensation, Need For Continuous Telemetry Monitoring, Risk of Complication if Not Cared For in Hospital Post Hospital Care: D/C Emergency Communications Operator Documentation - Plan Summary Plan Summary: See admitting attending physician orders.
--- NOTE | 2018-04-10 19:24 | PDOC PROGRESS REPORT ---
Subjective Progress Note for:: 04/10/18 Subjective:: Patient reported some improvement in her breathing. No chest pain. No nausea or vomiting. No fever or chills. Reason For Visit: NEW ATRIAL FLUTTER,ACUTE ON CHRONIC SYSTOLIC CHF Physical Exam Vital Signs: Temp Pulse Resp BP Pulse Ox 98.4 F 66 16 172/84 H 98 04/10/18 15:53 04/10/18 15:53 04/10/18 15:53 04/10/18 15:53 04/10/18 15:53 Intake & Output 04/09/18 04/10/18 04/11/18 06:59 06:59 06:59 Intake Total 120 Balance 120 Weight 99.3 kg General appearance: PRESENT: no acute distress, obese Head exam: PRESENT: atraumatic, normocephalic Eye exam: PRESENT: conjunctiva pink, EOMI, PERRLA. ABSENT: scleral icterus Ear exam: PRESENT: normal external ear exam Mouth exam: PRESENT: moist Respiratory exam: PRESENT: clear to auscultation nurys, decreased breath sounds - at lung bases Cardiovascular exam: PRESENT: irregular rhythm, +S1, +S2, systolic murmur. ABSENT: diastolic murmur Vascular exam: PRESENT: normal capillary refill. ABSENT: pallor GI/Abdominal exam: PRESENT: normal bowel sounds, soft. ABSENT: distended, guarding, mass, organolmegaly, rebound, tenderness Extremities exam: PRESENT: pedal edema Neurological exam: PRESENT: alert, awake, oriented to person, oriented to place , oriented to time, oriented to situation, CN II-XII grossly intact. ABSENT: motor sensory deficit Psychiatric exam: PRESENT: appropriate affect, normal mood. ABSENT: homicidal ideation, suicidal ideation Skin exam: PRESENT: dry, intact, warm. ABSENT: cyanosis, rash Results Laboratory Results: 04/10/18 03:40 04/10/18 03:40 04/10/18 04/10/18 03:40 03:40 WBC 3.5 L RBC 3.71 L Hgb 9.9 L Hct 31.5 L MCV 85 MCH 26.8 L MCHC 31.5 L RDW 17.8 H Plt Count 177 Seg Neutrophils % 50.6 Lymphocytes % 36.1 Monocytes % 8.6 Eosinophils % 3.0 Basophils % 1.7 Absolute Neutrophils 1.8 Absolute Lymphocytes 1.3 Absolute Monocytes 0.3 Absolute Eosinophils 0.1 Absolute Basophils 0.1 Sodium 141.8 Potassium 4.1 Chloride 103 Carbon Dioxide 30 Anion Gap 9 BUN 24 H Creatinine 1.70 H Est GFR ( Amer) 35 L Est GFR (Non-Af Amer) 29 L Glucose 204 H Uric Acid 6.2 Calcium 9.0 Phosphorus 3.5 Total Bilirubin 0.8 AST 37 H ALT 41 Alkaline Phosphatase 149 H Total Protein 6.0 L Albumin 2.9 L 04/09/18 04/09/18 04/10/18 21:43 21:43 03:40 Creatine Kinase 53 47 CK-MB (CK-2) 0.84 Troponin I 0.052 04/10/18 04/10/18 04/10/18 03:40 09:49 09:49 Creatine Kinase 44 CK-MB (CK-2) 0.77 0.67 Troponin I 0.046 0.039 Impressions: Chest X-Ray 04/09/18 14:52 IMPRESSION: Cardiomegaly without pulmonary edema. Assessment & Plan - Diagnosis (1) Acute exacerbation of CHF (congestive heart failure) Qualifiers: Heart failure type: systolic Qualified Code(s): I50.23 - Acute on chronic systolic (congestive) heart failure Is this a current diagnosis for this admission?: Yes Plan: Maintain on diuretic therapy. Follow up on echocardiogram findings. (2) Chronic atrial fibrillation Is this a current diagnosis for this admission?: Yes Plan: Continue current medication management. restart on Eliquis 2.5 mg po bid. D/C Heparin usage for DVT prophylaxis. (3) HTN, goal below 140/80 Is this a current diagnosis for this admission?: Yes Plan: Start on IV Hydralazine 10 mg q8 hours prn for sbp > 160mmHg. Continue all other current medication management. (4) CKD (chronic kidney disease) stage 3, GFR 30-59 ml/min Is this a current diagnosis for this admission?: Yes Plan: Follow up on nephrology consultation. (5) Diabetes mellitus type 2 in obese Is this a current diagnosis for this admission?: Yes Plan: Maintain on current medication management with sliding scale coverage with Humalog insulin. 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 Follow up with nephrology recommendations. - Time Time Spent with patient: 25-34 minutes Medications reviewed and adjusted accordingly: Yes Anticipated discharge: Home with Homehealth Within: Other - Inpatient Certification Based on my medical assessment, after consideration of the patient's comorbidities, presenting symptoms, or acuity I expect that the services needed warrant INPATIENT care.: Yes I certify that my determination is in accordance with my understanding of Medicare's requirements for reasonable and necessary INPATIENT services [42 CFR 412.3e].: Yes Medical Necessity: Need Close Monitoring Due to Risk of Patient Decompensation, Need For Continuous Telemetry Monitoring, Risk of Complication if Not Cared For in Hospital Post Hospital Care: D/C Plasterer Journeyman Documentation - Plan Summary Plan Summary: Continue outlined care plan as noted above.
--- NOTE | 2018-04-10 20:42 | PDOC CONSULTATION ---
Consultation Consult Date: 04/10/18 Attending physician:: GABRIELLA SHOOK Consult reason:: I was asked to see the patient due to chronic kidney disease and worsening lower extremity edema. History of Present Illness Admission Date/PCP: 04/09/18 17:48 GABRIELLA SHOOK History of Present Illness: CAROLINA KAYE is a 82 year old female with history of diabetes mellitus type 2 , hypertension, paroxysmal atrial fibrillation, hyperlipidemia, previous CVA without any residual deficit and most recent drug-induced pancreatitis who came in with shortness of breath and lower extremity edema. Patient gave a 2-week history of progressively worsening lower extremities with swelling associated with shortness of breath in addition exertion on walking to the bathroom. Due to the leg swelling she said it hurts to walk. She has somewhat mild chest pains but not limiting. When she presented in the emergency room she also has elevated blood pressure around 160-180/80 to 90s but then she missed her medications prior to going to the emergency room yesterday. She was given Lasix 20 mg IV yesterday and today which made her lower extremity edema much better. She actually confirms that her leg swelling is much better after 2 doses of IV diuretics. After resuming her blood pressure medications her blood pressure seems to be also slowly improving. Patient denies eating salty foods. She said her blood pressure is usually elevated when she goes to the emergency room but then as an outpatient when she goes to Dr. Shook's office is usually not this bad. Yesterday she also presented with elevated BUN of 24 and creatinine of 1.88 with estimated GFR of 32. Today she has a BUN of 24 ,creatinine of 1.7 with estimated GFR of 35. She is making good amount of urine in response to diuretics. Her baseline kidney function seems to range with BUN of 27-40, creatinine 1.5-2.0, and EGFR of about 29-36. She has seen Dr. Roach and is currently being followed by our Magaly Perez whom we last saw in June. He said that he told her that everything was okay then. Patient is not on any maintenance diuretics. She denies use of any NSAIDs. She denies any history of hepatitis. She drinks appropriate enough fluids. Past Medical History Cardiac Medical History: Reports: Atrial Fibrillation, Hyperlipidemia, Myocardial Infarction Endocrine Medical History: Reports: Diabetes Mellitus Type 2 Renal/ Medical History: Reports: Chronic Kidney Disease Stage III GI Medical History: Reports: Gastroesophageal Reflux Disease Musculoskeltal Medical History: Reports: Arthritis - KNEES & ARMS & HANDS, OSTEOARTHRITIS, Gout Hematology Medical History: Reports Anemia of Chronic Kidney Disease Past Surgical History Past Surgical History: Social History Information Source: Patient, [facility] Records Smoking Status: Never Smoker Frequency of Alcohol Use: None Hx Recreational Drug Use: No Drugs: None Hx Prescription Drug Abuse: No - Advance Directive Resuscitation Status: Full Code Family History Family History: Hypertension - Daughter, Other - Atrial fibrillation on her daughter Parental Family History Reviewed: Yes Children Family History Reviewed: Yes Sibling(s) Family History Reviewed.: Yes Medication/Allergy Home Medications: Allopurinol [Zyloprim 100 mg Tablet] 200 mg PO DAILY 02/28/18 Carvedilol [Coreg 6.25 mg Tablet] 6.25 mg PO Q12 02/28/18 Insulin Aspart [Novolog Flexpen] 0 units SQ .PERSLIDINGSCALE 02/28/18 Irbesartan [Avapro] 300 mg PO DAILY 02/28/18 Multivit-Min/Iron/Folic/Lutein [Centrum Silver Women Tablet] 1 tab PO DAILY Nateglinide [Starlix] 120 mg PO TID 02/28/18 [place]-3 Acid Ethyl Esters [Lovaza 1 gm Capsule] 1 gm PO DAILY 02/28/18 Tramadol HCl [Ultram 50 mg Tablet] 50 mg PO Q12HP PRN 02/28/18 Allergies/Adverse Reactions: oxycodone [Oxycodone] Allergy (Verified 04/09/18 12:02) Review of Systems All systems: reviewed and no additional remarkable complaints except as stated Review of Systems: Constitutional: ABSENT: chills, fatigue, fever(s), headache(s), weight gain, weight loss Eyes: ABSENT: visual disturbances Ears: ABSENT: hearing changes Cardiovascular: ABSENT: Orthropnea, palpitations; admits dyspnea on exertion, admits edema, admits mild occasional chest pains Respiratory: ABSENT: cough, dyspnea, hemoptysis Gastrointestinal: ABSENT: abdominal pain, constipation, diarrhea, hematemesis, hematochezia, nausea, vomiting Genitourinary: ABSENT: dysuria, hematuria Musculoskeletal: ABSENT: joint swelling Integumentary: ABSENT: rash, wounds Neurological: ABSENT: abnormal gait, abnormal speech, confusion, dizziness, focal weakness, numbness, syncope Psychiatric: ABSENT: anxiety, depression Endocrine: ABSENT: cold intolerance, heat intolerance, polydipsia, polyuria Hematologic/Lymphatic: ABSENT: easy bleeding, easy bruising, lymphadenopathy Physical Exam Vital Signs: Temp Pulse Resp BP Pulse Ox 98.4 F 66 16 172/84 H 98 04/10/18 15:53 04/10/18 15:53 04/10/18 15:53 04/10/18 15:53 04/10/18 15:53 Intake & Output 04/09/18 04/10/18 04/11/18 06:59 06:59 06:59 Intake Total 120 Balance 120 Weight 99.3 kg Exam: General appearance: No acute distress, cooperative, well-developed, well- nourished Head exam: PRESENT: atraumatic, normocephalic Eye exam: PRESENT: Conjunctiva slightly pale, EOMI, PERRLA. ABSENT: conjunctival injection, scleral icterus Mouth exam: PRESENT: moist, neck supple, tongue midline Neck exam: PRESENT: full ROM. ABSENT: carotid bruit, JVD, lymphadenopathy, thyromegaly Respiratory exam: PRESENT: clear to auscultation bilaterally. ABSENT: rales, rhonchi, stridor, wheezes Cardiovascular exam: PRESENT: RRR, +S1, +S2. ABSENT: systolic murmur Pulses: PRESENT: normal radial pulses, normal dorsalis pedis pulses GI/Abdominal exam: PRESENT: normal bowel sounds, soft. ABSENT: guarding, mass, tenderness Rectal exam: Deferred Extremities exam: PRESENT: full ROM. Improved grade 2 bilateral lower extremity edema ABSENT: calf tenderness Musculoskeletal: PRESENT: full ROM. ABSENT: deformity Neurological exam: PRESENT: alert, Awake, Oriented to person, Oriented to place , Oriented to time, reflexes normal, CN II-XII grossly intact. ABSENT: motor sensory deficit Psychiatric exam: PRESENT: appropriate affect, normal mood. ABSENT: homicidal ideation, suicidal ideation Skin exam: PRESENT: intact, dry, warm. ABSENT: rash Results Laboratory Results: 04/10/18 03:40 04/10/18 03:40 04/10/18 04/10/18 03:40 03:40 WBC 3.5 L RBC 3.71 L Hgb 9.9 L Hct 31.5 L MCV 85 MCH 26.8 L MCHC 31.5 L RDW 17.8 H Plt Count 177 Seg Neutrophils % 50.6 Lymphocytes % 36.1 Monocytes % 8.6 Eosinophils % 3.0 Basophils % 1.7 Absolute Neutrophils 1.8 Absolute Lymphocytes 1.3 Absolute Monocytes 0.3 Absolute Eosinophils 0.1 Absolute Basophils 0.1 Sodium 141.8 Potassium 4.1 Chloride 103 Carbon Dioxide 30 Anion Gap 9 BUN 24 H Creatinine 1.70 H Est GFR ( Amer) 35 L Est GFR (Non-Af Amer) 29 L Glucose 204 H Uric Acid 6.2 Calcium 9.0 Phosphorus 3.5 Total Bilirubin 0.8 AST 37 H ALT 41 Alkaline Phosphatase 149 H Total Protein 6.0 L Albumin 2.9 L 04/09/18 04/09/18 04/10/18 21:43 21:43 03:40 Creatine Kinase 53 47 CK-MB (CK-2) 0.84 Troponin I 0.052 04/10/18 04/10/18 04/10/18 03:40 09:49 09:49 Creatine Kinase 44 CK-MB (CK-2) 0.77 0.67 Troponin I 0.046 0.039 Impressions: Chest X-Ray 04/09/18 14:52 IMPRESSION: Cardiomegaly without pulmonary edema. Assessment & Plan - Diagnosis (1) Acute exacerbation of CHF (congestive heart failure) Qualifiers: Heart failure type: systolic Qualified Code(s): I50.23 - Acute on chronic systolic (congestive) heart failure Is this a current diagnosis for this admission?: Yes Plan: Agree with initiation of IV Lasix. Current dose seems appropriate and adequate with good response. (2) CKD (chronic kidney disease) stage 3, GFR 30-59 ml/min Is this a current diagnosis for this admission?: Yes Plan: Associated with mild proteinuria likely secondary to diabetic nephropathy and hypertensive nephrosclerosis. Patient's kidney function seems to be within the range of her baseline kidney function from review of records. We will check for other complications of kidney disease. We will quantify her her proteinuria. I think she needs to be on maintenance diuretic therapy even as an outpatient upon discharge. (3) New onset atrial flutter Is this a current diagnosis for this admission?: Yes (4) Anemia in chronic kidney disease Is this a current diagnosis for this admission?: Yes Plan: Check iron panel. (5) Diabetes mellitus type 2 in obese Is this a current diagnosis for this admission?: Yes (6) HTN (hypertension) Qualifiers: Hypertension type: essential hypertension Qualified Code(s): I10 - Essential (primary) hypertension Is this a current diagnosis for this admission?: Yes Plan: Continue current blood pressure regimen per primary provider. (7) Paroxysmal atrial fibrillation Is this a current diagnosis for this admission?: Yes - Notes Notes: Thank you very much for this consultation. We will follow the patient with you. - Time Time Spent: 50 to 70 Minutes
[2018-04-10] MEDS: APIXABAN 2.5 MG TABLET PO SCH (21:13)
[2018-04-10] MEDS: TRAMADOL HCL 50 MG TABLET PO PRN (21:16)
[2018-04-10 22:10] LABS: URINE CREATININE 113.9 mg/dL (15-278)
[2018-04-10 22:19] LABS: UR PRO/CREAT RATIO RESULT 2.4 mg/mg (0.0-0.2); URINE PROTEIN 267.7 mg/dL (<12)
--- NOTE | 2018-04-10 23:09 | XCELERA REPORT ---
[address] [address] Transthoracic Echocardiogram Report Name: CAROLINA KAYE Age: 82 yrs Gender: Female : 1935 Patient Status: Inpatient Patient Location: [address] [place] [address] Study Date: 04/10/2018 10:12 AM Height: 66 in Weight: 217 lb BSA: 2.1 m2 Procedure: A two-dimensional transthoracic echocardiogram with color flow and Doppler was performed. Study Quality: Good. Reason For Study: Acute on chronic systolic CHF, New A.Flutter History: Acute on chronic systolic CHF, New A.Flutter. Ordering Physician: GABRIELLA SHOOK Performed By: Do Dubose Interpretation Summary The left ventricle is normal in size. There is moderate concentric left ventricular hypertrophy. LV EF is > than 60% Left ventricular systolic function is normal. The left ventricular wall motion is normal. There is no thrombus. The right atrium is mildly dilated. The left atrium is severely dilated. There is no Doppler evidence for an interatrial shunt The interatrial septum is intact with no evidence for an atrial septal defect. There is moderate to severe mitral annular calcification. There is no evidence of mitral valve prolapse. There is no vegetation seen on the mitral valve. There is no mitral valve stenosis. There is a mild to moderate amount of mitral regurgitation There is no aortic valvular vegetation. There is no aortic valve stenosis There is no LVOT obstruction. There is aortic sclerosis without aortic stenosis. There is a mild amount of aortic regurgitation There is no tricuspid stenosis. There is a mild amount of tricuspid regurgitation There is moderate pulmonary hypertension by echo RVS is9 mm of Hg ,with RA mean of 10. There is no pulmonic valvular stenosis. There is a trace amount of pulmonic regurgitation The aortic root is normal size. There is no pericardial effusion. MMode/2D Measurements & Calculations RVDd: 3.5 cm LVIDd: 4.7 cm FS: 34.8 % Ao root diam: 3.0 cm IVSd: 1.4 cm LVIDs: 3.1 cm EDV(Teich): 104.0 ml Ao root area: 7.1 cm2 LVPWd: 1.4 cm ESV(Teich): 37.5 ml ACS: 0.95 cm EF(Teich): 63.9 % LA dimension: 5.3 cm Doppler Measurements & Calculations MV E max lucy: MV P1/2t max lucy: Ao V2 max: AI max lucy: 185.7 cm/sec 229.1 cm/sec 192.0 cm/sec 407.8 cm/sec MV A max lucy: MV P1/2t: 58.6 msec Ao max PG: AI max P.8 cm/sec 14.7 mmHg 66.5 mmHg MV E/A: 2.0 MVA(P1/2t): 3.8 cm2 AI dec slope: MV dec slope: 1145 cm/sec2 189.2 cm/sec2 MV dec time: AI P1/2t: 0.20 sec 631.3 msec LV V1 max PG: PA V2 max: PI end-d lucy: TR max lucy: 3.4 mmHg 64.2 cm/sec 183.2 cm/sec 348.8 cm/sec LV V1 max: PA max P.6 mmHg TR max P.8 cm/sec 48.7 mmHg RVSP(TR): 58.7 mmHg RAP systole: AV P1/2t-pr_phl: MV P1/2t-pr_phl: 10.0 mmHg 631.3 msec 58.6 msec Left Ventricle The left ventricle is normal in size. There is moderate concentric left ventricular hypertrophy. LV EF is > than 60%. Left ventricular systolic function is normal. LV diastolic function not assessed. The left ventricular wall motion is normal. There is no thrombus. There is no ventricular septal defect visualized. Right Ventricle The right ventricle is mildly dilated. The right ventricular systolic function is normal. Atria The right atrium is mildly dilated. The left atrium is severely dilated. There is no Doppler evidence for an interatrial shunt. The interatrial septum is intact with no evidence for an atrial septal defect. Mitral Valve There is moderate to severe mitral annular calcification. There is no evidence of mitral valve prolapse. There is no vegetation seen on the mitral valve. There is no mitral valve stenosis. There is a mild to moderate amount of mitral regurgitation. Aortic Valve There is no aortic valvular vegetation. There is no aortic valve stenosis. There is no LVOT obstruction. There is aortic sclerosis without aortic stenosis. There is a mild amount of aortic regurgitation. Tricuspid Valve There is no tricuspid stenosis. There is a mild amount of tricuspid regurgitation. There is moderate pulmonary hypertension by echo. RVS is9 mm of Hg ,with RA mean of 10. Pulmonic Valve There is no pulmonic valvular stenosis. There is a trace amount of pulmonic regurgitation. Great Vessels The aortic root is normal size. Effusions There is no pericardial effusion. : GABRIELLA SHOOK > Lida Burris
[2018-04-11] MEDS: HYDRALAZINE HCL INJ/PF 20 MG/1 ML SDV IV PRN (03:58)
[2018-04-11] MEDS: LANSOPRAZOLE 30 MG TAB.RAP.DR PO SCH (05:37)
[2018-04-11 06:33] LABS: ABSOLUTE EOSINOPHILS # (AUTO) 0.1 10^3/uL (0.0-0.6); ABSOLUTE LYMPHOCYTES (AUTO) 1.4 10^3/uL (0.5-4.7); ABSOLUTE MONOCYTES (AUTO) 0.3 10^3/uL (0.1-1.4); ABSOLUTE RETICS # 0.099 10^6/uL (0.028-0.122); BASOPHILS % (AUTO) 0.7 % (0-2); EOSINOPHILS % (AUTO) 2.5 % (0-6); HEMOGLOBIN 10.9 g/dL (12.0-15.5); LYMPHOCYTES % (AUTO) 35.6 % (13-45); MEAN CORPUSCULAR HEMOGLOBIN 27.2 pg (27.0-33.4); MEAN CORPUSCULAR HGB CONC 32.1 g/dL (32.0-36.0); MEAN CORPUSCULAR VOLUME 85 fl (80-97); MONOCYTES % (AUTO) 8.1 % (3-13); PLATELET COUNT 212 10^3/uL (150-450); RED BLOOD COUNT 4.01 10^6/uL (3.72-5.28); RED CELL DISTRIBUTION WIDTH 17.7 % (11.5-14.0); RETICULOCYTE COUNT (AUTO) 2.47 % (0.66-2.85); SEGMENTED NEUTROPHILS % (AUTO) 53.1 % (42-78); TOTAL CELLS COUNTED % (AUTO) 100 %; WHITE BLOOD COUNT 3.8 10^3/uL (4.0-10.5)
[2018-04-11 06:55] LABS: ANION GAP 12 (5-19); BLOOD UREA NITROGEN 27 mg/dL (7-20); CALCIUM 9.6 mg/dL (8.4-10.2); CARBON DIOXIDE 28 mmol/L (22-30); CHLORIDE 100 mmol/L (98-107); GLUCOSE 156 mg/dL (75-110); IRON(TIBC) 50.7 ug/dL (37-170); POTASSIUM 4.4 mmol/L (3.6-5.0); SODIUM 140.4 mmol/L (137-145)
[2018-04-11 08:04] LABS: FOLATE > 20.00 ng/mL (>2.76)
--- NOTE | 2018-04-11 08:08 | PDOC PROGRESS REPORT ---
Subjective Progress Note for:: 04/11/18 Subjective:: No chest pain or difficulty with breathing. No nausea, vomiting or abdominal pain. No fever or chills. Reason For Visit: NEW ATRIAL FLUTTER,ACUTE ON CHRONIC SYSTOLIC CHF Physical Exam Vital Signs: Temp Pulse Resp BP Pulse Ox 97.6 F 67 20 162/83 H 96 04/11/18 03:44 04/11/18 03:44 04/11/18 03:44 04/11/18 03:44 04/11/18 03:44 Intake & Output 04/10/18 04/11/18 04/12/18 06:59 06:59 06:59 Intake Total 120 150 Output Total 750 Balance 120 -600 Weight 99.3 kg 98 kg Physical Exam: General appearance: PRESENT: no acute distress, obese Head exam: PRESENT: atraumatic, normocephalic Eye exam: PRESENT: conjunctiva pink, EOMI, PERRLA. ABSENT: scleral icterus Ear exam: PRESENT: normal external ear exam Mouth exam: PRESENT: moist Respiratory exam: PRESENT: clear to auscultation nurys, decreased breath sounds - at lung bases Cardiovascular exam: PRESENT: irregular rhythm, +S1, +S2, systolic murmur. ABSENT: diastolic murmur Vascular exam: ABSENT: pallor GI/Abdominal exam: PRESENT: normal bowel sounds, soft. ABSENT: distended, guarding, mass, organomegaly, rebound, tenderness Extremities exam: PRESENT: pedal edema Neurological exam: PRESENT: alert, awake, oriented to person, oriented to place , oriented to time, oriented to situation, CN II-XII grossly intact. ABSENT: motor sensory deficit Psychiatric exam: PRESENT: appropriate affect, normal mood. ABSENT: homicidal ideation, suicidal ideation Skin exam: PRESENT: dry, intact, warm. ABSENT: cyanosis, rash Results Laboratory Results: 04/11/18 06:04 04/11/18 06:04 04/11/18 04/11/18 04/11/18 06:04 06:04 06:04 WBC 3.8 L RBC 4.01 Hgb 10.9 L Hct 34.0 L MCV 85 MCH 27.2 MCHC 32.1 RDW 17.7 H Plt Count 212 Seg Neutrophils % 53.1 Lymphocytes % 35.6 Monocytes % 8.1 Eosinophils % 2.5 Basophils % 0.7 Absolute Neutrophils 2.0 Absolute Lymphocytes 1.4 Absolute Monocytes 0.3 Absolute Eosinophils 0.1 Absolute Basophils 0.0 Retic Count (auto) 2.47 Absolute Retic 0.099 Sodium 140.4 Potassium 4.4 Chloride 100 Carbon Dioxide 28 Anion Gap 12 BUN 27 H Creatinine 1.83 H Est GFR ( Amer) 32 L Est GFR (Non-Af Amer) 26 L Glucose 156 H Calcium 9.6 Iron 50.7 TIBC 281 % Saturation 18 PTH Intact 202.7 H 04/09/18 04/09/18 04/10/18 21:43 21:43 03:40 Creatine Kinase 53 47 CK-MB (CK-2) 0.84 Troponin I 0.052 04/10/18 04/10/18 04/10/18 03:40 09:49 09:49 Creatine Kinase 44 CK-MB (CK-2) 0.77 0.67 Troponin I 0.046 0.039 Impressions: Chest X-Ray 04/09/18 14:52 IMPRESSION: Cardiomegaly without pulmonary edema. Assessment & Plan - Diagnosis (1) Acute exacerbation of CHF (congestive heart failure) Qualifiers: Heart failure type: systolic Qualified Code(s): I50.23 - Acute on chronic systolic (congestive) heart failure Is this a current diagnosis for this admission?: Yes Plan: Echocardiogram revealed LVEF > 60% which is comparatively better than her last echo in 2016. D/C IV Lasix and start on oral Lasix 20 mg po daily. (2) Chronic atrial fibrillation Is this a current diagnosis for this admission?: Yes Plan: Maintain on current medication management. (3) HTN, goal below 140/80 Is this a current diagnosis for this admission?: Yes Plan: Start on Hydralazine 25mg po tid. Continue all other current medication management. (4) CKD (chronic kidney disease) stage 3, GFR 30-59 ml/min Is this a current diagnosis for this admission?: Yes Plan: Procurement Services Manager input appreciated. Continue current medication management. 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 Is this a current diagnosis for this admission?: Yes - Time Time Spent with patient: 25-34 minutes Medications reviewed and adjusted accordingly: Yes Anticipated discharge: Home with Homehealth Within: Other - Inpatient Certification Based on my medical assessment, after consideration of the patient's comorbidities, presenting symptoms, or acuity I expect that the services needed warrant INPATIENT care.: Yes I certify that my determination is in accordance with my understanding of Medicare's requirements for reasonable and necessary INPATIENT services [42 CFR 412.3e].: Yes Medical Necessity: Need Close Monitoring Due to Risk of Patient Decompensation, Need For Continuous Telemetry Monitoring, Risk of Complication if Not Cared For in Hospital Post Hospital Care: D/C [place] [place] Documentation - Plan Summary Plan Summary: Continue current medication management. Patient is aware of possible discharge home tomorrow.
[2018-04-11] MEDS: HYDRALAZINE HCL 25 MG TABLET PO SCH ×3 (08:47→21:28)
[2018-04-11] MEDS: INSULIN LISPRO 100 UNIT/ML 3 ML VIAL SUBCUT PRN ×3 (08:47→23:23)
[2018-04-11] MEDS: CARVEDILOL 6.25 MG TABLET PO SCH ×2 (10:05→21:29)
[2018-04-11] MEDS: FUROSEMIDE INJ/PF 20 MG/2 ML SDV IV SCH (10:05)
[2018-04-11] MEDS: APIXABAN 2.5 MG TABLET PO SCH ×2 (10:05→18:05)
[2018-04-11] MEDS: ALLOPURINOL 100 MG TABLET PO SCH (10:06)
[2018-04-11] MEDS: MULTIVITAMIN TABLET PO SCH (10:06)
[2018-04-11] MEDS: LOSARTAN POTASSIUM 50 MG TABLET PO SCH (10:06)
[2018-04-11] MEDS: OMEGA-3 ACID ETHYL ESTERS 1 GM CAPSULE PO SCH (10:06)
[2018-04-11] MEDS: NATEGLINIDE 60 MG TABLET PO SCH ×3 (10:07→18:05)
[2018-04-11] MEDS: TRAMADOL HCL 50 MG TABLET PO PRN (13:54)
[2018-04-11] MEDS: AMLODIPINE BESYLATE 5 MG TABLET PO SCH (20:43)
--- NOTE | 2018-04-11 21:47 | PDOC PROGRESS REPORT ---
Subjective Progress Note for:: 04/11/18 Subjective:: Patient is feeling much better. Her leg swelling is much improved and resolving. No other new complaints today. Reason For Visit: NEW ATRIAL FLUTTER,ACUTE ON CHRONIC SYSTOLIC CHF Physical Exam Vital Signs: Temp Pulse Resp BP Pulse Ox 97.9 F 66 16 153/85 H 100 04/11/18 19:52 04/11/18 19:52 04/11/18 19:52 04/11/18 19:52 04/11/18 19:52 Intake & Output 04/10/18 04/11/18 04/12/18 06:59 06:59 06:59 Intake Total 120 150 480 Output Total 750 1651 Balance 120 -600 -1171 Weight 99.3 kg 98 kg Exam: General appearance: PRESENT: no acute distress, cooperative, well-developed, well-nourished Head exam: PRESENT: atraumatic, normocephalic Eye exam: PRESENT: conjunctiva slightly pale, PERRLA. ABSENT: scleral icterus Neck exam: ABSENT: JVD Respiratory exam: PRESENT: Diminished breath sounds. ABSENT: crackles, rales, rhonchi, unlabored, wheezes Cardiovascular exam: PRESENT: Regular rate rhythm -+S1, +S2. ABSENT: diastolic murmur, systolic murmur GI/Abdominal exam: PRESENT: normal bowel sounds, soft. ABSENT: guarding, mass, tenderness Extremities exam: Improved bilateral lower extremity grade 1 pitting edema Neurological exam: PRESENT: alert, awake, oriented to person, place and time. Skin exam: PRESENT: dry, warm, Results Laboratory Results: 04/11/18 06:04 04/11/18 06:04 04/11/18 04/11/18 04/11/18 06:04 06:04 06:04 WBC 3.8 L RBC 4.01 Hgb 10.9 L Hct 34.0 L MCV 85 MCH 27.2 MCHC 32.1 RDW 17.7 H Plt Count 212 Seg Neutrophils % 53.1 Lymphocytes % 35.6 Monocytes % 8.1 Eosinophils % 2.5 Basophils % 0.7 Absolute Neutrophils 2.0 Absolute Lymphocytes 1.4 Absolute Monocytes 0.3 Absolute Eosinophils 0.1 Absolute Basophils 0.0 Retic Count (auto) 2.47 Absolute Retic 0.099 Sodium 140.4 Potassium 4.4 Chloride 100 Carbon Dioxide 28 Anion Gap 12 BUN 27 H Creatinine 1.83 H Est GFR ( Amer) 32 L Est GFR (Non-Af Amer) 26 L Glucose 156 H Calcium 9.6 Iron 50.7 TIBC 281 % Saturation 18 Ferritin 72.50 Vitamin B12 752.0 Folate > 20.00 PTH Intact 202.7 H 04/09/18 04/09/18 04/10/18 21:43 21:43 03:40 Creatine Kinase 53 47 CK-MB (CK-2) 0.84 Troponin I 0.052 04/10/18 04/10/18 04/10/18 03:40 09:49 09:49 Creatine Kinase 44 CK-MB (CK-2) 0.77 0.67 Troponin I 0.046 0.039 Impressions: Chest X-Ray 04/09/18 14:52 IMPRESSION: Cardiomegaly without pulmonary edema. Assessment & Plan - Diagnosis (1) Acute exacerbation of CHF (congestive heart failure) Qualifiers: Heart failure type: systolic Qualified Code(s): I50.23 - Acute on chronic systolic (congestive) heart failure Is this a current diagnosis for this admission?: Yes Plan: Improved with diuretics (2) CKD (chronic kidney disease) stage 3, GFR 30-59 ml/min Is this a current diagnosis for this admission?: Yes Plan: Stable kidney function. (3) New onset atrial flutter Is this a current diagnosis for this admission?: Yes (4) Iron deficiency anemia Is this a current diagnosis for this admission?: Yes Plan: Start ferrous sulfate 325 mg p.o. twice daily. (5) Anemia in chronic kidney disease Is this a current diagnosis for this admission?: Yes (6) Secondary hyperparathyroidism Is this a current diagnosis for this admission?: Yes Plan: Start calcitriol 0.25 mcg 3 times a week (7) HTN (hypertension) Qualifiers: Hypertension type: essential hypertension Qualified Code(s): I10 - Essential (primary) hypertension Is this a current diagnosis for this admission?: Yes (8) Diabetes mellitus type 2 in obese Is this a current diagnosis for this admission?: Yes (9) Paroxysmal atrial fibrillation Is this a current diagnosis for this admission?: Yes - Notes Notes: From nephrology standpoint I think the patient can be sent home tomorrow with a low-dose Lasix of 20 mg p.o. daily. If discharged patient is to follow-up with her Magaly Mckeon in 1-2 weeks. - Time Time with patient: 15-25 minutes
[2018-04-12] MEDS: HYDRALAZINE HCL INJ/PF 20 MG/1 ML SDV IV PRN (01:12)
[2018-04-12] MEDS: HYDRALAZINE HCL 25 MG TABLET PO SCH ×2 (05:28→16:11)
[2018-04-12] MEDS: LANSOPRAZOLE 30 MG TAB.RAP.DR PO SCH (05:28)
[2018-04-12] MEDS: INSULIN LISPRO 100 UNIT/ML 3 ML VIAL SUBCUT PRN ×3 (08:43→17:35)
[2018-04-12] MEDS: FERROUS SULFATE 325 MG TABLET PO SCH ×2 (08:43→17:33)
[2018-04-12] MEDS ORDERED: CALCITRIOL 0.25 MCG CAPSULE PO SCH (10:00)
[2018-04-12] MEDS: OMEGA-3 ACID ETHYL ESTERS 1 GM CAPSULE PO SCH (11:13)
[2018-04-12] MEDS: AMLODIPINE BESYLATE 5 MG TABLET PO SCH (11:13)
[2018-04-12] MEDS: CARVEDILOL 6.25 MG TABLET PO SCH (11:14)
[2018-04-12] MEDS: ALLOPURINOL 100 MG TABLET PO SCH (11:14)
[2018-04-12] MEDS: NATEGLINIDE 60 MG TABLET PO SCH ×3 (11:14→17:33)
[2018-04-12] MEDS: MULTIVITAMIN TABLET PO SCH (11:14)
[2018-04-12] MEDS: LOSARTAN POTASSIUM 50 MG TABLET PO SCH (11:14)
[2018-04-12] MEDS: APIXABAN 2.5 MG TABLET PO SCH ×2 (11:14→17:33)
[2018-04-12] MEDS: FUROSEMIDE INJ/PF 20 MG/2 ML SDV IV SCH (11:15)
[2018-04-12 16:39] LABS: A/G RATIO 0.8 (0.7-1.7); ALBUMIN 2 2.8 g/dL (2.9-4.4); ALPHA-2-GLOBULIN 2 0.8 g/dL (0.4-1.0); BETA GLOBULINS 1.1 g/dL (0.7-1.3); GAMMA GLOBULIN 1.2 g/dL (0.4-1.8); GLOBULIN TOTAL 3.4 g/dL (2.2-3.9); MONOCLONAL SPIKE Not Observed g/dL (Not Observ); PROTEIN TOTAL SERUM 6.2 g/dL (6.0-8.5)
--- NOTE | 2018-04-12 18:53 | PDOC DISCHARGE SUMMARY ---
General - Admit/Disc Date/PCP Admission Date/Primary Care Provider: 04/09/18 17:48 GABRIELLA SHOOK Discharge Date: 04/12/18 - Discharge Diagnosis (1) Acute on chronic diastolic CHF (congestive heart failure), NYHA class 2 Is this a current diagnosis for this admission?: Yes Summary: See discharged medication management. 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 Is this a current diagnosis for this admission?: Yes - Additional Information Resuscitation Status: Full Code Prescriptions: Allopurinol [Zyloprim 100 mg Tablet] 100 mg PO DAILY #30 tablet Amlodipine Besylate [Norvasc 5 mg Tablet] 5 mg PO DAILY #30 tablet Apixaban [Eliquis 2.5 mg Tablet] 2.5 mg PO BID #60 tablet Calcitriol [Rocaltrol 0.25 mcg Capsule] 0.25 mcg PO TUTHSA@1000 PRN #30 capsule PRN Reason: Ferrous Sulfate [Feosol 325 mg Tablet] 325 mg PO BIDPCBS #60 tablet Hydralazine HCl [Apresoline 25 mg Tablet] 25 mg PO Q8 #90 tablet Home Medications: Carvedilol [Coreg 6.25 mg Tablet] 6.25 mg PO Q12 02/28/18 Insulin Aspart [Novolog Flexpen] 0 units SQ .PERSLIDINGSCALE 02/28/18 Irbesartan [Avapro] 300 mg PO DAILY 02/28/18 Multivit-Min/Iron/Folic/Lutein [Centrum Silver Women Tablet] 1 tab PO DAILY Nateglinide [Starlix] 120 mg PO TID 02/28/18 [place]-3 Acid Ethyl Esters [Lovaza 1 gm Capsule] 1 gm PO DAILY 02/28/18 Tramadol HCl [Ultram 50 mg Tablet] 50 mg PO Q12HP PRN 02/28/18 Allopurinol [Zyloprim 100 mg Tablet] 100 mg PO DAILY #30 tablet 04/12/18 Amlodipine Besylate [Norvasc 5 mg Tablet] 5 mg PO DAILY #30 tablet 04/12/18 Apixaban [Eliquis 2.5 mg Tablet] 2.5 mg PO BID #60 tablet 04/12/18 Calcitriol [Rocaltrol 0.25 mcg Capsule] 0.25 mcg PO TUTHSA@1000 PRN #30 capsule 04/12/18 Ferrous Sulfate [Feosol 325 mg Tablet] 325 mg PO BIDPCBS #60 tablet 04/12/18 Hydralazine HCl [Apresoline 25 mg Tablet] 25 mg PO Q8 #90 tablet 04/12/18 History of Present Illness Patient complains of: Difficulty with breathing History of Present Illness: CAROLINA KAYE is a 82 year old female known to my practice who presented to the ED with 2 weeks episodes of exertional difficulty with breathing that has been progressively worse. She denied any chest pain, palpitation, orthopnea or PND. She reported associated bilateral lower extremities swelling. She claimed compliance with her medications and dietary restrictions but did not take her blood pressure medication upon presenting to the ED. Her initial evaluation in the ED was significant for severely elevated blood pressure and cardiac monitoring as well as 12 lead EKG revealing atrial flutter. Her laboratory evaluation suggested elevated NT Pro-BNP and worsening renal indices. She was advised hospitalization for further evaluation of uncontrolled hypertension with acute on chronic CHF and chronic kidney disease. Her morbidities include Diabetes Mellitus Type 2, Hypertension, Chronic Atrial fibrillation, Hyperlipidemia, GERD, chronic gouty arthritis, Osteoarthritis and history of CVA with minimal motor deficit and recently treated drug induced pancreatitis. Hospital Course Hospital Course: She was managed with IV anti hypertensive medication with IV Lasix due to severely elevated blood pressure with associated fluid overload. There was initial concern for possible congestive heart failure in view of her presenting symptoms, clinical findings, and elevated NT Pro-BNP level. She was seen in consultation by Dr. De Dios, community affairs director. Her echocardiogram comparatively revealed improvement in her LVEF from about 25 % in 2016 to > 60 % presently. In view of her improved systolic function, her congestive failure is most likely diastolic type, particularly with history of chronic atrial fibrillation. She was seen by Dr. Puentes, tumbling instructor, due to her chronic kidney disease for possible worsening and accounting for her bilateral edema. He renal function indices were stable as per nephrology evaluation with recommendation to maintain her on oral diuretic upon discharge. Kevin blood pressure remain a concern with need for addition of Hydralazine and Amlodipine to her anti hypertensive medication regimen. There was associated resolution of her leg swelling and improvement in her blood pressure although further medication adjustment will be necessary during outpatient follow up. Physical Exam Vital Signs: Temp Pulse Resp BP Pulse Ox 98.2 F 67 14 145/63 H 100 04/12/18 15:39 04/12/18 15:39 04/12/18 15:39 04/12/18 15:39 04/12/18 15:39 Intake & Output 04/11/18 04/12/18 04/13/18 06:59 06:59 06:59 Intake Total 150 1005 887 Output Total 750 1852 1550 Balance -600 -847 -663 Weight 98 kg 95.7 kg Physical Exam: General appearance: PRESENT: no acute distress, obese Head exam: PRESENT: atraumatic, normocephalic Eye exam: PRESENT: conjunctiva pink, EOMI, PERRLA. ABSENT: scleral icterus Ear exam: PRESENT: normal external ear exam Mouth exam: PRESENT: moist Respiratory exam: PRESENT: clear to auscultation nurys Cardiovascular exam: PRESENT: irregular rhythm, +S1, +S2, systolic murmur. ABSENT: diastolic murmur Vascular exam: ABSENT: pallor GI/Abdominal exam: PRESENT: normal bowel sounds, soft. ABSENT: distended, guarding, mass, organomegaly, rebound, tenderness Extremities exam: PRESENT: pedal edema Neurological exam: PRESENT: alert, awake, oriented to person, oriented to place , oriented to time, oriented to situation, CN II-XII grossly intact. ABSENT: motor sensory deficit Psychiatric exam: PRESENT: appropriate affect, normal mood. ABSENT: homicidal ideation, suicidal ideation Skin exam: PRESENT: dry, intact, warm. ABSENT: cyanosis, rash Results Laboratory Results: 04/11/18 06:04 04/11/18 06:04 04/09/18 04/09/18 04/10/18 21:43 21:43 03:40 Creatine Kinase 53 47 CK-MB (CK-2) 0.84 Troponin I 0.052 04/10/18 04/10/18 04/10/18 03:40 09:49 09:49 Creatine Kinase 44 CK-MB (CK-2) 0.77 0.67 Troponin I 0.046 0.039 Impressions: Chest X-Ray 04/09/18 14:52 IMPRESSION: Cardiomegaly without pulmonary edema. Qualifiers - * PATIENT BEING DISCHARGED WITH ANY OF THE FOLLOWING DIAGNOSIS: Heart Failure HF Pt being discharged on ACEI for LVEF less than 40%?: No Reason(s) for not prescribing ACEI:: Medical Contraindication HF Pt being discharged on ARBS for LVEF less than 40%?: Yes HF Pt with Afib discharged with Warfarin?: No Reason(s) for not prescribing Warfarin:: Medical Contraindication - on Eliquis HF Pt discharged on evidence-based Beta Poppy:: Yes Plan Discharge Plan: Discharge home today. Follow up in the office as instructed upon discharge.
[2018-04-12 19:20] VITALS: BP 162/80
== END 2018-04-12 19:33 | disposition home health service (06) | DRG 291 ==
LOC: ER 12:02 → EH 17:48 → 3W 04-10 01:16
PROVIDERS: ADMIT Internal Medicine Geriatric Medicine; ATTEND Internal Medicine Geriatric Medicine
DX: I13.0 Hypertensive heart and chronic kidney disease with heart failure and stage 1 through stage 4 chronic kidney disease, or unspecified chronic kidney disease (principal); I50.23 Acute on chronic systolic (congestive) heart failure; I48.92 Unspecified atrial flutter; E11.22 Type 2 diabetes mellitus with diabetic chronic kidney disease; N18.3 Chronic kidney disease, stage 3 (moderate); E11.21 Type 2 diabetes mellitus with diabetic nephropathy; I48.2 Chronic atrial fibrillation; D63.1 Anemia in chronic kidney disease; E78.5 Hyperlipidemia, unspecified; K21.9 Gastro-esophageal reflux disease without esophagitis; M1A.9XX0 Chronic gout, unspecified, without tophus (tophi); I25.2 Old myocardial infarction; Z79.01 Long term (current) use of anticoagulants; Z79.4 Long term (current) use of insulin; Z79.899 Other long term (current) drug therapy
CPT/HCPCS: 36415; 71045; 80048; 80053; 81001; 82550; 82553; 82570; 82607; 82728; 82746; 82803; 82962; 83540; 83550; 83735; 83880; 83970; 84100; 84156; 84165; 84484; 84550; 85025; 85045; 87086; 93005; 93010; 93306; 96374; 99285; J0360; J1644; J1815; J1940

== ENCOUNTER → 2018-04-23 | Outpatient (CLI) | payer MEDICARE, MEDICAID ==
[2018-04-23 10:32] LABS: HEMATOCRIT 35.5 % (36.0-47.0); HEMOGLOBIN 11.3 g/dL (12.0-15.5); MEAN CORPUSCULAR HEMOGLOBIN 27.2 pg (27.0-33.4); MEAN CORPUSCULAR HGB CONC 31.8 g/dL (32.0-36.0); MEAN CORPUSCULAR VOLUME 86 fl (80-97); PLATELET COUNT 225 10^3/uL (150-450); RED BLOOD COUNT 4.15 10^6/uL (3.72-5.28); RED CELL DISTRIBUTION WIDTH 17.4 % (11.5-14.0); WHITE BLOOD COUNT 4.9 10^3/uL (4.0-10.5)
[2018-04-23 10:40] LABS: APPEARANCE,URINE CLOUDY; BILIRUBIN,URINE NEGATIVE (NEGATIVE); COLOR,URINE YELLOW; GLUCOSE, URINE 50 mg/dL (NEGATIVE); KETONES,URINE NEGATIVE (NEGATIVE); LEUKOCYTE ESTERASE,URINE MODERATE (NEGATIVE); NITRITE,URINE NEGATIVE (NEGATIVE); PROTEIN,URINE >=500 mg/dL (NEGATIVE); URINE SPECIFIC GRAVITY 1.017
[2018-04-23 10:54] LABS: ANION GAP 9 (5-19); BLOOD UREA NITROGEN 34 mg/dL (7-20); CALCIUM 9.7 mg/dL (8.4-10.2); CARBON DIOXIDE 23 mmol/L (22-30); CHLORIDE 108 mmol/L (98-107); GLUCOSE 287 mg/dL (75-110); PHOSPHORUS 3.6 mg/dL (2.5-4.5); POTASSIUM 4.8 mmol/L (3.6-5.0); SODIUM 140.4 mmol/L (137-145)
== END ==
LOC: OD 09:49
PROVIDERS: ATTEND Physician Assistant Medical
DX: I12.9 Hypertensive chronic kidney disease with stage 1 through stage 4 chronic kidney disease, or unspecified chronic kidney disease (principal); E11.22 Type 2 diabetes mellitus with diabetic chronic kidney disease; N18.4 Chronic kidney disease, stage 4 (severe); D64.9 Anemia, unspecified; R60.9 Edema, unspecified
CPT/HCPCS: 36415; 80048; 81001; 83970; 84100; 85027

== ENCOUNTER → 2018-06-08 | Outpatient (CLI) | payer MEDICARE, MEDICAID ==
[2018-06-08 13:27] LABS: HEMATOCRIT 39.4 % (36.0-47.0); HEMOGLOBIN 12.7 g/dL (12.0-15.5); MEAN CORPUSCULAR HEMOGLOBIN 27.6 pg (27.0-33.4); MEAN CORPUSCULAR HGB CONC 32.2 g/dL (32.0-36.0); MEAN CORPUSCULAR VOLUME 86 fl (80-97); PLATELET COUNT 184 10^3/uL (150-450); RED CELL DISTRIBUTION WIDTH 17.5 % (11.5-14.0); WHITE BLOOD COUNT 4.7 10^3/uL (4.0-10.5)
[2018-06-08 13:58] LABS: ANION GAP 9 (5-19); BLOOD UREA NITROGEN 40 mg/dL (7-20); CALCIUM 10.1 mg/dL (8.4-10.2); CARBON DIOXIDE 26 mmol/L (22-30); CHLORIDE 103 mmol/L (98-107); GLUCOSE 271 mg/dL (75-110); PHOSPHORUS 3.6 mg/dL (2.5-4.5); POTASSIUM 5.1 mmol/L (3.6-5.0); SODIUM 138.1 mmol/L (137-145)
[2018-06-08 14:03] LABS: APPEARANCE,URINE CLOUDY; BILIRUBIN,URINE NEGATIVE (NEGATIVE); GLUCOSE, URINE 50 mg/dL (NEGATIVE); KETONES,URINE NEGATIVE (NEGATIVE); LEUKOCYTE ESTERASE,URINE TRACE (NEGATIVE); NITRITE,URINE NEGATIVE (NEGATIVE); PROTEIN,URINE >=500 mg/dL (NEGATIVE); URINE SPECIFIC GRAVITY 1.022
[2018-06-08 14:09] LABS: COLOR,URINE YELLOW
== END ==
LOC: OD 12:36
PROVIDERS: ATTEND Physician Assistant Medical
DX: I12.9 Hypertensive chronic kidney disease with stage 1 through stage 4 chronic kidney disease, or unspecified chronic kidney disease (principal); N18.4 Chronic kidney disease, stage 4 (severe); E11.22 Type 2 diabetes mellitus with diabetic chronic kidney disease; R80.9 Proteinuria, unspecified; D64.9 Anemia, unspecified
CPT/HCPCS: 36415; 80048; 81001; 83970; 84100; 85027

== ENCOUNTER → 2020-01-14 | Outpatient (CLI) | payer MEDICARE, MEDICAID | LOC: OD 11:45 | PROVIDERS: ATTEND Physician Assistant Medical | DX: E83.42 Hypomagnesemia (principal) | CPT/HCPCS: 36415; 83735 ==

== ENCOUNTER 2020-03-16 12:34 | Inpatient (IN) | payer MEDICARE, MEDICAID ==
--- NOTE | 2020-03-16 14:40 | ER Document Report ---
ED General - General Chief Complaint: Shortness Of Breath Stated Complaint: SHORTNESS OF BREATH,WEAKNESS Time Seen by Provider: 03/16/20 14:22 Primary Care Provider: GONZALEZ ROSE PA-C [Primary Care Provider] - Follow up as needed Mode of Arrival: Ambulatory Information source: Patient Notes: Patient is an 84-year-old -[place] female presenting today for ev aluation of shortness of breath, hypoxia, distal extremity swelling. Patient has a history of type 2 diabetes, hypertension, congestive heart failure, chronic kidney disease among others. Does not report fevers and chills. Does not report body aches. She does report epigastric pain with nausea. No vomiting. No diarrhea. Also having some chest pain. TRAVEL OUTSIDE OF THE [place] IN LAST 30 DAYS: No - Related Data Allergies/Adverse Reactions: oxycodone [Oxycodone] Allergy (Verified 04/09/18 12:02) Home Medications: allopurinol, amlodipine, calcitriol, carvedilol, dexilant, eliquis, iron, furosemide, gabapentin, hydralazine, irbesartan, mag oxide, nateglinide, tramadol, novolog, tresiba, vascepa Past Medical History - Social History Smoking Status: Never Smoker Chew tobacco use (# tins/day): No Frequency of alcohol use: None Drug Abuse: None Family History: Reviewed & Not Pertinent, CAD - Past Medical History Cardiac Medical History: Reports: Hx Atrial Fibrillation, Hx Heart Attack, Hx Hypercholesterolemia, Hx Hypertension Denies: Hx Coronary Artery Disease Pulmonary Medical History: Denies: Hx Asthma, Hx Bronchitis, Hx COPD, Hx Pneumonia, Hx Tuberculosis Neurological Medical History: Reports: Hx Cerebrovascular Accident. Denies: Hx Seizures Endocrine Medical History: Reports: Hx Diabetes Mellitus Type 2 Renal/ Medical History: Denies: Hx Peritoneal Dialysis GI Medical History: Reports: Hx Gastroesophageal Reflux Disease Musculoskeletal Medical History: Reports Hx Arthritis - KNEES & ARMS & HANDS, OSTEOARTHRITIS, Reports Hx Gout Psychiatric Medical History: Denies: Hx Depression Infectious Medical History: Past Surgical History: Denies: Hx Hysterectomy - Immunizations Hx Diphtheria, Pertussis, Tetanus Vaccination: Yes Review of Systems - Review of Systems Notes: Constitutional: No fevers. No chills. EENT: No eye redness. No eye pain. No ear pain. No sore throat. Cardiovascular: +chest pain. No palpitations. Edema bilateral lower extremities Respiratory: +shortness of breath. No respiratory distress. Gastrointestinal: No abdominal pain. No nausea, vomiting, or diarrhea. Genitourinary: Atraumatic. No lesions. No pain. No discharge. Musculoskeletal: Atraumatic. No swelling. No deformities. Skin: No rash or lesions. Lymphatic: No swollen lymph nodes. Neurologic: No headache. No syncope. Psychiatric: No suicidal or homicidal ideation. Physical Exam - Vital signs Vitals: Temp Pulse Resp BP Pulse Ox 97.8 F 58 L 20 150/60 H 93 03/16/20 13:24 03/16/20 13:24 03/16/20 13:24 03/16/20 13:24 03/16/20 13:24 - Notes Notes: General: Chronically ill-appearing. Cardiac: Well-perfused. Regular rate and rhythm. No murmurs, rubs, or gallops. Slight bradycardia. 2+ bilateral lower extremity pitting edema. Pulmonary: Silvino breath sounds bilaterally. Rhonchi present. Abdominal: Epigastric tenderness to palpation. No guarding or rebound. HEENT: Head is atraumatic. Conjunctivae not reddened. No tearing. PERRL. EOMI. Orbits atraumatic. No periorbital swelling or erythema. Oropharynx is without erythema, swelling, or exudates. Neck: Supple. No adenopathy. No meningismus. Dermatologic: Warm with good turgor. No rash. Atraumatic. Chest: Atraumatic. No chest wall tenderness to palpation. Musculoskeletal: Moves all extremities well. No range of motion deficits. no muscular or joint tenderness. No paraspinal muscle tenderness. no midline spinal tenderness or step-off. Genitourinary: Examination deferred Neurologic: No gross neurologic deficits. Psychiatric: Normal mood. Course - Re-evaluation Re-evalutation: 03/16/20 14:39 Patient is ill-appearing. She seems to be comfortable on her nasal cannula oxygen. This is atypical for her as she does not use oxygen at home. Is a history of CHF on multiple occasions. Suspect this is at least part of her problem given the amount of edema in her legs. 03/16/20 21:27 Patient was feeling better after some Lasix and some diuresis. She was able to ambulate and maintain a 96% oxygen saturation. Unfortunately after sitting down she became increasingly short of breath and a bit hypoxic down to 91 to 92% on room air. Will call her doctor to have her admitted. - Vital Signs Vital signs: Temp Pulse Resp BP Pulse Ox 97.8 F 58 L 18 160/68 H 99 03/16/20 13:24 03/16/20 13:24 03/16/20 20:00 03/16/20 17:52 03/16/20 20:00 - Laboratory Result Diagrams: 03/16/20 14:50 03/16/20 14:50 Laboratory results interpreted by me: 03/16/20 03/16/20 03/16/20 14:50 14:50 14:50 WBC 3.9 L Hgb 11.5 L MCHC 31.8 L RDW 16.9 H ABG pO2 Chloride 109 H Carbon Dioxide 20 L BUN 37 H Creatinine 1.86 H Est GFR ( Amer) 31 L Est GFR (MDRD) Non-Af 26 L Glucose 119 H Calcium 10.3 H AST 50 H ALT 39 H Alkaline Phosphatase 170 H NT-Pro-B Natriuret Pep 1350 H Lipase 362.2 H Urine Protein 03/16/20 03/16/20 19:00 19:42 WBC Hgb MCHC RDW ABG pO2 76.9 L Chloride Carbon Dioxide BUN Creatinine Est GFR ( Amer) Est GFR (MDRD) Non-Af Glucose Calcium AST ALT Alkaline Phosphatase NT-Pro-B Natriuret Pep Lipase Urine Protein 30 H Discharge - Discharge Clinical Impression: Shortness of breath Congestive heart failure Qualifiers: Heart failure type: unspecified Heart failure chronicity: unspecified Qualified Code(s): I50.9 - Heart failure, unspecified Condition: Good Disposition: ADMITTED INPATIENT Admitting Provider: Alejandra Unit Admitted: [facility] Referrals: GONZALEZ ROSE PA-C [Primary Care Provider] - Follow up as needed
[2020-03-16 15:29] LABS: ABSOLUTE BASOPHILS # (AUTO) 0.1 10^3/uL (0.0-0.2); ABSOLUTE EOSINOPHILS # (AUTO) 0.2 10^3/uL (0.0-0.6); ABSOLUTE LYMPHOCYTES (AUTO) 1.3 10^3/uL (0.5-4.7); ABSOLUTE MONOCYTES (AUTO) 0.3 10^3/uL (0.1-1.4); ABSOLUTE NEUT (AUTO) 2.1 10^3/uL (1.7-8.2); BASOPHILS % (AUTO) 1.4 % (0-2); EOSINOPHILS % (AUTO) 3.9 % (0-6); HEMOGLOBIN 11.5 g/dL (12.0-15.5); LYMPHOCYTES % (AUTO) 33.7 % (13-45); MEAN CORPUSCULAR HEMOGLOBIN 27.9 pg (27.0-33.4); MEAN CORPUSCULAR HGB CONC 31.8 g/dL (32.0-36.0); MEAN CORPUSCULAR VOLUME 88 fl (80-97); MONOCYTES % (AUTO) 7.3 % (3-13); PLATELET COUNT 168 10^3/uL (150-450); RED CELL DISTRIBUTION WIDTH 16.9 % (11.5-14.0); SEGMENTED NEUTROPHILS % (AUTO) 53.7 % (42-78); TOTAL CELLS COUNTED % (AUTO) 100 %; WHITE BLOOD COUNT 3.9 10^3/uL (4.0-10.5)
[2020-03-16 15:52] LABS: ANION GAP 12 (5-19)
[2020-03-16 15:53] LABS: A TYPE INFLUENZA AG NEGATIVE (NEGATIVE); B INFLUENZA AG NEGATIVE (NEGATIVE)
[2020-03-16 16:02] LABS: CREATINE KINASE MB 1.08 ng/mL (<4.55)
[2020-03-16 16:07] LABS: TROPONIN I 0.035 ng/mL
[2020-03-16 16:13] LABS: ALBUMIN 4.1 g/dL (3.5-5.0); ALKALINE PHOSPHATASE 170 U/L (38-126); ASPARTATE AMINO TRANSFERASE 50 U/L (14-36); BILIRUBIN,DIRECT 0.3 mg/dL (0.0-0.4); BILIRUBIN,TOTAL 0.9 mg/dL (0.2-1.3); BLOOD UREA NITROGEN 37 mg/dL (7-20); CALCIUM 10.3 mg/dL (8.4-10.2); CARBON DIOXIDE 20 mmol/L (22-30); CHLORIDE 109 mmol/L (98-107); CREATINE KINASE 59 U/L (30-135); GLUCOSE 119 mg/dL (75-110); TOTAL PROTEIN 8.2 g/dL (6.3-8.2)
--- NOTE | 2020-03-16 16:17 | RADIOLOGY REPORT (SQ) ---
EXAM DESCRIPTION: CHEST SINGLE VIEW IMAGES COMPLETED DATE/TIME: 03/16/2020 4:07 pm REASON FOR STUDY: sob COMPARISON: 04/09/2018 NUMBER OF VIEWS: One view. TECHNIQUE: Single frontal radiographic view of the chest acquired. LIMITATIONS: None. FINDINGS: LUNGS AND PLEURA: No opacities, masses or pneumothorax. No pleural effusion. MEDIASTINUM AND HILAR STRUCTURES: No masses or contour abnormality. HEART AND VASCULATURE: Cardiac enlargement. Vascular congestion. BONES: No acute findings. HARDWARE: None in the chest. OTHER: No other significant finding. IMPRESSION: CARDIAC ENLARGEMENT. VASCULAR CONGESTION. TECHNICAL DOCUMENTATION: JOB ID: [id number] 2010 [employer]- All Rights Reserved Reading location - IP/workstation name: [email or web address]
[2020-03-16] MEDS ORDERED: FUROSEMIDE INJ/PF 40 MG/4 ML SDV IV ONE (17:24)
--- NOTE | 2020-03-16 17:49 | RADIOLOGY REPORT (SQ) ---
EXAM DESCRIPTION: CT ABD/PELVIS NO ORAL OR IV IMAGES COMPLETED DATE/TIME: 03/16/2020 5:30 pm REASON FOR STUDY: epigastric pain COMPARISON: 05/03/2016 TECHNIQUE: CT scan of the abdomen and pelvis performed without intravenous or oral contrast. Images reviewed with lung, soft tissue, and bone windows. Reconstructed coronal and sagittal MPR images revi ewed. All images stored on PACS. All CT scanners at this facility use dose modulation, iterative reconstruction, and/or weight based d osing when appropriate to reduce radiation dose to as low as reasonably achievable (ALARA). [facility]: Dose Right [facility]: CareDose [facility]: Dose Right [facility]: Teradose 4D [facility]: [employer] RADIATION DOSE: Total exam DLP: 891.58 mGy. LIMITATIONS: None. FINDINGS: LOWER CHEST: Coronary artery and mitral annular calcifications. Slight atelectasis or sc arring at the lung bases. NON-CONTRASTED LIVER, SPLEEN, ADRENALS: Evaluation limited by lack of IV contrast. No identified sign ificant masses. PANCREAS: No masses. No peripancreatic inflammatory changes. GALLBLADDER: No identified stones by CT criteria. No inflammatory changes to suggest cholecystitis. RIGHT KIDNEY AND URETER: Stable exophytic right renal cyst. No suspicious masses. Assessment limite d by lack of IV contrast. No significant calcifications. No hydronephrosis or hydroureter. LEFT KIDNEY AND URETER: No suspicious masses. Assessment limited by lack of IV contrast. No signifi cant calcifications. No hydronephrosis or hydroureter. AORTA AND RETROPERITONEUM: No aneurysm. No retroperitoneal masses or adenopathy. BOWEL AND PERITONEAL CAVITY: Colonic diverticulosis without evidence of diverticulitis. No free flu id. A new 2.3 cm in diameter soft tissue mass in the right lower quadrant of the abdomen with small assoc iated calcifications. The mass lies superior and adjacent to a nondilated small bowel loop in the ri t lower quadrant of the abdomen, axial image 57, series 3 and coronal image 36, series 601. Bladde r normal. APPENDIX: Normal. PELVIS, BLADDER, AND ABDOMINAL WALL: An umbilical hernia contains fat and non-dilated small bowel lo ops. Fibroid uterus, stable findings. No free fluid. Small bilateral fat containing inguinal herni as. BONES: The osseous structures are stable in appearance. OTHER: No other significant finding. IMPRESSION: 1. A new soft tissue mass with associated calcifications in the right lower quadrant of the abdomen as above, since the prior study dated 05/03/2016. 2. Umbilical hernia contains fat and nondilated small bowel loops, unchanged finding. 3. Additional stable findings as above. COMMENT: Quality ID # [id number]: Final reports with documentation of one or more dose reduction techniques (e.g., Automated exposure control, adjustment of the mA and/or kV according to patient size, use of iterative reconstruction technique) TECHNICAL DOCUMENTATION: JOB ID: [id number] 2010 [employer]- All Rights Reserved Reading location - IP/workstation name: [email or web address]
--- NOTE | 2020-03-16 18:13 | RADIOLOGY REPORT (SQ) ---
EXAM DESCRIPTION: CT CHEST WITHOUT IMAGES COMPLETED DATE/TIME: 03/16/2020 6:01 pm REASON FOR STUDY: dyspnea, hypoxia COMPARISON: None. TECHNIQUE: CT scan performed of the chest without intravenous contrast. Images reviewed with lung, soft tissue and bone windows. Reconstructed coronal and sagittal MPR images reviewed. All images st ored on PACS. All CT scanners at this facility use dose modulation, iterative reconstruction, and/or weight based d osing when appropriate to reduce radiation dose to as low as reasonably achievable (ALARA). [facility]: Dose Right [facility]: CareDose [facility]: Dose Right [facility]: Teradose 4D [facility]: [employer] RADIATION DOSE: CT Rad equipment meets quality standard of care and radiation dose reduction techniq ues were employed. CTDIvol: 20.4 mGy. DLP: 705 mGy-cm. mGy. LIMITATIONS: No technical limitations. FINDINGS: LUNGS AND PLEURA: Minimal dependent atelectasis, right more than left. No acute infiltrat e or effusion. HILAR AND MEDIASTINAL STRUCTURES: No identified masses or abnormal nodes. No obvious aneurysm. HEART AND VASCULAR STRUCTURES: No aneurysm. No pericardial effusion. UPPER ABDOMEN: No significant findings. Limited exam. THYROID AND OTHER SOFT TISSUES: No masses. No adenopathy. BONES: No significant finding. HARDWARE: None in the chest. OTHER: No other significant findings. IMPRESSION: NO SIGNIFICANT FINDING ON NON-CONTRASTED CHEST CT. TECHNICAL DOCUMENTATION: JOB ID: [id number] Quality ID # [id number]: Final reports with documentation of one or more dose reduction techniques (e.g., Au tomated exposure control, adjustment of the mA and/or kV according to patient size, use of iterative reconstruction technique) 2010 [employer]- All Rights Reserved Reading location - IP/workstation name: [email or web address]
[2020-03-16 19:33] LABS: APPEARANCE,URINE CLEAR; BILIRUBIN,URINE NEGATIVE (NEGATIVE); COLOR,URINE YELLOW; GLUCOSE, URINE NEGATIVE (NEGATIVE); KETONES,URINE NEGATIVE (NEGATIVE); PROTEIN,URINE 30 mg/dL (NEGATIVE); URINE SPECIFIC GRAVITY 1.012; UROBILINOGEN,URINE NEGATIVE mg/dL (<2.0)
[2020-03-16] MEDS ORDERED: IPRATROPIUM/ALBUTEROL 0.5-2.5 MG/3 ML AMPUL NEB ONE (20:07)
[2020-03-16 20:31] LABS: ARTERIAL BLOOD BASE EXCESS -1.3 mmol/L; ARTERIAL BLOOD H2CO3 1.18 mmol/L (1.05-1.35); ARTERIAL BLOOD HCO3 23.4 mmol/L (20-24); ARTERIAL BLOOD O2 SATURATION 95.4 % (94-98); ARTERIAL BLOOD PCO2 39.1 mmHg (35-45); ARTERIAL BLOOD PO2 76.9 mmHg (80-100); ARTERIAL BLOOD TOTAL CO2 24.6 mmol/L (21-25)
[2020-03-16 20:40] LABS: ARTERIAL BLOOD FIO2 98%
--- NOTE | 2020-03-16 22:43 | EKG REPORT ---
SEVERITY:- ABNORMAL ECG - ATRIAL FLUTTER MULTIPLE VENTRICULAR PREMATURE COMPLEXES RIGHT BUNDLE BRANCH BLOCK LVH WITH IVCD AND SECONDARY REPOL ABNRM : Confirmed by: Vijaya Mayer 16-Mar-2020 22:42:43
[2020-03-17] MEDS ORDERED: DEXTROSE 50%-WATER 25 GM/50 ML DISP.SYRIN IV PRN ×2 (08:10)
[2020-03-17] MEDS ORDERED: DEXTROSE 40% GEL 15 GM TUBE PO PRN ×2 (08:10)
[2020-03-17] MEDS ORDERED: GLUCAGON,HUMAN RECOMB 1 MG INJ IM PRN (08:10)
[2020-03-17] MEDS: PANTOPRAZOLE SODIUM 40 MG TABLET.DR PO SCH (09:36)
[2020-03-17] MEDS ORDERED: FUROSEMIDE INJ/PF 40 MG/4 ML SDV IV SCH (10:00)
[2020-03-17] MEDS: INSULIN LISPRO 100 UNIT/ML 3 ML VIAL SUBCUT SCH ×3 (12:25→21:40)
[2020-03-17] MEDS ORDERED: HEPARIN SOD (PORCINE) 5,000 UNIT/ML 1 ML VIAL SUBCUT SCH (14:00)
[2020-03-17] MEDS ORDERED: (PENDING PHARMACY ID) (Dexlansoprazole [Dexilant 30 Mg Capsule] 30 MG) PO PRN (16:25)
[2020-03-17] MEDS ORDERED: INSULIN ASPART 1 UNIT SQ SCH (16:30)
[2020-03-17] MEDS ORDERED: INSULIN DEGLUDEC 25 UNIT SUBCUT SCH (17:15)
--- NOTE | 2020-03-17 17:19 | EKG REPORT ---
SEVERITY:- ABNORMAL ECG - A-FLUTTER W/ PREDOM 4:1 AV BLOCK, A-RATE 230 RIGHT BUNDLE BRANCH BLOCK LVH WITH IVCD AND SECONDARY REPOL ABNRM : Confirmed by: Vijaya Mayer 17-Mar-2020 17:18:20
[2020-03-17] MEDS: FERROUS SULFATE 325 MG TABLET PO SCH (17:24)
[2020-03-17] MEDS: MAGNESIUM OXIDE 400 MG TABLET PO SCH (17:24)
[2020-03-17] MEDS: APIXABAN 2.5 MG TABLET PO SCH (17:24)
[2020-03-17] MEDS: FUROSEMIDE INJ/PF 20 MG/2 ML SDV IV SCH (17:25)
[2020-03-17] MEDS ORDERED: (PENDING PHARMACY ID) (Nateglinide [Starlix] 120 MG) PO SCH (18:00)
[2020-03-17] MEDS: HYDRALAZINE HCL 25 MG TABLET PO SCH (21:40)
[2020-03-17] MEDS ORDERED: CARVEDILOL 12.5 MG TABLET PO SCH (22:00)
[2020-03-17] MEDS ORDERED: HYDRALAZINE HCL 25 MG TABLET PO SCH (22:00)
--- NOTE | 2020-03-17 23:34 | XCELERA REPORT ---
[address] [address] Transthoracic Echocardiogram Report Name: CAROLINA KAYE Age: 84 yrs Gender: Female : 1935 Patient Status: Inpatient Patient Location: [address] [place] [address] Study Date: 03/17/2020 07:26 PM Height: 66 in Weight: 203 lb BSA: 2.0 m2 Procedure: A two-dimensional transthoracic echocardiogram with color flow and Doppler was performed. Study Quality: Fair. Reason For Study: Decompensated CHF, CKD, HTN, DM type 2 History: Decompensated CHF, CKD, HTN, DM type 2. Ordering Physician: GABRIELLA SHOOK Performed By: Bonnie Paez Interpretation Summary The left ventricle is normal in size. LV EF is > than 70% Left ventricular systolic function is normal. : By tissue dopplers. The left ventricular wall motion is normal. No ASD , VSD or PFO seen. The right ventricle is not well visualized secondary to technical limitations Probably mildly enlarged RV with mild RVH and normal systolic function. The right atrium is mildly dilated. The left atrium is moderately dilated. There is moderate mitral annular calcification. There is no evidence of mitral valve prolapse. There is no vegetation seen on the mitral valve. There is no mitral valve stenosis. There is a mild amount of mitral regurgitation There is no aortic valvular vegetation. There is a peak gradient of 23.8 mm of Hg and mean gradient of 10.3 mm of Hg. There is mild aortic stenosis There is a mild amount of aortic regurgitation There is no tricuspid stenosis. There is a moderate amount of tricuspid regurgitation There is servere pulmonary hypertension by echo RVSP is 70 to 75 mm of Hg , with RA mean of 10 to 15. There is no pulmonic valvular stenosis. There is a mild to moderate amount of pulmonic regurgitation The aortic root is normal size. The inferior vena cava appeared normal and decreased < 50% with respiration (RAP 10-15 mmHg) There is no pericardial effusion. MMode/2D Measurements & Calculations RVDd: 3.2 cm LVIDd: 4.2 cm FS: 46.6 % Ao root diam: 2.7 cm IVSd: 1.3 cm LVIDs: 2.3 cm EDV(Teich): 79.9 ml Ao root area: 5.9 cm2 LVPWd: 1.2 cm ESV(Teich): 17.3 ml LA dimension: 4.5 cm EF(Teich): 78.3 % LVOT diam: 1.5 cm LVOT area: 1.8 cm2 Doppler Measurements & Calculations MV E max lucy: MV P1/2t max lucy: Ao V2 max: AI max lucy: 182.0 cm/sec 213.1 cm/sec 244.1 cm/sec 273.8 cm/sec MV A max lucy: MV P1/2t: 67.7 msec Ao max PG: AI max P.0 cm/sec MVA(P1/2t): 3.2 cm2 23.8 mmHg 31.9 mmHg MV E/A: 2.1 MV dec slope: Ao V2 mean: AI dec slope: 140.2 cm/sec 189.1 cm/sec2 921.6 cm/sec2 Ao mean PG: AI P1/2t: MV dec time: 0.16 sec10.3 mmHg 424.1 msec Ao V2 VTI: 58.7 cm SHILO(I,D): 0.83 cm2 SHILO(V,D): 0.90 cm2 LV V1 max PG: SV(LVOT): 49.0 ml PA V2 max: PI end-d lucy: 6.0 mmHg 94.8 cm/sec 126.0 cm/sec LV V1 mean PG: PA max P.9 mmHg 3.6 mmHg LV V1 max: 122.9 cm/sec LV V1 mean: 78.5 cm/sec LV V1 VTI: 27.4 cm TR max lucy: AV P1/2t-pr_phl: MV P1/2t-pr_phl: 388.2 cm/sec 530.7 msec 67.7 msec TR max P.3 mmHg Left Ventricle The left ventricle is normal in size. There is mild to moderate concentric left ventricular hypertrophy. LV EF is > than 70%. Left ventricular systolic function is normal. Doppler measurements suggest impaired left ventricular relaxation, which is associated with grade I/IV or mild diastolic dysfunction. : By tissue dopplers. The left ventricular wall motion is normal. There is no thrombus. No ASD , VSD or PFO seen. Right Ventricle The right ventricle is not well visualized secondary to technical limitations. Probably mildly enlarged RV with mild RVH and normal systolic function. Atria The right atrium is mildly dilated. The left atrium is moderately dilated. Mitral Valve There is moderate mitral annular calcification. There is no evidence of mitral valve prolapse. There is no vegetation seen on the mitral valve. There is no mitral valve stenosis. There is a mild amount of mitral regurgitation. Aortic Valve There is no aortic valvular vegetation. There is a peak gradient of 23.8 mm of Hg and mean gradient of 10.3 mm of Hg. There is mild aortic stenosis. There is a mild amount of aortic regurgitation. Tricuspid Valve There is no tricuspid stenosis. There is a moderate amount of tricuspid regurgitation. There is servere pulmonary hypertension by echo. RVSP is 70 to 75 mm of Hg , with RA mean of 10 to 15. Pulmonic Valve There is no pulmonic valvular stenosis. There is a mild to moderate amount of pulmonic regurgitation. Great Vessels The aortic root is normal size. The inferior vena cava appeared normal and decreased < 50% with respiration (RAP 10-15 mmHg). Effusions There is no pericardial effusion. : GABRIELLA SHOOK Lakshmi
[2020-03-18] MEDS: PANTOPRAZOLE SODIUM 40 MG TABLET.DR PO SCH (05:06)
[2020-03-18] MEDS: HYDRALAZINE HCL 25 MG TABLET PO SCH ×3 (05:06→22:20)
[2020-03-18 06:00] LABS: ABSOLUTE EOSINOPHILS # (AUTO) 0.2 10^3/uL (0.0-0.6); ABSOLUTE LYMPHOCYTES (AUTO) 1.5 10^3/uL (0.5-4.7); ABSOLUTE MONOCYTES (AUTO) 0.4 10^3/uL (0.1-1.4); ABSOLUTE NEUT (AUTO) 2.3 10^3/uL (1.7-8.2); BASOPHILS % (AUTO) 0.6 % (0-2); EOSINOPHILS % (AUTO) 3.8 % (0-6); HEMATOCRIT 35.6 % (36.0-47.0); HEMOGLOBIN 11.2 g/dL (12.0-15.5); LYMPHOCYTES % (AUTO) 33.8 % (13-45); MEAN CORPUSCULAR HEMOGLOBIN 27.7 pg (27.0-33.4); MEAN CORPUSCULAR HGB CONC 31.5 g/dL (32.0-36.0); MEAN CORPUSCULAR VOLUME 88 fl (80-97); MONOCYTES % (AUTO) 8.4 % (3-13); PLATELET COUNT 158 10^3/uL (150-450); RED BLOOD COUNT 4.04 10^6/uL (3.72-5.28); RED CELL DISTRIBUTION WIDTH 16.9 % (11.5-14.0); SEGMENTED NEUTROPHILS % (AUTO) 53.4 % (42-78); TOTAL CELLS COUNTED % (AUTO) 100 %; WHITE BLOOD COUNT 4.3 10^3/uL (4.0-10.5)
[2020-03-18 06:28] LABS: ALBUMIN 3.5 g/dL (3.5-5.0); ALKALINE PHOSPHATASE 146 U/L (38-126); ANION GAP 10 (5-19); ASPARTATE AMINO TRANSFERASE 26 U/L (14-36); BILIRUBIN,DIRECT 0.2 mg/dL (0.0-0.4); BILIRUBIN,TOTAL 0.7 mg/dL (0.2-1.3); BLOOD UREA NITROGEN 38 mg/dL (7-20); CALCIUM 9.6 mg/dL (8.4-10.2); CARBON DIOXIDE 23 mmol/L (22-30); CHLORIDE 106 mmol/L (98-107); GLUCOSE 150 mg/dL (75-110); PHOSPHORUS 4.4 mg/dL (2.5-4.5)
[2020-03-18] MEDS: INSULIN LISPRO 100 UNIT/ML 3 ML VIAL SUBCUT SCH ×4 (07:58→22:21)
[2020-03-18] MEDS ORDERED: FUROSEMIDE 20 MG TABLET PO SCH (08:00)
--- NOTE | 2020-03-18 09:36 | PDOC H&P ---
History of Present Illness Admission Date/PCP: 03/16/20 21:44 GABRIELLA SHOOK MD Patient complains of: Shortness of breath, generalized weakness History of Present Illness: CAROLINA KAYE is a 84 year old female known to my practice who presented to the office with complain of generalized weakness, worsening exertional difficulty with breathing and daughter reported recent onset of hallucination. Her evaluation revealed acutely ill person with demonstrable diaphoresis, inability to complete sentences and chronic bilateral lower extremities edema. She was ref erred to the ED due to lack of bed for direct admission. At the ED she was managed for fluid overload with IV Furosemide and patient reported some improvement in her breathing difficulty but desaturated off supplemental oxygen at the time of attempt to discharge her home. She was subsequently advised hospitalization for possible CHF and concern for COVID-19 infection in view of her morbidities and associated high risk for infection. Past Medical History Cardiac Medical History: Reports: Atrial Fibrillation, Myocardial Infarction, Hyperlipidema, Hypertension Denies: Coronary Artery Disease Pulmonary Medical History: Denies: Asthma, Bronchitis, Chronic Obstructive Pulmonary Disease (COPD), Pneumonia, Tuberculosis Neurological Medical History: Denies: Seizures Endocrine Medical History: Reports: Diabetes Mellitus Type 2 GI Medical History: Reports: Gastroesophageal Reflux Disease Musculoskeltal Medical History: Reports: Arthritis - KNEES & ARMS & HANDS, OSTEOARTHRITIS, Gout Psychiatric Medical History: Denies: Depression Hematology: Denies: Anemia, Sickle Cell Disease Past Surgical History Past Surgical History: Denies: Amputation, Hysterectomy Social History Smoking Status: Never Smoker Electronic Cigarette use?: No Frequency of Alcohol Use: None Hx Recreational Drug Use: No Drugs: None Hx Prescription Drug Abuse: No - Advance Directive Resuscitation Status: Full Code Family History Family History: Reviewed & Not Pertinent, CAD Parental Family History Reviewed: Yes Children Family History Reviewed: Yes Sibling(s) Family History Reviewed.: Yes Medication/Allergy Home Medications: Insulin Aspart [Novolog Flexpen] 0 units SQ .PERSLIDINGSCALE 02/28/18 Irbesartan [Avapro] 300 mg PO DAILY 02/28/18 Nateglinide [Starlix] 120 mg PO TID 02/28/18 Allopurinol [Zyloprim 100 mg Tablet] 100 mg PO DAILY #30 tablet 04/12/18 Amlodipine Besylate [Norvasc 5 mg Tablet] 5 mg PO DAILY #30 tablet 04/12/18 Apixaban [Eliquis 2.5 mg Tablet] 2.5 mg PO BID #60 tablet 04/12/18 Ferrous Sulfate [Feosol 325 mg Tablet] 325 mg PO BIDPCBS #60 tablet 04/12/18 Hydralazine HCl [Apresoline 25 mg Tablet] 25 mg PO Q8 #90 tablet 04/12/18 Calcitriol [Rocaltrol 0.25 mcg Capsule] 0.25 mcg PO DAILY 03/17/20 Carvedilol [Coreg 12.5 mg Tablet] 12.5 mg PO BID 03/17/20 Dexlansoprazole [Dexilant 30 mg Capsule] 30 mg PO QAMP PRN 03/17/20 Furosemide [Lasix 20 mg Tablet] 20 mg PO MOWEFR 03/17/20 Gabapentin [Neurontin 100 mg Capsule] 100 mg PO DAILY 03/17/20 Insulin Degludec [Tresiba Flextouch U-100] 25 units SQ DAILY 03/17/20 Magnesium Oxide [Mag-Ox 400 mg Tablet] 400 mg PO BID 03/17/20 Allergies/Adverse Reactions: oxycodone [Oxycodone] Allergy (Verified 04/09/18 12:02) Review of Systems Constitutional: PRESENT: fatigue, weakness - generalized. ABSENT: chills, fever(s), headache(s) Eyes: ABSENT: visual disturbances Ears: ABSENT: hearing changes Cardiovascular: PRESENT: dyspnea on exertion, edema - bilateral but chronic. ABSENT: chest pain, orthropnea, palpitations Respiratory: PRESENT: dyspnea. ABSENT: cough, hemoptysis Gastrointestinal: ABSENT: abdominal pain, constipation, diarrhea, hematemesis, hematochezia, nausea, vomiting Genitourinary: ABSENT: dysuria, hematuria Musculoskeletal: ABSENT: joint swelling Integumentary: ABSENT: rash, wounds Neurological: PRESENT: abnormal gait - ambulate with walker assistance. ABSENT: abnormal speech, confusion, dizziness, focal weakness, syncope Psychiatric: ABSENT: anxiety, depression, homidical ideation, suicidal ideation Endocrine: ABSENT: cold intolerance, heat intolerance, polydipsia, polyuria Hematologic/Lymphatic: ABSENT: easy bleeding, easy bruising, lymphadenopathy Physical Exam Vital Signs: Temp Pulse Resp BP Pulse Ox 97.9 F 59 L 21 H 148/71 H 92 03/17/20 06:01 03/17/20 06:55 03/17/20 06:01 03/17/20 06:01 03/17/20 06:01 Intake & Output 03/16/20 03/17/20 03/18/20 06:59 06:59 06:59 Output Total 700 Balance -700 Weight 92.4 kg General appearance: PRESENT: mild distress - on supplemental oxygen via nasal cannula, obese Head exam: PRESENT: atraumatic, normocephalic Eye exam: PRESENT: conjunctiva pink, EOMI, PERRLA. ABSENT: scleral icterus Ear exam: PRESENT: normal external ear exam Mouth exam: PRESENT: moist, tongue midline Neck exam: PRESENT: full ROM. ABSENT: carotid bruit, JVD, lymphadenopathy, thyromegaly Respiratory exam: PRESENT: clear to auscultation nurys, decreased breath sounds - at lung bases Cardiovascular exam: PRESENT: irregular rhythm, +S1, +S2, systolic murmur. ABSENT: diastolic murmur, rubs Murmur grade: 3 Vascular exam: PRESENT: normal capillary refill. ABSENT: pallor GI/Abdominal exam: PRESENT: normal bowel sounds, soft. ABSENT: distended, guarding, mass, organolmegaly, rebound, tenderness Rectal exam: PRESENT: deferred Extremities exam: PRESENT: pedal edema - bilateral 2+ Musculoskeletal exam: PRESENT: ambulatory - with walker assistance Neurological exam: PRESENT: alert, awake, oriented to person, oriented to place, oriented to time, oriented to situation, CN II-XII grossly intact. ABSENT: motor sensory deficit Psychiatric exam: PRESENT: appropriate affect, normal mood. ABSENT: homicidal ideation, suicidal ideation Skin exam: PRESENT: dry, intact, warm. ABSENT: cyanosis, rash Results Laboratory Results: 03/16/20 14:50 03/16/20 14:50 03/16/20 03/16/20 03/16/20 14:50 14:50 14:50 WBC 3.9 L RBC 4.10 Hgb 11.5 L Hct 36.0 MCV 88 MCH 27.9 MCHC 31.8 L RDW 16.9 H Plt Count 168 Seg Neutrophils % 53.7 Carbonic Acid HCO3/H2CO3 Ratio ABG pH ABG pCO2 ABG pO2 ABG HCO3 ABG O2 Saturation ABG Base Excess FiO2 Sodium 141.2 Potassium 5.0 Chloride 109 H Carbon Dioxide 20 L Anion Gap 12 BUN 37 H Creatinine 1.86 H Est GFR ( Amer) 31 L Glucose 119 H Lactic Acid 1.0 Calcium 10.3 H Total Bilirubin 0.9 AST 50 H Alkaline Phosphatase 170 H Total Protein 8.2 Albumin 4.1 Lipase 362.2 H Urine Color Urine Appearance Urine pH Ur Specific Clifford Urine Protein Urine Glucose (UA) Urine Ketones Urine Blood Urine RBC (Auto) 03/16/20 03/16/20 19:00 19:42 WBC RBC Hgb Hct MCV MCH MCHC RDW Plt Count Seg Neutrophils % Carbonic Acid 1.18 HCO3/H2CO3 Ratio 19:1 ABG pH 7.40 ABG pCO2 39.1 ABG pO2 76.9 L ABG HCO3 23.4 ABG O2 Saturation 95.4 ABG Base Excess -1.3 FiO2 98% Sodium Potassium Chloride Carbon Dioxide Anion Gap BUN Creatinine Est GFR ( Amer) Glucose Lactic Acid Calcium Total Bilirubin AST Alkaline Phosphatase Total Protein Albumin Lipase Urine Color YELLOW Urine Appearance CLEAR Urine pH 6.0 Ur Specific Clifford 1.012 Urine Protein 30 H Urine Glucose (UA) NEGATIVE Urine Ketones NEGATIVE Urine Blood NEGATIVE Urine RBC (Auto) 0 03/16/20 03/16/20 03/16/20 14:50 14:50 14:50 Creatine Kinase 59 CK-MB (CK-2) 1.08 Troponin I 0.035 NT-Pro-B Natriuret Pep 1350 H Impressions: Chest X-Ray 03/16/20 14:29 IMPRESSION: CARDIAC ENLARGEMENT. VASCULAR CONGESTION. Abdomen/Pelvis CT 03/16/20 14:32 IMPRESSION: 1. A new soft tissue mass with associated calcifications in the right lower quadrant of the abdomen as above, since the prior study dated 05/03/2016. 2. Umbilical hernia contains fat and nondilated small bowel loops, unchanged finding. 3. Additional stable findings as above. Chest CT 03/16/20 17:43 IMPRESSION: NO SIGNIFICANT FINDING ON NON-CONTRASTED CHEST CT. Assessment & Plan - Diagnosis (1) Shortness of breath Is this a current diagnosis for this admission?: Yes Plan: See admitting attending physician orders for details about care plan. (2) Acute on chronic diastolic CHF (congestive heart failure), NYHA class 2 Is this a current diagnosis for this admission?: Yes Plan: See admitting attending physician orders for details about care plan. (3) Chronic atrial fibrillation Is this a current diagnosis for this admission?: Yes Plan: See admitting attending physician orders for details about care plan. (4) Essential hypertension Is this a current diagnosis for this admission?: Yes Plan: See admitting attending physician orders for details about care plan. (5) CKD (chronic kidney disease) stage 4, GFR 15-29 ml/min Is this a current diagnosis for this admission?: Yes Plan: See admitting attending physician orders for details about care plan. (6) Diabetes mellitus type 2 in obese Is this a current diagnosis for this admission?: Yes Plan: See admitting attending physician orders for details about care plan. (7) HLD (hyperlipidemia) Qualifiers: Hyperlipidemia type: unspecified Qualified Code(s): E78.5 - Hyperlipidemia, unspecified Is this a current diagnosis for this admission?: Yes Plan: See admitting attending physician orders for details about care plan. (8) GERD (gastroesophageal reflux disease) Qualifiers: Esophagitis presence: without esophagitis Qualified Code(s): K21.9 - Gastro-esophageal reflux disease without esophagitis Is this a current diagnosis for this admission?: Yes Plan: See admitting attending physician orders for details about care plan. 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 - Time Time Spent: 50 to 70 Minutes Medications reviewed and adjusted accordingly: Yes Anticipated Discharge Disposition: Home with Home Health Anticipated Discharge Timeframe: within 72 hours - Inpatient Certification Based on my medical assessment, after consideration of the patient's comorbidities, presenting symptoms, or acuity I expect that the services needed warrant INPATIENT care.: Yes I certify that my determination is in accordance with my understanding of Medicare's requirements for reasonable and necessary INPATIENT services [42 CFR 412.3e].: Yes Medical Necessity: Significant Comorbidiites Make Outpatient Treatment Too Risky, Need Close Monitoring Due to Risk of Patient Decompensation, Need For Continuous Telemetry Monitoring, Risk of Complication if Not Cared For in Hospital, Risk of Diagnosis Which Will Require Inpatient Eval/Care/Monitoring 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
[2020-03-18] MEDS: CALCITRIOL 0.25 MCG CAPSULE PO SCH (09:57)
[2020-03-18] MEDS: FUROSEMIDE INJ/PF 20 MG/2 ML SDV IV SCH (09:57)
[2020-03-18] MEDS: APIXABAN 2.5 MG TABLET PO SCH ×2 (09:58→17:39)
[2020-03-18] MEDS: MAGNESIUM OXIDE 400 MG TABLET PO SCH ×2 (09:58→17:39)
[2020-03-18] MEDS: ALLOPURINOL 100 MG TABLET PO SCH (09:58)
[2020-03-18] MEDS: GABAPENTIN 100 MG CAPSULE PO SCH (09:58)
[2020-03-18] MEDS: FERROUS SULFATE 325 MG TABLET PO SCH ×2 (09:58→17:39)
[2020-03-18] MEDS: LOSARTAN POTASSIUM 50 MG TABLET PO SCH (09:58)
[2020-03-18] MEDS ORDERED: (PENDING PHARMACY ID) (Irbesartan [Avapro] 300 MG) PO SCH (10:00)
[2020-03-18] MEDS ORDERED: LOSARTAN POTASSIUM 50 MG TABLET PO SCH (10:00)
[2020-03-18] MEDS ORDERED: INSULIN DEGLUDEC 25 UNIT SUBCUT SCH (10:00)
[2020-03-18] MEDS ORDERED: AMLODIPINE BESYLATE 5 MG TABLET PO SCH ×2 (10:00)
--- NOTE | 2020-03-18 17:15 | PDOC PROGRESS REPORT ---
Subjective Date:: 03/18/20 Subjective:: Patient is COVID-19 negative. She reported improvement in her breathing and curr ently off supplemental oxygen. No chest pain. No fever or chills. No nausea, vomiting, abdominal pain, or diarrhea. She continue to demonstrate significant bradycardia. Reason For Visit: DECOMPENSATED CHF; HTN; DIABETES MELLITUS TYPE 2; Physical Exam Vital Signs: Temp Pulse Resp BP Pulse Ox 97.5 F 60 18 126/58 H 96 03/18/20 13:19 03/18/20 14:00 03/18/20 11:44 03/18/20 13:19 03/18/20 13:19 Intake & Output 03/17/20 03/18/20 03/19/20 06:59 06:59 06:59 Intake Total 378 Output Total 700 Balance -700 378 Weight 92.4 kg 92.4 kg General appearance: PRESENT: obese Head exam: PRESENT: atraumatic, normocephalic Eye exam: PRESENT: conjunctiva pink. ABSENT: scleral icterus Mouth exam: PRESENT: moist Respiratory exam: PRESENT: clear to auscultation nurys, decreased breath sounds - at lung bases Cardiovascular exam: PRESENT: bradycardia, +S1, +S2, systolic murmur Murmur grade: 3 Vascular exam: ABSENT: pallor GI/Abdominal exam: PRESENT: normal bowel sounds, soft. ABSENT: tenderness Extremities exam: PRESENT: pedal edema Musculoskeletal exam: PRESENT: deformity - related to multiple joints involvement with arthritis Neurological exam: PRESENT: alert, awake, oriented to person, oriented to place, oriented to time, oriented to situation, CN II-XII grossly intact. ABSENT: motor sensory deficit Psychiatric exam: ABSENT: agitated, anxious Skin exam: PRESENT: dry, warm Results Laboratory Results: 03/18/20 05:19 03/18/20 05:19 03/18/20 03/18/20 05:19 05:19 WBC 4.3 RBC 4.04 Hgb 11.2 L Hct 35.6 L MCV 88 MCH 27.7 MCHC 31.5 L RDW 16.9 H Plt Count 158 Seg Neutrophils % 53.4 Sodium 138.6 Potassium 5.0 Chloride 106 Carbon Dioxide 23 Anion Gap 10 BUN 38 H Creatinine 1.99 H Est GFR ( Amer) 29 L Glucose 150 H Calcium 9.6 Phosphorus 4.4 Magnesium 1.5 L Total Bilirubin 0.7 AST 26 Alkaline Phosphatase 146 H Total Protein 7.0 Albumin 3.5 03/16/20 03/16/20 03/16/20 14:50 14:50 14:50 Creatine Kinase 59 CK-MB (CK-2) 1.08 Troponin I 0.035 NT-Pro-B Natriuret Pep 1350 H Impressions: Chest X-Ray 03/16/20 14:29 IMPRESSION: CARDIAC ENLARGEMENT. VASCULAR CONGESTION. Abdomen/Pelvis CT 03/16/20 14:32 IMPRESSION: 1. A new soft tissue mass with associated calcifications in the right lower quadrant of the abdomen as above, since the prior study dated 05/03/2016. 2. Umbilical hernia contains fat and nondilated small bowel loops, unchanged finding. 3. Additional stable findings as above. Chest CT 03/16/20 17:43 IMPRESSION: NO SIGNIFICANT FINDING ON NON-CONTRASTED CHEST CT. Assessment & Plan - Diagnosis (1) Shortness of breath Is this a current diagnosis for this admission?: Yes (2) Acute on chronic diastolic CHF (congestive heart failure), NYHA class 2 Is this a current diagnosis for this admission?: Yes (3) Chronic atrial fibrillation Is this a current diagnosis for this admission?: Yes (4) Essential hypertension Is this a current diagnosis for this admission?: Yes (5) CKD (chronic kidney disease) stage 4, GFR 15-29 ml/min Is this a current diagnosis for this admission?: Yes (6) Diabetes mellitus type 2 in obese Is this a current diagnosis for this admission?: Yes (7) HLD (hyperlipidemia) Qualifiers: Hyperlipidemia type: unspecified Qualified Code(s): E78.5 - Hyperlipidemia, unspecified Is this a current diagnosis for this admission?: Yes (8) GERD (gastroesophageal reflux disease) Qualifiers: Esophagitis presence: without esophagitis Qualified Code(s): K21.9 - Gastro-esophageal reflux disease without esophagitis Is this a current diagnosis for this admission?: Yes (9) Gouty arthropathy, chronic, 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 Patient emphatically said that she will not use CPAP or BiPAP machine. Nocturnal supplemental oxygen may help in the management of her severe pulmonary hypertension. - Time Time Spent with patient: 25-34 minutes Level of Care: IMCU Anticipated discharge: Home with Homehealth Anticipated DC Timeframe: within 72 hours - Inpatient Certification Based on my medical assessment, after consideration of the patient's comorbidities, presenting symptoms, or acuity I expect that the services needed warrant INPATIENT care.: Yes I certify that my determination is in accordance with my understanding of Medicare's requirements for reasonable and necessary INPATIENT services [42 CFR 412.3e].: Yes Medical Necessity: Significant Comorbidiites Make Outpatient Treatment Too Ri alyson, Need Close Monitoring Due to Risk of Patient Decompensation, Need For Continuous Telemetry Monitoring, Risk of Complication if Not Cared For in Hospital, Risk of Diagnosis Which Will Require Inpatient Eval/Care/Monitoring 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 I will request nephrology and cardiology team consultation.
[2020-03-18] MEDS ORDERED: MAGNESIUM SULFATE/D5W 1 GM/100 ML RTUPB IV ONE (17:45)
--- NOTE | 2020-03-18 22:36 | PDOC CONSULTATION ---
Consultation-Blank Consultation: CARDIOLOGY PROGRESS NOTE by Dr. Lida Burris on 02/16/2020. Patient seen at 8:30 AM. 60 minutes spent on the patient with more than 50% time spent on direct patient care. REASON FOR CONSULTATION: Congestive heart failure. CONSULT REQUESTING PHYSICIAN: Dr. Roberts. HISTORY OF PRESENT ILLNESS: Patient is a 84-year-old Afro-Citizen Of [place] female, with known history of hypertension, sleep apnea who does not use CPAP, history of congestive heart failure, and history of chronic kidney disease admitted with increasing shortness of breath with orthopnea but no PND and increasing leg edema. She was seen in Dr. Roberts's office and had hallucinations and since she did not improved with treatment he was sent to the emergency room where the patient was found to be hypoxic and in volume overload CHF and did improve with IV Lasix. The patient also has a history of chronic atrial flutter and is on Eliquis.,. There is a prior history of CVA from which she is fully recovered. No recurrence of symptoms of TIA or CVA. She also has episodes of asymptomatic bradycardia and is off any SA or AV dmitry blocking agents. There is no dizziness or syncope or near syncope. There is no ventricle arrhythmia seen on the monitor. She has a history of sleep apnea but is intolerant to nasal or conventional CPAP. She denies any chest pain or discomfort. There is no cough or sputum production. There is no hemoptysis. The patient's echocardiogram done this admission shows preserved LV systolic function with LV diastolic dysfunction, and mild aortic stenosis with mild aortic regurgitation. There is mild mitral regurgitation. There is moderate tricuspid regurgitation with severe pulmonary hypertension with right ventricle systolic pressure of 70 to 75 mmHg. Hence the patient's symptoms are consistent with both acute on chronic right pancreas systolic heart failure [cor pulmonale] and also diastolic and systolic heart failure with preserved LV function and volume overload secondary to acute on chronic kidney disease. Past Medical History Cardiac Medical History: Reports: Atrial Fibrillation, Myocardial Infarction, Hyperlipidema, Hypertension Denies: Coronary Artery Disease Pulmonary Medical History: Denies: Asthma, Bronchitis, Chronic Obstructive Pulmonary Disease (COPD), Pne umonia, Tuberculosis. The patient does have a history of sleep apnea but does not use CPAP. She has a history of pulmonary hypertension also. Neurological Medical History: Denies: Seizures Endocrine Medical History: Reports: Diabetes Mellitus Type 2 GI Medical History: Reports: Gastroesophageal Reflux Disease Musculoskeltal Medical History: Reports: Arthritis - KNEES & ARMS & HANDS, OSTEOARTHRITIS, Gout Psychiatric Medical History: Denies: Depression Hematology: Denies: Anemia, Sickle Cell Disease Past Surgical History Past Surgical History: Denies: Amputation, Hysterectomy Social History Smoking Status: Never Smoker Electronic Cigarette use?: No Frequency of Alcohol Use: None Hx Recreational Drug Use: No Drugs: None Hx Prescription Drug Abuse: No Current Medications Generic Name Dose Route Start Last Admin Trade Name Fredg PRN Reason Stop Dose Admin Allopurinol 100 mg 03/18/20 10:00 03/18/20 09:58 Zyloprim 100 Mg Tablet PO 04/17/20 09:59 100 mg DAILY SONIA Administration Amlodipine Besylate 5 mg 03/18/20 10:00 03/18/20 09:58 Norvasc 5 Mg Tablet PO 04/17/20 09:59 5 mg DAILY SONIA Administration Apixaban 2.5 mg 03/17/20 18:00 03/18/20 17:39 Eliquis 2.5 Mg Tablet PO 04/16/20 17:59 2.5 mg BID SONIA Administration Calcitriol 0.25 mcg 03/18/20 10:00 03/18/20 09:57 Rocaltrol 0.25 Mcg Capsule PO 04/17/20 09:59 0.25 mcg DAILY SONIA Administration Dextrose 12.5 gm 03/17/20 08:10 Dextrose Inj 50% Syringe (25 Gm/50 Ml) IV 04/16/20 08:09 PRN PRN FOR BG 50-69 IN ALERT PATIENT Protocol Dextrose 25 gm 03/17/20 08:10 Dextrose Inj 50% Syringe (25 Gm/50 Ml) IV 04/16/20 08:09 PRN PRN PER PROTOCOL Protocol Ferrous Sulfate 325 mg 03/17/20 18:00 03/18/20 17:39 Feosol 325 Mg Tablet PO 04/16/20 17:59 325 mg BIDPCBS SONIA Administration Furosemide 20 mg 03/17/20 18:00 03/18/20 09:57 Lasix Inj/Pf 20 Mg/2 Ml Sdv IV 04/16/20 17:59 20 mg DAILY SONIA Administration Gabapentin 100 mg 03/18/20 10:00 03/18/20 09:58 Neurontin 100 Mg Capsule PO 04/17/20 09:59 100 mg DAILY SONIA Administration Glucagon 1 mg 03/17/20 08:10 Glucagen Inj 1 Mg Vial IM 04/16/20 08:09 PRN PRN Evaluate for BG < 70 Protocol Glucose 15 gm 03/17/20 08:10 Glutose 40% Gel 15 Gm Tube PO 04/16/20 08:09 PRN PRN FOR BG 50-69 IN ALERT PATIENT Protocol Glucose 30 gm 03/17/20 08:10 Glutose 40% Gel 15 Gm Tube PO 04/16/20 08:09 PRN PRN FOR BG < 50 IN ALERT PATIENT Protocol Hydralazine HCl 25 mg 03/17/20 22:00 03/18/20 22:20 Apresoline 25 Mg Tablet PO 04/16/20 21:59 25 mg Q8 SONIA Administration Insulin Human Lispro 0 - 12 unit 03/17/20 11:00 03/18/20 22:21 Humalog Insulin 100 Unit/1 Ml 3 Ml Vial SUBCUT 04/16/20 10:59 2 unit ACHS SONIA Administration Protocol Losartan Potassium 100 mg 03/18/20 10:00 03/18/20 09:58 Cozaar 50 Mg Tablet PO 04/17/20 09:59 100 mg DAILY SONIA Administration Magnesium Oxide 400 mg 03/17/20 18:00 03/18/20 17:39 Mag-Ox 400 Mg Tablet PO 04/16/20 17:59 Not Given BID SONIA Pantoprazole Sodium 40 mg 03/17/20 09:00 03/18/20 05:[address] Tablet PO 04/16/20 08:59 40 mg Q6AM SONIA Administration Patient Own Medication 120 mg 03/17/20 18:00 Nateglinide [Starlix] PO 04/16/20 17:59 .TID SONIA Patient Own Medication 25 units 03/17/20 17:15 Insulin Degludec [Tresiba Flextouch U-100] SUBCUT 04/16/20 17:14 .DAILY SONIA Discontinued Medications Generic Name Dose Route Start Last Admin Trade Name Freq PRN Reason Stop Dose Admin Albuterol/Ipratropium 9 ml 03/16/20 20:07 03/16/20 21:12 Duoneb 3 Ml Ampul NEB 03/16/20 20:08 9 ml NOW ONE Administration Amlodipine Besylate 5 mg 03/18/20 10:00 Norvasc 5 Mg Tablet PO 04/17/20 09:59 DAILY [facility] Carvedilol 12.5 mg 03/17/20 22:00 Coreg 12.5 Mg Tablet PO 04/16/20 21:59 Q12 [facility] Furosemide 40 mg 03/16/20 17:24 03/16/20 17:51 Lasix Inj/Pf 40 Mg/4 Ml Sdv IV 03/16/20 17:25 40 mg NOW ONE Administration Furosemide 40 mg 03/17/20 10:00 03/17/20 09:36 Lasix Inj/Pf 40 Mg/4 Ml Sdv IV 04/16/20 09:59 40 mg DAILY SONIA Administration Furosemide 20 mg 03/18/20 08:00 Lasix 20 Mg Tablet PO 04/17/20 07:59 [id number] [facility] Heparin Sodium (Porcine) 5,000 unit 03/17/20 14:00 03/17/20 16:23 Heparin Inj 5,000 Units/Ml 1 Ml Vial SUBCUT 04/16/20 13:59 Not Given Q8 [facility] Hydralazine HCl 25 mg 03/17/20 22:00 Apresoline 25 Mg Tablet PO 04/16/20 21:59 Q8 [facility] Magnesium Sulfate/Dextrose 1 gm in 100 mls @ 100 mls/hr 03/18/20 17:45 03/18/20 17:45 Magnesium Sulfate [id number] 1 Gm/100 Ml Premix IV 03/18/20 18:44 100 mls/hr NOW ONE 100 mls/hr Administration Losartan Potassium 100 mg 03/18/20 10:00 Cozaar 50 Mg Tablet PO 04/17/20 09:59 DAILY [facility] Patient Own Medication 1 units 03/17/20 16:30 Insulin Aspart [Novolog Flexpen] SQ 04/16/20 16:29 .PERSLIDINGSCALE [facility] Patient Own Medication 30 mg 03/17/20 16:25 Dexlansoprazole [Dexilant 30 Mg Capsule] PO QAMP PRN ACID REFLUX Patient Own Medication 25 units 03/18/20 10:00 Insulin Degludec [Tresiba Flextouch U-100] SUBCUT 04/17/20 09:59 .DAILY [facility] - Advance Directive Resuscitation Status: Full Code. The patient's daughter is her surrogate healthcare decision maker. Family History Family History: Reviewed & Not Pertinent, CAD Parental Family History Reviewed: Yes Children Family History Reviewed: Yes Sibling(s) Family History Reviewed.: Yes Medication/Allergy Home Medications: Insulin Aspart [Novolog Flexpen] 0 units SQ .PERSLIDINGSCALE 02/28/18 Irbesartan [Avapro] 300 mg PO DAILY 02/28/18 Nateglinide [Starlix] 120 mg PO TID 02/28/18 Allopurinol [Zyloprim 100 mg Tablet] 100 mg PO DAILY #30 tablet 04/12/18 Amlodipine Besylate [Norvasc 5 mg Tablet] 5 mg PO DAILY #30 tablet 04/12/18 Apixaban [Eliquis 2.5 mg Tablet] 2.5 mg PO BID #60 tablet 04/12/18 Ferrous Sulfate [Feosol 325 mg Tablet] 325 mg PO BIDPCBS #60 tablet 04/12/18 Hydralazine HCl [Apresoline 25 mg Tablet] 25 mg PO Q8 #90 tablet 04/12/18 Calcitriol [Rocaltrol 0.25 mcg Capsule] 0.25 mcg PO DAILY 03/17/20 Carvedilol [Coreg 12.5 mg Tablet] 12.5 mg PO BID 03/17/20 Dexlansoprazole [Dexilant 30 mg Capsule] 30 mg PO QAMP PRN 03/17/20 Furosemide [Lasix 20 mg Tablet] 20 mg PO MOWEFR 03/17/20 Gabapentin [Neurontin 100 mg Capsule] 100 mg PO DAILY 03/17/20 Insulin Degludec [Tresiba Flextouch U-100] 25 units SQ DAILY 03/17/20 Magnesium Oxide [Mag-Ox 400 mg Tablet] 400 mg PO BID 03/17/20 Allergies/Adverse Reactions: oxycodone [Oxycodone] Allergy (Verified 04/09/18 12:02) Review of Systems Constitutional: PRESENT: fatigue, weakness - generalized. ABSENT: chills, fever(s), headache(s) Eyes: ABSENT: visual disturbances Ears: ABSENT: hearing changes Cardiovascular: PRESENT: dyspnea on exertion, edema - bilateral but chronic. ABSENT: chest pain, orthropnea, palpitations Respiratory: PRESENT: dyspnea. ABSENT: cough, hemoptysis Gastrointestinal: ABSENT: abdominal pain, constipation, diarrhea, hematemesis, hematochezia, nausea, vomiting Genitourinary: ABSENT: dysuria, hematuria Musculoskeletal: ABSENT: joint swelling Integumentary: ABSENT: rash, wounds Neurological: PRESENT: abnormal gait - ambulate with walker assistance. ABSENT: abnormal speech, confusion, dizziness, focal weakness, syncope Psychiatric: ABSENT: anxiety, depression, homidical ideation, suicidal ideation Endocrine: ABSENT: cold intolerance, heat intolerance, polydipsia, polyuria Hematologic/Lymphatic: ABSENT: easy bleeding, easy bruising, lymphadenopathy. Physical EXAMINATION: The patient is mildly obese, in no acute distress. Selected Entries 03/18/20 07:27 Temperature 98.4 F Temperature Oral Source Pulse Rate 66 Respiratory 18 Rate Blood Pressure 158/90 H Blood Pressure 112 Mean BP Location Left Arm BP Position Supine O2 Sat by Pulse 99 Oximetry Oxygen Flow 2.50 Rate Oxygen Delivery Nasal Cannula Method HEAD: Is atraumatic normocephalic. EYES: Pupils are equal round regular reactive to light and accommodation. There is no clinical pallor. There is no scleral icterus. External ocular movements are normal. EARS: Tympanic membranes are intact. External auditory canals are clear. NOSE: Nasal mucous membranes are not inflamed. There is no deviated nasal septum. MOUTH: Mucous membranes of mouth are moist. Tongue is moist. There is no ulcers. There is no bleeding from the gums. THROAT: There is no redness of the oropharynx. There is no exudates in the throat. SKIN: There is no petechia or ecchymosis. There is no skin rashes or skin lesions. NECK: Is supple. There is no JVD. Carotids are equal there is no bruits. There is no carotid delay. There is transmitted murmur from the aortic area heard over both carotids. There is no lymphadenopathy. There is no goiter. There is no accessory muscles of respiration in use. Trachea central. LUNGS: Clear to auscultation and percussion. There is no rales, rhonchi. or wheezing. There is no chest wall tenderness on palpation. HEART: S1-S2 is heard. S1 is of variable intensity. There is no S3 gallop. There is systolic murmur left sternal border and the apex. There is no aortic stenosis present. A2 is well preserved. There is murmur of mitral regurgitation and tricuspid regurgitation present. There is no rub. ABDOMEN: Is obese. Nontender. There is no hepatosplenomegaly. Bowel sounds are well heard. EXTREMITIES: Femorals are deep. Femorals are slightly diminished. There is no femoral bruits. There is at present mild pedal edema. There is no DVT or cellulitis. Leg pulses are diminished. There is no cyanosis or clubbing. Capillary refill is normal. There is no calf tenderness. [employer]: The patient is conscious awake alert oriented x3 with no focal deficits. PSYCHIATRIC: The patient judgment and insight are intact her affect is normal. IMPRES 1. Congestive heart Labs- All tests 24 hr 03/16/20 03/18/20 03/18/20 14:50 05:19 05:19 WBC 4.3 RBC 4.04 Hgb 11.2 L Hct 35.6 L MCV 88 MCH 27.7 MCHC 31.5 L RDW 16.9 H Plt Count 158 Lymph % (Auto) 33.8 [place] % (Auto) 8.4 Eos % (Auto) 3.8 Baso % (Auto) 0.6 Absolute Neuts (auto) 2.3 Absolute Lymphs (auto) 1.5 Absolute Monos (auto) 0.4 Absolute Eos (auto) 0.2 Absolute Basos (auto) 0.0 Seg Neutrophils % 53.4 Sodium 138.6 Potassium 5.0 Chloride 106 Carbon Dioxide 23 Anion Gap 10 BUN 38 H Creatinine 1.99 H Est GFR ( Amer) 29 L Est GFR (MDRD) Non-Af 24 L Glucose 150 H POC Glucose Hemoglobin A1c % Calcium 9.6 Phosphorus 4.4 Magnesium 1.5 L Total Bilirubin 0.7 Direct Bilirubin 0.2 Neonat Total Bilirubin Not Reportable Neonat Direct Bilirubin Not Reportable Neonat Indirect Bili Not Reportable AST 26 ALT 25 Alkaline Phosphatase 146 H Total Protein 7.0 Albumin 3.5 COVID-19 ([facility]) Not Detected 03/18/20 03/18/20 03/18/20 05:19 07:26 11:45 WBC RBC Hgb Hct MCV MCH MCHC RDW Plt Count Lymph % (Auto) [place] % (Auto) Eos % (Auto) Baso % (Auto) Absolute Neuts (auto) Absolute Lymphs (auto) Absolute Monos (auto) Absolute Eos (auto) Absolute Basos (auto) Seg Neutrophils % Sodium Potassium Chloride Carbon Dioxide Anion Gap BUN Creatinine Est GFR ( Amer) Est GFR (MDRD) Non-Af Glucose POC Glucose 140 H 173 H Hemoglobin A1c % 7.5 H Calcium Phosphorus Magnesium Total Bilirubin Direct Bilirubin Neonat Total Bilirubin Neonat Direct Bilirubin Neonat Indirect Bili AST ALT Alkaline Phosphatase Total Protein Albumin COVID-19 ([facility]) 03/18/20 03/18/20 16:22 22:13 WBC RBC Hgb Hct MCV MCH MCHC RDW Plt Count Lymph % (Auto) [place] % (Auto) Eos % (Auto) Baso % (Auto) Absolute Neuts (auto) Absolute Lymphs (auto) Absolute Monos (auto) Absolute Eos (auto) Absolute Basos (auto) Seg Neutrophils % Sodium Potassium Chloride Carbon Dioxide Anion Gap BUN Creatinine Est GFR ( Amer) Est GFR (MDRD) Non-Af Glucose POC Glucose 173 H 171 H Hemoglobin A1c % Calcium Phosphorus Magnesium Total Bilirubin Direct Bilirubin Neonat Total Bilirubin Neonat Direct Bilirubin Neonat Indirect Bili AST ALT Alkaline Phosphatase Total Protein Albumin COVID-19 ([facility]) Chest X-Ray 03/16/20 14:29 IMPRESSION: CARDIAC ENLARGEMENT. VASCULAR CONGESTION. Abdomen/Pelvis CT 03/16/20 14:32 IMPRESSION: 1. A new soft tissue mass with associated calcifications in the right lower quadrant of the abdomen as above, since the prior study dated 05/03/2016. 2. Umbilical hernia contains fat and nondilated small bowel loops, unchanged finding. 3. Additional stable findings as above. Chest CT 03/16/20 17:43 IMPRESSION: NO SIGNIFICANT FINDING ON NON-CONTRASTED CHEST CT. EKG #1:ATRIAL FLUTTER [MVPC] . MULTIPLE VENTRICULAR PREMATURE COMPLEXES [RBBB] . RIGHT BUNDLE BRANCH BLOCK [LVHCO] . LVH WITH IVCD AND SECONDARY REPOL ABNRM. EKG #2:A-FLUTTER W/ PREDOM 4:1 AV BLOCK, A-RATE 230 [RBBB] . RIGHT BUNDLE BRANCH BLOCK [LVHCO] . LVH WITH IVCD AND SECONDARY REPOL ABNRM No intake output recorded accurately. IMPRESSION/RECOMMENDATION: 1. 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 Continue diuretics. Increase his hydralazine. 2. Acute on chronic diastolic heart failure and also acute systolic heart failure with preserved LV ejection fraction secondary to volume overload due to renal failure. 3. Severe pulmonary hypertension: Continue calcium channel chente and ARB. 4. Moderate tricuspid regurgitation. 5.. Atrial flutter: Ventricular response is controlled with episodes of asymptomatic bradycardia with no hemodynamic compromise. The patient is off all any SA or AV dmitry blocking agents. In view of the patient's prior CVA the the patient's corrected chads vas 2 score is 7. Hence the patient is at very high risk for recurrent CVA. Hence would recommend starting the patient on Eliquis 2.5 mg p.o. twice daily. This has been discussed with the patient and the patient's family there are of the bleeding risks, and also the benefits of stroke prophylaxis. Discussed with attending physician also. 6. History of sleep apnea noncompliant with CPAP. The patient states that she cannot withstand bowed nasal or the conventional CPAP. This is most likely the cause of the patient's severe pulmonary hypertension and right heart failure. 7. Mild aortic stenosis and mild aortic regurgitation 8.. Hypertension: Not well controlled. Increase antihypertensives as needed. 9. Diabetes mellitus with diabetic nephropathy.: Continue monitor sugars and continue antidiabetic regimen therapy. 10. Acute on chronic kidney disease. The patient's baseline CKD is but at present the patient is CKD stage IV. Stage III, 11. History of gout: At present no recurrence.. 12. Prior history of CVA with no residual deficits Medications reviewed. Medications adjusted. Medical decision making is of high complexity. Medical management and medical regimen and management plan discussed with Dr. Roberts. 60 minutes spent on patient more than 50% of time spent direct patient care. Will follow
[2020-03-19] MEDS: PANTOPRAZOLE SODIUM 40 MG TABLET.DR PO SCH (06:04)
[2020-03-19] MEDS: HYDRALAZINE HCL 25 MG TABLET PO SCH ×3 (06:04→21:39)
[2020-03-19 06:31] LABS: ANION GAP 12 (5-19); BLOOD UREA NITROGEN 44 mg/dL (7-20); CALCIUM 9.4 mg/dL (8.4-10.2); CARBON DIOXIDE 20 mmol/L (22-30); CHLORIDE 105 mmol/L (98-107); GLUCOSE 151 mg/dL (75-110); POTASSIUM 4.7 mmol/L (3.6-5.0)
[2020-03-19] MEDS: INSULIN LISPRO 100 UNIT/ML 3 ML VIAL SUBCUT SCH ×4 (08:55→21:40)
[2020-03-19] MEDS: AMLODIPINE BESYLATE 5 MG TABLET PO SCH ×2 (09:23→21:39)
[2020-03-19] MEDS: GABAPENTIN 100 MG CAPSULE PO SCH (09:24)
[2020-03-19] MEDS: FUROSEMIDE INJ/PF 20 MG/2 ML SDV IV SCH ×2 (09:24→21:38)
[2020-03-19] MEDS: LOSARTAN POTASSIUM 50 MG TABLET PO SCH (09:24)
[2020-03-19] MEDS: ALLOPURINOL 100 MG TABLET PO SCH (09:24)
[2020-03-19] MEDS: MAGNESIUM OXIDE 400 MG TABLET PO SCH ×2 (09:24→18:25)
[2020-03-19] MEDS: CALCITRIOL 0.25 MCG CAPSULE PO SCH (09:24)
[2020-03-19] MEDS: APIXABAN 2.5 MG TABLET PO SCH ×2 (09:24→18:25)
[2020-03-19] MEDS: FERROUS SULFATE 325 MG TABLET PO SCH ×2 (09:24→18:25)
--- NOTE | 2020-03-19 11:02 | PDOC CONSULTATION ---
Consultation Consult Date: 03/19/20 Provider Consulted: David GALLEGOS Consult reason:: FIORELLA on CKD 4/CHF. History of Present Illness Admission Date/PCP: 03/16/20 21:44 GONZALEZ ROSE PA-C History of Present Illness: CAROLINA KAYE is a 84 year old female with a past medical history significant f or longstanding diabetes mellitus, hypertension, congestive heart failure, sleep apnea intolerant to CPAP, cor pulmonale, anemia, morbid obesity was admitted with history of progressive edema of her legs along with progressive shortness of breath on exertion. She denies any history of chest pain but admits to some epigastric discomfort sounding more like dyspepsia. She denies any history of coughing spells fever or chills. She was initially seen in the office of Dr. Roberts and sent to the ED where she was diagnosed with decompensated heart failure. She has been treated with IV diuretics and currently feels a whole lot better. She is able to briefly talk without stopping and edema is better. Appetite is still poor. Her Covid testing and influenza was negative. Past Medical History Cardiac Medical History: Reports: Atrial Fibrillation, Hyperlipidemia, Hypertension-primary, Myocardial Infarction Denies: Coronary Artery Disease Pulmonary Medical History: Denies: Asthma, Bronchitis, Chronic Obstructive Pulmonary Disease (COPD), Pneumonia, Tuberculosis Neurological Medical History: Denies: Seizures Endocrine Medical History: Reports: Diabetes Mellitus Type 2 Renal/ Medical History: Reports: Chronic Kidney Disease Stage IV GI Medical History: Reports: Gastroesophageal Reflux Disease Musculoskeltal Medical History: Reports: Arthritis - KNEES & ARMS & HANDS, OSTEOARTHRITIS, Gout Psychiatric Medical History: Denies: Depression Past Surgical History Past Surgical History: Denies: Hysterectomy Social History Smoking Status: Never Smoker Electronic Cigarette use?: No Frequency of Alcohol Use: None Hx Recreational Drug Use: No Drugs: None Hx Prescription Drug Abuse: No - Advance Directive Resuscitation Status: Full Code Family History Parental Family History Reviewed: No Children Family History Reviewed: No Sibling(s) Family History Reviewed.: No Medication/Allergy Home Medications: Insulin Aspart [Novolog Flexpen] 0 units SQ .PERSLIDINGSCALE 02/28/18 Irbesartan [Avapro] 300 mg PO DAILY 02/28/18 Nateglinide [Starlix] 120 mg PO TID 02/28/18 Allopurinol [Zyloprim 100 mg Tablet] 100 mg PO DAILY #30 tablet 04/12/18 Amlodipine Besylate [Norvasc 5 mg Tablet] 5 mg PO DAILY #30 tablet 04/12/18 Apixaban [Eliquis 2.5 mg Tablet] 2.5 mg PO BID #60 tablet 04/12/18 Ferrous Sulfate [Feosol 325 mg Tablet] 325 mg PO BIDPCBS #60 tablet 04/12/18 Hydralazine HCl [Apresoline 25 mg Tablet] 25 mg PO Q8 #90 tablet 04/12/18 Calcitriol [Rocaltrol 0.25 mcg Capsule] 0.25 mcg PO DAILY 03/17/20 Carvedilol [Coreg 12.5 mg Tablet] 12.5 mg PO BID 03/17/20 Dexlansoprazole [Dexilant 30 mg Capsule] 30 mg PO QAMP PRN 03/17/20 Furosemide [Lasix 20 mg Tablet] 20 mg PO MOWEFR 03/17/20 Gabapentin [Neurontin 100 mg Capsule] 100 mg PO DAILY 03/17/20 Insulin Degludec [Tresiba Flextouch U-100] 25 units SQ DAILY 03/17/20 Magnesium Oxide [Mag-Ox 400 mg Tablet] 400 mg PO BID 03/17/20 Allergies/Adverse Reactions: oxycodone [Oxycodone] Allergy (Verified 04/09/18 12:02) Review of Systems Constitutional: PRESENT: anorexia, fatigue, weakness, weight gain. ABSENT: chills, fever(s), headache(s) Nose, Mouth, and Throat: ABSENT: mouth pain, sore throat Cardiovascular: PRESENT: dyspnea on exertion, edema. ABSENT: chest pain, orthropnea Respiratory: PRESENT: dyspnea. ABSENT: cough, hemoptysis Gastrointestinal: ABSENT: abdominal pain, coffee ground emesis, constipation, diarrhea, hematemesis Genitourinary: ABSENT: dysuria, hematuria Musculoskeletal: ABSENT: back pain, deformity, joint swelling Integumentary: ABSENT: erythema, lesions, pruritus, rash Neurological: PRESENT: confusion. ABSENT: abnormal speech, focal weakness, frequent falls Hematologic/Lymphatic: ABSENT: easy bruising, lymphadenopathy Physical Exam Vital Signs: Temp Pulse Resp BP Pulse Ox 97.6 F 60 18 143/59 H 95 03/19/20 07:23 03/19/20 07:23 03/19/20 07:23 03/19/20 07:23 03/19/20 07:23 Pulse Oximeter Nocturnal Start: 03/18/20 17:15 Freq: RTQ4 Status: Complete Protocol: Document 03/19/20 04:00 PMU (Rec: 03/19/20 06:08 PMU [id number]) Nocturnal Pulse Oximetry Equipment Usage Equipment in Use Oxygen Delivery Method (includes room Room Air air) O2 Sat by Pulse Oximetry (92-100) 90 Continuous Pulse Oximeter Set Up No Continuous SpO2 Discontinued No Continuous SpO2 Machine # 4 Intake & Output 03/18/20 03/19/20 03/20/20 06:59 06:59 06:59 Intake Total 378 390 Output Total 300 Balance 378 90 Weight 92.4 kg 93.4 kg General appearance: PRESENT: no acute distress Eye exam: PRESENT: EOMI, PERRLA. ABSENT: scleral icterus Ear exam: PRESENT: normal external ear exam Mouth exam: PRESENT: moist, neck supple Neck exam: ABSENT: lymphadenopathy, meningismus, tenderness, thyromegaly, tracheal deviation Respiratory exam: PRESENT: clear to auscultation nurys, decreased breath sounds. ABSENT: crackles Cardiovascular exam: PRESENT: +S1, +S2 GI/Abdominal exam: PRESENT: normal bowel sounds. ABSENT: organomegaly, soft, tenderness Extremities exam: PRESENT: +1 edema Neurological exam: PRESENT: alert, awake, oriented to person, oriented to place Psychiatric exam: PRESENT: appropriate affect Skin exam: ABSENT: erythema, mottled, rash Results Laboratory Results: 03/18/20 05:19 03/19/20 04:42 03/19/20 04:42 Sodium 137.4 Potassium 4.7 Chloride 105 Carbon Dioxide 20 L Anion Gap 12 BUN 44 H Creatinine 2.10 H Est GFR ( Amer) 27 L Glucose 151 H Calcium 9.4 03/16/20 03/16/20 03/16/20 14:50 14:50 14:50 Creatine Kinase 59 CK-MB (CK-2) 1.08 Troponin I 0.035 NT-Pro-B Natriuret Pep 1350 H 03/19/20 04:42 Creatine Kinase CK-MB (CK-2) Troponin I NT-Pro-B Natriuret Pep 1080 H Impressions: Chest X-Ray 03/16/20 14:29 IMPRESSION: CARDIAC ENLARGEMENT. VASCULAR CONGESTION. Abdomen/Pelvis CT 03/16/20 14:32 IMPRESSION: 1. A new soft tissue mass with associated calcifications in the right lower quadrant of the abdomen as above, since the prior study dated 05/03/2016. 2. Umbilical hernia contains fat and nondilated small bowel loops, unchanged finding. 3. Additional stable findings as above. Chest CT 03/16/20 17:43 IMPRESSION: NO SIGNIFICANT FINDING ON NON-CONTRASTED CHEST CT. Assessment & Plan - Diagnosis (1) CKD (chronic kidney disease) stage 4, GFR 15-29 ml/min Is this a current diagnosis for this admission?: Yes Plan: Chronically disease stage IV is relatively stable with a creatinine baseline at around 2. She is at the moment volume overloaded. She needs to have further o ngoing gentle diuresis to also help orders for decompensated heart failure following which kidney failure should also stabilize. Advised on dietary modifications. No acute indications for renal replacements currently.We will go ahead and adjust her IV diuretics. (2) Pulmonary hypertension, moderate to severe Is this a current diagnosis for this admission?: Yes Plan: In the face of morbid obesity/untreated sleep apnea. Reviewed echocardiogram which shows moderate to severe pulmonary hypertension/diastolic left ventricular failure. Adjust diuretics. Dietary modifications advised. Patient improving. (3) Acute exacerbation of CHF (congestive heart failure) Qualifiers: Heart failure type: systolic Qualified Code(s): I50.23 - Acute on chronic systolic (congestive) heart failure Plan: As mentioned earlier. She looks like she is improving. (4) Chronic atrial fibrillation Is this a current diagnosis for this admission?: Yes Plan: On anticoagulation. Management as per PCP/cardiology. (5) Essential hypertension Is this a current diagnosis for this admission?: Yes Plan: Relatively controlled. See response to volume. Monitor.
--- NOTE | 2020-03-19 19:06 | PDOC PROGRESS REPORT ---
Subjective Date:: 03/19/20 Subjective:: Patient reported breathing better and ambulate in her room adequately. No chest pain. No fever or chills. No nausea, vomiting, abdominal pain, or diarrhea. Reason For Visit: DECOMPENSATED CHF; HTN; DIABETES MELLITUS TYPE 2; Physical Exam Vital Signs: Temp Pulse Resp BP Pulse Ox 97.4 F 61 16 130/74 H 95 03/19/20 16:00 03/19/20 16:00 03/19/20 16:00 03/19/20 16:00 03/19/20 16:00 Pulse Oximeter Nocturnal Start: 03/18/20 17:15 Freq: RTQ4 Status: Complete Protocol: Document 03/19/20 04:00 PMU (Rec: 03/19/20 06:08 PMU [id number]) Nocturnal Pulse Oximetry Equipment Usage Equipment in Use Oxygen Delivery Method (includes room Room Air air) O2 Sat by Pulse Oximetry (92-100) 90 Continuous Pulse Oximeter Set Up No Continuous SpO2 Discontinued No Continuous SpO2 Machine # 4 Intake & Output 03/18/20 03/19/20 03/20/20 06:59 06:59 06:59 Intake Total 378 390 462 Output Total 300 375 Balance 378 90 87 Weight 92.4 kg 93.4 kg Physical Exam: General appearance: PRESENT: obese Head exam: PRESENT: atraumatic, normocephalic Eye exam: PRESENT: conjunctiva pink. ABSENT: pallor, scleral icterus Mouth exam: PRESENT: moist Respiratory exam: PRESENT: clear to auscultation nurys, decreased breath sounds - at lung bases Cardiovascular exam: PRESENT: bradycardia, +S1, +S2, systolic murmur Murmur grade: 3 GI/Abdominal exam: PRESENT: normal bowel sounds, soft. ABSENT: tenderness Extremities exam: PRESENT: improved pedal edema Musculoskeletal exam: PRESENT: deformity - related to multiple joints involvement with arthritis Neurological exam: PRESENT: alert, awake, oriented to person, oriented to place, oriented to time, oriented to situation, CN II-XII grossly intact. ABSENT: motor sensory deficit Psychiatric exam: ABSENT: agitated, anxious Skin exam: PRESENT: dry, warm Murmur grade: 3 Results Laboratory Results: 03/18/20 05:19 03/19/20 04:42 03/19/20 04:42 Sodium 137.4 Potassium 4.7 Chloride 105 Carbon Dioxide 20 L Anion Gap 12 BUN 44 H Creatinine 2.10 H Est GFR ( Amer) 27 L Glucose 151 H Calcium 9.4 03/16/20 03/16/20 03/16/20 14:50 14:50 14:50 Creatine Kinase 59 CK-MB (CK-2) 1.08 Troponin I 0.035 NT-Pro-B Natriuret Pep 1350 H 03/19/20 04:42 Creatine Kinase CK-MB (CK-2) Troponin I NT-Pro-B Natriuret Pep 1080 H Impressions: Chest X-Ray 03/16/20 14:29 IMPRESSION: CARDIAC ENLARGEMENT. VASCULAR CONGESTION. Abdomen/Pelvis CT 03/16/20 14:32 IMPRESSION: 1. A new soft tissue mass with associated calcifications in the right lower quadrant of the abdomen as above, since the prior study dated 05/03/2016. 2. Umbilical hernia contains fat and nondilated small bowel loops, unchanged finding. 3. Additional stable findings as above. Chest CT 03/16/20 17:43 IMPRESSION: NO SIGNIFICANT FINDING ON NON-CONTRASTED CHEST CT. Assessment & Plan - Diagnosis (1) Shortness of breath Is this a current diagnosis for this admission?: Yes (2) Acute on chronic diastolic CHF (congestive heart failure), NYHA class 2 Is this a current diagnosis for this admission?: Yes (3) Chronic atrial fibrillation Is this a current diagnosis for this admission?: Yes (4) Essential hypertension Is this a current diagnosis for this admission?: Yes (5) CKD (chronic kidney disease) stage 4, GFR 15-29 ml/min Is this a current diagnosis for this admission?: Yes (6) Diabetes mellitus type 2 in obese Is this a current diagnosis for this admission?: Yes (7) HLD (hyperlipidemia) Qualifiers: Hyperlipidemia type: unspecified Qualified Code(s): E78.5 - Hyperlipidemia, unspecified Is this a current diagnosis for this admission?: Yes (8) GERD (gastroesophageal reflux disease) Qualifiers: Esophagitis presence: without esophagitis Qualified Code(s): K21.9 - Gastro-esophageal reflux disease without esophagitis Is this a current diagnosis for this admission?: Yes (9) Gouty arthropathy, chronic, 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 Is this a current diagnosis for this admission?: Yes (10) Pulmonary hypertension, moderate to severe Is this a current diagnosis for this admission?: Yes - Time Time Spent with patient: 25-34 minutes Level of Care: IMCU Medications reviewed and adjusted accordingly: Yes Anticipated discharge: Home with Homehealth Anticipated DC Timeframe: within 24 hours - Inpatient Certification Based on my medical assessment, after consideration of the patient's comorbi dities, presenting symptoms, or acuity I expect that the services needed warrant INPATIENT care.: Yes I certify that my determination is in accordance with my understanding of Medicare's requirements for reasonable and necessary INPATIENT services [42 CFR 412.3e].: Yes Medical Necessity: Significant Comorbidiites Make Outpatient Treatment Too Risky, Need Close Monitoring Due to Risk of Patient Decompensation, Need For Continuous Telemetry Monitoring, Risk of Complication if Not Cared For in Hospital, Risk of Diagnosis Which Will Require Inpatient Eval/Care/Monitoring Post Hospital Care: D/C [employer]ator Documentation - Plan Summary Plan Summary: Continue current medication management. Convert to oral Furosemide 20 mg po bid. if she continue to improve clinically consider d/c home tomorrow.
--- NOTE | 2020-03-19 22:18 | Progress Note ---
Provider Note Provider Note: CARDIOLOGY PROGRESS NOTE by Dr. Lida Burris 11/17/2019. SUBJECTIVE: The patient states that shortness of breath is much improved. She is able to ambulate inside the room without problems. Leg edema is much better but she still seems to be little volume overloaded. She denies any chest pain discomfort. There is no PND or or palpitations. His leg edema is improved. She does have some degree of orthopnea. She still is in atrial flutter with a controlled ventricular response. Note that she is not on SA or AV dmitry chente blocking agents. There is no bleeding on Eliquis. There is no TIA CVA symptoms. PHYSICAL EXAMINATION: The patient is mildly obese. In no acute distress. Selected Entries 03/19/20 16:00 Temperature 97.4 F Temperature Oral Source Pulse Rate 61 Respiratory 16 Rate Blood Pressure 130/74 H Blood Pressure 92 Mean BP Location Left Arm BP Position Sitting O2 Sat by Pulse 95 Oximetry Oxygen Delivery Room Air Method HEAD: Is atraumatic normocephalic. EYES: Pupils are equal round regular reactive to light and accommodation. There is no clinical pallor. There is no scleral icterus. External ocular movements are normal. EARS: Tympanic membranes are intact. External auditory canals are clear. NOSE: Nasal mucous membranes are not inflamed. There is no deviated nasal septum. MOUTH: Mucous membranes of mouth are moist. Tongue is moist. There is no ulcers. There is no bleeding from the gums. THROAT: There is no redness of the oropharynx. There is no exudates in the throat. SKIN: There is no petechia or ecchymosis. There is no skin rashes or skin lesions. NECK: Is supple. There is no JVD. Carotids are equal there is no bruits. There is no carotid delay. There is transmitted murmur from the aortic area heard over both carotids. There is no lymphadenopathy. There is no goiter. There is no accessory muscles of respiration in use. Trachea central. LUNGS: Clear to auscultation and percussion. There is no rales, rhonchi. or wheezing. There is no chest wall tenderness on palpation. HEART: S1-S2 is heard. S1 is of variable intensity. There is no S3 gallop. There is systolic murmur left sternal border and the apex. There is no aortic stenosis present. A2 is well preserved. There is m urmur of mitral regurgitation and tricuspid regurgitation present. There is no rub. ABDOMEN: Is obese. Nontender. There is no hepatosplenomegaly. Bowel sounds are well heard. EXTREMITIES: Femorals are deep. Femorals are slightly diminished. There is no femoral bruits. There is at present mild pedal edema. There is no DVT or cellulitis. Leg pulses are diminished. There is no cyanosis or clubbing. Capillary refill is normal. There is no calf tenderness. TAPE CALENDER: The patient is conscious awake alert oriented x3 with no focal deficits. PSYCHIATRIC: The patient judgment and insight are intact her affect is normal. Labs- All tests 24 hr 03/18/20 03/19/20 03/19/20 22:13 04:42 04:42 Sodium 137.4 Potassium 4.7 Chloride 105 Carbon Dioxide 20 L Anion Gap 12 BUN 44 H Creatinine 2.10 H Est GFR ( Amer) 27 L Est GFR (MDRD) Non-Af 22 L Glucose 151 H POC Glucose 171 H Calcium 9.4 NT-Pro-B Natriuret Pep 1080 H 03/19/20 03/19/20 03/19/20 07:21 11:20 15:56 Sodium Potassium Chloride Carbon Dioxide Anion Gap BUN Creatinine Est GFR ( Amer) Est GFR (MDRD) Non-Af Glucose POC Glucose 144 H 309 H 112 H Calcium NT-Pro-B Natriuret Pep 03/19/20 21:19 Sodium Potassium Chloride Carbon Dioxide Anion Gap BUN Creatinine Est GFR ( Amer) Est GFR (MDRD) Non-Af Glucose POC Glucose 183 H Calcium NT-Pro-B Natriuret Pep Chest X-Ray 03/16/20 14:29 IMPRESSION: CARDIAC ENLARGEMENT. VASCULAR CONGESTION. Abdomen/Pelvis CT 03/16/20 14:32 IMPRESSION: 1. A new soft tissue mass with associated calcifications in the right lower quadrant of the abdomen as above, since the prior study dated 05/03/2016. 2. Umbilical hernia contains fat and nondilated small bowel loops, unchanged finding. 3. Additional stable findings as above. Chest CT 03/16/20 17:43 IMPRESSION: NO SIGNIFICANT FINDING ON NON-CONTRASTED CHEST CT. IMPRESSION/RECOMMENDATION: 1. 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 Continue diuretics. Increase his hydralazine. 2. Acute on chronic diastolic heart failure and also acute systolic heart failure with preserved LV ejection fraction secondary to volume overload due to renal failure. 3. Severe pulmonary hypertension: Continue calcium channel chente and ARB. 4. Moderate tricuspid regurgitation. 5.. Atrial flutter: Ventricular response is controlled with episodes of asymptomatic bradycardia with no hemodynamic compromise. The patient is off all any SA or AV dmitry blocking agents. In view of the patient's prior CVA the the patient's corrected chads vas 2 score is 7. Hence the patient is at very high risk for recurrent CVA. Hence would recommend starting the patient on Eliquis 2.5 mg p.o. twice daily. This has been discussed with the patient and the patient's family there are of the bleeding risks, and also the benefits of stroke prophylaxis. Discussed with attending physician also. 6. History of sleep apnea noncompliant with CPAP. The patient states that she cannot withstand bowed nasal or the conventional CPAP. This is most likely the cause of the patient's severe pulmonary hypertension and right heart failure. 7. Mild aortic stenosis and mild aortic regurgitation 8.. Hypertension: Not well controlled. Increase antihypertensives as needed. 9. Diabetes mellitus with diabetic nephropathy.: Continue monitor sugars and continue antidiabetic regimen therapy. 10. Acute on chronic kidney disease. The patient's baseline CKD is but at pre sent the patient is CKD stage IV. Stage III, 11. History of gout: At present no recurrence.. 12. Prior history of CVA with no residual deficits. Nephrology consult reviewed and appreciated. Medications reviewed. Medications adjusted. Medical decision making is of moderate complexity. Medical management and medical regimen and management plan discussed with Dr. Roberts. 40 minutes spent on patient more than 50% of time spent direct patient care. Will follow
[2020-03-20] MEDS: PANTOPRAZOLE SODIUM 40 MG TABLET.DR PO SCH (05:15)
[2020-03-20] MEDS: HYDRALAZINE HCL 25 MG TABLET PO SCH ×2 (05:15→14:35)
[2020-03-20 06:41] LABS: ALBUMIN 3.5 g/dL (3.5-5.0); ALKALINE PHOSPHATASE 136 U/L (38-126); ANION GAP 11 (5-19); ASPARTATE AMINO TRANSFERASE 26 U/L (14-36); BILIRUBIN,DIRECT 0.3 mg/dL (0.0-0.4); BILIRUBIN,TOTAL 0.6 mg/dL (0.2-1.3); BLOOD UREA NITROGEN 44 mg/dL (7-20); CALCIUM 9.9 mg/dL (8.4-10.2); CARBON DIOXIDE 23 mmol/L (22-30); CHLORIDE 104 mmol/L (98-107); GLUCOSE 146 mg/dL (75-110); POTASSIUM 4.6 mmol/L (3.6-5.0)
[2020-03-20] MEDS: INSULIN LISPRO 100 UNIT/ML 3 ML VIAL SUBCUT SCH ×3 (07:41→16:35)
[2020-03-20] MEDS: FERROUS SULFATE 325 MG TABLET PO SCH (09:11)
[2020-03-20] MEDS: GABAPENTIN 100 MG CAPSULE PO SCH (09:11)
[2020-03-20] MEDS: AMLODIPINE BESYLATE 5 MG TABLET PO SCH (09:11)
[2020-03-20] MEDS: LOSARTAN POTASSIUM 50 MG TABLET PO SCH (09:12)
[2020-03-20] MEDS: MAGNESIUM OXIDE 400 MG TABLET PO SCH (09:12)
[2020-03-20] MEDS: APIXABAN 2.5 MG TABLET PO SCH (09:12)
[2020-03-20] MEDS: ALLOPURINOL 100 MG TABLET PO SCH (09:12)
[2020-03-20] MEDS: CALCITRIOL 0.25 MCG CAPSULE PO SCH (09:12)
[2020-03-20] MEDS: FUROSEMIDE INJ/PF 20 MG/2 ML SDV IV SCH (09:13)
[2020-03-20 12:23] VITALS: BP 141/61
--- NOTE | 2020-03-20 16:19 | PDOC DISCHARGE SUMMARY ---
Impression - Admit/DC Date/PCP Admission Date/Primary Care Provider: 03/16/20 21:44 GABRIELLA SHOOK MD Discharge Date: 03/20/20 - Discharge Diagnosis (1) Shortness of breath Is this a current diagnosis for this admission?: Yes (2) Acute on chronic diastolic CHF (congestive heart failure), NYHA class 2 Is this a current diagnosis for this admission?: Yes (3) Chronic atrial fibrillation Is this a current diagnosis for this admission?: Yes (4) Essential hypertension Is this a current diagnosis for this admission?: Yes (5) CKD (chronic kidney disease) stage 4, GFR 15-29 ml/min Is this a current diagnosis for this admission?: Yes (6) Diabetes mellitus type 2 in obese Is this a current diagnosis for this admission?: Yes (7) HLD (hyperlipidemia) Is this a current diagnosis for this admission?: Yes (8) GERD (gastroesophageal reflux disease) Is this a current diagnosis for this admission?: Yes (9) Gouty arthropathy, chronic, 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 Her echocardiogram did revealed normal LV EF with severe pulmonary hypertension. she was seen in consultation by Dr. De Dios, store custodian, with recommendation to increase her Amlodipine to 5 mg po bid and discontinuation of her Metoprolol due to severe bradycardia. Patient emphatically refused recommendation for CPAP machine to address contribution of obstructive sleep apnea to her cardiac arrhythmia. Due to worsening renal indices, she was seen in consultation by Dr Luc Roach, mallet and die cutter, with recommendation to increase her diuretic therapy and appropriated she has been discharged home on Furosemide at 20 mg po bid with intent to closely monitor her renal indices and adjust her dosing to avoid over diuresis and dehydration. She will follow up in he office as instructed upon discharge with need for BMP during at follow up visit. - Additional Information Resuscitation Status: Full Code Discharge Diet: Cardiac, Diabetic Discharge Activity: Activity As Tolerated, Balance Activity w/Rest, Weigh Daily Referrals: David ROACH MD [ACTIVE STAFF] - GONZALEZ ROSE PA-C [Primary Care Provider] - Follow up as needed (Wrong PCP) GABRIELLA SHOOK MD [ACTIVE STAFF] - 03/25/20 10:00 am (Correct PCP) Prescriptions: Furosemide [Lasix 20 mg Tablet] 20 mg PO BID #60 Amlodipine Besylate [Norvasc 5 mg Tablet] 5 mg PO Q12 #60 tablet Home Medications: Insulin Aspart [Novolog Flexpen] 0 units SQ .PERSLIDINGSCALE 02/28/18 Irbesartan [Avapro] 300 mg PO DAILY 02/28/18 Nateglinide [Starlix] 120 mg PO TID 02/28/18 Allopurinol [Zyloprim 100 mg Tablet] 100 mg PO DAILY #30 tablet 04/12/18 Apixaban [Eliquis 2.5 mg Tablet] 2.5 mg PO BID #60 tablet 04/12/18 Ferrous Sulfate [Feosol 325 mg Tablet] 325 mg PO BIDPCBS #60 tablet 04/12/18 Hydralazine HCl [Apresoline 25 mg Tablet] 25 mg PO Q8 #90 tablet 04/12/18 Calcitriol [Rocaltrol 0.25 mcg Capsule] 0.25 mcg PO DAILY 03/17/20 Carvedilol [Coreg 12.5 mg Tablet] 12.5 mg PO BID 03/17/20 Dexlansoprazole [Dexilant 30 mg Capsule] 30 mg PO QAMP PRN 03/17/20 Gabapentin [Neurontin 100 mg Capsule] 100 mg PO DAILY 03/17/20 Insulin Degludec [Tresiba Flextouch U-100] 25 units SQ DAILY 03/17/20 Magnesium Oxide [Mag-Ox 400 mg Tablet] 400 mg PO BID 03/17/20 Amlodipine Besylate [Norvasc 5 mg Tablet] 5 mg PO Q12 #60 tablet 03/20/20 Furosemide [Lasix 20 mg Tablet] 20 mg PO BID #60 03/20/20 History of Present Illiness History of Present Illness: CAROLINA KAYE is a 84 year old female known to my practice who presented to the office with complain of generalized weakness, worsening exertional difficulty with breathing and daughter reported recent onset of hallucination. Her evaluation revealed acutely ill person with demonstrable diaphoresis, inability to complete sentences and chronic bilateral lower extremities edema. She was referred to the ED due to lack of bed for direct admission. At the ED she was managed for fluid overload with IV Furosemide and patient reported some improvement in her breathing difficulty but desaturated off supplemental oxygen at the time of attempt to discharge her home. She was subsequently advised hospitalization for possible CHF and concern for COVID-19 infection in view of her morbidities and associated high risk for infection. Hospital Course Hospital Course: She was admitted for generalized weakness, exertional dyspnea and momentary hypoxemia while in the ED with clinical evidence of fluid overload due to bilateral pedal edema and elevated NT-Pro BNP suggestive of acute on chronic CHF. Her echocardiogram did revealed normal LV EF with severe pulmonary hypertension. she was seen in consultation by Dr. De Dios, store custodian, with recommendation to increase her Amlodipine to 5 mg po bid and discontinuation of her Metoprolol due to severe bradycardia. Patient emphatically refused recommendation for CPAP machine to address contribution of obstructive sleep apnea to her cardiac arrhythmia. Due to worsening renal indices, she was seen in consultation by Dr Luc Roach, mallet and die cutter, with recommendation to increase her diuretic therapy and appropriated she has been discharged home on Furosemide at 20 mg po bid with intent to closely monitor her renal indices and adjust her dosing to avoid over diuresis and dehydration. She will follow up in he office as instructed upon discharge with need for BMP during at follow up visit. Physical Exam Vital Signs: Temp Pulse Resp BP Pulse Ox 98.0 F 60 22 H 141/61 H 98 03/20/20 11:26 03/20/20 11:26 03/20/20 11:26 03/20/20 11:26 03/20/20 11:26 Pulse Oximeter Nocturnal Start: 03/18/20 17:15 Freq: RTQ4 Status: Complete Protocol: Document 03/19/20 04:00 PMU (Rec: 03/19/20 06:08 PMU [id number]) Nocturnal Pulse Oximetry Equipment Usage Equipment in Use Oxygen Delivery Method (includes room Room Air air) O2 Sat by Pulse Oximetry (92-100) 90 Continuous Pulse Oximeter Set Up No Continuous SpO2 Discontinued No Continuous SpO2 Machine # 4 Intake & Output 03/19/20 03/20/20 03/21/20 06:59 06:59 06:59 Intake Total 390 942 200 Output Total 300 1175 Balance 90 -233 200 Weight 93.4 kg 92.9 kg General appearance: PRESENT: obese Head exam: PRESENT: atraumatic, normocephalic Eye exam: PRESENT: conjunctiva pink. ABSENT: pallor, sclera icterus Mouth exam: PRESENT: moist Respiratory exam: PRESENT: clear to auscultation nurys, decreased breath sounds - at lung bases Cardiovascular exam: PRESENT: RRR, +S1, +S2, systolic murmur Murmur grade: 3 GI/Abdominal exam: PRESENT: normal bowel sounds, soft. ABSENT: tenderness Extremities exam: PRESENT: improved pedal edema Musculoskeletal exam: PRESENT: deformity - related to multiple joints involvement with arthritis Neurological exam: PRESENT: alert, awake, oriented to person, oriented to place, oriented to time, oriented to situation, CN II-XII grossly intact. ABSENT: motor sensory deficit Psychiatric exam: ABSENT: agitated, anxious Skin exam: PRESENT: dry, warm Results Laboratory Results: WBC 4.3 10^3/uL (4.0-10.5) 03/18/20 05:19 RBC 4.04 10^6/uL (3.72-5.28) 03/18/20 05:19 Hgb 11.2 g/dL (12.0-15.5) L 03/18/20 05:19 Hct 35.6 % (36.0-47.0) L 03/18/20 05:19 MCV 88 fl (80-97) 03/18/20 05:19 MCH 27.7 pg (27.0-33.4) 03/18/20 05:19 MCHC 31.5 g/dL (32.0-36.0) L 03/18/20 05:19 RDW 16.9 % (11.5-14.0) H 03/18/20 05:19 Plt Count 158 10^3/uL (150-450) 03/18/20 05:19 Lymph % (Auto) 33.8 % (13-45) 03/18/20 05:19 [place] % (Auto) 8.4 % (3-13) 03/18/20 05:19 Eos % (Auto) 3.8 % (0-6) 03/18/20 05:19 Baso % (Auto) 0.6 % (0-2) 03/18/20 05:19 Absolute Neuts (auto) 2.3 10^3/uL (1.7-8.2) 03/18/20 05:19 Absolute Lymphs (auto) 1.5 10^3/uL (0.5-4.7) 03/18/20 05:19 Absolute Monos (auto) 0.4 10^3/uL (0.1-1.4) 03/18/20 05:19 Absolute Eos (auto) 0.2 10^3/uL (0.0-0.6) 03/18/20 05:19 Absolute Basos (auto) 0.0 10^3/uL (0.0-0.2) 03/18/20 05:19 Seg Neutrophils % 53.4 % (42-78) 03/18/20 05:19 Carbonic Acid 1.18 mmol/L (1.05-1.35) 03/16/20 19:42 HCO3/H2CO3 Ratio 19:1 03/16/20 19:42 ABG pH 7.40 (7.35-7.45) 03/16/20 19:42 ABG pCO2 39.1 mmHg (35-45) 03/16/20 19:42 ABG pO2 76.9 mmHg (80-100) L 03/16/20 19:42 ABG HCO3 23.4 mmol/L (20-24) 03/16/20 19:42 ABG Total CO2 24.6 mmol/L (21-25) 03/16/20 19:42 ABG O2 Saturation 95.4 % (94-98) 03/16/20 19:42 ABG Base Excess -1.3 mmol/L 03/16/20 19:42 FiO2 98% 03/16/20 19:42 Sodium 138.2 mmol/L (137-145) 03/20/20 05:08 Potassium 4.6 mmol/L (3.6-5.0) 03/20/20 05:08 Chloride 104 mmol/L (98-107) 03/20/20 05:08 Carbon Dioxide 23 mmol/L (22-30) 03/20/20 05:08 Anion Gap 11 (5-19) 03/20/20 05:08 BUN 44 mg/dL (7-20) H 03/20/20 05:08 Creatinine 1.97 mg/dL (0.52-1.25) H 03/20/20 05:08 Est GFR ( Amer) 29 (>60) L 03/20/20 05:08 Est GFR (MDRD) Non-Af 24 (>60) L 03/20/20 05:08 Glucose 146 mg/dL (75-110) H 03/20/20 05:08 POC Glucose 184 mg/dL (70-110) H 03/20/20 11:26 Hemoglobin A1c % 7.5 % (4.7-6.0) H 03/18/20 05:19 Lactic Acid 1.0 mmol/L (0.7-2.1) 03/16/20 14:50 Calcium 9.9 mg/dL (8.4-10.2) 03/20/20 05:08 Phosphorus 4.4 mg/dL (2.5-4.5) 03/18/20 05:19 Magnesium 1.5 mg/dL (1.6-2.3) L 03/18/20 05:19 Total Bilirubin 0.6 mg/dL (0.2-1.3) 03/20/20 05:08 Direct Bilirubin 0.3 mg/dL (0.0-0.4) 03/20/20 05:08 Neonat Total Bilirubin Not Reportable 03/20/20 05:08 Neonat Direct Bilirubin Not Reportable 03/20/20 05:08 Neonat Indirect Bili Not Reportable 03/20/20 05:08 AST 26 U/L (14-36) 03/20/20 05:08 ALT 20 U/L (<35) 03/20/20 05:08 Alkaline Phosphatase 136 U/L (38-126) H 03/20/20 05:08 Creatine Kinase 59 U/L (30-135) 03/16/20 14:50 CK-MB (CK-2) 1.08 ng/mL (<4.55) 03/16/20 14:50 Troponin I 0.035 ng/mL 03/16/20 14:50 NT-Pro-B Natriuret Pep 1080 pg/mL (<450) H 03/19/20 04:42 Total Protein 7.0 g/dL (6.3-8.2) 03/20/20 05:08 Albumin 3.5 g/dL (3.5-5.0) 03/20/20 05:08 Lipase 362.2 U/L (23-300) H 03/16/20 14:50 Urine Color YELLOW 03/16/20 19:00 Urine Appearance CLEAR 03/16/20 19:00 Urine pH 6.0 (5.0-9.0) 03/16/20 19:00 Ur Specific [place] 1.012 03/16/20 19:00 Urine Protein 30 mg/dL (NEGATIVE) H 03/16/20 19:00 Urine Glucose (UA) NEGATIVE mg/dL (NEGATIVE) 03/16/20 19:00 Urine Ketones NEGATIVE mg/dL (NEGATIVE) 03/16/20 19:00 Urine Blood NEGATIVE (NEGATIVE) 03/16/20 19:00 Urine Nitrite (Reflex) NEGATIVE (NEGATIVE) 03/16/20 19:00 Urine Bilirubin NEGATIVE (NEGATIVE) 03/16/20 19:00 Urine Urobilinogen NEGATIVE mg/dL (<2.0) 03/16/20 19:00 Leukocyte Esterase Rfl NEGATIVE (NEGATIVE) 03/16/20 19:00 Urine RBC (Auto) 0 /HPF 03/16/20 19:00 Urine WBC (Reflex) 1 /HPF 03/16/20 19:00 Squamous Epi Cells Auto 3 /HPF 03/16/20 19:00 Urine Ascorbic Acid NEGATIVE (NEGATIVE) 03/16/20 19:00 COVID-19 Source See comment 03/16/20 14:50 COVID-19 ([place]) Not Detected (Not Detect) 03/16/20 14:50 Influenza A (Rapid) NEGATIVE (NEGATIVE) 03/16/20 14:50 Influenza B (Rapid) NEGATIVE (NEGATIVE) 03/16/20 14:50 03/16/20 03/16/20 03/19/20 14:50 14:50 04:42 CK-MB (CK-2) 1.08 Troponin I 0.035 NT-Pro-B Natriuret Pep 1350 H 1080 H Impressions: Chest X-Ray 03/16/20 14:29 IMPRESSION: CARDIAC ENLARGEMENT. VASCULAR CONGESTION. Abdomen/Pelvis CT 03/16/20 14:32 IMPRESSION: 1. A new soft tissue mass with associated calcifications in the right lower quadrant of the abdomen as above, since the prior study dated 05/03/2016. 2. Umbilical hernia contains fat and nondilated small bowel loops, unchanged finding. 3. Additional stable findings as above. Chest CT 03/16/20 17:43 IMPRESSION: NO SIGNIFICANT FINDING ON NON-CONTRASTED CHEST CT. Plan Health Concerns: Medication and dietary restriction compliance with high risk for readmission. Plan of Treatment: Adjustment medication as noted on discharge plan, close follow up with renal function monitoring. Goals: Reduce readmission risk and ensure appropriate service utilization. Time Spent: Greater than 30 Minutes - post acute care coordination and bedside counseling on medication, fluid, and dietary restictions compliance. Stroke Is this a Stroke Patient?: No Acute Heart Failure Is this a Heart Failure Patient?: Yes Documentation of LVEF assessment?: Yes LVEF: LVEF Greater Than 40% Anticoagulant Therapy: Yes Discharged on Evidence-Based Beta Blockers: No, document contraindications Reason(s) not discharged on Evidence-Based Beta Blockers: Bradycardia Discharged on ARNI?: No-Document Contraindications Reason(s) not discharged on ARNI: ACEI use within the prior 36 hours Discharged on ARB?: Yes Discharged on ACEI?: N/A Discharged on ARB For LVEF <35%, discharged on Aldosterone Antagonist?: N/A (LVEF > or = 35%) Follow-up Appointment scheduled within 7 days?: Yes
--- NOTE | 2020-03-20 19:58 | Progress Note ---
Provider Note Provider Note: CARDIOLOGY PROGRESS NOTE by Dr. Lida Richardson on 03/20/2020. SUBJECTIVE: The patient denies any further chest pain or discomfort. She has no shortness of breath at rest or with ambulating in the room also oxygen saturations are up within the normal limits when she ambulates inside the room. The patient continues to be atrial flutter with a ventricular response of 60 bpm. There is no bleeding on anticoagulation. There is no TIA CVA symptoms. His leg edema is almost resolved there being only trace edema. The patient's cardiac status is stable. She is being discharged today by Dr. Roberts. PHYSICAL EXAMINATION: The patient appears to be mildly obese. In no acute distress Selected Entries 03/20/20 11:26 Temperature 98.0 F Temperature Oral Source Pulse Rate 60 Respiratory 22 H Rate Blood Pressure 141/61 H Blood Pressure 87 Mean BP Location Left Arm BP Position Sitting O2 Sat by Pulse 98 Oximetry Oxygen Delivery Room Air Method HEAD: Is atraumatic normocephalic. EYES: Pupils are equal round regular reactive to light and accommodation. There is no clinical pallor. There is no scleral icterus. External ocular movements are normal. EARS: Tympanic membranes are intact. External auditory canals are clear. NOSE: Nasal mucous membranes are not inflamed. There is no deviated nasal septum. MOUTH: Mucous membranes of mouth are moist. Tongue is moist. There is no ulcers. There is no bleeding from the gums. THROAT: There is no redness of the oropharynx. There is no exudates in the throat. SKIN: There is no petechia or ecchymosis. There is no skin rashes or skin lesions. NECK: Is supple. There is no JVD. Carotids are equal there is no bruits. There is no carotid delay. There is transmitted murmur from the aortic area heard over both carotids. There is no lymphadenopathy. There is no goiter. There is no accessory muscles of respiration in use. Trachea central. LUNGS: Clear to auscultation and percussion. There is no rales, rhonchi. or wheezing. There is no chest wall tenderness on palpation. HEART: S1-S2 is heard. S1 is of variable intensity. There is no S3 gallop. There is systolic murmur left sternal border and the apex. There is no aortic stenosis present. A2 is well preserved. There is murmur of mitral regurgitation and tricuspid regurgitation present. There is no rub. ABDOMEN: Is obese. Nontender. There is no hepatosplenomegaly. Bowel sounds are well heard. EXTREMITIES: Femorals are deep. Femorals are slightly diminished. There is no femoral bruits. There is at present only trace pedal edema. There is no DVT or cellulitis. Leg pulses are diminished. There is no cyanosis or clubbing. Capillary refill is normal. There is no calf tenderness. 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 PSYCHIATRIC: The patient judgment and insight are intact her affect is normal. Labs- Entire Visit 03/16/20 03/16/20 03/16/20 14:50 14:50 14:50 WBC 3.9 L RBC 4.10 Hgb 11.5 L Hct 36.0 MCV 88 MCH 27.9 MCHC 31.8 L RDW 16.9 H Plt Count 168 Lymph % (Auto) 33.7 [place] % (Auto) 7.3 Eos % (Auto) 3.9 Baso % (Auto) 1.4 Absolute Neuts (auto) 2.1 Absolute Lymphs (auto) 1.3 Absolute Monos (auto) 0.3 Absolute Eos (auto) 0.2 Absolute Basos (auto) 0.1 Seg Neutrophils % 53.7 Carbonic Acid HCO3/H2CO3 Ratio ABG pH ABG pCO2 ABG pO2 ABG HCO3 ABG Total CO2 ABG O2 Saturation ABG Base Excess FiO2 Sodium 141.2 Potassium 5.0 Chloride 109 H Carbon Dioxide 20 L Anion Gap 12 BUN 37 H Creatinine 1.86 H Est GFR ( Amer) 31 L Est GFR (MDRD) Non-Af 26 L Glucose 119 H POC Glucose Hemoglobin A1c % Lactic Acid Calcium 10.3 H Phosphorus Magnesium Total Bilirubin 0.9 Direct Bilirubin 0.3 Neonat Total Bilirubin Not Reportable Neonat Direct Bilirubin Not Reportable Neonat Indirect Bili Not Reportable AST 50 H ALT 39 H Alkaline Phosphatase 170 H Creatine Kinase 59 CK-MB (CK-2) 1.08 Troponin I 0.035 NT-Pro-B Natriuret Pep Total Protein 8.2 Albumin 4.1 Lipase 362.2 H Urine Color Urine Appearance Urine pH Ur Specific [place] Urine Protein Urine Glucose (UA) Urine Ketones Urine Blood Urine Nitrite (Reflex) Urine Bilirubin Urine Urobilinogen Leukocyte Esterase Rfl Urine RBC (Auto) Urine WBC (Reflex) Squamous Epi Cells Auto Urine Ascorbic Acid COVID-19 Source COVID-19 ([facility]) Influenza A (Rapid) Influenza B (Rapid) 03/16/20 03/16/20 03/16/20 14:50 14:50 14:50 WBC RBC Hgb Hct MCV MCH MCHC RDW Plt Count Lymph % (Auto) [place] % (Auto) Eos % (Auto) Baso % (Auto) Absolute Neuts (auto) Absolute Lymphs (auto) Absolute Monos (auto) Absolute Eos (auto) Absolute Basos (auto) Seg Neutrophils % Carbonic Acid HCO3/H2CO3 Ratio ABG pH ABG pCO2 ABG pO2 ABG HCO3 ABG Total CO2 ABG O2 Saturation ABG Base Excess FiO2 Sodium Potassium Chloride Carbon Dioxide Anion Gap BUN Creatinine Est GFR ( Amer) Est GFR (MDRD) Non-Af Glucose POC Glucose Hemoglobin A1c % Lactic Acid 1.0 Calcium Phosphorus Magnesium Total Bilirubin Direct Bilirubin Neonat Total Bilirubin Neonat Direct Bilirubin Neonat Indirect Bili AST ALT Alkaline Phosphatase Creatine Kinase CK-MB (CK-2) Troponin I NT-Pro-B Natriuret Pep Total Protein Albumin Lipase Urine Color Urine Appearance Urine pH Ur Specific [place] Urine Protein Urine Glucose (UA) Urine Ketones Urine Blood Urine Nitrite (Reflex) Urine Bilirubin Urine Urobilinogen Leukocyte Esterase Rfl Urine RBC (Auto) Urine WBC (Reflex) Squamous Epi Cells Auto Urine Ascorbic Acid COVID-19 Source See comment COVID-19 ([facility]) Not Detected Influenza A (Rapid) NEGATIVE Influenza B (Rapid) NEGATIVE 03/16/20 03/16/20 03/16/20 14:50 19:00 19:42 WBC RBC Hgb Hct MCV MCH MCHC RDW Plt Count Lymph % (Auto) [place] % (Auto) Eos % (Auto) Baso % (Auto) Absolute Neuts (auto) Absolute Lymphs (auto) Absolute Monos (auto) Absolute Eos (auto) Absolute Basos (auto) Seg Neutrophils % Carbonic Acid 1.18 HCO3/H2CO3 Ratio 19:1 ABG pH 7.40 ABG pCO2 39.1 ABG pO2 76.9 L ABG HCO3 23.4 ABG Total CO2 24.6 ABG O2 Saturation 95.4 ABG Base Excess -1.3 FiO2 98% Sodium Potassium Chloride Carbon Dioxide Anion Gap BUN Creatinine Est GFR ( Amer) Est GFR (MDRD) Non-Af Glucose POC Glucose Hemoglobin A1c % Lactic Acid Calcium Phosphorus Magnesium Total Bilirubin Direct Bilirubin Neonat Total Bilirubin Neonat Direct Bilirubin Neonat Indirect Bili AST ALT Alkaline Phosphatase Creatine Kinase CK-MB (CK-2) Troponin I NT-Pro-B Natriuret Pep 1350 H Total Protein Albumin Lipase Urine Color YELLOW Urine Appearance CLEAR Urine pH 6.0 Ur Specific [place] 1.012 Urine Protein 30 H Urine Glucose (UA) NEGATIVE Urine Ketones NEGATIVE Urine Blood NEGATIVE Urine Nitrite (Reflex) NEGATIVE Urine Bilirubin NEGATIVE Urine Urobilinogen NEGATIVE Leukocyte Esterase Rfl NEGATIVE Urine RBC (Auto) 0 Urine WBC (Reflex) 1 Squamous Epi Cells Auto 3 Urine Ascorbic Acid NEGATIVE COVID-19 Source COVID-19 ([facility]) Influenza A (Rapid) Influenza B (Rapid) 03/17/20 03/17/20 03/17/20 12:06 17:06 21:18 WBC RBC Hgb Hct MCV MCH MCHC RDW Plt Count Lymph % (Auto) [place] % (Auto) Eos % (Auto) Baso % (Auto) Absolute Neuts (auto) Absolute Lymphs (auto) Absolute Monos (auto) Absolute Eos (auto) Absolute Basos (auto) Seg Neutrophils % Carbonic Acid HCO3/H2CO3 Ratio ABG pH ABG pCO2 ABG pO2 ABG HCO3 ABG Total CO2 ABG O2 Saturation ABG Base Excess FiO2 Sodium Potassium Chloride Carbon Dioxide Anion Gap BUN Creatinine Est GFR ( Amer) Est GFR (MDRD) Non-Af Glucose POC Glucose 239 H 165 H 171 H Hemoglobin A1c % Lactic Acid Calcium Phosphorus Magnesium Total Bilirubin Direct Bilirubin Neonat Total Bilirubin Neonat Direct Bilirubin Neonat Indirect Bili AST ALT Alkaline Phosphatase Creatine Kinase CK-MB (CK-2) Troponin I NT-Pro-B Natriuret Pep Total Protein Albumin Lipase Urine Color Urine Appearance Urine pH Ur Specific [place] Urine Protein Urine Glucose (UA) Urine Ketones Urine Blood Urine Nitrite (Reflex) Urine Bilirubin Urine Urobilinogen Leukocyte Esterase Rfl Urine RBC (Auto) Urine WBC (Reflex) Squamous Epi Cells Auto Urine Ascorbic Acid COVID-19 Source COVID-19 ([facility]) Influenza A (Rapid) Influenza B (Rapid) 03/18/20 03/18/20 03/18/20 05:19 05:19 05:19 WBC 4.3 RBC 4.04 Hgb 11.2 L Hct 35.6 L MCV 88 MCH 27.7 MCHC 31.5 L RDW 16.9 H Plt Count 158 Lymph % (Auto) 33.8 [place] % (Auto) 8.4 Eos % (Auto) 3.8 Baso % (Auto) 0.6 Absolute Neuts (auto) 2.3 Absolute Lymphs (auto) 1.5 Absolute Monos (auto) 0.4 Absolute Eos (auto) 0.2 Absolute Basos (auto) 0.0 Seg Neutrophils % 53.4 Carbonic Acid HCO3/H2CO3 Ratio ABG pH ABG pCO2 ABG pO2 ABG HCO3 ABG Total CO2 ABG O2 Saturation ABG Base Excess FiO2 Sodium 138.6 Potassium 5.0 Chloride 106 Carbon Dioxide 23 Anion Gap 10 BUN 38 H Creatinine 1.99 H Est GFR ( Amer) 29 L Est GFR (MDRD) Non-Af 24 L Glucose 150 H POC Glucose Hemoglobin A1c % 7.5 H Lactic Acid Calcium 9.6 Phosphorus 4.4 Magnesium 1.5 L Total Bilirubin 0.7 Direct Bilirubin 0.2 Neonat Total Bilirubin Not Reportable Neonat Direct Bilirubin Not Reportable Neonat Indirect Bili Not Reportable AST 26 ALT 25 Alkaline Phosphatase 146 H Creatine Kinase CK-MB (CK-2) Troponin I NT-Pro-B Natriuret Pep Total Protein 7.0 Albumin 3.5 Lipase Urine Color Urine Appearance Urine pH Ur Specific [place] Urine Protein Urine Glucose (UA) Urine Ketones Urine Blood Urine Nitrite (Reflex) Urine Bilirubin Urine Urobilinogen Leukocyte Esterase Rfl Urine RBC (Auto) Urine WBC (Reflex) Squamous Epi Cells Auto Urine Ascorbic Acid COVID-19 Source COVID-19 ([facility]) Influenza A (Rapid) Influenza B (Rapid) 03/18/20 03/18/20 03/18/20 07:26 11:45 16:22 WBC RBC Hgb Hct MCV MCH MCHC RDW Plt Count Lymph % (Auto) [place] % (Auto) Eos % (Auto) Baso % (Auto) Absolute Neuts (auto) Absolute Lymphs (auto) Absolute Monos (auto) Absolute Eos (auto) Absolute Basos (auto) Seg Neutrophils % Carbonic Acid HCO3/H2CO3 Ratio ABG pH ABG pCO2 ABG pO2 ABG HCO3 ABG Total CO2 ABG O2 Saturation ABG Base Excess FiO2 Sodium Potassium Chloride Carbon Dioxide Anion Gap BUN Creatinine Est GFR ( Amer) Est GFR (MDRD) Non-Af Glucose POC Glucose 140 H 173 H 173 H Hemoglobin A1c % Lactic Acid Calcium Phosphorus Magnesium Total Bilirubin Direct Bilirubin Neonat Total Bilirubin Neonat Direct Bilirubin Neonat Indirect Bili AST ALT Alkaline Phosphatase Creatine Kinase CK-MB (CK-2) Troponin I NT-Pro-B Natriuret Pep Total Protein Albumin Lipase Urine Color Urine Appearance Urine pH Ur Specific [place] Urine Protein Urine Glucose (UA) Urine Ketones Urine Blood Urine Nitrite (Reflex) Urine Bilirubin Urine Urobilinogen Leukocyte Esterase Rfl Urine RBC (Auto) Urine WBC (Reflex) Squamous Epi Cells Auto Urine Ascorbic Acid COVID-19 Source COVID-19 ([facility]) Influenza A (Rapid) Influenza B (Rapid) 03/18/20 03/19/20 03/19/20 22:13 04:42 04:42 WBC RBC Hgb Hct MCV MCH MCHC RDW Plt Count Lymph % (Auto) [place] % (Auto) Eos % (Auto) Baso % (Auto) Absolute Neuts (auto) Absolute Lymphs (auto) Absolute Monos (auto) Absolute Eos (auto) Absolute Basos (auto) Seg Neutrophils % Carbonic Acid HCO3/H2CO3 Ratio ABG pH ABG pCO2 ABG pO2 ABG HCO3 ABG Total CO2 ABG O2 Saturation ABG Base Excess FiO2 Sodium 137.4 Potassium 4.7 Chloride 105 Carbon Dioxide 20 L Anion Gap 12 BUN 44 H Creatinine 2.10 H Est GFR ( Amer) 27 L Est GFR (MDRD) Non-Af 22 L Glucose 151 H POC Glucose 171 H Hemoglobin A1c % Lactic Acid Calcium 9.4 Phosphorus Magnesium Total Bilirubin Direct Bilirubin Neonat Total Bilirubin Neonat Direct Bilirubin Neonat Indirect Bili AST ALT Alkaline Phosphatase Creatine Kinase CK-MB (CK-2) Troponin I NT-Pro-B Natriuret Pep 1080 H Total Protein Albumin Lipase Urine Color Urine Appearance Urine pH Ur Specific [place] Urine Protein Urine Glucose (UA) Urine Ketones Urine Blood Urine Nitrite (Reflex) Urine Bilirubin Urine Urobilinogen Leukocyte Esterase Rfl Urine RBC (Auto) Urine WBC (Reflex) Squamous Epi Cells Auto Urine Ascorbic Acid COVID-19 Source COVID-19 ([facility]) Influenza A (Rapid) Influenza B (Rapid) 03/19/20 03/19/20 03/19/20 07:21 11:20 15:56 WBC RBC Hgb Hct MCV MCH MCHC RDW Plt Count Lymph % (Auto) [place] % (Auto) Eos % (Auto) Baso % (Auto) Absolute Neuts (auto) Absolute Lymphs (auto) Absolute Monos (auto) Absolute Eos (auto) Absolute Basos (auto) Seg Neutrophils % Carbonic Acid HCO3/H2CO3 Ratio ABG pH ABG pCO2 ABG pO2 ABG HCO3 ABG Total CO2 ABG O2 Saturation ABG Base Excess FiO2 Sodium Potassium Chloride Carbon Dioxide Anion Gap BUN Creatinine Est GFR ( Amer) Est GFR (MDRD) Non-Af Glucose POC Glucose 144 H 309 H 112 H Hemoglobin A1c % Lactic Acid Calcium Phosphorus Magnesium Total Bilirubin Direct Bilirubin Neonat Total Bilirubin Neonat Direct Bilirubin Neonat Indirect Bili AST ALT Alkaline Phosphatase Creatine Kinase CK-MB (CK-2) Troponin I NT-Pro-B Natriuret Pep Total Protein Albumin Lipase Urine Color Urine Appearance Urine pH Ur Specific [place] Urine Protein Urine Glucose (UA) Urine Ketones Urine Blood Urine Nitrite (Reflex) Urine Bilirubin Urine Urobilinogen Leukocyte Esterase Rfl Urine RBC (Auto) Urine WBC (Reflex) Squamous Epi Cells Auto Urine Ascorbic Acid COVID-19 Source COVID-19 ([facility]) Influenza A (Rapid) Influenza B (Rapid) 03/19/20 03/20/20 03/20/20 21:19 05:08 07:11 WBC RBC Hgb Hct MCV MCH MCHC RDW Plt Count Lymph % (Auto) [place] % (Auto) Eos % (Auto) Baso % (Auto) Absolute Neuts (auto) Absolute Lymphs (auto) Absolute Monos (auto) Absolute Eos (auto) Absolute Basos (auto) Seg Neutrophils % Carbonic Acid HCO3/H2CO3 Ratio ABG pH ABG pCO2 ABG pO2 ABG HCO3 ABG Total CO2 ABG O2 Saturation ABG Base Excess FiO2 Sodium 138.2 Potassium 4.6 Chloride 104 Carbon Dioxide 23 Anion Gap 11 BUN 44 H Creatinine 1.97 H Est GFR ( Amer) 29 L Est GFR (MDRD) Non-Af 24 L Glucose 146 H POC Glucose 183 H 138 H Hemoglobin A1c % Lactic Acid Calcium 9.9 Phosphorus Magnesium Total Bilirubin 0.6 Direct Bilirubin 0.3 Neonat Total Bilirubin Not Reportable Neonat Direct Bilirubin Not Reportable Neonat Indirect Bili Not Reportable AST 26 ALT 20 Alkaline Phosphatase 136 H Creatine Kinase CK-MB (CK-2) Troponin I NT-Pro-B Natriuret Pep Total Protein 7.0 Albumin 3.5 Lipase Urine Color Urine Appearance Urine pH Ur Specific [place] Urine Protein Urine Glucose (UA) Urine Ketones Urine Blood Urine Nitrite (Reflex) Urine Bilirubin Urine Urobilinogen Leukocyte Esterase Rfl Urine RBC (Auto) Urine WBC (Reflex) Squamous Epi Cells Auto Urine Ascorbic Acid COVID-19 Source COVID-19 ([facility]) Influenza A (Rapid) Influenza B (Rapid) 03/20/20 11:26 WBC RBC Hgb Hct MCV MCH MCHC RDW Plt Count Lymph % (Auto) [place] % (Auto) Eos % (Auto) Baso % (Auto) Absolute Neuts (auto) Absolute Lymphs (auto) Absolute Monos (auto) Absolute Eos (auto) Absolute Basos (auto) Seg Neutrophils % Carbonic Acid HCO3/H2CO3 Ratio ABG pH ABG pCO2 ABG pO2 ABG HCO3 ABG Total CO2 ABG O2 Saturation ABG Base Excess FiO2 Sodium Potassium Chloride Carbon Dioxide Anion Gap BUN Creatinine Est GFR ( Amer) Est GFR (MDRD) Non-Af Glucose POC Glucose 184 H Hemoglobin A1c % Lactic Acid Calcium Phosphorus Magnesium Total Bilirubin Direct Bilirubin Neonat Total Bilirubin Neonat Direct Bilirubin Neonat Indirect Bili AST ALT Alkaline Phosphatase Creatine Kinase CK-MB (CK-2) Troponin I NT-Pro-B Natriuret Pep Total Protein Albumin Lipase Urine Color Urine Appearance Urine pH Ur Specific [place] Urine Protein Urine Glucose (UA) Urine Ketones Urine Blood Urine Nitrite (Reflex) Urine Bilirubin Urine Urobilinogen Leukocyte Esterase Rfl Urine RBC (Auto) Urine WBC (Reflex) Squamous Epi Cells Auto Urine Ascorbic Acid COVID-19 Source COVID-19 ([place]) Influenza A (Rapid) Influenza B (Rapid) Chest X-Ray 03/16/20 14:29 IMPRESSION: CARDIAC ENLARGEMENT. VASCULAR CONGESTION. Abdomen/Pelvis CT 03/16/20 14:32 IMPRESSION: 1. A new soft tissue mass with associated calcifications in the right lower quadrant of the abdomen as above, since the prior study dated 05/03/2016. 2. Umbilical hernia contains fat and nondilated small bowel loops, unchanged finding. 3. Additional stable findings as above. Chest CT 03/16/20 17:43 IMPRESSION: NO SIGNIFICANT FINDING ON NON-CONTRASTED CHEST CT. IMPRESSION/RECOMMENDATION: 1. 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 Continue diuretics. Increase his hydralazine. 2. Acute on chronic diastolic heart failure and also acute systolic heart failure with preserved LV ejection fraction secondary to volume overload due to renal failure. 3. Severe pulmonary hypertension: Continue calcium channel chente and ARB. 4. Moderate tricuspid regurgitation. 5.. Atrial flutter: Ventricular response is controlled with episodes of asymptomatic bradycardia with no hemodynamic compromise. The patient is off all any SA or AV dmitry blocking agents. In view of the patient's prior CVA the the patient's corrected chads vas 2 score is 7. Hence the patient is at very high risk for recurrent CVA. Hence would recommend starting the patient on Eliquis 2.5 mg p.o. twice daily. This has been discussed with the patient and the patient's family there are of the bleeding risks, and also the benefits of stroke prophylaxis. Discussed with attending physician also. 6. History of sleep apnea noncompliant with CPAP. The patient states that she cannot withstand nasal or the conventional CPAP. This is most likely the cause of the patient's severe pulmonary hypertension and right heart failure. 7. Mild aortic stenosis and mild aortic regurgitation 8.. Hypertension: Not well controlled. Increase antihypertensives as needed. 9. Diabetes mellitus with diabetic nephropathy.: Continue monitor sugars and continue antidiabetic regimen therapy. 10. Acute on chronic kidney disease. The patient's baseline CKD is but at present the patient is CKD stage IV. Stage III, 11. History of gout: At present no recurrence.. 12. Prior history of CVA with no residual deficits. Nephrology consult reviewed and appreciated. Medications reviewed. Medications adjusted. Medical decision making is of moderate complexity. Medical management and medical regimen and management plan discussed with Dr. Roberts. 60 minutes spent on patient more than 50% of time spent direct patient care. Will sign off. Patient given the option to follow- up with me if she so desires in my office.
--- NOTE | 2020-03-23 17:42 | Progress Note ---
Provider Note Provider Note: Response to Query: Longstanding Persistent Atrial Fibrillation.
== END 2020-03-20 17:51 | disposition home or self-care (01) | DRG 291 ==
LOC: ER 12:34 → EH 21:44 → 3N 03-17 06:45 → 3W 03-18 12:59
PROVIDERS: ADMIT Internal Medicine Geriatric Medicine; ATTEND Internal Medicine Geriatric Medicine
PROC: B24BZZ4 Ultrasonography of Heart with Aorta, Transesophageal (ICD-10-PCS; principal; 2020-03-17)
DX: I13.0 Hypertensive heart and chronic kidney disease with heart failure and stage 1 through stage 4 chronic kidney disease, or unspecified chronic kidney disease (principal); I50.43 Acute on chronic combined systolic (congestive) and diastolic (congestive) heart failure; N18.4 Chronic kidney disease, stage 4 (severe); N17.9 Acute kidney failure, unspecified; R44.3 Hallucinations, unspecified; I48.11 Longstanding persistent atrial fibrillation; E11.22 Type 2 diabetes mellitus with diabetic chronic kidney disease; E78.5 Hyperlipidemia, unspecified; K21.9 Gastro-esophageal reflux disease without esophagitis; Z20.828 Contact with and (suspected) exposure to other viral communicable diseases; M1A.9XX0 Chronic gout, unspecified, without tophus (tophi); I27.20 Pulmonary hypertension, unspecified; G47.30 Sleep apnea, unspecified; I27.81 Cor pulmonale (chronic); D63.1 Anemia in chronic kidney disease; E66.01 Morbid (severe) obesity due to excess calories; I08.3 Combined rheumatic disorders of mitral, aortic and tricuspid valves; I45.10 Unspecified right bundle-branch block; E11.21 Type 2 diabetes mellitus with diabetic nephropathy; M62.81 Muscle weakness (generalized); Z60.2 Problems related to living alone; I25.2 Old myocardial infarction; Z79.4 Long term (current) use of insulin; Z79.899 Other long term (current) drug therapy; Z79.01 Long term (current) use of anticoagulants; Z88.6 Allergy status to analgesic agent; Z86.73 Personal history of transient ischemic attack (TIA), and cerebral infarction without residual deficits; Z91.19 Patient's noncompliance with other medical treatment and regimen; Z88.7 Allergy status to serum and vaccine; Z83.3 Family history of diabetes mellitus; Z82.49 Family history of ischemic heart disease and other diseases of the circulatory system
CPT/HCPCS: 36415; 71045; 71250; 74176; 80048; 80053; 81001; 82550; 82553; 82803; 82962; 83036; 83605; 83690; 83735; 83880; 84100; 84484; 85025; 87635; 87804; 93005; 93010; 93306; 94640; 94762; 96374; 99285; C9803; J1815; J1940; J3475; J3490

== ENCOUNTER → 2020-03-25 | Outpatient (CLI) | payer MEDICARE, MEDICAID ==
[2020-03-25 12:17] LABS: ANION GAP 15 (5-19); BLOOD UREA NITROGEN 76 mg/dL (7-20); CALCIUM 9.9 mg/dL (8.4-10.2); CARBON DIOXIDE 22 mmol/L (22-30); CHLORIDE 102 mmol/L (98-107); GLUCOSE 169 mg/dL (75-110)
== END ==
LOC: OD 09:53
PROVIDERS: ATTEND Internal Medicine Geriatric Medicine
DX: H34.12 Central retinal artery occlusion, left eye (principal); N18.9 Chronic kidney disease, unspecified
CPT/HCPCS: 36415; 80048; 85652; 86140

== ENCOUNTER → 2020-03-26 | Outpatient (CLI) | payer MEDICARE, MEDICAID ==
--- NOTE | 2020-03-26 14:54 | RADIOLOGY REPORT (SQ) ---
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 TECHNIQUE: Grayscale ultrasound, Doppler velocity and spectra, and color Doppler images acquired of the extra-cranial carotid and vertebral arteries. Images stored on PACS. LIMITATIONS: None. FINDINGS: RIGHT CAROTID CCA Velocities: Within normal limits. ICA Velocities Peak systolic 1.17 m/s. End diastolic 0.17 m/s. Proximal ICA/CCA peak systolic ratio 1.9. Tortuous vessels. Mild partially calcified plaque bifurcation and proximal ICA. LEFT CAROTID CCA Velocities: Within normal limits. ICA Velocities Peak systolic 0.75 m/s. End diastolic 0.10 m/s. Proximal ICA/CCA peak systolic ratio 1.9. Tortuous vessels. Mild partially calcified plaque bifurcation and proximal ICA. VERTEBRAL ARTERIES: Antegrade flow. Normal waveforms. SUBCLAVIAN ARTERIES: Not imaged. OTHER: No other significant finding. IMPRESSION: NO HEMODYNAMICALLY SIGNIFICANT STENOSIS. COMMENT: Quality ID #[id number]: Velocity criteria are extrapolated from the diameter data as defined by t he Society of Radiologists in Ultrasound Consensus Conference. Radiology 2003: 229; 340-346. TECHNICAL DOCUMENTATION: JOB ID: [id number] 2010 [employer] All Rights Reserved Reading location - IP/workstation name: [email or web address]
== END ==
LOC: SP 10:05
PROVIDERS: ATTEND Internal Medicine Geriatric Medicine
DX: H34.12 Central retinal artery occlusion, left eye (principal)
CPT/HCPCS: 93880

== ENCOUNTER 2020-04-02 16:36 | Inpatient (IN) | payer MEDICARE, MEDICAID ==
[2020-04-02] MEDS ORDERED: NITROGLYCERIN/D5W 50 MG/250 ML RTUINJ IV PRN (16:45)
[2020-04-02] MEDS ORDERED: FUROSEMIDE INJ/PF 100 MG/10 ML SDV IV ONE (16:56)
[2020-04-02 17:17] LABS: ABSOLUTE LYMPHOCYTES (AUTO) 1.3 10^3/uL (0.5-4.7); ABSOLUTE MONOCYTES (AUTO) 0.4 10^3/uL (0.1-1.4); ABSOLUTE NEUT (AUTO) 5.4 10^3/uL (1.7-8.2); BASOPHILS % (AUTO) 0.2 % (0-2); EOSINOPHILS % (AUTO) 0.1 % (0-6); HEMATOCRIT 33.1 % (36.0-47.0); HEMOGLOBIN 10.4 g/dL (12.0-15.5); LYMPHOCYTES % (AUTO) 18.7 % (13-45); MEAN CORPUSCULAR HEMOGLOBIN 27.5 pg (27.0-33.4); MEAN CORPUSCULAR HGB CONC 31.5 g/dL (32.0-36.0); MEAN CORPUSCULAR VOLUME 87 fl (80-97); MONOCYTES % (AUTO) 5.8 % (3-13); PLATELET COUNT 177 10^3/uL (150-450); RED BLOOD COUNT 3.79 10^6/uL (3.72-5.28); RED CELL DISTRIBUTION WIDTH 16.7 % (11.5-14.0); SEGMENTED NEUTROPHILS % (AUTO) 75.2 % (42-78); TOTAL CELLS COUNTED % (AUTO) 100 %; WHITE BLOOD COUNT 7.1 10^3/uL (4.0-10.5)
[2020-04-02 17:28] LABS: INTERNATIONAL RATION (INR) 1.89; PROTHROMBIN TIME 21.8 SEC (11.4-15.4)
[2020-04-02 17:30] LABS: D-DIMER 0.94 ug/mL (0.00-0.50)
--- NOTE | 2020-04-02 17:35 | RADIOLOGY REPORT (SQ) ---
EXAM DESCRIPTION: CHEST SINGLE VIEW IMAGES COMPLETED DATE/TIME: 04/02/2020 3:59 pm REASON FOR STUDY: sob chf COMPARISON: CT chest, 03/16/2020 EXAM PARAMETERS: NUMBER OF VIEWS: One view. TECHNIQUE: Single frontal radiographic view of the chest acquired. RADIATION DOSE: NA LIMITATIONS: None. FINDINGS: LUNGS AND PLEURA: Lungs are hyperinflated. Mild patchy right basilar opacities may repres ent atelectasis or developing airspace disease. Possible trace right pleural effusion. MEDIASTINUM AND HILAR STRUCTURES: No masses. Contour normal. HEART AND VASCULAR STRUCTURES: Heart normal in size. Normal vasculature. BONES: No acute findings. HARDWARE: None in the chest. OTHER: No other significant finding. IMPRESSION: Mild patchy opacities in the right lung may represent atelectasis or developing airspace disease. TECHNICAL DOCUMENTATION: JOB ID: [id number] 2010 [employer]- All Rights Reserved Reading location - IP/workstation name: [email or web address]
[2020-04-02 17:49] LABS: ALBUMIN 4.2 g/dL (3.5-5.0); ALKALINE PHOSPHATASE 160 U/L (38-126); ANION GAP 12 (5-19); ASPARTATE AMINO TRANSFERASE 31 U/L (14-36); BILIRUBIN,DIRECT 0.6 mg/dL (0.0-0.4); BILIRUBIN,TOTAL 1.5 mg/dL (0.2-1.3); BLOOD UREA NITROGEN 104 mg/dL (7-20); CALCIUM 10.4 mg/dL (8.4-10.2); CARBON DIOXIDE 22 mmol/L (22-30); CHLORIDE 104 mmol/L (98-107); GLUCOSE 375 mg/dL (75-110); POTASSIUM 5.9 mmol/L (3.6-5.0); TOTAL PROTEIN 8.5 g/dL (6.3-8.2)
[2020-04-02 17:51] LABS: TROPONIN I 0.145 ng/mL
--- NOTE | 2020-04-02 17:51 | ER Document Report ---
ED General - General Chief Complaint: Shortness Of Breath Stated Complaint: SHORTNESS OF BREATH Notes: 84-year-old female with hypertension, hyperlipidemia, diabetes, CKD, CHF with recent admission discharged few days ago for CHF exacerbation presents with shortness of breath. Shortness of breath gradually worsening over the last few days, patient denies any cough, fever, sick contacts, chest pain. History limited by shortness of breath and patient being on BiPAP. TRAVEL OUTSIDE OF THE [place] IN LAST 30 DAYS: No - Related Data Allergies/Adverse Reactions: oxycodone [Oxycodone] Allergy (Verified 04/09/18 12:02) Past Medical History - General Information source: Patient, Relative, Emergency Med Personnel, PENDING SALE TO [facility] Records - Social History Smoking Status: Unknown if Ever Smoked Family History: Reviewed & Not Pertinent, CAD - Past Medical History Cardiac Medical History: Reports: Hx Atrial Fibrillation, Hx Heart Attack, Hx Hypercholesterolemia, Hx Hypertension Denies: Hx Coronary Artery Disease Pulmonary Medical History: Denies: Hx Asthma, Hx Bronchitis, Hx COPD, Hx Pneumonia, Hx Tuberculosis Neurological Medical History: Reports: Hx Cerebrovascular Accident. Denies: Hx Seizures Endocrine Medical History: Reports: Hx Diabetes Mellitus Type 2 Renal/ Medical History: Denies: Hx Peritoneal Dialysis GI Medical History: Reports: Hx Gastroesophageal Reflux Disease Musculoskeletal Medical History: Reports Hx Arthritis - KNEES & ARMS & HANDS, OSTEOARTHRITIS, Reports Hx Gout Psychiatric Medical History: Denies: Hx Depression Infectious Medical History: Past Surgical History: Denies: Hx Hysterectomy - Immunizations Hx Diphtheria, Pertussis, Tetanus Vaccination: Yes Review of Systems - Review of Systems -: Yes ROS unobtainable due to patient's medical condition - bipap Physical Exam - Vital signs Vitals: Pulse Ox 94 04/02/20 16:40 - Notes Notes: PHYSICAL EXAMINATION: GENERAL: Uncomfortable appearing elderly woman in no acute distress on BiPAP brought in by EMS HEAD: Atraumatic, normocephalic. EYES: Pupils equal round and appropriate constriction, sclera anicteric, conj unctiva are normal. ENT: nares patent, moist mucous membranes. NECK: Normal range of motion, supple without lymphadenopathy LUNGS: Tachypneic, speaking in few word sentences, mild accessory muscle use, on BiPAP, Rales present bilaterally, good air movement, no wheezing HEART: Regular rate and rhythm without murmurs, rubs, or gallops ABDOMEN: Soft, nontender, no guarding, no masses, no CVAT EXTREMITIES: Symmetric pitting edema diffusely of bilateral lower extremities NEUROLOGICAL: Awake, alert, conversing appropriately, moves all extremities spontaneously. PSYCH: Normal mood, normal affect. SKIN: Warm, Dry, normal turgor, no rashes or lesions noted. Course - Re-evaluation Re-evalutation: 04/02/20 17:52 Gradual onset shortness of breath without chest pain or other associated symptoms, improved with EMS administration of nitroglycerin and commencement of nitroglycerin drip in route and BiPAP. Patient was satting mid 80s on scene which did not improve with nasal cannula. Patient initially tachypneic and speaking in few word sentences so I increased nitroglycerin drip which patient's blood pressure tolerated well and patient had good result, currently has normal work of breathing, no accessory muscle use, normal respiratory rate. Most likely CHF exacerbation triggered by decrease of Lasix during recent admission as documentation shows consultation between cardiology and nephrology and agreed to try lower dose, but appears that patient did not tolerate this. However looking at patient's other records patient's echo during that admission showed severe pulmonary hypertension which could also be causing symptoms and I sent dimer to rule out PE as low probability which was positive. Given patient's CKD unable to obtain CTA so ordered VQ scan. Patient on Eliquis for A. fib, will give dose of Lovenox pending imaging. Rule out COVID-19 given patchy opacities on chest x-ray, but low suspicion. Volume overload may also be due to renal insufficiency, renal labs pending. Patient's respiratory status has been stable on nitro drip and BiPAP, but not appropriate for weaning at this time. Patient with some T wave inversions on EKG, mostly present on prior EKG, no STEMI on EKG, troponin elevated, already given Lovenox for PE empiric treatment pending imaging and this will also cover patient for an NSTEMI and aspirin ordered. 04/02/20 18:11 Patient's creatinine stable from discharge but patient's BUN has increased, may be source of patient's volume overload. Patient's BNP also elevated. D-dimer positive so ordered VQ scan given renal status. Patient has been on Eliquis with last dose this morning, appropriate to stop Eliquis at this time and start once daily Lovenox subq (renal dosing) in rule out PE/NSTEMI treatment. Discussed patient with Dr. Multani who is government contracts manager for Dr. Roberts who is accepted patient to [facility]. Mild hyperkalemia without EKG changes, ordered insul in nebs and Kayexalate. Will continue to monitor pending transfer to [facility]. Patient continues to have greatly improved respiratory status and reports having no current shortness of breath on BiPAP and continues to deny any chest pain. Patient may need dialysis but given patient's currently stable respiratory status and no other emergent indications for dialysis given only mild hyperkalemia, no altered mental status, no signs of acidosis and normal anion gap, patient appropriate for medical management and nephrology evaluation here and may require transfer during admission if dialysis becomes necessary. I discussed patient's care at her request with all 3 of her children separately. Patient denied having any other questions or concerns, remains comfortable, and children also denied any questions and expressed understanding of plan. - Vital Signs Vital signs: Temp Pulse Resp BP Pulse Ox 98.4 F 44 L 35 H 117/44 L 100 04/03/20 00:02 04/03/20 01:30 04/03/20 00:02 04/03/20 01:30 04/03/20 00:02 - Laboratory Result Diagrams: 04/02/20 16:49 04/02/20 16:49 Laboratory results interpreted by me: 04/02/20 04/02/20 04/02/20 16:49 16:49 16:49 Hgb 10.4 L Hct 33.1 L MCHC 31.5 L RDW 16.7 H PT 21.8 H APTT 45.0 H D-Dimer 0.94 H Potassium 5.9 H BUN 104 H Creatinine 4.16 H Est GFR ( Amer) 12 L Est GFR (MDRD) Non-Af 10 L Glucose 375 H Calcium 10.4 H Total Bilirubin 1.5 H Direct Bilirubin 0.6 H Alkaline Phosphatase 160 H NT-Pro-B Natriuret Pep Total Protein 8.5 H Digoxin 04/02/20 04/02/20 16:49 16:49 Hgb Hct MCHC RDW PT APTT D-Dimer Potassium BUN Creatinine Est GFR ( Amer) Est GFR (MDRD) Non-Af Glucose Calcium Total Bilirubin Direct Bilirubin Alkaline Phosphatase NT-Pro-B Natriuret Pep 6500 H Total Protein Digoxin < 0.40 L - EKG Interpretation by Me Additional EKG results interpreted by me: 04/03/20 02:26 Sinus bradycardia, submillimeter ST elevation in aVR, diffuse precordial T wave abnormalities, first-degree AV block Critical Care Note - Critical Care Note Total time excluding time spent on procedures (mins): 35 - Spent time repeatedly reevaluating patient in respiratory failure requiring BiPAP Discharge - Discharge Clinical Impression: Acute on chronic diastolic CHF (congestive heart failure), NYHA class 2, Shortness of breath, NSTEMI (non-ST elevated myocardial infarction) Diabetes mellitus due to underlying condition with chronic kidney disease, without long-term current use of insulin Qualifiers: Chronic kidney disease stage: stage 5, not on chronic dialysis Qualified Code(s): E08.22 - Diabetes mellitus due to underlying condition with diabetic chronic kidney disease Condition: Critical Disposition: ADMITTED INPATIENT Admitting Provider: Nerissa Unit Admitted: [facility]
[2020-04-02] MEDS ORDERED: ASPIRIN 81 MG TABLET, CHEWABLE PO ONE (17:56)
[2020-04-02] MEDS ORDERED: INSULIN LISPRO 100 UNIT/ML 3 ML VIAL SUBCUT ONE (18:08)
[2020-04-02] MEDS ORDERED: INSULIN REG, HUMAN 100 UNIT/ML 3 ML VIAL (PYX) IV ONE (18:09)
[2020-04-02] MEDS ORDERED: ALBUTEROL SULFATE 0.083% NEB 2.5 MG/3 ML AMPUL NEB ONE ×2 (18:10→18:39)
[2020-04-02] MEDS ORDERED: DEXTROSE 50%-WATER 25 GM/50 ML DISP.SYRIN IV ONE (18:10)
--- NOTE | 2020-04-02 18:10 | EKG REPORT ---
SEVERITY:- ABNORMAL ECG - SINUS BRADYCARDIA ATRIAL PREMATURE COMPLEX FIRST DEGREE AV BLOCK LAFB LVH WITH IVCD AND SECONDARY REPOL ABNRM [facility] [place] : Confirmed by: Dexter García MD 02-Apr-2020 18:09:55
[2020-04-02] MEDS ORDERED: SODIUM POLYSTYRENE SULFONATE 15 GM/60 ML PO ONE (18:11)
--- NOTE | 2020-04-02 19:46 | PDOC H&P ---
History of Present Illness Admission Date/PCP: 04/02/20 18:23 GABRIELLA BOONE History of Present Illness: CAROLINA KAYE is a 84 year old female, she was recently discharged from this hospital on March 20, 2020, she came to the emergency room for evaluation of shortness of breath. A chest x-ray was done in the ER, it demonstrated hyperinflated lungs also found was mild patchy right basilar opacities which may represent atelectasis or developing airspace disease with possible trace right pleural effusion. In the emergency room she was very short of breath breathing was supported with noninvasive positive pressure ventilation, BiPAP. There was no chest pain she was treated with nitroglycerin by EMS and subsequently started on nitroglycerin drip in route. The oxygen saturation was in the 80s on the scene which did not improve with nasal cannula. The ED providers were concerned about pulmonary embolism because of the last transthoracic echocardiogram demonstrated severe pulmonary hypertension, a VQ scan was done, it was low probability for PE. She also had a rapid SARS-CoV-2 testing done, it was negative the last time she was admitted on March 16, 2020 she had a 2D echo done that demonstrated preserved ejection fraction of left ventricle more than 70% she has severe there is diastolic dysfunction of the left ventricle the left was admitted she was offered a noninvasive positive pressure ventilation, CPAP but patient declined the offer Past Medical History Cardiac Medical History: Reports: Atrial Fibrillation, Myocardial Infarction, Hyperlipidema, Hypertension, Other - Chronic diastolic heart failure Pulmonary Medical History: Reports: Sleep Apnea, Other - Severe pulmonary hypertension Endocrine Medical History: Reports: Diabetes Mellitus Type 2 GI Medical History: Reports: Gastroesophageal Reflux Disease Musculoskeltal Medical History: Reports: Arthritis - KNEES & ARMS & HANDS, OSTEOARTHRITIS, Gout Hematology: Past Surgical History Past Surgical History: Social History Smoking Status: Unknown if Ever Smoked Frequency of Alcohol Use: None Hx Recreational Drug Use: No Drugs: None Hx Prescription Drug Abuse: No Family History Family History: Reviewed & Not Pertinent, CAD Parental Family History Reviewed: Yes Children Family History Reviewed: Yes Sibling(s) Family History Reviewed.: Yes Medication/Allergy Home Medications: Insulin Aspart [Novolog Flexpen] 0 units SQ .PERSLIDINGSCALE 02/28/18 Irbesartan [Avapro] 300 mg PO DAILY 02/28/18 Nateglinide [Starlix] 120 mg PO TID 02/28/18 Allopurinol [Zyloprim 100 mg Tablet] 100 mg PO DAILY #30 tablet 04/12/18 Apixaban [Eliquis 2.5 mg Tablet] 2.5 mg PO BID #60 tablet 04/12/18 Ferrous Sulfate [Feosol 325 mg Tablet] 325 mg PO BIDPCBS #60 tablet 04/12/18 Hydralazine HCl [Apresoline 25 mg Tablet] 25 mg PO Q8 #90 tablet 04/12/18 Calcitriol [Rocaltrol 0.25 mcg Capsule] 0.25 mcg PO DAILY 03/17/20 Carvedilol [Coreg 12.5 mg Tablet] 12.5 mg PO BID 03/17/20 Dexlansoprazole [Dexilant 30 mg Capsule] 30 mg PO QAMP PRN 03/17/20 Gabapentin [Neurontin 100 mg Capsule] 100 mg PO DAILY 03/17/20 Insulin Degludec [Tresiba Flextouch U-100] 25 units SQ DAILY 03/17/20 Magnesium Oxide [Mag-Ox 400 mg Tablet] 400 mg PO BID 03/17/20 Amlodipine Besylate [Norvasc 5 mg Tablet] 5 mg PO Q12 #60 tablet 03/20/20 Furosemide [Lasix 20 mg Tablet] 20 mg PO BID #60 03/20/20 Bucyrus-3 Fatty Acids [Bucyrus-3] 1,000 mg PO DAILY 04/03/20 Allergies/Adverse Reactions: oxycodone [Oxycodone] Allergy (Verified 04/09/18 12:02) Review of Systems Constitutional: ABSENT: chills, fever(s), headache(s), weight gain, weight loss Eyes: ABSENT: visual disturbances Ears: ABSENT: hearing changes Cardiovascular: PRESENT: dyspnea on exertion, edema Respiratory: PRESENT: dyspnea. ABSENT: cough, hemoptysis Gastrointestinal: ABSENT: abdominal pain, constipation, diarrhea, hematemesis, hematochezia, nausea, vomiting Genitourinary: ABSENT: dysuria, hematuria Musculoskeletal: ABSENT: joint swelling Integumentary: ABSENT: rash, wounds Neurological: ABSENT: abnormal gait, abnormal speech, confusion, dizziness, focal weakness, syncope Psychiatric: ABSENT: anxiety, depression, homidical ideation, suicidal ideation Endocrine: ABSENT: cold intolerance, heat intolerance, menstrual abnormalities, polydipsia, polyuria Hematologic/Lymphatic: ABSENT: easy bleeding, easy bruising, lymphadenopathy Physical Exam Vital Signs: Temp Pulse Resp BP Pulse Ox 29 H 150/63 H 100 04/02/20 19:01 04/02/20 19:01 04/02/20 19:01 Intake & Output 04/01/20 04/02/20 04/03/20 06:59 06:59 06:59 Intake Total 1 Output Total 150 Balance -149 Weight 92.5 kg General appearance: PRESENT: severe distress Head exam: PRESENT: atraumatic, normocephalic Eye exam: PRESENT: PERRLA Mouth exam: PRESENT: moist, tongue midline Neck exam: PRESENT: full ROM Respiratory exam: PRESENT: clear to auscultation nurys, rales Cardiovascular exam: PRESENT: RRR, +S1, +S2 Vascular exam: PRESENT: normal capillary refill GI/Abdominal exam: PRESENT: normal bowel sounds, soft Rectal exam: PRESENT: deferred Neurological exam: PRESENT: alert, CN II-XII grossly intact. ABSENT: motor sensory deficit Psychiatric exam: PRESENT: appropriate affect, normal mood Skin exam: PRESENT: dry, intact, warm Results Laboratory Results: 04/02/20 16:49 04/02/20 16:49 04/02/20 04/02/20 16:49 16:49 WBC 7.1 RBC 3.79 Hgb 10.4 L Hct 33.1 L MCV 87 MCH 27.5 MCHC 31.5 L RDW 16.7 H Plt Count 177 Seg Neutrophils % 75.2 Sodium 137.9 Potassium 5.9 H Chloride 104 Carbon Dioxide 22 Anion Gap 12 BUN 104 H Creatinine 4.16 H Est GFR ( Amer) 12 L Glucose 375 H Calcium 10.4 H Total Bilirubin 1.5 H AST 31 Alkaline Phosphatase 160 H Total Protein 8.5 H Albumin 4.2 04/02/20 16:49 Troponin I 0.145 NT-Pro-B Natriuret Pep 6500 H Impressions: Chest X-Ray 04/02/20 16:44 IMPRESSION: Mild patchy opacities in the right lung may represent atelectasis or developing airspace disease. Assessment & Plan - Diagnosis (1) Acute on chronic diastolic CHF (congestive heart failure), NYHA class 2 Is this a current diagnosis for this admission?: Yes Plan: She has acute on chronic diastolic heart failure, she was started on nitroglycerin infusion in the emergency room because of elevated blood pressure, she has no chest pain, she has CKD stage V, she will need gentle furosemide intravenously once we get her off of the nitro drip. (2) Pulmonary hypertension Is this a current diagnosis for this admission?: Yes (3) Type 2 diabetes mellitus with diabetic chronic kidney disease Qualifiers: Chronic kidney disease stage: stage 5, not on chronic dialysis Is this a current diagnosis for this admission?: Yes (4) Chronic kidney disease, stage 5 Is this a current diagnosis for this admission?: Yes Plan: The BUN is 104, creatinine 4.16, GFR is 12, consistent with CKD stage V, she is not acidotic anion gap is 12, K is 5.9, cardiorenal syndrome could be in play in the causation of her symptoms - Time Time Spent: Greater than 70 Minutes Medications reviewed and adjusted accordingly: Yes Anticipated Discharge Disposition: Home, Self Care Anticipated Discharge Timeframe: 7 days
[2020-04-02] MEDS: HEPARIN SOD (PORCINE) 5,000 UNIT/ML 1 ML VIAL SUBCUT SCH (20:06)
[2020-04-02 20:44] LABS: FREE T4 (FREE THYROXINE) 1.25 ng/dL (0.78-2.19)
[2020-04-02 20:58] LABS: THYROID STIMULATING HORMONE 1.36 uIU/mL (0.47-4.68)
--- NOTE | 2020-04-02 22:05 | RADIOLOGY REPORT (SQ) ---
EXAM DESCRIPTION: NM LUNG PERFUSION SCAN CLINICAL HISTORY: 84 years Female SOB positive dimer CKD TECHNIQUE: Nuclear medicine perfusion scan performed using 5.0 mCi intravenous technetium 99m MAA. 6 views of the lungs were performed. COMPARISON: Radiograph of the chest obtained earlier in the afternoon at 4:53 PM FINDINGS: Perfusion:There is homogeneous symmetric perfusion seen throughout the lung parenchyma. No moderate or large defects. IMPRESSION: Low probability for pulmonary embolism.
[2020-04-02 23:34] LABS: CREATINE KINASE MB 1.07 ng/mL (<4.55); TROPONIN I 0.133 ng/mL
[2020-04-03] MEDS: HEPARIN SOD (PORCINE) 5,000 UNIT/ML 1 ML VIAL SUBCUT SCH ×2 (02:27→10:53)
[2020-04-03 05:28] LABS: ABSOLUTE EOSINOPHILS # (AUTO) 0.1 10^3/uL (0.0-0.6); ABSOLUTE LYMPHOCYTES (AUTO) 1.4 10^3/uL (0.5-4.7); ABSOLUTE MONOCYTES (AUTO) 0.6 10^3/uL (0.1-1.4); ABSOLUTE NEUT (AUTO) 4.3 10^3/uL (1.7-8.2); BASOPHILS % (AUTO) 0.4 % (0-2); HEMATOCRIT 29.9 % (36.0-47.0); HEMOGLOBIN 9.7 g/dL (12.0-15.5); LYMPHOCYTES % (AUTO) 21.3 % (13-45); MEAN CORPUSCULAR HEMOGLOBIN 28.3 pg (27.0-33.4); MEAN CORPUSCULAR HGB CONC 32.6 g/dL (32.0-36.0); MEAN CORPUSCULAR VOLUME 87 fl (80-97); MONOCYTES % (AUTO) 8.7 % (3-13); PLATELET COUNT 148 10^3/uL (150-450); RED BLOOD COUNT 3.43 10^6/uL (3.72-5.28); RED CELL DISTRIBUTION WIDTH 16.8 % (11.5-14.0); SEGMENTED NEUTROPHILS % (AUTO) 67.6 % (42-78); TOTAL CELLS COUNTED % (AUTO) 100 %; WHITE BLOOD COUNT 6.4 10^3/uL (4.0-10.5)
[2020-04-03 05:53] LABS: ALBUMIN 3.7 g/dL (3.5-5.0); ALKALINE PHOSPHATASE 136 U/L (38-126); ASPARTATE AMINO TRANSFERASE 28 U/L (14-36); BILIRUBIN,DIRECT 0.5 mg/dL (0.0-0.4); BILIRUBIN,TOTAL 1.3 mg/dL (0.2-1.3); CREATINE KINASE 43 U/L (30-135); TOTAL PROTEIN 7.5 g/dL (6.3-8.2)
[2020-04-03 05:59] LABS: CREATINE KINASE MB 0.81 ng/mL (<4.55); TROPONIN I 0.119 ng/mL
[2020-04-03 11:06] LABS: CREATINE KINASE MB 0.69 ng/mL (<4.55); TROPONIN I 0.104 ng/mL
[2020-04-03] MEDS ORDERED: DEXLANSOPRAZOLE 30 MG PO PRN (13:32)
--- NOTE | 2020-04-03 13:42 | PDOC PROGRESS REPORT ---
Subjective Date:: 04/03/20 Subjective:: Patient seen by the bedside, she is clearly volume overloaded, she will need fur osemide, DC nitroglycerin, the medication is reconciled, start back on regular medication including Eliquis. Reason For Visit: ACUTE ON CHRONIC DIASTOLIC HEART FAILURE, ACUTE ON Physical Exam Vital Signs: Temp Pulse Resp BP Pulse Ox 98.3 F 61 19 143/105 H 98 04/03/20 07:30 04/03/20 10:06 04/03/20 07:30 04/03/20 10:06 04/03/20 07:30 Intake & Output 04/02/20 04/03/20 04/04/20 06:59 06:59 06:59 Intake Total 85 Output Total 150 Balance -65 Weight 97.9 kg General appearance: PRESENT: no acute distress Eye exam: PRESENT: PERRLA Respiratory exam: PRESENT: clear to auscultation nurys Cardiovascular exam: PRESENT: +S1, +S2 Extremities exam: PRESENT: pedal edema Neurological exam: PRESENT: alert, CN II-XII grossly intact Results Laboratory Results: 04/03/20 05:08 04/02/20 16:49 04/02/20 04/02/20 04/02/20 16:49 16:49 16:49 WBC 7.1 RBC 3.79 Hgb 10.4 L Hct 33.1 L MCV 87 MCH 27.5 MCHC 31.5 L RDW 16.7 H Plt Count 177 Seg Neutrophils % 75.2 Sodium 137.9 Potassium 5.9 H Chloride 104 Carbon Dioxide 22 Anion Gap 12 BUN 104 H Creatinine 4.16 H Est GFR ( Amer) 12 L Glucose 375 H Calcium 10.4 H Magnesium Total Bilirubin 1.5 H AST 31 Alkaline Phosphatase 160 H Total Protein 8.5 H Albumin 4.2 TSH 1.36 Free T4 1.25 04/03/20 04/03/20 05:08 05:08 WBC 6.4 RBC 3.43 L Hgb 9.7 L Hct 29.9 L MCV 87 MCH 28.3 MCHC 32.6 RDW 16.8 H Plt Count 148 L Seg Neutrophils % 67.6 Sodium Potassium Chloride Carbon Dioxide Anion Gap BUN Creatinine Est GFR ( Amer) Glucose Calcium Magnesium 2.6 H Total Bilirubin 1.3 AST 28 Alkaline Phosphatase 136 H Total Protein 7.5 Albumin 3.7 TSH Free T4 04/02/20 04/02/20 04/02/20 16:49 22:35 22:35 Creatine Kinase 52 CK-MB (CK-2) 1.07 Troponin I 0.145 0.133 NT-Pro-B Natriuret Pep 6500 H 04/03/20 04/03/20 04/03/20 05:08 05:08 10:25 Creatine Kinase 43 40 CK-MB (CK-2) 0.81 Troponin I 0.119 NT-Pro-B Natriuret Pep 04/03/20 10:25 Creatine Kinase CK-MB (CK-2) 0.69 Troponin I 0.104 NT-Pro-B Natriuret Pep Impressions: Chest X-Ray 04/02/20 16:44 IMPRESSION: Mild patchy opacities in the right lung may represent atelectasis or developing airspace disease. Lung Scan-VQ NM 04/02/20 17:43 IMPRESSION: Low probability for pulmonary embolism. Assessment & Plan - Diagnosis (1) Acute on chronic diastolic CHF (congestive heart failure), NYHA class 2 Is this a current diagnosis for this admission?: Yes Plan: She has acute on chronic diastolic heart failure, start furosemide 40 mg IV every 8 (2) Pulmonary hypertension Is this a current diagnosis for this admission?: Yes (3) Type 2 diabetes mellitus with diabetic chronic kidney disease Qualifiers: Chronic kidney disease stage: stage 5, not on chronic dialysis Is this a current diagnosis for this admission?: Yes (4) Chronic kidney disease, stage 5 Is this a current diagnosis for this admission?: Yes (5) Permanent atrial fibrillation Is this a current diagnosis for this admission?: Yes Plan: Start back patient on carvedilol for rate control, Eliquis anticoagulant for CVA prophylaxis - Time Time Spent with patient: 35 or more minutes Level of Care: IMCU Medications reviewed and adjusted accordingly: Yes Anticipated discharge: Home Anticipated DC Timeframe: Other
[2020-04-03] MEDS ORDERED: FATTY ACIDS PO SCH (13:45)
[2020-04-03] MEDS ORDERED: INSULN SQ SCH (13:45)
[2020-04-03] MEDS ORDERED: OMEGA PO SCH (13:45)
[2020-04-03] MEDS ORDERED: AMLODIPINE BESYLATE 5 MG TABLET PO SCH (13:45)
[2020-04-03] MEDS ORDERED: INSULIN DEGLUDEC 100 UNIT/ML SQ SCH (13:45)
[2020-04-03] MEDS ORDERED: [UNRECOGNIZED DRUG - OTHER] SQ SCH (13:45)
[2020-04-03] MEDS ORDERED: FUROSEMIDE INJ/PF 40 MG/4 ML SDV IV SCH (14:00)
[2020-04-03] MEDS: CARVEDILOL 12.5 MG TABLET PO SCH ×4 (14:05→17:56)
[2020-04-03] MEDS: HYDRALAZINE HCL 25 MG TABLET PO SCH ×2 (14:30→22:26)
[2020-04-03] MEDS: ALLOPURINOL 100 MG TABLET PO SCH (14:30)
[2020-04-03] MEDS: GABAPENTIN 100 MG CAPSULE PO SCH (14:30)
[2020-04-03] MEDS: CALCITRIOL 0.25 MCG CAPSULE PO SCH (14:31)
[2020-04-03] MEDS: APIXABAN 2.5 MG TABLET PO SCH ×2 (14:31→17:52)
[2020-04-03] MEDS: FERROUS SULFATE 325 MG TABLET PO SCH (17:52)
[2020-04-03] MEDS: INSULIN GLARGINE,HUM.REC.ANLOG 1,000 UNIT/10 ML VIAL SUBCUT SCH (18:03)
[2020-04-03] MEDS: FUROSEMIDE INJ/PF 40 MG/4 ML SDV IV SCH (22:27)
[2020-04-04] MEDS: HYDRALAZINE HCL 25 MG TABLET PO SCH ×3 (05:27→21:55)
[2020-04-04] MEDS: FUROSEMIDE INJ/PF 40 MG/4 ML SDV IV SCH ×3 (05:28→21:55)
[2020-04-04 06:08] LABS: ABSOLUTE EOSINOPHILS # (AUTO) 0.3 10^3/uL (0.0-0.6); ABSOLUTE LYMPHOCYTES (AUTO) 1.2 10^3/uL (0.5-4.7); ABSOLUTE MONOCYTES (AUTO) 0.4 10^3/uL (0.1-1.4); ABSOLUTE NEUT (AUTO) 2.8 10^3/uL (1.7-8.2); BASOPHILS % (AUTO) 0.7 % (0-2); EOSINOPHILS % (AUTO) 5.7 % (0-6); HEMATOCRIT 30.6 % (36.0-47.0); HEMOGLOBIN 9.6 g/dL (12.0-15.5); LYMPHOCYTES % (AUTO) 25.6 % (13-45); MEAN CORPUSCULAR HEMOGLOBIN 27.5 pg (27.0-33.4); MEAN CORPUSCULAR HGB CONC 31.5 g/dL (32.0-36.0); MEAN CORPUSCULAR VOLUME 87 fl (80-97); MONOCYTES % (AUTO) 8.3 % (3-13); PLATELET COUNT 141 10^3/uL (150-450); RED CELL DISTRIBUTION WIDTH 16.2 % (11.5-14.0); SEGMENTED NEUTROPHILS % (AUTO) 59.7 % (42-78); TOTAL CELLS COUNTED % (AUTO) 100 %; WHITE BLOOD COUNT 4.6 10^3/uL (4.0-10.5)
[2020-04-04 07:24] LABS: ALBUMIN 3.3 g/dL (3.5-5.0); ALKALINE PHOSPHATASE 121 U/L (38-126); ANION GAP 10 (5-19); ASPARTATE AMINO TRANSFERASE 23 U/L (14-36); BILIRUBIN,DIRECT 0.5 mg/dL (0.0-0.4); BLOOD UREA NITROGEN 109 mg/dL (7-20); CALCIUM 9.7 mg/dL (8.4-10.2); CARBON DIOXIDE 26 mmol/L (22-30); CHLORIDE 107 mmol/L (98-107); GLUCOSE 111 mg/dL (75-110); POTASSIUM 4.6 mmol/L (3.6-5.0); TOTAL PROTEIN 6.8 g/dL (6.3-8.2)
[2020-04-04] MEDS: APIXABAN 2.5 MG TABLET PO SCH ×2 (10:20→17:14)
[2020-04-04] MEDS: OMEGA-3 ACID ETHYL ESTERS 1 GM CAPSULE PO SCH (10:21)
[2020-04-04] MEDS: FERROUS SULFATE 325 MG TABLET PO SCH ×2 (10:21→17:14)
[2020-04-04] MEDS: CALCITRIOL 0.25 MCG CAPSULE PO SCH (10:21)
[2020-04-04] MEDS: PANTOPRAZOLE SODIUM 20 MG TABLET.DR PO SCH (10:21)
[2020-04-04] MEDS: ALLOPURINOL 100 MG TABLET PO SCH (10:21)
[2020-04-04] MEDS: GABAPENTIN 100 MG CAPSULE PO SCH (10:21)
[2020-04-04] MEDS: CARVEDILOL 12.5 MG TABLET PO SCH ×2 (10:39→17:13)
[2020-04-04] MEDS ORDERED: DEXTROSE 50%-WATER SYRINGE 12.5 GM/25 ML DOSE IV PRN (11:00)
[2020-04-04] MEDS ORDERED: DEXTROSE 40% GEL 15 GM TUBE PO PRN (11:00)
[2020-04-04] MEDS ORDERED: DEXTROSE 50%-WATER SYRINGE 25 GM/50 ML DOSE IV PRN (11:00)
[2020-04-04] MEDS ORDERED: GLUCAGON,HUMAN RECOMB 1 MG INJ IM PRN (11:00)
[2020-04-04] MEDS ORDERED: DEXTROSE 40% GEL 15 GM TUBE X 2 PO PRN (11:00)
[2020-04-04] MEDS: INSULIN LISPRO 100 UNIT/ML 3 ML VIAL SUBCUT SCH ×3 (13:13→21:56)
[2020-04-04] MEDS: INSULIN GLARGINE,HUM.REC.ANLOG 1,000 UNIT/10 ML VIAL SUBCUT SCH (17:15)
[2020-04-04 18:40] LABS: APPEARANCE,URINE TURBID; BILIRUBIN,URINE NEGATIVE (NEGATIVE); COLOR,URINE YELLOW; GLUCOSE, URINE NEGATIVE (NEGATIVE); KETONES,URINE NEGATIVE (NEGATIVE); LEUKOCYTE ESTERASE,URINE LARGE (NEGATIVE); NITRITE,URINE NEGATIVE (NEGATIVE); PROTEIN,URINE 30 mg/dL (NEGATIVE); URINE SPECIFIC GRAVITY 1.009; UROBILINOGEN,URINE NEGATIVE mg/dL (<2.0)
--- NOTE | 2020-04-04 20:00 | PDOC PROGRESS REPORT ---
Subjective Date:: 04/04/20 Subjective:: Patient seen by the bedside, she is clearly volume overloaded, she will need fur osemide, DC nitroglycerin, the medication is reconciled, start back on regular medication including Eliquis. 04/04/2020 Patient looks better today clearly she needs the diuretic, she was volume over loaded on admission ,presently on furosemide 40 mg IV every 8. She has severe bradycardia, patient stated that treating green end man discontinue the beta- chente, she was supposed to be taking amlodipine once a day, there was confusion with medication that was reconciled, the reconciled medication indicated that she ought to be on Coreg Reason For Visit: ACUTE ON CHRONIC DIASTOLIC HEART FAILURE, ACUTE ON Physical Exam Vital Signs: Temp Pulse Resp BP Pulse Ox 97.8 F 45 L 18 124/48 L 98 04/04/20 15:14 04/04/20 15:14 04/04/20 15:14 04/04/20 15:14 04/04/20 15:14 Intake & Output 04/03/20 04/04/20 04/05/20 06:59 06:59 06:59 Intake Total 85 335 860 Output Total 243 853 1315 Balance -65 35 -240 Weight 97.9 kg 102.6 kg 102.6 kg General appearance: PRESENT: no acute distress Eye exam: PRESENT: PERRLA Respiratory exam: PRESENT: clear to auscultation nurys Cardiovascular exam: PRESENT: +S1, +S2 GI/Abdominal exam: PRESENT: soft Neurological exam: PRESENT: alert Results Laboratory Results: 04/04/20 05:25 04/04/20 05:25 04/04/20 04/04/20 04/04/20 05:25 05:25 18:00 WBC 4.6 RBC 3.50 L Hgb 9.6 L Hct 30.6 L MCV 87 MCH 27.5 MCHC 31.5 L RDW 16.2 H Plt Count 141 L Seg Neutrophils % 59.7 Sodium 143.2 Potassium 4.6 Chloride 107 Carbon Dioxide 26 Anion Gap 10 BUN 109 H Creatinine 3.79 H Est GFR ( Amer) 14 L Glucose 111 H Calcium 9.7 Total Bilirubin 1.0 AST 23 Alkaline Phosphatase 121 Total Protein 6.8 Albumin 3.3 L Urine Color YELLOW Urine Appearance TURBID Urine pH 5.0 Ur Specific Curlew 1.009 Urine Protein 30 H Urine Glucose (UA) NEGATIVE Urine Ketones NEGATIVE Urine Blood MODERATE H Urine Nitrite NEGATIVE Ur Leukocyte Esterase LARGE H Urine WBC (Auto) >182 Urine RBC (Auto) 22 04/02/20 04/02/20 04/02/20 16:49 22:35 22:35 Creatine Kinase 52 CK-MB (CK-2) 1.07 Troponin I 0.145 0.133 NT-Pro-B Natriuret Pep 6500 H 04/03/20 04/03/20 04/03/20 05:08 05:08 10:25 Creatine Kinase 43 40 CK-MB (CK-2) 0.81 Troponin I 0.119 NT-Pro-B Natriuret Pep 04/03/20 10:25 Creatine Kinase CK-MB (CK-2) 0.69 Troponin I 0.104 NT-Pro-B Natriuret Pep Impressions: Chest X-Ray 04/02/20 16:44 IMPRESSION: Mild patchy opacities in the right lung may represent atelectasis or developing airspace disease. Lung Scan-VQ NM 04/02/20 17:43 IMPRESSION: Low probability for pulmonary embolism. Assessment & Plan - Diagnosis (1) Acute on chronic diastolic CHF (congestive heart failure), NYHA class 2 Is this a current diagnosis for this admission?: Yes Plan: She has acute on chronic diastolic heart failure, continue furosemide 40 mg IV every 8 (2) Pulmonary hypertension Is this a current diagnosis for this admission?: Yes (3) Type 2 diabetes mellitus with diabetic chronic kidney disease Qualifiers: Chronic kidney disease stage: stage 5, not on chronic dialysis Is this a current diagnosis for this admission?: Yes (4) Chronic kidney disease, stage 5 Is this a current diagnosis for this admission?: Yes Plan: improved kidney function (5) Permanent atrial fibrillation Is this a current diagnosis for this admission?: Yes Plan: , Eliquis anticoagulant for CVA prophylaxis,She will need AV node blockade to control A. fib rate - Time Time Spent with patient: 35 or more minutes Level of Care: IMCU Medications reviewed and adjusted accordingly: Yes Anticipated discharge: Home Anticipated DC Timeframe: within 72 hours
[2020-04-05] MEDS: FUROSEMIDE INJ/PF 40 MG/4 ML SDV IV SCH ×3 (05:17→21:27)
[2020-04-05] MEDS: HYDRALAZINE HCL 25 MG TABLET PO SCH ×3 (05:18→21:27)
[2020-04-05] MEDS: INSULIN LISPRO 100 UNIT/ML 3 ML VIAL SUBCUT SCH ×4 (08:39→21:24)
[2020-04-05] MEDS: PANTOPRAZOLE SODIUM 20 MG TABLET.DR PO SCH (09:30)
[2020-04-05] MEDS: GABAPENTIN 100 MG CAPSULE PO SCH (09:30)
[2020-04-05] MEDS: ALLOPURINOL 100 MG TABLET PO SCH (09:31)
[2020-04-05] MEDS: OMEGA-3 ACID ETHYL ESTERS 1 GM CAPSULE PO SCH (09:31)
[2020-04-05] MEDS: APIXABAN 2.5 MG TABLET PO SCH ×2 (09:31→17:13)
[2020-04-05] MEDS: CALCITRIOL 0.25 MCG CAPSULE PO SCH (09:31)
[2020-04-05] MEDS: FERROUS SULFATE 325 MG TABLET PO SCH ×2 (09:31→17:13)
[2020-04-05 14:24] LABS: ALBUMIN 3.2 g/dL (3.5-5.0); ALKALINE PHOSPHATASE 131 U/L (38-126); ANION GAP 12 (5-19); ASPARTATE AMINO TRANSFERASE 22 U/L (14-36); BILIRUBIN,DIRECT 0.4 mg/dL (0.0-0.4); BILIRUBIN,TOTAL 0.8 mg/dL (0.2-1.3); BLOOD UREA NITROGEN 98 mg/dL (7-20); CALCIUM 9.3 mg/dL (8.4-10.2); CARBON DIOXIDE 27 mmol/L (22-30); CHLORIDE 102 mmol/L (98-107); GLUCOSE 320 mg/dL (75-110); POTASSIUM 4.1 mmol/L (3.6-5.0); TOTAL PROTEIN 6.6 g/dL (6.3-8.2)
--- NOTE | 2020-04-05 15:04 | EKG REPORT ---
SEVERITY:- ABNORMAL ECG - SINUS BRADYCARDIA ATRIAL PREMATURE COMPLEX LAFB RIGHT BUNDLE BRANCH BLOCK LVH WITH IVCD AND SECONDARY REPOL ABNRM : Confirmed by: Dexter García MD 05-Apr-2020 15:03:50
[2020-04-05] MEDS: INSULIN GLARGINE,HUM.REC.ANLOG 1,000 UNIT/10 ML VIAL SUBCUT SCH (17:12)
--- NOTE | 2020-04-05 19:01 | PDOC PROGRESS REPORT ---
Subjective Date:: 04/05/20 Subjective:: Patient seen by the bedside, she is clearly volume overloaded, she will need fur osemide, DC nitroglycerin, the medication is reconciled, start back on regular medication including Eliquis. 04/04/2020 Patient looks better today clearly she needs the diuretic, she was volume over loaded on admission ,presently on furosemide 40 mg IV every 8. She has severe bradycardia, patient stated that treating client director discontinue the beta- chente, she was supposed to be taking amlodipine once a day, there was confusion with medication that was reconciled, the reconciled medication indicated that she ought to be on Coreg 04/05/2020 Patient improving with therapy, kidney function is better than admission Reason For Visit: ACUTE ON CHRONIC DIASTOLIC HEART FAILURE, ACUTE ON Physical Exam Vital Signs: Temp Pulse Resp BP Pulse Ox 98.1 F 51 L 20 155/65 H 97 04/05/20 16:02 04/05/20 16:02 04/05/20 16:02 04/05/20 16:02 04/05/20 16:02 Intake & Output 04/04/20 04/05/20 04/06/20 06:59 06:59 06:59 Intake Total 335 1120 660 Output Total 300 2600 1400 Balance 35 -1480 -740 Weight 102.6 kg 96.9 kg General appearance: PRESENT: no acute distress Eye exam: PRESENT: PERRLA Respiratory exam: PRESENT: clear to auscultation nurys Cardiovascular exam: PRESENT: +S1, +S2 GI/Abdominal exam: PRESENT: soft Neurological exam: PRESENT: alert Results Laboratory Results: 04/04/20 05:25 04/05/20 13:45 04/05/20 13:45 Sodium 140.8 Potassium 4.1 Chloride 102 Carbon Dioxide 27 Anion Gap 12 BUN 98 H Creatinine 3.31 H Est GFR ( Amer) 16 L Glucose 320 H Calcium 9.3 Total Bilirubin 0.8 AST 22 Alkaline Phosphatase 131 H Total Protein 6.6 Albumin 3.2 L 04/02/20 04/02/20 04/02/20 16:49 22:35 22:35 Creatine Kinase 52 CK-MB (CK-2) 1.07 Troponin I 0.145 0.133 NT-Pro-B Natriuret Pep 6500 H 04/03/20 04/03/20 04/03/20 05:08 05:08 10:25 Creatine Kinase 43 40 CK-MB (CK-2) 0.81 Troponin I 0.119 NT-Pro-B Natriuret Pep 04/03/20 10:25 Creatine Kinase CK-MB (CK-2) 0.69 Troponin I 0.104 NT-Pro-B Natriuret Pep Impressions: Chest X-Ray 04/02/20 16:44 IMPRESSION: Mild patchy opacities in the right lung may represent atelectasis or developing airspace disease. Lung Scan-VQ NM 04/02/20 17:43 IMPRESSION: Low probability for pulmonary embolism. Assessment & Plan - Diagnosis (1) Acute on chronic diastolic CHF (congestive heart failure), NYHA class 2 Is this a current diagnosis for this admission?: Yes Plan: She has acute on chronic diastolic heart failure, continue furosemide 40 mg IV every 8 (2) Pulmonary hypertension Is this a current diagnosis for this admission?: Yes (3) Type 2 diabetes mellitus with diabetic chronic kidney disease Qualifiers: Chronic kidney disease stage: stage 5, not on chronic dialysis Is this a current diagnosis for this admission?: Yes (4) Chronic kidney disease, stage 5 Is this a current diagnosis for this admission?: Yes (5) Permanent atrial fibrillation Is this a current diagnosis for this admission?: Yes Plan: , Eliquis anticoagulant for CVA prophylaxis,She will need AV node blockade to control A. fib rate (6) Cardiorenal syndrome with renal failure Is this a current diagnosis for this admission?: Yes Plan: There is a component of cardiorenal syndrome in this patient at presentation the GFR was below 15 consistent with stage V CKD, the inability of the kidney to regulate water balance could be a contributing factor in the excessive preload in this patient since she has been on furosemide 40 mg IV every 8 the serum creatinine as actually improved - Time Time Spent with patient: 35 or more minutes Level of Care: IMCU Medications reviewed and adjusted accordingly: Yes Anticipated discharge: Home Anticipated DC Timeframe: within 72 hours
[2020-04-06] MEDS: HYDRALAZINE HCL 25 MG TABLET PO SCH ×3 (05:42→22:13)
[2020-04-06] MEDS: FUROSEMIDE INJ/PF 40 MG/4 ML SDV IV SCH ×3 (05:42→22:13)
[2020-04-06 07:11] LABS: ABSOLUTE EOSINOPHILS # (AUTO) 0.3 10^3/uL (0.0-0.6); ABSOLUTE LYMPHOCYTES (AUTO) 1.6 10^3/uL (0.5-4.7); ABSOLUTE MONOCYTES (AUTO) 0.5 10^3/uL (0.1-1.4); ABSOLUTE NEUT (AUTO) 3.2 10^3/uL (1.7-8.2); BASOPHILS % (AUTO) 0.6 % (0-2); EOSINOPHILS % (AUTO) 5.9 % (0-6); HEMATOCRIT 35.2 % (36.0-47.0); HEMOGLOBIN 11.2 g/dL (12.0-15.5); MEAN CORPUSCULAR HEMOGLOBIN 27.5 pg (27.0-33.4); MEAN CORPUSCULAR HGB CONC 31.8 g/dL (32.0-36.0); MEAN CORPUSCULAR VOLUME 86 fl (80-97); MONOCYTES % (AUTO) 8.9 % (3-13); PLATELET COUNT 162 10^3/uL (150-450); RED BLOOD COUNT 4.07 10^6/uL (3.72-5.28); RED CELL DISTRIBUTION WIDTH 15.7 % (11.5-14.0); SEGMENTED NEUTROPHILS % (AUTO) 56.6 % (42-78); TOTAL CELLS COUNTED % (AUTO) 100 %; WHITE BLOOD COUNT 5.7 10^3/uL (4.0-10.5)
[2020-04-06 07:37] LABS: ALBUMIN 3.5 g/dL (3.5-5.0); ALKALINE PHOSPHATASE 146 U/L (38-126); ANION GAP 12 (5-19); ASPARTATE AMINO TRANSFERASE 24 U/L (14-36); BILIRUBIN,DIRECT 0.4 mg/dL (0.0-0.4); BLOOD UREA NITROGEN 92 mg/dL (7-20); CARBON DIOXIDE 31 mmol/L (22-30); CHLORIDE 100 mmol/L (98-107); GLUCOSE 87 mg/dL (75-110); POTASSIUM 3.8 mmol/L (3.6-5.0); TOTAL PROTEIN 7.3 g/dL (6.3-8.2)
[2020-04-06] MEDS: INSULIN LISPRO 100 UNIT/ML 3 ML VIAL SUBCUT SCH ×5 (08:22→22:12)
[2020-04-06] MEDS: PANTOPRAZOLE SODIUM 20 MG TABLET.DR PO SCH (11:55)
[2020-04-06] MEDS: FERROUS SULFATE 325 MG TABLET PO SCH ×2 (11:56→17:01)
[2020-04-06] MEDS: OMEGA-3 ACID ETHYL ESTERS 1 GM CAPSULE PO SCH (11:56)
[2020-04-06] MEDS: CALCITRIOL 0.25 MCG CAPSULE PO SCH (11:56)
[2020-04-06] MEDS: APIXABAN 2.5 MG TABLET PO SCH ×2 (11:56→17:01)
[2020-04-06] MEDS: GABAPENTIN 100 MG CAPSULE PO SCH (11:56)
[2020-04-06] MEDS: ALLOPURINOL 100 MG TABLET PO SCH (11:56)
[2020-04-06] MEDS ORDERED: BISACODYL 5 MG TABEC PO ONE (15:45)
[2020-04-06] MEDS ORDERED: DOCUSATE SODIUM 100 MG CAPSULE PO ONE (15:45)
--- NOTE | 2020-04-06 16:21 | RADIOLOGY REPORT (SQ) ---
EXAM DESCRIPTION: KUB/ABDOMEN (SINGLE VIEW) IMAGES COMPLETED DATE/TIME: 04/06/2020 4:13 pm REASON FOR STUDY: right side abd pain COMPARISON: None. NUMBER OF VIEWS: One view. TECHNIQUE: Supine radiographic image of the abdomen acquired. LIMITATIONS: None. FINDINGS: BOWEL GAS PATTERN: Normal bowel gas pattern. No dilated loops. CALCIFICATIONS: No suspicious calcifications. SOFT TISSUES: No gross mass or suggestion of organomegaly. HARDWARE: None in the abdomen. BONES: No acute fracture. No worrisome bone lesions. OTHER: No other significant finding. IMPRESSION: NO RADIOGRAPHIC EVIDENCE FOR ACUTE ABDOMINAL DISEASE. TECHNICAL DOCUMENTATION: JOB ID: [id number] 2010 [employer]- All Rights Reserved Reading location - IP/workstation name: [email or web address]
--- NOTE | 2020-04-06 17:39 | PDOC PROGRESS REPORT ---
Subjective Date:: 04/06/20 Subjective:: Patient reported no bowel movement since admission 4 days ago. There is associat ed left quadrant pain. No nausea or vomiting. Appetite and PO intake fair but decrease today due to abdominal pain. No fever or chills. No chest pain or difficulty with breathing. Reason For Visit: ACUTE ON CHRONIC DIASTOLIC HEART FAILURE, ACUTE ON Physical Exam Vital Signs: Temp Pulse Resp BP Pulse Ox 97.9 F 68 18 101/56 L 98 04/06/20 15:10 04/06/20 15:10 04/06/20 15:10 04/06/20 15:10 04/06/20 15:10 Intake & Output 04/05/20 04/06/20 04/07/20 06:59 06:59 06:59 Intake Total 1120 660 480 Output Total 2600 3050 600 Balance -1480 -2390 -120 Weight 96.9 kg 99.6 kg General appearance: PRESENT: no acute distress, obese Head exam: PRESENT: atraumatic, normocephalic Mouth exam: PRESENT: moist Respiratory exam: PRESENT: clear to auscultation nurys, decreased breath sounds - at lung bases Cardiovascular exam: PRESENT: RRR, +S1, +S2. ABSENT: diastolic murmur, rubs Murmur grade: 3 Vascular exam: ABSENT: pallor GI/Abdominal exam: PRESENT: normal bowel sounds, soft. ABSENT: tenderness Extremities exam: ABSENT: pedal edema Psychiatric exam: PRESENT: appropriate affect Skin exam: PRESENT: dry, warm Results Laboratory Results: 04/06/20 06:35 04/06/20 06:35 04/06/20 04/06/20 06:35 06:35 WBC 5.7 RBC 4.07 Hgb 11.2 L Hct 35.2 L MCV 86 MCH 27.5 MCHC 31.8 L RDW 15.7 H Plt Count 162 Seg Neutrophils % 56.6 Sodium 143.0 Potassium 3.8 Chloride 100 Carbon Dioxide 31 H Anion Gap 12 BUN 92 H Creatinine 3.04 H Est GFR ( Amer) 18 L Glucose 87 Calcium 10.0 Total Bilirubin 1.0 AST 24 Alkaline Phosphatase 146 H Total Protein 7.3 Albumin 3.5 04/04/20 18:00 Catheterized Urine Urine Culture - Final Escherichia Coli 04/02/20 04/02/20 04/02/20 16:49 22:35 22:35 Creatine Kinase 52 CK-MB (CK-2) 1.07 Troponin I 0.145 0.133 NT-Pro-B Natriuret Pep 6500 H 04/03/20 04/03/20 04/03/20 05:08 05:08 10:25 Creatine Kinase 43 40 CK-MB (CK-2) 0.81 Troponin I 0.119 NT-Pro-B Natriuret Pep 04/03/20 10:25 Creatine Kinase CK-MB (CK-2) 0.69 Troponin I 0.104 NT-Pro-B Natriuret Pep Impressions: Chest X-Ray 04/02/20 16:44 IMPRESSION: Mild patchy opacities in the right lung may represent atelectasis or developing airspace disease. Lung Scan-VQ NM 04/02/20 17:43 IMPRESSION: Low probability for pulmonary embolism. KUB X-Ray 04/06/20 15:06 IMPRESSION: NO RADIOGRAPHIC EVIDENCE FOR ACUTE ABDOMINAL DISEASE. Assessment & Plan - Diagnosis (1) Acute on chronic diastolic CHF (congestive heart failure), NYHA class 2 Is this a current diagnosis for this admission?: Yes Plan: Continue current medication management. Decrease IV Furosemide to 40 mg q 12 hours. (2) Chronic kidney disease, stage 5 Is this a current diagnosis for this admission?: Yes Plan: Continue current medication management. Request nephrology consultation in view of her worsening renal function and fluid over load associated recurrent admission. (3) Longstanding persistent atrial fibrillation Is this a current diagnosis for this admission?: Yes Plan: Maintain on Eliquis for anticoagulation management. (4) HTN (hypertension) Qualifiers: Hypertension type: essential hypertension Qualified Code(s): I10 - Essential (primary) hypertension Is this a current diagnosis for this admission?: Yes Plan: Maintain on current medication management. 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, without long-term current use of insulin Qualifiers: Chronic kidney disease stage: stage 5, not on chronic dialysis Qualified Code(s): E08.22 - Diabetes mellitus due to underlying condition with diabetic chronic kidney disease; N18.5 - Chronic kidney disease, stage 5 Is this a current diagnosis for this admission?: Yes Plan: Maintain on current medication management. (6) Constipation Qualifiers: Constipation type: unspecified constipation type Qualified Code(s): K59.00 - Constipation, unspecified Is this a current diagnosis for this admission?: Yes Plan: Continue current medication management. Follow up on bowel movement after administration of Colace and Ducolax suppository. - Time Time Spent with patient: 25-34 minutes Level of Care: IMCU Medications reviewed and adjusted accordingly: Yes Anticipated discharge: Home with Homehealth Anticipated DC Timeframe: within 72 hours - Inpatient Certification Based on my medical assessment, after consideration of the patient's comorbidities, presenting symptoms, or acuity I expect that the services needed warrant INPATIENT care.: Yes I certify that my determination is in accordance with my understanding of Medicare's requirements for reasonable and necessary INPATIENT services [42 CFR 412.3e].: Yes Medical Necessity: Significant Comorbidiites Make Outpatient Treatment Too Risky, Need Close Monitoring Due to Risk of Patient Decompensation, Need For Continuous Telemetry Monitoring, Risk of Complication if Not Cared For in Hospital, Risk of Diagnosis Which Will Require Inpatient Eval/Care/Monitoring Post Hospital Care: D/C Warehouse Representative Documentation - Plan Summary Plan Summary: Continue current management . See attending physician orders for care plan details.
[2020-04-06] MEDS: INSULIN GLARGINE,HUM.REC.ANLOG 1,000 UNIT/10 ML VIAL SUBCUT SCH (18:23)
[2020-04-06] MEDS: MAGNESIUM OXIDE 400 MG TABLET PO SCH (18:23)
[2020-04-07] MEDS: HYDRALAZINE HCL 25 MG TABLET PO SCH ×3 (06:43→21:38)
[2020-04-07] MEDS: INSULIN LISPRO 100 UNIT/ML 3 ML VIAL SUBCUT SCH ×4 (08:54→21:39)
[2020-04-07] MEDS: FUROSEMIDE INJ/PF 40 MG/4 ML SDV IV SCH (10:11)
[2020-04-07] MEDS: CALCITRIOL 0.25 MCG CAPSULE PO SCH (10:11)
[2020-04-07] MEDS: GABAPENTIN 100 MG CAPSULE PO SCH (10:12)
[2020-04-07] MEDS: ALLOPURINOL 100 MG TABLET PO SCH (10:12)
[2020-04-07] MEDS: FERROUS SULFATE 325 MG TABLET PO SCH ×2 (10:13→17:27)
[2020-04-07] MEDS: OMEGA-3 ACID ETHYL ESTERS 1 GM CAPSULE PO SCH (10:13)
[2020-04-07] MEDS: APIXABAN 2.5 MG TABLET PO SCH ×2 (10:14→17:27)
[2020-04-07] MEDS: PANTOPRAZOLE SODIUM 20 MG TABLET.DR PO SCH (10:14)
[2020-04-07] MEDS: MAGNESIUM OXIDE 400 MG TABLET PO SCH ×2 (10:14→17:27)
--- NOTE | 2020-04-07 11:26 | PDOC CONSULTATION ---
Consultation Consult Date: 04/07/20 Provider Consulted: David GALLEGOS Consult reason:: FIORELLA on CKD 4. History of Present Illness Admission Date/PCP: 04/02/20 18:23 GABRIELLA SHOOK History of Present Illness: [place] Nura KAYE is a 84 year old female with a past medical history that is significant for CKD stage IV with base creatinine around 2 in the background of longstanding diabetes mellitus/hypertension with other comorbidities that includes congestive heart failure with preserved LV function but having severe pulmonary hypertension, gout was admitted with history of progressive edema and shortness of breath. She had recently been discharged from the hospital around of this month after similar presentation and acute on chronic kidney disease. She was discharged with a creatinine of 1.9 and then she was readmitted on the with a creatinine of 4.1 in congestive heart failure. She has been put on IV diuretics and is making good urinary output with decremental improvement in her creatinine which is now at 3.1. Overall she feels a whole lot better but for the fact that she is not able to mobilize as much as she would like to because she is not getting any help from apparently physical therapy. She has a good appetite and eating well. She had some constipation issues which have now resolved. Her breathing with walking intermittently is a whole lot better than when she came in. She denies any history of chest pains, fever or chills. No urinary obstructive symptoms. Labs and medications were reviewed. Past Medical History Cardiac Medical History: Reports: Atrial Fibrillation, Hyperlipidemia, Hypertension-primary, Myocardial Infarction, Other - Chronic diastolic heart failure Denies: Coronary Artery Disease Pulmonary Medical History: Reports: Sleep Apnea, Other - Severe pulmonary hypertension Denies: Asthma, Bronchitis, Chronic Obstructive Pulmonary Disease (COPD), Pneumonia, Tuberculosis Neurological Medical History: Denies: Seizures Endocrine Medical History: Reports: Diabetes Mellitus Type 2 Renal/ Medical History: Reports: Chronic Kidney Disease Stage IV, Secondary Hyperparathyroidism GI Medical History: Reports: Gastroesophageal Reflux Disease Musculoskeltal Medical History: Reports: Arthritis - KNEES & ARMS & HANDS, OSTEOARTHRITIS, Gout Psychiatric Medical History: Denies: Depression Past Surgical History Past Surgical History: Denies: Hysterectomy Social History Smoking Status: Unknown if Ever Smoked Frequency of Alcohol Use: None Hx Recreational Drug Use: No Drugs: None Hx Prescription Drug Abuse: No Family History Parental Family History Reviewed: Yes - Negative for ESRD Children Family History Reviewed: No Sibling(s) Family History Reviewed.: No Medication/Allergy Home Medications: Insulin Aspart [Novolog Flexpen] 0 units SQ .PERSLIDINGSCALE 02/28/18 Irbesartan [Avapro] 300 mg PO DAILY 02/28/18 Nateglinide [Starlix] 120 mg PO TID 02/28/18 Allopurinol [Zyloprim 100 mg Tablet] 100 mg PO DAILY #30 tablet 04/12/18 Apixaban [Eliquis 2.5 mg Tablet] 2.5 mg PO BID #60 tablet 04/12/18 Ferrous Sulfate [Feosol 325 mg Tablet] 325 mg PO BIDPCBS #60 tablet 04/12/18 Hydralazine HCl [Apresoline 25 mg Tablet] 25 mg PO Q8 #90 tablet 04/12/18 Calcitriol [Rocaltrol 0.25 mcg Capsule] 0.25 mcg PO DAILY 03/17/20 Carvedilol [Coreg 12.5 mg Tablet] 12.5 mg PO BID 03/17/20 Dexlansoprazole [Dexilant 30 mg Capsule] 30 mg PO QAMP PRN 03/17/20 Gabapentin [Neurontin 100 mg Capsule] 100 mg PO DAILY 03/17/20 Insulin Degludec [Tresiba Flextouch U-100] 25 units SQ DAILY 03/17/20 Magnesium Oxide [Mag-Ox 400 mg Tablet] 400 mg PO BID 03/17/20 Amlodipine Besylate [Norvasc 5 mg Tablet] 5 mg PO Q12 #60 tablet 03/20/20 Furosemide [Lasix 20 mg Tablet] 20 mg PO BID #60 03/20/20 Malcom-3 Fatty Acids [Malcom-3] 1,000 mg PO DAILY 04/03/20 Allergies/Adverse Reactions: oxycodone [Oxycodone] Allergy (Verified 04/09/18 12:02) Review of Systems Constitutional: PRESENT: fatigue, weakness. ABSENT: anorexia, chills, fever(s), headache(s), night sweats Nose, Mouth, and Throat: ABSENT: mouth pain, sore throat Cardiovascular: PRESENT: dyspnea on exertion, edema, orthropnea. ABSENT: chest pain Respiratory: PRESENT: dyspnea. ABSENT: cough, hemoptysis Gastrointestinal: PRESENT: constipation. ABSENT: abdominal pain, diarrhea, dysphagia, heartburn, hematochezia, nausea, vomiting Genitourinary: ABSENT: difficulty urinating, dysuria, hematuria Musculoskeletal: ABSENT: deformity, joint swelling Integumentary: ABSENT: lesions, pruritus, rash Neurological: ABSENT: abnormal movements, abnormal speech, confusion, focal weakness, frequent falls Psychiatric: ABSENT: depression Hematologic/Lymphatic: ABSENT: easy bruising, lymphadenopathy Physical Exam Vital Signs: Temp Pulse Resp BP Pulse Ox 98.2 F 88 14 103/50 L 92 04/07/20 08:48 04/07/20 07:00 04/07/20 03:10 04/07/20 03:10 04/07/20 03:10 Intake & Output 04/06/20 04/07/20 04/08/20 06:59 06:59 06:59 Intake Total 660 980 Output Total 3050 1800 Balance -2390 -820 Weight 99.6 kg 99 kg General appearance: PRESENT: no acute distress Eye exam: PRESENT: EOMI, PERRLA. ABSENT: scleral icterus Ear exam: PRESENT: normal external ear exam Mouth exam: PRESENT: moist, neck supple Neck exam: ABSENT: meningismus, tenderness, thyromegaly, tracheal deviation Respiratory exam: PRESENT: clear to auscultation nurys, decreased breath sounds. ABSENT: crackles Cardiovascular exam: PRESENT: +S1, +S2 GI/Abdominal exam: PRESENT: normal bowel sounds, soft. ABSENT: organomegaly, tenderness Extremities exam: PRESENT: +1 edema Neurological exam: PRESENT: alert, awake, oriented to person, oriented to place Psychiatric exam: PRESENT: appropriate affect Skin exam: PRESENT: mottled - Venous stasis changes seen.. ABSENT: erythema, rash Results Laboratory Results: 04/06/20 06:35 04/06/20 06:35 04/04/20 18:00 Catheterized Urine Urine Culture - Final Escherichia Coli 04/02/20 04/02/20 04/02/20 16:49 22:35 22:35 Creatine Kinase 52 CK-MB (CK-2) 1.07 Troponin I 0.145 0.133 NT-Pro-B Natriuret Pep 6500 H 04/03/20 04/03/20 04/03/20 05:08 05:08 10:25 Creatine Kinase 43 40 CK-MB (CK-2) 0.81 Troponin I 0.119 NT-Pro-B Natriuret Pep 04/03/20 10:25 Creatine Kinase CK-MB (CK-2) 0.69 Troponin I 0.104 NT-Pro-B Natriuret Pep Impressions: Chest X-Ray 04/02/20 16:44 IMPRESSION: Mild patchy opacities in the right lung may represent atelectasis or developing airspace disease. Lung Scan-VQ NM 04/02/20 17:43 IMPRESSION: Low probability for pulmonary embolism. KUB X-Ray 04/06/20 15:06 IMPRESSION: NO RADIOGRAPHIC EVIDENCE FOR ACUTE ABDOMINAL DISEASE. Assessment & Plan - Diagnosis (1) FIORELLA (acute kidney injury) Plan: Patient has decompensated acute kidney insult on top of CKD stage IV in the presence of prerenal congestive heart failure. With improving diuresis her renal numbers are getting better. I would continue on current guidelines. No acute indications for renal replacements. Discussed at length about dietary modifications that she has to institute at home besides tight blood sugar and blood pressure control. (2) Acute on chronic diastolic CHF (congestive heart failure), NYHA class 2 Is this a current diagnosis for this admission?: Yes Plan: Presently improving on current diuretic and other medication regimens. Advised on proper dietary modifications. 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 (4) Pulmonary hypertension Is this a current diagnosis for this admission?: Yes Plan: Status quo. Being managed by Dr. Shook. (5) CKD (chronic kidney disease) stage 4, GFR 15-29 ml/min Plan: In the face of diabetic/hypertensive nephropathy. Now with acute insult on top of her underlying baseline kidney disease which is now improving. Monitor. No indications for renal replacements. (6) Chronic atrial fibrillation Plan: On anticoagulation. (7) Essential hypertension Plan: Well controlled. Monitor.
[2020-04-07] MEDS: INSULIN GLARGINE,HUM.REC.ANLOG 1,000 UNIT/10 ML VIAL SUBCUT SCH (17:27)
--- NOTE | 2020-04-07 18:52 | PDOC PROGRESS REPORT ---
Subjective Date:: 04/07/20 Subjective:: Patient reported satisfactory bowel movement since last clinical evaluation by merlene ann. She reported resolution of her abdominal pain. No nausea or vomiting. No fever or chills. No chest pain or difficulty with breathing. Reason For Visit: ACUTE ON CHRONIC DIASTOLIC HEART FAILURE, ACUTE ON Physical Exam Vital Signs: Temp Pulse Resp BP Pulse Ox 98.3 F 61 18 120/41 L 95 04/07/20 16:18 04/07/20 16:18 04/07/20 16:18 04/07/20 16:18 04/07/20 16:18 Intake & Output 04/06/20 04/07/20 04/08/20 06:59 06:59 06:59 Intake Total 660 980 640 Output Total 3050 1800 280 Balance -2390 -820 360 Weight 99.6 kg 99 kg Physical Exam: General appearance: PRESENT: no acute distress, obese Head exam: PRESENT: atraumatic, normocephalic Mouth exam: PRESENT: moist Respiratory exam: PRESENT: clear to auscultation nurys, decreased breath sounds - at lung bases Cardiovascular exam: PRESENT: RRR, +S1, +S2. ABSENT: diastolic murmur, rubs Murmur grade: 3 Vascular exam: ABSENT: pallor GI/Abdominal exam: PRESENT: normal bowel sounds, soft. ABSENT: tenderness Extremities exam: ABSENT: pedal edema Psychiatric exam: PRESENT: appropriate affect Skin exam: PRESENT: dry, warm Murmur grade: 3 Results Laboratory Results: 04/06/20 06:35 04/06/20 06:35 04/02/20 04/02/20 04/02/20 16:49 22:35 22:35 Creatine Kinase 52 CK-MB (CK-2) 1.07 Troponin I 0.145 0.133 NT-Pro-B Natriuret Pep 6500 H 04/03/20 04/03/20 04/03/20 05:08 05:08 10:25 Creatine Kinase 43 40 CK-MB (CK-2) 0.81 Troponin I 0.119 NT-Pro-B Natriuret Pep 04/03/20 10:25 Creatine Kinase CK-MB (CK-2) 0.69 Troponin I 0.104 NT-Pro-B Natriuret Pep Impressions: Chest X-Ray 04/02/20 16:44 IMPRESSION: Mild patchy opacities in the right lung may represent atelectasis or developing airspace disease. Lung Scan-VQ NM 04/02/20 17:43 IMPRESSION: Low probability for pulmonary embolism. KUB X-Ray 04/06/20 15:06 IMPRESSION: NO RADIOGRAPHIC EVIDENCE FOR ACUTE ABDOMINAL DISEASE. 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, without long-term current use of insulin Qualifiers: Chronic kidney disease stage: stage 5, not on chronic dialysis Qualified Code(s): E08.22 - Diabetes mellitus due to underlying condition with diabetic chronic kidney disease; N18.5 - Chronic kidney disease, stage 5 Is this a current diagnosis for this admission?: Yes (6) Constipation Qualifiers: Constipation type: unspecified constipation type Qualified Code(s): K59.00 - Constipation, unspecified Is this a current diagnosis for this admission?: Yes - Time Time Spent with patient: 25-34 minutes Level of Care: IMCU Medications reviewed and adjusted accordingly: Yes Anticipated discharge: Home with Homehealth Anticipated DC Timeframe: within 48 hours - Inpatient Certification Based on my medical assessment, after consideration of the patient's comorbidities, presenting symptoms, or acuity I expect that the services needed warrant INPATIENT care.: Yes I certify that my determination is in accordance with my understanding of Medicare's requirements for reasonable and necessary INPATIENT services [42 CFR 412.3e].: Yes Medical Necessity: Significant Comorbidiites Make Outpatient Treatment Too Risky, Need Close Monitoring Due to Risk of Patient Decompensation, Need For Continuous Telemetry Monitoring, Risk of Complication if Not Cared For in Hospital, Risk of Diagnosis Which Will Require Inpatient Eval/Care/Monitoring Post Hospital Care: D/C Preparation Room Worker Documentation - Plan Summary Plan Summary: D/C IV Furosemide. Start on Furosemide 40 mg po daily.
[2020-04-08] MEDS: HYDRALAZINE HCL 25 MG TABLET PO SCH ×3 (05:41→21:15)
[2020-04-08 07:05] LABS: BLOOD UREA NITROGEN 102 mg/dL (7-20); GLUCOSE 97 mg/dL (75-110)
[2020-04-08 07:06] LABS: ANION GAP 12 (5-19); CARBON DIOXIDE 30 mmol/L (22-30); CHLORIDE 99 mmol/L (98-107)
[2020-04-08] MEDS: OMEGA-3 ACID ETHYL ESTERS 1 GM CAPSULE PO SCH (10:34)
[2020-04-08] MEDS: ALLOPURINOL 100 MG TABLET PO SCH (10:34)
[2020-04-08] MEDS: MAGNESIUM OXIDE 400 MG TABLET PO SCH ×2 (10:34→17:05)
[2020-04-08] MEDS: FUROSEMIDE 40 MG TABLET PO SCH ×2 (10:34→17:05)
[2020-04-08] MEDS: FERROUS SULFATE 325 MG TABLET PO SCH ×2 (10:34→17:05)
[2020-04-08] MEDS: APIXABAN 2.5 MG TABLET PO SCH ×2 (10:34→17:05)
[2020-04-08] MEDS: GABAPENTIN 100 MG CAPSULE PO SCH (10:34)
[2020-04-08] MEDS: INSULIN LISPRO 100 UNIT/ML 3 ML VIAL SUBCUT SCH ×4 (10:34→21:15)
[2020-04-08] MEDS: CALCITRIOL 0.25 MCG CAPSULE PO SCH (10:34)
[2020-04-08] MEDS: PANTOPRAZOLE SODIUM 20 MG TABLET.DR PO SCH (10:34)
[2020-04-08] MEDS: INSULIN GLARGINE,HUM.REC.ANLOG 1,000 UNIT/10 ML VIAL SUBCUT SCH (17:26)
--- NOTE | 2020-04-08 18:07 | PDOC PROGRESS REPORT ---
Subjective Date:: 04/08/20 Subjective:: Patient is participating in PT session. No abdominal pain, nausea or vomiting. N o fever or chills. No chest pain or difficulty with breathing. Reason For Visit: ACUTE ON CHRONIC DIASTOLIC HEART FAILURE, ACUTE ON Physical Exam Vital Signs: Temp Pulse Resp BP Pulse Ox 98.4 F 60 16 106/57 L 95 04/08/20 16:27 04/08/20 16:27 04/08/20 16:27 04/08/20 16:27 04/08/20 16:27 Intake & Output 04/07/20 04/08/20 04/09/20 06:59 06:59 06:59 Intake Total 980 790 862 Output Total 1800 1130 200 Balance -820 -340 662 Weight 99 kg 96.7 kg Physical Exam: General appearance: PRESENT: no acute distress, obese Head exam: PRESENT: atraumatic, normocephalic Eyes: PRESENT: Conjunctiva pink ABSENT: pallor Mouth exam: PRESENT: moist Respiratory exam: PRESENT: clear to auscultation nurys, decreased breath sounds - at lung bases Cardiovascular exam: PRESENT: RRR, +S1, +S2. ABSENT: diastolic murmur, rubs Murmur grade: 3 Vascular exam: ABSENT: pallor GI/Abdominal exam: PRESENT: normal bowel sounds, soft. ABSENT: tenderness Extremities exam: ABSENT: pedal edema Psychiatric exam: PRESENT: appropriate affect Skin exam: PRESENT: dry, warm Murmur grade: 3 Results Laboratory Results: 04/06/20 06:35 04/08/20 06:06 04/08/20 06:06 Sodium 141.4 Potassium 4.0 Chloride 99 Carbon Dioxide 30 Anion Gap 12 BUN 102 H Creatinine 3.15 H Est GFR ( Amer) 17 L Glucose 97 Calcium 10.0 Magnesium 1.9 04/02/20 04/02/20 04/02/20 16:49 22:35 22:35 Creatine Kinase 52 CK-MB (CK-2) 1.07 Troponin I 0.145 0.133 NT-Pro-B Natriuret Pep 6500 H 04/03/20 04/03/20 04/03/20 05:08 05:08 10:25 Creatine Kinase 43 40 CK-MB (CK-2) 0.81 Troponin I 0.119 NT-Pro-B Natriuret Pep 04/03/20 10:25 Creatine Kinase CK-MB (CK-2) 0.69 Troponin I 0.104 NT-Pro-B Natriuret Pep Impressions: Chest X-Ray 04/02/20 16:44 IMPRESSION: Mild patchy opacities in the right lung may represent atelectasis or developing airspace disease. Lung Scan-VQ NM 04/02/20 17:43 IMPRESSION: Low probability for pulmonary embolism. KUB X-Ray 04/06/20 15:06 IMPRESSION: NO RADIOGRAPHIC EVIDENCE FOR ACUTE ABDOMINAL DISEASE. 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, without long-term current use of insulin Qualifiers: Chronic kidney disease stage: stage 5, not on chronic dialysis Qualified Code(s): E08.22 - Diabetes mellitus due to underlying condition with diabetic chronic kidney disease; N18.5 - Chronic kidney disease, stage 5 Is this a current diagnosis for this admission?: Yes (6) Constipation Qualifiers: Constipation type: unspecified constipation type Qualified Code(s): K59.00 - Constipation, unspecified Is this a current diagnosis for this admission?: Yes - Time Time Spent with patient: 25-34 minutes Level of Care: IMCU Medications reviewed and adjusted accordingly: Yes Anticipated discharge: Home with Homehealth Anticipated DC Timeframe: within 48 hours - Inpatient Certification Based on my medical assessment, after consideration of the patient's comorbiditi es, presenting symptoms, or acuity I expect that the services needed warrant INPATIENT care.: Yes I certify that my determination is in accordance with my understanding of [facility]'s requirements for reasonable and necessary INPATIENT services [42 CFR 412.3e].: Yes Medical Necessity: Significant Comorbidiites Make Outpatient Treatment Too Risky, Need Close Monitoring Due to Risk of Patient Decompensation, Need For Continuous Telemetry Monitoring, Risk of Complication if Not Cared For in Hospital, Risk of Diagnosis Which Will Require Inpatient Eval/Care/Monitoring Post Hospital 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 Possible discharge in next 24-48 hours discussed with patient and daughter during my bedside visit. Expressed need for hospital bed and [employer] service upon discharge. She will need hospital bed for management of positional adjustment that is not visible with regular bed and will help her medical management with breathing and leg elevation in recumbent position.
[2020-04-09] MEDS: HYDRALAZINE HCL 25 MG TABLET PO SCH (05:48)
[2020-04-09 06:27] LABS: ANION GAP 11 (5-19); BLOOD UREA NITROGEN 99 mg/dL (7-20); CARBON DIOXIDE 29 mmol/L (22-30); CHLORIDE 100 mmol/L (98-107); GLUCOSE 79 mg/dL (75-110)
[2020-04-09] MEDS: INSULIN LISPRO 100 UNIT/ML 3 ML VIAL SUBCUT SCH ×4 (07:34→21:46)
[2020-04-09] MEDS: FERROUS SULFATE 325 MG TABLET PO SCH ×2 (08:16→18:12)
[2020-04-09] MEDS: OMEGA-3 ACID ETHYL ESTERS 1 GM CAPSULE PO SCH (09:35)
[2020-04-09] MEDS: PANTOPRAZOLE SODIUM 20 MG TABLET.DR PO SCH (09:36)
[2020-04-09] MEDS: APIXABAN 2.5 MG TABLET PO SCH ×2 (09:36→18:11)
[2020-04-09] MEDS: GABAPENTIN 100 MG CAPSULE PO SCH (09:36)
[2020-04-09] MEDS: ALLOPURINOL 100 MG TABLET PO SCH (09:36)
[2020-04-09] MEDS: MAGNESIUM OXIDE 400 MG TABLET PO SCH ×2 (09:36→18:11)
[2020-04-09] MEDS: FUROSEMIDE 40 MG TABLET PO SCH (09:36)
[2020-04-09] MEDS: CALCITRIOL 0.25 MCG CAPSULE PO SCH (09:36)
[2020-04-09] MEDS ORDERED: NORMAL SALINE 1000 ML 1,000 ML IV PRN (12:16)
--- NOTE | 2020-04-09 12:21 | PDOC PROGRESS REPORT ---
Subjective Date:: 04/09/20 Reason For Visit: Patient seen today. Generally feeling better. She has noticed marked impro vement in her breathing. Pedal edema is all but gone. She denies history of chest pain or shortness of breath. Labs and medications were reviewed. Physical Exam Vital Signs: Temp Pulse Resp BP Pulse Ox 97.6 F 61 19 105/52 L 97 04/09/20 11:32 04/09/20 11:32 04/09/20 11:32 04/09/20 11:32 04/09/20 11:32 Intake & Output 04/08/20 04/09/20 04/10/20 06:59 06:59 06:59 Intake Total 790 1142 Output Total 1130 1075 Balance -340 67 Weight 96.7 kg 96.3 kg General appearance: PRESENT: no acute distress Respiratory exam: PRESENT: clear to auscultation nurys, decreased breath sounds. ABSENT: crackles Cardiovascular exam: PRESENT: +S1, +S2 GI/Abdominal exam: PRESENT: normal bowel sounds, soft. ABSENT: organomegaly, tenderness Extremities exam: ABSENT: pedal edema Neurological exam: PRESENT: alert, awake, oriented to person, oriented to place Psychiatric exam: PRESENT: appropriate affect Results Laboratory Results: 04/06/20 06:35 04/09/20 05:31 04/09/20 05:31 Sodium 140.3 Potassium 4.0 Chloride 100 Carbon Dioxide 29 Anion Gap 11 BUN 99 H Creatinine 3.23 H Est GFR ( Amer) 17 L Glucose 79 Calcium 10.0 04/02/20 04/02/20 04/02/20 16:49 22:35 22:35 Creatine Kinase 52 CK-MB (CK-2) 1.07 Troponin I 0.145 0.133 NT-Pro-B Natriuret Pep 6500 H 04/03/20 04/03/20 04/03/20 05:08 05:08 10:25 Creatine Kinase 43 40 CK-MB (CK-2) 0.81 Troponin I 0.119 NT-Pro-B Natriuret Pep 04/03/20 10:25 Creatine Kinase CK-MB (CK-2) 0.69 Troponin I 0.104 NT-Pro-B Natriuret Pep Impressions: Chest X-Ray 04/02/20 16:44 IMPRESSION: Mild patchy opacities in the right lung may represent atelectasis or developing airspace disease. Lung Scan-VQ NM 04/02/20 17:43 IMPRESSION: Low probability for pulmonary embolism. KUB X-Ray 04/06/20 15:06 IMPRESSION: NO RADIOGRAPHIC EVIDENCE FOR ACUTE ABDOMINAL DISEASE. Assessment & Plan - Diagnosis (1) FIORELLA (acute kidney injury) Plan: Patient has decompensated acute kidney insult on top of CKD stage IV in the presence of prerenal congestive heart failure. With improving diuresis her renal numbers are getting better.At this moment she has been over diuresed and so cutting back on her diuretics and started on gentle diuresis for a liter. No acute indications for renal replacements. Discussed at length about dietary modifications that she has to institute at home besides tight blood sugar and blood pressure control. (2) Acute on chronic diastolic CHF (congestive heart failure), NYHA class 2 Is this a current diagnosis for this admission?: Yes Plan: Presently improving on current diuretic and other medication regimens. Advised on proper dietary modifications. 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 (4) Pulmonary hypertension Is this a current diagnosis for this admission?: Yes Plan: Status quo. Being managed by Dr. Roberts. (5) CKD (chronic kidney disease) stage 4, GFR 15-29 ml/min Plan: In the face of diabetic/hypertensive nephropathy. Now with acute insult on top of her underlying baseline kidney disease which is now improving. Monitor. No indications for renal replacements. (6) Chronic atrial fibrillation Plan: On anticoagulation. (7) Essential hypertension Plan: Currently low normal. Will hold back on the hydralazine and restart on Monday.
[2020-04-09] MEDS: INSULIN GLARGINE,HUM.REC.ANLOG 1,000 UNIT/10 ML VIAL SUBCUT SCH (18:12)
--- NOTE | 2020-04-09 19:22 | PDOC PROGRESS REPORT ---
Subjective Date:: 04/09/20 Subjective:: Patient OOB in recliner chair. Denied any chest pain or difficulty with breathin g. She reported participation in PT session today. No abdominal pain, nausea or vomiting. No fever or chills. Nephrology input noted. Reason For Visit: ACUTE ON CHRONIC DIASTOLIC HEART FAILURE, ACUTE ON Physical Exam Vital Signs: Temp Pulse Resp BP Pulse Ox 98.4 F 61 17 114/61 97 04/09/20 15:36 04/09/20 15:36 04/09/20 15:36 04/09/20 15:36 04/09/20 15:36 Intake & Output 04/08/20 04/09/20 04/10/20 06:59 06:59 06:59 Intake Total 790 1142 478 Output Total 1130 1075 250 Balance -340 67 228 Weight 96.7 kg 96.3 kg 96.3 kg Physical Exam: General appearance: PRESENT: no acute distress, obese Head exam: PRESENT: atraumatic, normocephalic Eyes: PRESENT: Conjunctiva pink ABSENT: pallor Mouth exam: PRESENT: moist Respiratory exam: PRESENT: clear to auscultation nurys, decreased breath sounds - at lung bases Cardiovascular exam: PRESENT: RRR, +S1, +S2. ABSENT: diastolic murmur, rubs Murmur grade: 3 Vascular exam: ABSENT: pallor GI/Abdominal exam: PRESENT: normal bowel sounds, soft. ABSENT: tenderness Extremities exam: ABSENT: pedal edema Psychiatric exam: PRESENT: appropriate affect Skin exam: PRESENT: dry, warm Murmur grade: 3 Results Laboratory Results: 04/06/20 06:35 04/09/20 05:31 04/09/20 05:31 Sodium 140.3 Potassium 4.0 Chloride 100 Carbon Dioxide 29 Anion Gap 11 BUN 99 H Creatinine 3.23 H Est GFR ( Amer) 17 L Glucose 79 Calcium 10.0 04/02/20 04/02/20 04/02/20 16:49 22:35 22:35 Creatine Kinase 52 CK-MB (CK-2) 1.07 Troponin I 0.145 0.133 NT-Pro-B Natriuret Pep 6500 H 04/03/20 04/03/20 04/03/20 05:08 05:08 10:25 Creatine Kinase 43 40 CK-MB (CK-2) 0.81 Troponin I 0.119 NT-Pro-B Natriuret Pep 04/03/20 10:25 Creatine Kinase CK-MB (CK-2) 0.69 Troponin I 0.104 NT-Pro-B Natriuret Pep Impressions: Chest X-Ray 04/02/20 16:44 IMPRESSION: Mild patchy opacities in the right lung may represent atelectasis or developing airspace disease. Lung Scan-VQ NM 04/02/20 17:43 IMPRESSION: Low probability for pulmonary embolism. KUB X-Ray 04/06/20 15:06 IMPRESSION: NO RADIOGRAPHIC EVIDENCE FOR ACUTE ABDOMINAL DISEASE. 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, without long-term current use of insulin Qualifiers: Chronic kidney disease stage: stage 5, not on chronic dialysis Qualified Code(s): E08.22 - Diabetes mellitus due to underlying condition with diabetic chronic kidney disease; N18.5 - Chronic kidney disease, stage 5 Is this a current diagnosis for this admission?: Yes (6) Constipation Qualifiers: Constipation type: unspecified constipation type Qualified Code(s): K59.00 - Constipation, unspecified Is this a current diagnosis for this admission?: Yes - Time Time Spent with patient: 25-34 minutes Level of Care: IMCU Medications reviewed and adjusted accordingly: Yes Anticipated discharge: Home with Homehealth Anticipated DC Timeframe: within 24 hours - Inpatient Certification Based on my medical assessment, after consideration of the patient's comorbidities, presenting symptoms, or acuity I expect that the services needed warrant INPATIENT care.: Yes I certify that my determination is in accordance with my understanding of Medicare's requirements for reasonable and necessary INPATIENT services [42 CFR 412.3e].: Yes Medical Necessity: Significant Comorbidiites Make Outpatient Treatment Too Risky, Need Close Monitoring Due to Risk of Patient Decompensation, Need For IV Fluids, Need For Continuous Telemetry Monitoring, Risk of Complication if Not Cared For in Hospital, Risk of Diagnosis Which Will Require Inpatient Eval/Car e/Monitoring Post Hospital Care: D/C 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 Adjustment made to her diuretic dosing. Maintain on all other current medication management. Obtain BMP in AM.
[2020-04-10 07:00] LABS: ANION GAP 8 (5-19); BLOOD UREA NITROGEN 94 mg/dL (7-20); CALCIUM 9.6 mg/dL (8.4-10.2); CARBON DIOXIDE 29 mmol/L (22-30); CHLORIDE 100 mmol/L (98-107); GLUCOSE 207 mg/dL (75-110); POTASSIUM 4.4 mmol/L (3.6-5.0)
[2020-04-10] MEDS ORDERED: FUROSEMIDE 40 MG TABLET PO SCH (08:00)
[2020-04-10] MEDS: FERROUS SULFATE 325 MG TABLET PO SCH (08:30)
[2020-04-10] MEDS: INSULIN LISPRO 100 UNIT/ML 3 ML VIAL SUBCUT SCH ×2 (08:31→12:09)
[2020-04-10] MEDS: ALLOPURINOL 100 MG TABLET PO SCH (10:00)
[2020-04-10] MEDS: OMEGA-3 ACID ETHYL ESTERS 1 GM CAPSULE PO SCH (10:00)
[2020-04-10] MEDS: CALCITRIOL 0.25 MCG CAPSULE PO SCH (10:00)
[2020-04-10] MEDS: PANTOPRAZOLE SODIUM 20 MG TABLET.DR PO SCH (10:00)
[2020-04-10] MEDS: GABAPENTIN 100 MG CAPSULE PO SCH (10:00)
[2020-04-10] MEDS: MAGNESIUM OXIDE 400 MG TABLET PO SCH (10:00)
[2020-04-10] MEDS: APIXABAN 2.5 MG TABLET PO SCH (10:00)
[2020-04-10 14:30] VITALS: BP 124/67
--- NOTE | 2020-04-10 15:20 | PDOC PROGRESS REPORT ---
Subjective Date:: 04/10/20 Subjective:: Patient states that she feels fine and breathing good. She has no complaints. She received a liter of IV fluids yesterday. Her kidney function is a little bit improved today. Her urine output was recorded at 700 mL but probably not accurate since she does not have a Pichardo catheter. Dr. Roberts called me this morning and plans to send her home today. Reason For Visit: ACUTE ON CHRONIC DIASTOLIC HEART FAILURE, ACUTE ON Physical Exam Vital Signs: Temp Pulse Resp BP Pulse Ox 98.1 F 60 19 125/48 L 93 04/10/20 08:40 04/10/20 07:35 04/10/20 07:35 04/10/20 07:35 04/10/20 07:35 Intake & Output 04/09/20 04/10/20 04/11/20 06:59 06:59 06:59 Intake Total 2614 990 8802 Output Total 1075 700 Balance 67 -102 1000 Weight 96.3 kg 98.2 kg Exam: General appearance: PRESENT: no acute distress, cooperative, well-developed, well-nourished Head exam: PRESENT: atraumatic, normocephalic Eye exam: PRESENT: conjunctiva pink, PERRLA. ABSENT: scleral icterus Neck exam: ABSENT: JVD Respiratory exam: PRESENT: Normal breath sounds. ABSENT: crackles, rales, rhonchi, unlabored, wheezes Cardiovascular exam: PRESENT: Regular rate rhythm -+S1, +S2. Grade 3/6 systolic ejection murmur GI/Abdominal exam: PRESENT: normal bowel sounds, soft. ABSENT: guarding, mass, tenderness Extremities exam: ABSENT: No edema Neurological exam: PRESENT: alert, awake, oriented to person, place and time. Skin exam: PRESENT: dry, warm, Cardiovascular exam: PRESENT: +S1, +S2 GI/Abdominal exam: PRESENT: normal bowel sounds, soft. ABSENT: organomegaly, tenderness Results Laboratory Results: 04/06/20 06:35 04/10/20 05:58 04/10/20 05:58 Sodium 137.0 Potassium 4.4 Chloride 100 Carbon Dioxide 29 Anion Gap 8 BUN 94 H Creatinine 3.07 H Est GFR ( Amer) 18 L Glucose 207 H Calcium 9.6 04/02/20 04/02/20 04/02/20 16:49 22:35 22:35 Creatine Kinase 52 CK-MB (CK-2) 1.07 Troponin I 0.145 0.133 NT-Pro-B Natriuret Pep 6500 H 04/03/20 04/03/20 04/03/20 05:08 05:08 10:25 Creatine Kinase 43 40 CK-MB (CK-2) 0.81 Troponin I 0.119 NT-Pro-B Natriuret Pep 04/03/20 10:25 Creatine Kinase CK-MB (CK-2) 0.69 Troponin I 0.104 NT-Pro-B Natriuret Pep Impressions: Chest X-Ray 04/02/20 16:44 IMPRESSION: Mild patchy opacities in the right lung may represent atelectasis or developing airspace disease. Lung Scan-VQ NM 04/02/20 17:43 IMPRESSION: Low probability for pulmonary embolism. KUB X-Ray 04/06/20 15:06 IMPRESSION: NO RADIOGRAPHIC EVIDENCE FOR ACUTE ABDOMINAL DISEASE. Assessment & Plan - Diagnosis (1) Acute kidney injury superimposed on chronic kidney disease Is this a current diagnosis for this admission?: Yes Plan: Due to acute prerenal azotemia due to CHF/overdiuresis. Kidney function has improved and plateaued after a liter of IV fluids and decreasing dose of diuretics. Patient is nonoliguric. She has no uremic symptoms. Patient is otherwise hemodynamically stable. From nephrology standpoint I think she is safe to be discharged home today but she needs to follow-up with Dr. Roach in [address] Roberts today. (2) Acute on chronic diastolic CHF (congestive heart failure), NYHA class 2 Is this a current diagnosis for this admission?: Yes Plan: Currently compensated. Lasix decreased to daily dose. (3) CKD (chronic kidney disease) stage 4, GFR 15-29 ml/min Is this a current diagnosis for this admission?: Yes Plan: Due to a combination of diabetes mellitus and hypertension. 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 (6) Paroxysmal atrial fibrillation Is this a current diagnosis for this admission?: Yes (7) Pulmonary hypertension Is this a current diagnosis for this admission?: Yes - Time Time with patient: 15-25 minutes
--- NOTE | 2020-04-10 21:16 | PDOC DISCHARGE SUMMARY ---
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, without long-term current use of insulin Is this a current diagnosis for this admission?: Yes (6) Constipation Is this a current diagnosis for this admission?: Yes - Additional Information Discharge Diet: Cardiac, Diabetic Discharge Activity: Activity As Tolerated, Balance Activity w/Rest, Weigh Daily Referrals: David ROACH MD [ACTIVE STAFF] - (The office will call the patient for a follow-up appointment in 2 weeks.) GABRIELLA SHOOK MD [Primary Care Provider] - 04/15/20 10:00 am Prescriptions: Furosemide [Lasix 40 mg Tablet] 40 mg PO QAM #30 tablet Home Medications: Insulin Aspart [Novolog Flexpen] 0 units SQ .PERSLIDINGSCALE 02/28/18 Irbesartan [Avapro] 300 mg PO DAILY 02/28/18 Nateglinide [Starlix] 120 mg PO TID 02/28/18 Allopurinol [Zyloprim 100 mg Tablet] 100 mg PO DAILY #30 tablet 04/12/18 Apixaban [Eliquis 2.5 mg Tablet] 2.5 mg PO BID #60 tablet 04/12/18 Ferrous Sulfate [Feosol 325 mg Tablet] 325 mg PO BIDPCBS #60 tablet 04/12/18 Hydralazine HCl [Apresoline 25 mg Tablet] 25 mg PO Q8 #90 tablet 04/12/18 Calcitriol [Rocaltrol 0.25 mcg Capsule] 0.25 mcg PO DAILY 03/17/20 Carvedilol [Coreg 12.5 mg Tablet] 12.5 mg PO BID 03/17/20 Dexlansoprazole [Dexilant 30 mg Capsule] 30 mg PO QAMP PRN 03/17/20 Gabapentin [Neurontin 100 mg Capsule] 100 mg PO DAILY 03/17/20 Insulin Degludec [Tresiba Flextouch U-100] 25 units SQ DAILY 03/17/20 Magnesium Oxide [Mag-Ox 400 mg Tablet] 400 mg PO BID 03/17/20 Amlodipine Besylate [Norvasc 5 mg Tablet] 5 mg PO Q12 #60 tablet 03/20/20 Bruni-3 Fatty Acids [Bruni-3] 1,000 mg PO DAILY 04/03/20 Furosemide [Lasix 40 mg Tablet] 40 mg PO QAM #30 tablet 04/10/20 History of Present Illiness History of Present Illness: CAROLINA KAYE is a 84 year old female, she was recently discharged from this hospital on March 20, 2020, she came to the emergency room for evaluation of shortness of breath. A chest x-ray was done in the ER, it demonstrated hyperinflated lungs also found was mild patchy right basilar opacities which may represent atelectasis or developing airspace disease with possible trace right pleural effusion. In the emergency room she was very short of breath breathing was supported with noninvasive positive pressure ventilation, BiPAP. There was no chest pain she was treated with nitroglycerin by EMS and subsequently started on nitroglycerin drip in route. The oxygen saturation was in the 80s on the scene which did not improve with nasal cannula. The ED providers were concerned about pulmonary embolism because of the last transthoracic echocardiogram demonstrated severe pulmonary hypertension, a VQ scan was done, it was low probability for PE. She also had a rapid SARS-CoV-2 testing done, it was negative the last time she was admitted on March 16, 2020 she had a 2D echo done that demonstrated preserved ejection fraction of left ventricle more than 70% she has severe there is diastolic dysfunction of the left ventricle the left was admitted she was offered a noninvasive positive pressure ventilation, CPAP but patient declined the offer. Hospital Course Hospital Course: Patient was admitted for acute decompensation of chronic diastolic congestive heart failure. She responded to diuretic therapy with improvement in her presenting symptoms. Due to her worsening renal function indices, she was seen in consultation by the nephrology team. Adjustment was made to her diuretic therapy. She remain symptom free and discharged home on adjusted Furosemide dosing as well as fluid restrictions. She will follow up with Dr Luc Roach and myself as instructed upon discharge. Due to need for positional adjustment to aid management of her morbidities that is not feasible with regular bed, she was discharged home with hospital bed and home health services. Physical Exam Vital Signs: Temp Pulse Resp BP Pulse Ox 98.1 F 59 L 19 125/65 93 04/10/20 11:21 04/10/20 11:21 04/10/20 11:21 04/10/20 11:21 04/10/20 11:21 Intake & Output 04/09/20 04/10/20 04/11/20 06:59 06:59 06:59 Intake Total 0229 613 4980 Output Total 1075 700 Balance 67 -102 1000 Weight 96.3 kg 98.2 kg General appearance: PRESENT: no acute distress, obese Head exam: PRESENT: atraumatic, normocephalic Eyes: PRESENT: Conjunctiva pink ABSENT: pallor Mouth exam: PRESENT: moist Respiratory exam: PRESENT: clear to auscultation nurys Cardiovascular exam: PRESENT: RRR, +S1, +S2. ABSENT: diastolic murmur, rubs Murmur grade: 3 Vascular exam: ABSENT: pallor GI/Abdominal exam: PRESENT: normal bowel sounds, soft. ABSENT: tenderness Extremities exam: ABSENT: pedal edema Psychiatric exam: PRESENT: appropriate affect Skin exam: PRESENT: dry, warm Results Laboratory Results: WBC 5.7 10^3/uL (4.0-10.5) 04/06/20 06:35 RBC 4.07 10^6/uL (3.72-5.28) 04/06/20 06:35 Hgb 11.2 g/dL (12.0-15.5) L 04/06/20 06:35 Hct 35.2 % (36.0-47.0) L 04/06/20 06:35 MCV 86 fl (80-97) 04/06/20 06:35 MCH 27.5 pg (27.0-33.4) 04/06/20 06:35 MCHC 31.8 g/dL (32.0-36.0) L 04/06/20 06:35 RDW 15.7 % (11.5-14.0) H 04/06/20 06:35 Plt Count 162 10^3/uL (150-450) 04/06/20 06:35 Lymph % (Auto) 28.0 % (13-45) 04/06/20 06:35 [place] % (Auto) 8.9 % (3-13) 04/06/20 06:35 Eos % (Auto) 5.9 % (0-6) 04/06/20 06:35 Baso % (Auto) 0.6 % (0-2) 04/06/20 06:35 Absolute Neuts (auto) 3.2 10^3/uL (1.7-8.2) 04/06/20 06:35 Absolute Lymphs (auto) 1.6 10^3/uL (0.5-4.7) 04/06/20 06:35 Absolute Monos (auto) 0.5 10^3/uL (0.1-1.4) 04/06/20 06:35 Absolute Eos (auto) 0.3 10^3/uL (0.0-0.6) 04/06/20 06:35 Absolute Basos (auto) 0.0 10^3/uL (0.0-0.2) 04/06/20 06:35 Seg Neutrophils % 56.6 % (42-78) 04/06/20 06:35 PT 21.8 SEC (11.4-15.4) H 04/02/20 16:49 INR 1.89 04/02/20 16:49 APTT 45.0 SEC (23.5-35.8) H 04/02/20 16:49 D-Dimer 0.94 ug/mL (0.00-0.50) H 04/02/20 16:49 Sodium 137.0 mmol/L (137-145) 04/10/20 05:58 Potassium 4.4 mmol/L (3.6-5.0) 04/10/20 05:58 Chloride 100 mmol/L (98-107) 04/10/20 05:58 Carbon Dioxide 29 mmol/L (22-30) 04/10/20 05:58 Anion Gap 8 (5-19) 04/10/20 05:58 BUN 94 mg/dL (7-20) H 04/10/20 05:58 Creatinine 3.07 mg/dL (0.52-1.25) H 04/10/20 05:58 Est GFR ( Amer) 18 (>60) L 04/10/20 05:58 Est GFR (MDRD) Non-Af 14 (>60) L 04/10/20 05:58 Glucose 207 mg/dL (75-110) H 04/10/20 05:58 POC Glucose 213 mg/dL (70-110) H 04/10/20 11:22 Hemoglobin A1c % 8.1 % (4.7-6.0) H 04/03/20 05:08 Calcium 9.6 mg/dL (8.4-10.2) 04/10/20 05:58 Magnesium 1.9 mg/dL (1.6-2.3) 04/08/20 06:06 Total Bilirubin 1.0 mg/dL (0.2-1.3) 04/06/20 06:35 Direct Bilirubin 0.4 mg/dL (0.0-0.4) 04/06/20 06:35 Neonat Total Bilirubin Not Reportable 04/06/20 06:35 Neonat Direct Bilirubin Not Reportable 04/06/20 06:35 Neonat Indirect Bili Not Reportable 04/06/20 06:35 AST 24 U/L (14-36) 04/06/20 06:35 ALT 18 U/L (<35) 04/06/20 06:35 Alkaline Phosphatase 146 U/L (38-126) H 04/06/20 06:35 Creatine Kinase 40 U/L (30-135) 04/03/20 10:25 CK-MB (CK-2) 0.69 ng/mL (<4.55) 04/03/20 10:25 Troponin I 0.104 ng/mL 04/03/20 10:25 NT-Pro-B Natriuret Pep 6500 pg/mL (<450) H 04/02/20 16:49 Total Protein 7.3 g/dL (6.3-8.2) 04/06/20 06:35 Albumin 3.5 g/dL (3.5-5.0) 04/06/20 06:35 TSH 1.36 uIU/mL (0.47-4.68) 04/02/20 16:49 Free T4 1.25 ng/dL (0.78-2.19) 04/02/20 16:49 Urine Color YELLOW 04/04/20 18:00 Urine Appearance TURBID 04/04/20 18:00 Urine pH 5.0 (5.0-9.0) 04/04/20 18:00 Ur Specific [place] 1.009 04/04/20 18:00 Urine Protein 30 mg/dL (NEGATIVE) H 04/04/20 18:00 Urine Glucose (UA) NEGATIVE mg/dL (NEGATIVE) 04/04/20 18:00 Urine Ketones NEGATIVE mg/dL (NEGATIVE) 04/04/20 18:00 Urine Blood MODERATE (NEGATIVE) H 04/04/20 18:00 Urine Nitrite NEGATIVE (NEGATIVE) 04/04/20 18:00 Urine Bilirubin NEGATIVE (NEGATIVE) 04/04/20 18:00 Urine Urobilinogen NEGATIVE mg/dL (<2.0) 04/04/20 18:00 Ur Leukocyte Esterase LARGE (NEGATIVE) H 04/04/20 18:00 Urine WBC (Auto) >182 /HPF 04/04/20 18:00 Urine RBC (Auto) 22 /HPF 04/04/20 18:00 Urine Bacteria (Auto) 2+ /HPF 04/04/20 18:00 Urine WBC Clumps MANY /HPF 04/04/20 18:00 U Non-Squamous Epis Auto 9 /HPF 04/04/20 18:00 Urine Ascorbic Acid NEGATIVE (NEGATIVE) 04/04/20 18:00 Digoxin < 0.40 ng/mL (0.8-2.0) L 04/02/20 16:49 Influenza A (RT-PCR) NEGATIVE (NEGATIVE) 04/02/20 17:54 Influenza B (RT-PCR) NEGATIVE (NEGATIVE) 04/02/20 17:54 RSV (RT-PCR) NEGATIVE (NEGATIVE) 04/02/20 17:54 SARS-CoV-2 Rap RNA(RT-PCR) NEGATIVE (NEGATIVE) 04/02/20 17:54 04/02/20 04/02/20 04/03/20 16:49 22:35 05:08 CK-MB (CK-2) 1.07 0.81 Troponin I 0.145 0.133 0.119 NT-Pro-B Natriuret Pep 6500 H 04/03/20 10:25 CK-MB (CK-2) 0.69 Troponin I 0.104 NT-Pro-B Natriuret Pep Impressions: Chest X-Ray 04/02/20 16:44 IMPRESSION: Mild patchy opacities in the right lung may represent atelectasis or developing airspace disease. Lung Scan-VQ NM 04/02/20 17:43 IMPRESSION: Low probability for pulmonary embolism. KUB X-Ray 04/06/20 15:06 IMPRESSION: NO RADIOGRAPHIC EVIDENCE FOR ACUTE ABDOMINAL DISEASE. Plan Health Concerns: High risk for readmission Plan of Treatment: Maintain on listed discharge medication, fluid management, positional changes to aid management. Patient refused NIPPV support device. We will continue to discuss benefits and supplemental oxygen in her morbidities management. Goals: Reduce readmission riks level with close community follow up and supportive services. Time Spent: Greater than 30 Minutes - I had extensive discussion with patient and daughter at bedside regarding post acute care plan and expectations. Stroke Is this a Stroke Patient?: No Acute Heart Failure Is this a Heart Failure Patient?: Yes Documentation of LVEF assessment?: No, Document reason - Completed during her immediate recent hospitalization. LVEF - Reason: Recently completed during immediate past admission LVEF > 70%. LVEF: LVEF Greater Than 40% Anticoagulant Therapy: Yes
== END 2020-04-10 15:00 | disposition home health service (06) | DRG 291 ==
LOC: ER 16:36 → EH 18:23 → 3S 21:38
PROVIDERS: ADMIT Internal Medicine; ATTEND Internal Medicine Geriatric Medicine
DX: I13.2 Hypertensive heart and chronic kidney disease with heart failure and with stage 5 chronic kidney disease, or end stage renal disease (principal); I50.33 Acute on chronic diastolic (congestive) heart failure; N18.5 Chronic kidney disease, stage 5; I48.11 Longstanding persistent atrial fibrillation; N17.9 Acute kidney failure, unspecified; E11.22 Type 2 diabetes mellitus with diabetic chronic kidney disease; N18.9 Chronic kidney disease, unspecified; E78.5 Hyperlipidemia, unspecified; K21.9 Gastro-esophageal reflux disease without esophagitis; M19.90 Unspecified osteoarthritis, unspecified site; Z79.01 Long term (current) use of anticoagulants; E87.5 Hyperkalemia; K59.00 Constipation, unspecified; Z20.828 Contact with and (suspected) exposure to other viral communicable diseases; Z79.4 Long term (current) use of insulin; Z79.899 Other long term (current) drug therapy; I27.20 Pulmonary hypertension, unspecified; G47.30 Sleep apnea, unspecified; R00.1 Bradycardia, unspecified; Z88.6 Allergy status to analgesic agent; I25.2 Old myocardial infarction; Z86.73 Personal history of transient ischemic attack (TIA), and cerebral infarction without residual deficits; Z82.49 Family history of ischemic heart disease and other diseases of the circulatory system
CPT/HCPCS: 36415; 71045; 74018; 78580; 80048; 80053; 80076; 80162; 81001; 82550; 82553; 82962; 83036; 83735; 83880; 84439; 84443; 84484; 85025; 85379; 85610; 85730; 87086; 87088; 87186; 93005; 93010; 94660; 96374; 99291; 0241U; A9540; C9803; J1644; J1815; J1940; J3490; J7030; J7613; Q9969

== ENCOUNTER → 2020-05-26 | Outpatient (CLI) | payer MEDICARE, MEDICAID ==
[2020-05-26 10:40] LABS: ABSOLUTE EOSINOPHILS # (AUTO) 0.2 10^3/uL (0.0-0.6); ABSOLUTE LYMPHOCYTES (AUTO) 0.9 10^3/uL (0.5-4.7); ABSOLUTE MONOCYTES (AUTO) 0.2 10^3/uL (0.1-1.4); ABSOLUTE NEUT (AUTO) 2.7 10^3/uL (1.7-8.2); EOSINOPHILS % (AUTO) 4.7 % (0-6); HEMATOCRIT 35.4 % (36.0-47.0); LYMPHOCYTES % (AUTO) 23.1 % (13-45); MEAN CORPUSCULAR HEMOGLOBIN 26.8 pg (27.0-33.4); MEAN CORPUSCULAR HGB CONC 31.2 g/dL (32.0-36.0); MEAN CORPUSCULAR VOLUME 86 fl (80-97); MONOCYTES % (AUTO) 3.9 % (3-13); PLATELET COUNT 156 10^3/uL (150-450); RED BLOOD COUNT 4.12 10^6/uL (3.72-5.28); RED CELL DISTRIBUTION WIDTH 17.4 % (11.5-14.0); SEGMENTED NEUTROPHILS % (AUTO) 67.3 % (42-78); TOTAL CELLS COUNTED % (AUTO) 100 %; WHITE BLOOD COUNT 3.9 10^3/uL (4.0-10.5)
[2020-05-26 11:01] LABS: APPEARANCE,URINE SLIGHTLY-CLOUDY; BILIRUBIN,URINE NEGATIVE (NEGATIVE); COLOR,URINE YELLOW; GLUCOSE, URINE NEGATIVE (NEGATIVE); KETONES,URINE NEGATIVE (NEGATIVE); LEUKOCYTE ESTERASE,URINE MODERATE (NEGATIVE); NITRITE,URINE POSITIVE (NEGATIVE); PROTEIN,URINE NEGATIVE (NEGATIVE); URINE SPECIFIC GRAVITY 1.012; UROBILINOGEN,URINE NEGATIVE mg/dL (<2.0)
[2020-05-26 11:04] LABS: ALBUMIN 4.1 g/dL (3.5-5.0); ANION GAP 11 (5-19); BLOOD UREA NITROGEN 58 mg/dL (7-20); CALCIUM 10.3 mg/dL (8.4-10.2); CARBON DIOXIDE 21 mmol/L (22-30); CHLORIDE 112 mmol/L (98-107); GLUCOSE 162 mg/dL (75-110)
[2020-05-26 11:10] LABS: POTASSIUM 4.9 mmol/L (3.6-5.0)
== END ==
LOC: OD 10:03
PROVIDERS: ATTEND Internal Medicine Nephrology
DX: I12.9 Hypertensive chronic kidney disease with stage 1 through stage 4 chronic kidney disease, or unspecified chronic kidney disease (principal); N18.4 Chronic kidney disease, stage 4 (severe); N39.0 Urinary tract infection, site not specified
CPT/HCPCS: 36415; 80069; 81001; 83735; 83970; 85025; 87086; 87088

== ENCOUNTER 2020-05-29 01:06 | Inpatient (IN) | payer MEDICARE, MEDICAID ==
--- NOTE | 2020-05-29 02:04 | ER Document Report ---
ED Fall - General Chief Complaint: Fall Stated Complaint: FALL Time Seen by Provider: 05/29/20 01:30 Primary Care Provider: David GALLEGOS MD [ACTIVE STAFF] - Follow up as needed Mode of Arrival: Medic Information source: Patient Notes: 84-year-old female presented to ED for complaint of fall hitting her head on the bed when she fell off the edge of the bed. She does have a headache she is on blood thinners and I have ordered a CT of the head. She states she also has been shaking throughout the day. She states she has been aware of that she was shaking but she states off and on throughout the day. She also states that she has had abdominal pain to the left lower quadrant for the last 3 to 4 days. She states she did not hit her abdomen and does not have any history of anything with her abdomen but she is on blood thinners. She is also on Metformin for type 2 diabetes so we will get her abdomen pelvis CT but without contrast due to her chronic renal failure and her diabetes. Blood work is also been ordered as well as a chest x-ray. Constitutional: Negative for fever. HENT: Negative for sore throat. Eyes: Negative for visual changes. Cardiovascular: Patient denies any chest pain or any chest discomfort but EMS states they found in V. tach but were not able to capture it Respiratory: Negative for shortness of breath. Gastrointestinal: Left lower quadrant abdominal pain Genitourinary: Negative for dysuria. Musculoskeletal: Negative for back pain. Skin: Negative for rash. Neurological: Complains of headache to the back of the head after falling when she sat on the edge of the bed. She states she may have hit her head on the bed. She is on blood thinners. 10 point ROS negative except as marked above and in HPI. VITAL SIGNS: Within normal limits. GENERAL: No acute distress, non-toxic appearance. HEAD: Normal with no signs of head trauma. EARS: Hearing grossly intact. NECK: Normal range of motion, no tenderness, supple, no lymphadenopathy, No adenopathy, no JVD. CHEST: Clear breath sounds bilaterally. No wheezes, rales, or rhonchi. CARDIAC: Regular rate and rhythm. S1 and S2, without murmurs, gallops, or rubs. VASCULAR: No Edema. Peripheral pulses normal and equal in all extremities. ABDOMEN: Left lower quadrant abdomen tender to palpation soft GASTROINTESTINAL: Bowel sounds normal GENITOURINARY: Normal, No tenderness LYMPATHTIC: No lymphadenopathy noted. MUSCULOSKELETAL: Good range of motion of all major joints. Extremities without clubbing, cyanosis or edema. NEUROLOGICAL: Alert and oriented x 3. No focal sensory or strength deficits. Speech normal. Follows commands appropriately. PSYCHIATRIC: Normal Affect, judgement and mood. SKIN: Normal appearance with no rashes or lesions. TRAVEL OUTSIDE OF THE [place] IN LAST 30 DAYS: No - HPI Occurred: Just prior to arrival Where: Home, Indoors Context: Fell from sitting - States she sat on the edge of the bed and fell off Associated symptoms: None Location of injury/pain: Abdomen, Hand Quality of pain: Achy Severity: Moderate Pain Level: 3 - Related data Allergies/Adverse Reactions: oxycodone [Oxycodone] Allergy (Verified 04/09/18 12:02) Past Medical History - General Information source: Patient - Social History Smoking Status: Never Smoker Frequency of alcohol use: None Drug Abuse: None Lives with: Alone Family History: Reviewed & Not Pertinent, CAD - Past Medical History Cardiac Medical History: Reports: Hx Atrial Fibrillation, Hx Congestive Heart Failure, Hx Heart Attack, Hx Hypercholesterolemia, Hx Hypertension Pulmonary Medical History: Reports: Hx Sleep Apnea EENT Medical History: Reports: None Neurological Medical History: Reports: Hx Cerebrovascular Accident Endocrine Medical History: Reports: Hx Diabetes Mellitus Type 2 Renal/ Medical History: Reports: None Malignancy Medical History: Reports: None GI Medical History: Reports: Hx Gastroesophageal Reflux Disease Musculoskeletal Medical History: Reports Hx Arthritis - KNEES & ARMS & HANDS, OSTEOARTHRITIS, Reports Hx Gout Skin Medical History: Reports None Psychiatric Medical History: Reports: None Traumatic Medical History: Reports: None Infectious Medical History: Reports: None Past Surgical History: - Immunizations Hx Diphtheria, Pertussis, Tetanus Vaccination: Yes Physical Exam - Vital signs Vitals: Temp 97.8 F 05/29/20 01:06 Course - Re-evaluation Re-evalutation: 05/29/20 05:14 Discussed labs and x-ray and CT with Dr. Roberts. He did state to patient admit the patient to observation and he would assess the patient in the morning and determine whether she was to go home or what other treatment he would provide her. I did inform him her BNP was 2100 which was higher than she had ever been. I also informed him of her run of V. tach for EMS and her changes in EKG and he stated that he would evaluate that when he came in. - Vital Signs Vital signs: Temp Pulse Resp BP Pulse Ox 97.7 F 21 H 120/67 100 05/29/20 04:55 05/29/20 05:03 05/29/20 05:03 05/29/20 05:03 - Laboratory Results Result Diagrams: 05/29/20 01:30 05/29/20 01:30 Laboratory Results Interpreted: 05/29/20 05/29/20 05/29/20 01:30 01:30 01:30 Hgb 10.3 L Hct 32.1 L RDW 17.5 H Sodium 145.5 H Chloride 113 H BUN 58 H Creatinine 2.95 H Est GFR ( Amer) 18 L Est GFR (MDRD) Non-Af 15 L Glucose 135 H Calcium 10.3 H Direct Bilirubin 0.5 H AST 37 H NT-Pro-B Natriuret Pep 2100 H Critical Laboratory Results Reviewed: No Critical Results - Radiology Results Critical Radiology Results Reviewed: No Critical Results Discharge - Discharge Clinical Impression: Acute electrocardiogram changes, CHF (congestive heart failure) Fall Qualifiers: Encounter type: initial encounter Qualified Code(s): W19.XXXA - Unspecified fall, initial encounter Disposition: ADMITTED OBSERVATION Admitting Provider: [place] Unit Admitted: Telemetry Referrals: David GALLEGOS MD [ACTIVE STAFF] - Follow up as needed
[2020-05-29 02:12] LABS: ALBUMIN 3.8 g/dL (3.5-5.0); ALKALINE PHOSPHATASE 119 U/L (38-126); ANION GAP 10 (5-19); ASPARTATE AMINO TRANSFERASE 37 U/L (14-36); BILIRUBIN,DIRECT 0.5 mg/dL (0.0-0.4); BILIRUBIN,TOTAL 0.6 mg/dL (0.2-1.3); BLOOD UREA NITROGEN 58 mg/dL (7-20); CALCIUM 10.3 mg/dL (8.4-10.2); CARBON DIOXIDE 23 mmol/L (22-30); CHLORIDE 113 mmol/L (98-107); GLUCOSE 135 mg/dL (75-110); POTASSIUM 4.7 mmol/L (3.6-5.0); TOTAL PROTEIN 7.7 g/dL (6.3-8.2)
[2020-05-29 02:23] LABS: TROPONIN I 0.019 ng/mL
[2020-05-29 02:24] LABS: HEMATOCRIT 32.1 % (36.0-47.0); HEMOGLOBIN 10.3 g/dL (12.0-15.5); MEAN CORPUSCULAR HEMOGLOBIN 27.4 pg (27.0-33.4); MEAN CORPUSCULAR VOLUME 85 fl (80-97); PLATELET COUNT 169 10^3/uL (150-450); RED BLOOD COUNT 3.75 10^6/uL (3.72-5.28); RED CELL DISTRIBUTION WIDTH 17.5 % (11.5-14.0)
[2020-05-29 02:39] LABS: ABSOLUTE LYMPHOCYTES# (MANUAL) 0.7 10^3/uL (0.5-4.7); ABSOLUTE MONOCYTES # (MANUAL) 0.4 10^3/uL (0.1-1.4); BASOPHILS % (MANUAL) 0 % (0-2); EOSINOPHILS % (MANUAL) 2 % (0-6); LYMPHOCYTES % (MANUAL) 13 % (13-45); MONOCYTES % (MANUAL) 8 % (3-13); NUCLEATED RED BLOOD CELLS 3 /100 WBC (0); SEGMENTED NEUTROPHILS % (MAN) 77 % (42-78); TOTAL CELLS COUNTED 100
[2020-05-29 02:40] LABS: ANISOCYTOSIS 2+; PLATELET COMMENT ADEQUATE; POIKILOCYTOSIS SLIGHT; TARGET CELLS SLIGHT
--- NOTE | 2020-05-29 03:59 | RADIOLOGY REPORT (SQ) ---
CLINICAL HISTORY: abdominal pain COMPARISON: 03/16/2020. TECHNIQUE: CT ABDOMEN PELVIS WITHOUT IV CONTRAST on 05/29/2020 1:58 AM HAM BONER This exam was performed according to our departmental dose-optimization program, which includes automated exposure control, adjustment of the mA and/or kV according to patient size and/or use of iterative reconstruction technique. FINDINGS: The heart is enlarged. There is a small right pleural effusion. Abdomen: The liver is normal in appearance. There is no biliary dilatation. Gallbladder is normally distended. The pancreas and spleen are normal in appearance. Adrenal glands are normal. Kidneys are mildly atrophic. There is a small posterior midpole right renal cyst. Abdominal aorta is normal in course and caliber without aneurysm. There is no free air. There is no retroperitoneal adenopathy. Pelvis: There is mild distal colonic diverticulosis. Urinary bladder is unremarkable. There is trace free pelvic fluid. Uterus is normal in size. Appendix is not clearly seen. There is a minimally calcified soft tissue nodule in the right lower quadrant which was present previously and measures 2.8 cm. Skeleton: There are no acute osseous findings. No suspicious bony lesions. IMPRESSION: No definite acute inflammatory process. Indeterminate right lower quadrant soft tissue mass.
--- NOTE | 2020-05-29 04:00 | RADIOLOGY REPORT (SQ) ---
CLINICAL HISTORY: fall hit head headache on blood thinners COMPARISON: 11/24/2013. 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 FINDINGS: There is no acute hemorrhage, mass effect or midline shift. Su-white differentiation is preserved. There is no hydrocephalus. There is no significant volume loss for age. The calvarium is intact. Orbits and globes are unremarkable. The paranasal sinuses are clear. Mastoid air cells are clear. IMPRESSION: No acute intracranial findings.
--- NOTE | 2020-05-29 04:01 | RADIOLOGY REPORT (SQ) ---
CLINICAL HISTORY: palpitations COMPARISON: 04/02/2020. TECHNIQUE: XR CHEST 2 VIEWS 05/29/2020 1:57 AM RECRUITER SPECIALIST FINDINGS: The heart is enlarged. Lungs are clear without consolidation, atelectasis, mass or edema. There is no pleural effusion. There is no pneumothorax. Degenerative changes of both shoulders. IMPRESSION: Clear lungs.
--- NOTE | 2020-05-29 07:20 | EKG REPORT ---
SEVERITY:- ABNORMAL ECG - A-FLUTTER W/ VARIED AV BLOCK, A-RATE 223 VENTRICULAR PREMATURE COMPLEX RIGHT BUNDLE BRANCH BLOCK and LAFB LVH WITH IVCD AND SECONDARY REPOL ABNRM : Confirmed by: Dexter García MD 29-May-2020 07:20:00
--- NOTE | 2020-05-29 18:49 | EKG REPORT ---
SEVERITY:- ABNORMAL ECG - ATRIAL TACHCARDIA WITH BLOCK. LEFT ANTERIOR FASCICULAR BLOCK RIGHT BUNDLE BRANCH BLOCK LVH WITH IVCD AND SECONDARY REPOL ABNRM : Confirmed by: Dexter García MD 29-May-2020 18:49:22
[2020-05-29] MEDS ORDERED: APIXABAN 2.5 MG TABLET PO ONE (19:30)
--- NOTE | 2020-05-29 19:35 | PDOC H&P ---
History of Present Illness Admission Date/PCP: 05/29/20 05:04 GABRIELLA OSUNKVARGASA Patient complains of: Fell at home History of Present Illness: CAROLINA KAYE is a 84 year old female patent known to my practice who presented to the ED via EMS due t incident of fall at home. Patent reported that she was sitting on the edge of her bed after her usual prayer routine and suddenly found her self sliding to the floor. She was managed to get off the floor but had a second episode still in her bedroom with subsequent difficulty getting off the floor for which she call her daughter who alerted the EMS. She reported hitting side of her bed against her walking cane. She denied any chest pain but reported intermittent episode of palpitation and felling unwell. She denied loss of consciousness or focal weakness. She reported compliance with her medications including Eliqius and Carvedilol. Her initial ED evaluation was significant for elevated NT-Pro BNP, slightly elevated Troponin I level, reported episode of V. tach as per EMS crew, and renal indices comparable with CKD stage 4. She was advised hospitalization for further evaluation and management of her arrhythmia that might contributed to her recurrent falls at home. Her radiology evaluation was devoid of any acute problem. Her morbidities are as listed below. Past Medical History Cardiac Medical History: Reports: Atrial Fibrillation, Congestive Heart Failure, Myocardial Infarction, Hyperlipidema, Hypertension Denies: Coronary Artery Disease Pulmonary Medical History: Reports: Sleep Apnea Denies: Asthma, Bronchitis, Chronic Obstructive Pulmonary Disease (COPD), Pneumonia, Tuberculosis EENT Medical History: Reports: None Neurological Medical History: Denies: Seizures Endocrine Medical History: Reports: Diabetes Mellitus Type 2 Renal/ Medical History: Reports: None Malignancy Medical History: Reports: None GI Medical History: Reports: Gastroesophageal Reflux Disease Musculoskeltal Medical History: Reports: Arthritis - KNEES & ARMS & HANDS, OSTEOARTHRITIS, Gout Skin Medical History: Reports: None Psychiatric Medical History: Reports: None Denies: Depression Traumatic Medical History: Reports: None Hematology: Denies: Anemia, Sickle Cell Disease Infectious Medical History: Reports: None Past Surgical History Past Surgical History: Denies: Amputation, Hysterectomy Social History Lives with: Alone Smoking Status: Never Smoker Frequency of Alcohol Use: None Hx Recreational Drug Use: No Drugs: None Hx Prescription Drug Abuse: No - Advance Directive Resuscitation Status: Full Code Family History Family History: Reviewed & Not Pertinent, CAD Parental Family History Reviewed: Yes Children Family History Reviewed: Yes Sibling(s) Family History Reviewed.: Yes Medication/Allergy Home Medications: Insulin Aspart [Novolog Flexpen] 0 units SQ .PERSLIDINGSCALE 02/28/18 Irbesartan [Avapro] 300 mg PO DAILY 02/28/18 Nateglinide [Starlix] 120 mg PO TID 02/28/18 Apixaban [Eliquis 2.5 mg Tablet] 2.5 mg PO BID #60 tablet 04/12/18 Hydralazine HCl [Apresoline 25 mg Tablet] 25 mg PO Q8 #90 tablet 04/12/18 Calcitriol [Rocaltrol 0.25 mcg Capsule] 0.25 mcg PO DAILY 03/17/20 Dexlansoprazole [Dexilant 30 mg Capsule] 30 mg PO DAILY 03/17/20 Insulin Degludec [Tresiba Flextouch U-100] 25 units SQ DAILY 03/17/20 Blair-3 Fatty Acids [Blair-3] 1,000 mg PO DAILY 04/03/20 Allopurinol [Zyloprim 100 mg Tablet] 200 mg PO DAILY 05/29/20 Amlodipine Besylate [Norvasc 5 mg Tablet] 5 mg PO DAILY 05/29/20 Ferrous Sulfate [Feosol 325 mg Tablet] 325 mg PO BID 05/29/20 Furosemide [Lasix 40 mg Tablet] 40 mg PO DAILY 05/29/20 Multivitamin [Tab-A-Yony (Multiple Vitamin) Tablet] 1 tab PO DAILY 05/29/20 Allergies/Adverse Reactions: oxycodone [Oxycodone] Allergy (Verified 04/09/18 12:02) Review of Systems Constitutional: PRESENT: fatigue, weakness. ABSENT: chills, fever(s), headache(s) Eyes: ABSENT: visual disturbances Ears: ABSENT: hearing changes Cardiovascular: PRESENT: dyspnea on exertion, edema, palpitations. ABSENT: chest pain, orthropnea Respiratory: ABSENT: cough, hemoptysis Gastrointestinal: ABSENT: abdominal pain, constipation, diarrhea, hematemesis, hematochezia, nausea, vomiting Genitourinary: ABSENT: dysuria, hematuria Musculoskeletal: ABSENT: joint swelling Integumentary: ABSENT: rash, wounds Neurological: PRESENT: abnormal gait - ambulate with walker assistance. ABSENT: abnormal speech, confusion, dizziness, focal weakness, syncope Psychiatric: ABSENT: anxiety, depression, homidical ideation, suicidal ideation Endocrine: ABSENT: cold intolerance, heat intolerance, menstrual abnormalities, polydipsia, polyuria Hematologic/Lymphatic: ABSENT: easy bleeding, easy bruising, lymphadenopathy Allergic/Immunologic: ABSENT: seasonal rhinorrhea Physical Exam Vital Signs: Temp Pulse Resp BP Pulse Ox 97.7 F 58 L 20 124/50 L 90 L 05/29/20 11:32 05/29/20 14:00 05/29/20 11:18 05/29/20 11:32 05/29/20 11:32 General appearance: PRESENT: no acute distress, obese Head exam: PRESENT: atraumatic, normocephalic Eye exam: PRESENT: conjunctiva pink, EOMI, PERRLA. ABSENT: scleral icterus Ear exam: PRESENT: normal external ear exam Mouth exam: PRESENT: moist, tongue midline Neck exam: PRESENT: full ROM. ABSENT: carotid bruit, JVD, lymphadenopathy, thyromegaly Respiratory exam: PRESENT: clear to auscultation nurys, decreased breath sounds - at lung bases Cardiovascular exam: PRESENT: irregular rhythm, +S1, +S2. ABSENT: diastolic murmur, rubs, systolic murmur Pulses: PRESENT: +2 pedal pulses bilateral Vascular exam: ABSENT: pallor GI/Abdominal exam: PRESENT: normal bowel sounds, soft. ABSENT: distended, guarding, mass, organolmegaly, rebound, tenderness Rectal exam: PRESENT: deferred Extremities exam: PRESENT: pedal edema - 1+ bilateral above ankle level Neurological exam: PRESENT: alert, awake, oriented to person, oriented to place, oriented to time, oriented to situation, CN II-XII grossly intact. ABSENT: motor sensory deficit Psychiatric exam: PRESENT: appropriate affect, normal mood. ABSENT: homicidal ideation, suicidal ideation Skin exam: PRESENT: dry, intact, warm. ABSENT: cyanosis, rash Results Laboratory Results: 05/29/20 01:30 05/29/20 01:30 05/29/20 05/29/20 01:30 01:30 WBC 5.0 RBC 3.75 Hgb 10.3 L Hct 32.1 L MCV 85 MCH 27.4 MCHC 32.0 RDW 17.5 H Plt Count 169 Seg Neutrophils % Not Reportable Sodium 145.5 H Potassium 4.7 Chloride 113 H Carbon Dioxide 23 Anion Gap 10 BUN 58 H Creatinine 2.95 H Est GFR ( Amer) 18 L Glucose 135 H Calcium 10.3 H Magnesium 2.1 Total Bilirubin 0.6 AST 37 H Alkaline Phosphatase 119 Total Protein 7.7 Albumin 3.8 05/29/20 01:30 Troponin I 0.019 NT-Pro-B Natriuret Pep 2100 H Impressions: Chest X-Ray 05/29/20 01:57 IMPRESSION: Clear lungs. Head CT 05/29/20 01:57 IMPRESSION: No acute intracranial findings. Abdomen/Pelvis CT 05/29/20 01:58 IMPRESSION: No definite acute inflammatory process. Indeterminate right lower quadrant soft tissue mass. Assessment & Plan - Diagnosis (1) Fall in home Qualifiers: Encounter type: initial encounter Qualified Code(s): W19.XXXA - Unspecified fall, initial encounter; Y92.009 - Unspecified place in unspecified non-institutional (private) residence as the place of occurrence of the external cause Is this a current diagnosis for this admission?: Yes Plan: See admitting attending physician for details about care plan. (2) Persistent atrial fibrillation with rapid ventricular response Is this a current diagnosis for this admission?: Yes Plan: See admitting attending physician for details about care plan. (3) Chronic diastolic CHF (congestive heart failure), NYHA class 3 Is this a current diagnosis for this admission?: Yes Plan: See admitting attending physician for details about care plan. (4) CKD (chronic kidney disease) stage 4, GFR 15-29 ml/min Is this a current diagnosis for this admission?: Yes Plan: See admitting attending physician for details about care plan. (5) Essential hypertension Is this a current diagnosis for this admission?: Yes Plan: See admitting attending physician for details about care plan. (6) Diabetes mellitus type 2 in obese Is this a current diagnosis for this admission?: Yes Plan: See admitting attending physician for details about care plan. (7) HLD (hyperlipidemia) Qualifiers: Hyperlipidemia type: unspecified Qualified Code(s): E78.5 - Hyperlipidemia, unspecified Is this a current diagnosis for this admission?: Yes Plan: See admitting attending physician for details about care plan. (8) GERD (gastroesophageal reflux disease) Qualifiers: Esophagitis presence: without esophagitis Qualified Code(s): K21.9 - Gastro-esophageal reflux disease without esophagitis Is this a current diagnosis for this admission?: Yes Plan: See admitting attending physician for details about care plan. 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 (10) Osteoarthritis involving multiple joints on both sides of body Is this a current diagnosis for this admission?: Yes Plan: See admitting attending physician for details about care plan. - Time Time Spent: 50 to 70 Minutes Medications reviewed and adjusted accordingly: Yes Anticipated Discharge Disposition: Home with Home Health Anticipated Discharge Timeframe: within 72 hours - Inpatient Certification Based on my medical assessment, after consideration of the patient's comorbi dities, presenting symptoms, or acuity I expect that the services needed warrant INPATIENT care.: Yes I certify that my determination is in accordance with my understanding of Medicare's requirements for reasonable and necessary INPATIENT services [42 CFR 412.3e].: Yes Medical Necessity: Significant Comorbidiites Make Outpatient Treatment Too Risky, Need Close Monitoring Due to Risk of Patient Decompensation, Need For Continuous Telemetry Monitoring, Risk of Complication if Not Cared For in Hospital, Risk of Diagnosis Which Will Require Inpatient Eval/Care/Monitoring Post Hospital Care: D/C Curtain Hemmer Automatic Documentation - Plan Summary Plan Summary: See admitting attending physician for details about care plan.
[2020-05-29 19:44] LABS: CREATINE KINASE MB 0.85 ng/mL (<4.55); TROPONIN I 0.025 ng/mL
[2020-05-29] MEDS ORDERED: INSULN SUBCUT SCH (19:45)
[2020-05-29] MEDS ORDERED: CARVEDILOL 12.5 MG TABLET PO SCH (19:45)
[2020-05-29] MEDS ORDERED: [UNRECOGNIZED DRUG - OTHER] SUBCUT SCH (19:45)
[2020-05-29] MEDS ORDERED: INSULIN DEGLUDEC 100 UNIT/ML SUBCUT SCH (19:45)
[2020-05-29] MEDS: CARVEDILOL 12.5 MG TABLET PO SCH (20:14)
[2020-05-29] MEDS: HYDRALAZINE HCL 25 MG TABLET PO SCH (21:34)
[2020-05-29] MEDS ORDERED: DEXTROSE 40% GEL 15 GM TUBE X 2 PO PRN (22:00)
[2020-05-29] MEDS ORDERED: DEXTROSE 50%-WATER SYRINGE 12.5 GM/25 ML DOSE IV PRN (22:00)
[2020-05-29] MEDS ORDERED: GLUCAGON,HUMAN RECOMB 1 MG INJ IM PRN (22:00)
[2020-05-29] MEDS ORDERED: HYDRALAZINE HCL 25 MG TABLET PO SCH (22:00)
[2020-05-29] MEDS ORDERED: DEXTROSE 40% GEL 15 GM TUBE PO PRN (22:00)
[2020-05-29] MEDS ORDERED: DEXTROSE 50%-WATER SYRINGE 25 GM/50 ML DOSE IV PRN (22:00)
[2020-05-29] MEDS: INSULIN LISPRO 100 UNIT/ML 3 ML VIAL SUBCUT SCH (22:07)
[2020-05-30 03:25] LABS: ABSOLUTE EOSINOPHILS # (AUTO) 0.2 10^3/uL (0.0-0.6); ABSOLUTE LYMPHOCYTES (AUTO) 1.3 10^3/uL (0.5-4.7); ABSOLUTE MONOCYTES (AUTO) 0.4 10^3/uL (0.1-1.4); ABSOLUTE NEUT (AUTO) 2.3 10^3/uL (1.7-8.2); BASOPHILS % (AUTO) 0.8 % (0-2); EOSINOPHILS % (AUTO) 4.2 % (0-6); HEMATOCRIT 30.1 % (36.0-47.0); HEMOGLOBIN 9.5 g/dL (12.0-15.5); LYMPHOCYTES % (AUTO) 31.4 % (13-45); MEAN CORPUSCULAR HEMOGLOBIN 27.1 pg (27.0-33.4); MEAN CORPUSCULAR HGB CONC 31.6 g/dL (32.0-36.0); MEAN CORPUSCULAR VOLUME 86 fl (80-97); MONOCYTES % (AUTO) 8.7 % (3-13); PLATELET COUNT 146 10^3/uL (150-450); RED BLOOD COUNT 3.51 10^6/uL (3.72-5.28); RED CELL DISTRIBUTION WIDTH 17.8 % (11.5-14.0); SEGMENTED NEUTROPHILS % (AUTO) 54.9 % (42-78); TOTAL CELLS COUNTED % (AUTO) 100 %; WHITE BLOOD COUNT 4.2 10^3/uL (4.0-10.5)
[2020-05-30 03:37] LABS: ALBUMIN 3.2 g/dL (3.5-5.0); ALKALINE PHOSPHATASE 104 U/L (38-126); ANION GAP 8 (5-19); ASPARTATE AMINO TRANSFERASE 31 U/L (14-36); BILIRUBIN,DIRECT 0.3 mg/dL (0.0-0.4); BILIRUBIN,TOTAL 0.5 mg/dL (0.2-1.3); BLOOD UREA NITROGEN 57 mg/dL (7-20); CALCIUM 9.5 mg/dL (8.4-10.2); CARBON DIOXIDE 21 mmol/L (22-30); CHLORIDE 114 mmol/L (98-107); GLUCOSE 118 mg/dL (75-110); POTASSIUM 4.9 mmol/L (3.6-5.0); TOTAL PROTEIN 6.7 g/dL (6.3-8.2)
[2020-05-30 03:45] LABS: CREATINE KINASE MB 0.65 ng/mL (<4.55); TROPONIN I 0.022 ng/mL
[2020-05-30] MEDS: HYDRALAZINE HCL 25 MG TABLET PO SCH ×3 (06:06→21:59)
[2020-05-30] MEDS: INSULIN LISPRO 100 UNIT/ML 3 ML VIAL SUBCUT SCH ×4 (07:56→21:59)
[2020-05-30] MEDS ORDERED: INSULIN GLARGINE,HUM.REC.ANLOG 1,000 UNIT/10 ML VIAL (PYX) SUBCUT SCH (08:00)
--- NOTE | 2020-05-30 09:00 | EKG REPORT ---
SEVERITY:- ABNORMAL ECG - ATRIAL TACHYCARDIA WITH BLOCK RIGHT BUNDLE BRANCH BLOCK AND LAFB LVH WITH SECONDARY REPOLARIZATION ABNORMALITY : Confirmed by: Dexter García MD 30-May-2020 09:00:07
[2020-05-30] MEDS ORDERED: FATTY ACIDS PO SCH (10:00)
[2020-05-30] MEDS ORDERED: OMEGA PO SCH (10:00)
[2020-05-30] MEDS ORDERED: FUROSEMIDE 40 MG TABLET PO SCH (10:00)
[2020-05-30] MEDS ORDERED: AMLODIPINE BESYLATE 5 MG TABLET PO SCH ×2 (10:00)
[2020-05-30] MEDS ORDERED: (PENDING PHARMACY ID) (Irbesartan [Avapro] 300 MG) PO SCH (10:00)
[2020-05-30] MEDS ORDERED: [UNRECOGNIZED DRUG - OTHER] SQ SCH (10:00)
[2020-05-30] MEDS ORDERED: IRBESARTAN 300 MG PO SCH (10:00)
[2020-05-30] MEDS ORDERED: NATEGLINIDE 120 MG PO SCH (10:00)
[2020-05-30] MEDS ORDERED: INSULN SQ SCH (10:00)
[2020-05-30] MEDS ORDERED: INSULIN DEGLUDEC 100 UNIT/ML SQ SCH (10:00)
[2020-05-30] MEDS: NATEGLINIDE 60 MG TABLET PO SCH ×3 (11:00→18:20)
[2020-05-30] MEDS: ALLOPURINOL 100 MG TABLET PO SCH (11:09)
[2020-05-30] MEDS: LOSARTAN POTASSIUM 50 MG TABLET PO SCH (11:09)
[2020-05-30] MEDS: FERROUS SULFATE 325 MG TABLET PO SCH ×2 (11:09→18:20)
[2020-05-30] MEDS: APIXABAN 2.5 MG TABLET PO SCH ×2 (11:09→18:20)
[2020-05-30] MEDS: CARVEDILOL 12.5 MG TABLET PO SCH (11:10)
[2020-05-30] MEDS: CALCITRIOL 0.25 MCG CAPSULE PO SCH (11:10)
[2020-05-30] MEDS: FUROSEMIDE 40 MG TABLET PO SCH (11:10)
[2020-05-30] MEDS: OMEGA-3 ACID ETHYL ESTERS 1 GM CAPSULE PO SCH (11:10)
[2020-05-30] MEDS: MULTIVITAMIN TABLET PO SCH (11:10)
[2020-05-30 12:10] LABS: CREATINE KINASE MB 0.59 ng/mL (<4.55); TROPONIN I 0.025 ng/mL
--- NOTE | 2020-05-30 16:48 | PDOC CONSULTATION ---
Consultation Consult Date: 05/30/20 Attending physician:: GABRIELLA SHOOK Provider Consulted: BROCK CARDOZA Consult reason:: Pauses History of Present Illness Admission Date/PCP: 05/30/20 11:57 GABRIELLA SHOOK History of Present Illness: CAROLINA KAYE is a 84 year old female with history of hypertension, hyperlipidemia, type 2 diabetes, CKD, heart failure with preserved ejection fraction, longstanding persistent atrial fibrillation/flutter anticoagulated with low-dose Eliquis who is consulted to our service for further evaluation of pauses. The patient had been in her usual state of health until May 29, 2020 when she presented to our emergency department via EMS after suffering a fall at home. The patient states that she was sitting at the edge of her bed when she became generalized weak and started shaking. She did not have enough strength to remain in the bed and slipped to the floor. She tried to get up but once again felt very weak and shaky, had some chest discomfort and shortness of breath therefore she called her daughter for help. EMS was summoned and, per emergency room notes, apparently she was found in [place] however no rhythm strips were obtained and apparently the patient converted spontaneously. At the time of her index event she denied loss of consciousness as well as diaphoresis. She was admitted to our facility and was noted to have 3 to 4-second pauses which became more frequently and more prolonged up to the point she had a 7-second pause in the pulpit operator. She was awakened and felt fine. Unfortunately throughout the day she continues to have pauses that last anywhere from 3 to 5 seconds and today at 1437 she had another 8-second pause. She states that she felt very weak, short of breath and shaky but did not lose consciousness. Of note, she had been on carvedilol 12.5 mg twice daily however she only received 1 dose of the medication more than 12 hours ago and subsequently the drug was discontinued. Her most recent EKG demonstrates atrial flutter with variable AV block, right bundle branch block with a heart rate of 58 bpm. Physical exam on May 30, 2020: GENERAL: Pleasant and conversational. Obese. Oriented x3 with normal mood. Not in acute distress. Well groomed and well developed. HEENT: Normocephalic, atraumatic. Pupils equal. Sclerae anicteric. Oropharynx moist. NECK: No JVD. No carotid bruits. LUNGS: Clear to auscultation bilaterally. Normal respiratory effort without the use of accessory muscles or intercostal retractions. CARDIOVASCULAR: Irregularly irregular rate and rhythm, bradycardic, no murmurs, rubs, or gallops. PMI not displaced. ABDOMEN: No masses or tenderness to palpation. No bruit. No splenomegaly or hepatomegaly. No abdominal aorta bruit noted. EXTREMITIES: 1+ pitting edema bilaterally, no cyanosis, no clubbing. +2 pulses femoral and pedal pulses bilaterally. SKIN: No lesions or rashes. MUSCULOSKELETAL: No chest tenderness to palpation. NEUROLOGIC: Nonfocal. No gross sensory or motor deficits bilateral upper or lower extremities. Past Medical History Cardiac Medical History: Reports: Atrial Fibrillation, Congestive Heart Failure, Myocardial Infarction, Hyperlipidema, Hypertension Denies: Coronary Artery Disease Pulmonary Medical History: Reports: Sleep Apnea Denies: Asthma, Bronchitis, Chronic Obstructive Pulmonary Disease (COPD), Pneumonia, Tuberculosis EENT Medical History: Reports: None Neurological Medical History: Denies: Seizures Endocrine Medical History: Reports: Diabetes Mellitus Type 2 Renal/ Medical History: Reports: None Malignancy Medical History: Reports: None GI Medical History: Reports: Gastroesophageal Reflux Disease Musculoskeltal Medical History: Reports: Arthritis - KNEES & ARMS & HANDS, OSTEOARTHRITIS, Gout Skin Medical History: Reports: None Psychiatric Medical History: Reports: None Denies: Depression Traumatic Medical History: Reports: None Hematology: Denies: Anemia, Sickle Cell Disease Infectious Medical History: Reports: None Past Surgical History Past Surgical History: Denies: Amputation, Hysterectomy Social History Lives with: Alone Smoking Status: Never Smoker Frequency of Alcohol Use: None Hx Recreational Drug Use: No Drugs: None Hx Prescription Drug Abuse: No - Advance Directive Resuscitation Status: Full Code Family History Family History: Reviewed & Not Pertinent, CAD Parental Family History Reviewed: Yes Children Family History Reviewed: Yes Sibling(s) Family History Reviewed.: Yes Medication/Allergy Home Medications: Insulin Aspart [Novolog Flexpen] 0 units SQ .PERSLIDINGSCALE 02/28/18 Irbesartan [Avapro] 300 mg PO DAILY 02/28/18 Nateglinide [Starlix] 120 mg PO TID 02/28/18 Apixaban [Eliquis 2.5 mg Tablet] 2.5 mg PO BID #60 tablet 04/12/18 Hydralazine HCl [Apresoline 25 mg Tablet] 25 mg PO Q8 #90 tablet 04/12/18 Calcitriol [Rocaltrol 0.25 mcg Capsule] 0.25 mcg PO DAILY 03/17/20 Dexlansoprazole [Dexilant 30 mg Capsule] 30 mg PO DAILY 03/17/20 Insulin Degludec [Tresiba Flextouch U-100] 25 units SQ DAILY 03/17/20 Columbus-3 Fatty Acids [Columbus-3] 1,000 mg PO DAILY 04/03/20 Allopurinol [Zyloprim 100 mg Tablet] 200 mg PO DAILY 05/29/20 Amlodipine Besylate [Norvasc 5 mg Tablet] 5 mg PO DAILY 05/29/20 Ferrous Sulfate [Feosol 325 mg Tablet] 325 mg PO BID 05/29/20 Furosemide [Lasix 40 mg Tablet] 40 mg PO DAILY 05/29/20 Multivitamin [Tab-A-Yony (Multiple Vitamin) Tablet] 1 tab PO DAILY 05/29/20 Allergies/Adverse Reactions: oxycodone [Oxycodone] Allergy (Verified 04/09/18 12:02) Physical Exam Vital Signs: Temp Pulse Resp BP Pulse Ox 97.7 F 58 L 16 108/52 L 97 05/30/20 15:28 05/30/20 15:28 05/30/20 15:28 05/30/20 15:28 05/30/20 15:28 Intake & Output 05/29/20 05/30/20 05/31/20 06:59 06:59 06:59 Intake Total 740 480 Output Total 300 Balance 740 180 Weight 88.5 kg Results Laboratory Results: 05/30/20 02:50 05/30/20 02:50 05/30/20 05/30/20 02:50 02:50 WBC 4.2 RBC 3.51 L Hgb 9.5 L Hct 30.1 L MCV 86 MCH 27.1 MCHC 31.6 L RDW 17.8 H Plt Count 146 L Seg Neutrophils % 54.9 Sodium 143.2 Potassium 4.9 Chloride 114 H Carbon Dioxide 21 L Anion Gap 8 BUN 57 H Creatinine 2.80 H Est GFR ( Amer) 19 L Glucose 118 H Calcium 9.5 Total Bilirubin 0.5 AST 31 Alkaline Phosphatase 104 Total Protein 6.7 Albumin 3.2 L 05/29/20 05/29/20 05/29/20 01:30 18:48 18:48 Creatine Kinase 53 CK-MB (CK-2) 0.85 Troponin I 0.019 0.025 NT-Pro-B Natriuret Pep 2100 H 05/30/20 05/30/20 05/30/20 02:50 02:50 11:00 Creatine Kinase 47 45 CK-MB (CK-2) 0.65 Troponin I 0.022 NT-Pro-B Natriuret Pep 05/30/20 11:00 Creatine Kinase CK-MB (CK-2) 0.59 Troponin I 0.025 NT-Pro-B Natriuret Pep Impressions: Chest X-Ray 05/29/20 01:57 IMPRESSION: Clear lungs. Head CT 05/29/20 01:57 IMPRESSION: No acute intracranial findings. Abdomen/Pelvis CT 05/29/20 01:58 IMPRESSION: No definite acute inflammatory process. Indeterminate right lower quadrant soft tissue mass. Assessment & Plan - Diagnosis (1) Sinus pause Is this a current diagnosis for this admission?: Yes Plan: 84-year-old female with multiple medical problems as described above in the HPI who has been having progressive episodes of pauses as long as 8 seconds that are now recurrent when the patient is awake and in the middle of the day associated with generalized weakness and shortness of breath despite not receiving any b eta-blockers or any other AV dmitry agents for longer than 12 hours. Whether this is secondary to the prior use of beta-chente along with elevated vagal tone versus underlying sick sinus syndrome is unclear at this point however given her symptoms, the recurrence of the very long pauses during the day when she is not on AV dmitry agents and the lack of the ability to treat her should her pauses become more prolonged and more symptomatic we will try to transfer her to [facility] and to that effect the transfer line has been called. I discussed the case with the patient's hospitalist, Dr. Sohok who will be dictating the transfer summary. If [facility] does not have any beds then the hospitalist will call [facility] or [facility] for transfer. We will apply Zoll pads to her chest as a precaution and we will continue to avoid all AV dmitry agents.
--- NOTE | 2020-05-30 17:49 | PDOC TRANSFER SUMMARY ---
General Admission Date/PCP: 05/30/20 11:57 GABRIELLA SHOOK MD Admission Date: 05/29/20 Transfer Date: 05/30/20 Accepting Facility: [facility] Accepting Physician: Zaid Tilley MD Resuscitation Status: Full Code - Transfer Diagnosis (1) Fall in home Is this a current diagnosis for this admission?: Yes (2) Persistent atrial fibrillation with rapid ventricular response Is this a current diagnosis for this admission?: Yes (3) Chronic diastolic CHF (congestive heart failure), NYHA class 3 Is this a current diagnosis for this admission?: Yes (4) CKD (chronic kidney disease) stage 4, GFR 15-29 ml/min Is this a current diagnosis for this admission?: Yes (5) Essential hypertension Is this a current diagnosis for this admission?: Yes (6) Diabetes mellitus type 2 in obese Is this a current diagnosis for this admission?: Yes (7) HLD (hyperlipidemia) Is this a current diagnosis for this admission?: Yes (8) GERD (gastroesophageal reflux disease) Is this a current diagnosis for this admission?: Yes (9) Gouty arthropathy, chronic, 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 Is this a current diagnosis for this admission?: Yes (10) Osteoarthritis involving multiple joints on both sides of body Is this a current diagnosis for this admission?: Yes - Transfer Medications Home Medications: Insulin Aspart [Novolog Flexpen] 0 units SQ .PERSLIDINGSCALE 02/28/18 Irbesartan [Avapro] 300 mg PO DAILY 02/28/18 Nateglinide [Starlix] 120 mg PO TID 02/28/18 Calcitriol [Rocaltrol 0.25 mcg Capsule] 0.25 mcg PO DAILY 03/17/20 Dexlansoprazole [Dexilant 30 mg Capsule] 30 mg PO DAILY 03/17/20 Insulin Degludec [Tresiba Flextouch U-100] 25 units SQ DAILY 03/17/20 Wheelwright-3 Fatty Acids [Wheelwright-3] 1,000 mg PO DAILY 04/03/20 Allopurinol [Zyloprim 100 mg Tablet] 200 mg PO DAILY 05/29/20 Amlodipine Besylate [Norvasc 5 mg Tablet] 5 mg PO DAILY 05/29/20 Ferrous Sulfate [Feosol 325 mg Tablet] 325 mg PO BID 05/29/20 Furosemide [Lasix 40 mg Tablet] 40 mg PO DAILY 05/29/20 Multivitamin [Tab-A-Yony (Multiple Vitamin) Tablet] 1 tab PO DAILY 05/29/20 Transfer Medications: Current Medications Allopurinol (Allopurinol 100 Mg Tablet) 200 mg PO DAILY SONIA Stop: 06/29/20 09:59 Last Admin: 05/30/20 11:09 Dose: 200 mg Documented by: Apixaban (Apixaban 2.5 Mg Tablet) 2.5 mg PO BID SONIA Stop: 06/29/20 09:59 Last Admin: 05/30/20 11:09 Dose: 2.5 mg Documented by: Calcitriol (Calcitriol 0.25 Mcg Capsule) 0.25 mcg PO DAILY SONIA Stop: 06/29/20 09:59 Last Admin: 05/30/20 11:10 Dose: 0.25 mcg Documented by: Dextrose (Dextrose 50%-Water Syringe 12.5 Gm/25 Ml Dose) 12.5 gm IV PRN PRN; Protocol PRN Reason: FOR BG 50-69 IN ALERT PATIENT Stop: 06/28/20 21:59 Dextrose (Dextrose 50%-Water Syringe 25 Gm/50 Ml Dose) 25 gm IV PRN PRN; Protocol Stop: 06/28/20 21:59 Ferrous Sulfate (Ferrous Sulfate 325 Mg Tablet) 325 mg PO BID [facility] Stop: 06/29/20 09:59 Last Admin: 05/30/20 11:09 Dose: 325 mg Documented by: Furosemide (Furosemide 40 Mg Tablet) 40 mg PO DAILY SONIA Stop: 06/29/20 09:59 Last Admin: 05/30/20 11:10 Dose: 40 mg Documented by: Glucagon (Glucagon,Human Recomb 1 Mg Inj) 1 mg IM PRN PRN; Protocol PRN Reason: EVALUATE FOR BG < 70 Stop: 06/28/20 21:59 Glucose (Dextrose 40% Gel 15 Gm Tube) 15 gm PO PRN PRN; Protocol PRN Reason: FOR BG 50-69 IN ALERT PATIENT Stop: 06/28/20 21:59 Glucose (Dextrose 40% Gel 15 Gm Tube X 2) 30 gm PO PRN PRN; Protocol PRN Reason: FOR BG < 50 IN ALERT PATIENT Stop: 06/28/20 21:59 Hydralazine HCl (Hydralazine Hcl 25 Mg Tablet) 25 mg PO Q8 [facility] Stop: 06/28/20 21:59 Last Admin: 05/30/20 14:16 Dose: Not Given Documented by: Insulin Glargine (Insulin Glargine,Hum.Rec.Anlog 1,000 Unit/10 Ml Vial (Pyx)) 25 unit SUBCUT QAM [facility] Stop: 05/30/20 23:59 Last Admin: 05/30/20 10:42 Dose: Not Given Documented by: Insulin Glargine (Insulin Glargine,Hum.Rec.Anlog 1,000 Unit/10 Ml Vial) 25 unit SUBCUT QAM [facility] Stop: 06/30/20 07:59 Insulin Human Lispro (Insulin Lispro 100 Unit/Ml 3 Ml Vial) 0 - 12 unit SUBCUT [facility]; Protocol Stop: 06/28/20 21:59 Last Admin: 05/30/20 11:14 Dose: 2 unit Documented by: Losartan Potassium (Losartan Potassium 50 Mg Tablet) 100 mg PO DAILY [facility] Stop: 06/29/20 09:59 Last Admin: 05/30/20 11:09 Dose: 100 mg Documented by: Multivitamins (Multivitamin Tablet) 1 tab PO DAILY SONIA Stop: 06/29/20 09:59 Last Admin: 05/30/20 11:10 Dose: 1 tab Documented by: Nateglinide (Nateglinide 60 Mg Tablet) 120 mg PO MEALS SONIA Stop: 06/29/20 07:59 Last Admin: 05/30/20 11:14 Dose: 120 mg Documented by: Azsne-2-Tfcd Ethyl Esters (Wheelwright-3 Acid Ethyl Esters 1 Gm Capsule) 1 gm PO DAILY [facility] Stop: 06/29/20 09:59 Last Admin: 05/30/20 11:10 Dose: 1 gm Documented by: Patient Own Medication (Insulin Degludec [Tresiba Flextouch U-100]) 25 units SUBCUT .DAILY [facility] Stop: 06/28/20 19:44 - Allergies Allergies/Adverse Reactions: oxycodone [Oxycodone] Allergy (Verified 04/09/18 12:02) Hospital Course Hospital Course: Patient was admitted with recurrent falls at home with reported V.tach by EMS crew. She denied any a chest pain or palpitation. She denied awareness of loss of consciousness. Her initial valuation was significant for persistent atrial fibrillation. 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 She was since in consultation by Dr. David Patino, addiction medicine physician, with recommendation for pacemaker insertion. Her transfer was to [facility] made and she was accepted by Dr. Zaid Tilley. I discussed issue of transfer with patient and her daughter, Diandra at [phone]. They are both in agreement. She will follow up in the office as instructed upon discharge from [facility]. Physical Exam Vital Signs: Temp Pulse Resp BP Pulse Ox 97.7 F 58 L 16 108/52 L 97 05/30/20 15:28 05/30/20 15:28 05/30/20 15:28 05/30/20 15:28 05/30/20 15:28 Intake & Output 05/29/20 05/30/20 05/31/20 06:59 06:59 06:59 Intake Total 740 480 Output Total 300 Balance 740 180 Weight 88.5 kg General appearance: PRESENT: no acute distress, obese Head exam: PRESENT: atraumatic, normocephalic Eye exam: PRESENT: conjunctiva pink, EOMI, PERRLA. ABSENT: scleral icterus Ear exam: PRESENT: normal external ear exam Mouth exam: PRESENT: moist, tongue midline Neck exam: ABSENT: carotid bruit, JVD, lymphadenopathy, thyromegaly Respiratory exam: PRESENT: clear to auscultation nurys. ABSENT: rales, rhonchi, wheezes Cardiovascular exam: PRESENT: irregular rhythm. ABSENT: diastolic murmur, rubs, systolic murmur Pulses: PRESENT: normal dorsalis pedis pul Vascular exam: ABSENT: pallor GI/Abdominal exam: PRESENT: normal bowel sounds, soft. ABSENT: distended, guarding, mass, organolmegaly, rebound, tenderness Extremities exam: PRESENT: full ROM, pedal edema - minimal periankle edema. ABSENT: calf tenderness, clubbing Neurological exam: PRESENT: alert, awake, oriented to person, oriented to place, oriented to time, oriented to situation, CN II-XII grossly intact. ABSENT: motor sensory deficit Psychiatric exam: PRESENT: appropriate affect, normal mood. ABSENT: homicidal ideation, suicidal ideation Skin exam: PRESENT: dry, intact, warm. ABSENT: cyanosis, rash Results Laboratory Results: 05/30/20 02:50 05/30/20 02:50 05/30/20 05/30/20 02:50 02:50 WBC 4.2 RBC 3.51 L Hgb 9.5 L Hct 30.1 L MCV 86 MCH 27.1 MCHC 31.6 L RDW 17.8 H Plt Count 146 L Seg Neutrophils % 54.9 Sodium 143.2 Potassium 4.9 Chloride 114 H Carbon Dioxide 21 L Anion Gap 8 BUN 57 H Creatinine 2.80 H Est GFR ( Amer) 19 L Glucose 118 H Calcium 9.5 Total Bilirubin 0.5 AST 31 Alkaline Phosphatase 104 Total Protein 6.7 Albumin 3.2 L 05/29/20 05/29/20 05/29/20 01:30 18:48 18:48 Creatine Kinase 53 CK-MB (CK-2) 0.85 Troponin I 0.019 0.025 NT-Pro-B Natriuret Pep 2100 H 05/30/20 05/30/20 05/30/20 02:50 02:50 11:00 Creatine Kinase 47 45 CK-MB (CK-2) 0.65 Troponin I 0.022 NT-Pro-B Natriuret Pep 05/30/20 11:00 Creatine Kinase CK-MB (CK-2) 0.59 Troponin I 0.025 NT-Pro-B Natriuret Pep Impressions: Chest X-Ray 05/29/20 01:57 IMPRESSION: Clear lungs. Head CT 05/29/20 01:57 IMPRESSION: No acute intracranial findings. Abdomen/Pelvis CT 05/29/20 01:58 IMPRESSION: No definite acute inflammatory process. Indeterminate right lower quadrant soft tissue mass. Plan Discharge Plan: Transfer to [facility] under service of Dr. Zaid Tilley, addiction medicine physician. Time Spent: Greater than 30 Minutes
--- NOTE | 2020-05-30 22:30 | EKG REPORT ---
SEVERITY:- ABNORMAL ECG - ATRIAL TACHYCARDIA WITH 4;1 BLOCK RIGHT BUNDLE BRANCH BLOCK AND LEFT ANT. FASCICULAR BLOCK. LVH WITH IVCD AND SECONDARY REPOL ABNRM : Confirmed by: Dexter García MD 30-May-2020 22:30:00
--- NOTE | 2020-05-31 00:20 | PDOC PROGRESS REPORT ---
Subjective Date:: 05/30/20 Subjective:: Patient denied any chest pain or difficulty with breathing. There were observed episodes of asystole on her cadiac monitor. Patient reported no symptoms. No nausea, vomiting, or abdominal pain. No fever or chills. Reason For Visit: ACUTE ELECTROCARDIOGRAM CHANGES/CHF Physical Exam Vital Signs: Temp Pulse Resp BP Pulse Ox 98.0 F 57 L 20 115/48 L 94 05/30/20 07:34 05/30/20 07:34 05/30/20 07:34 05/30/20 07:34 05/30/20 07:34 Intake & Output 05/29/20 05/30/20 05/31/20 06:59 06:59 06:59 Intake Total 740 Balance 740 Weight 88.5 kg General appearance: PRESENT: no acute distress, obese Head exam: PRESENT: atraumatic, normocephalic Eye exam: PRESENT: conjunctiva pink. ABSENT: scleral icterus Mouth exam: PRESENT: moist Respiratory exam: PRESENT: clear to auscultation nurys Cardiovascular exam: PRESENT: irregular rhythm, +S1, +S2 Vascular exam: ABSENT: pallor Extremities exam: PRESENT: pedal edema - very minimal periankle edema Neurological exam: PRESENT: alert, awake, oriented to person, oriented to place, oriented to time, oriented to situation, CN II-XII grossly intact. ABSENT: motor sensory deficit Skin exam: PRESENT: dry, warm Results Laboratory Results: 05/30/20 02:50 05/30/20 02:50 05/30/20 05/30/20 02:50 02:50 WBC 4.2 RBC 3.51 L Hgb 9.5 L Hct 30.1 L MCV 86 MCH 27.1 MCHC 31.6 L RDW 17.8 H Plt Count 146 L Seg Neutrophils % 54.9 Sodium 143.2 Potassium 4.9 Chloride 114 H Carbon Dioxide 21 L Anion Gap 8 BUN 57 H Creatinine 2.80 H Est GFR ( Amer) 19 L Glucose 118 H Calcium 9.5 Total Bilirubin 0.5 AST 31 Alkaline Phosphatase 104 Total Protein 6.7 Albumin 3.2 L 05/29/20 05/29/20 05/29/20 01:30 18:48 18:48 Creatine Kinase 53 CK-MB (CK-2) 0.85 Troponin I 0.019 0.025 NT-Pro-B Natriuret Pep 2100 H 05/30/20 05/30/20 02:50 02:50 Creatine Kinase 47 CK-MB (CK-2) 0.65 Troponin I 0.022 NT-Pro-B Natriuret Pep Impressions: Chest X-Ray 05/29/20 01:57 IMPRESSION: Clear lungs. Head CT 05/29/20 01:57 IMPRESSION: No acute intracranial findings. Abdomen/Pelvis CT 05/29/20 01:58 IMPRESSION: No definite acute inflammatory process. Indeterminate right lower quadrant soft tissue mass. Assessment & Plan - Diagnosis (1) Fall in home Qualifiers: Encounter type: initial encounter Qualified Code(s): W19.XXXA - Unspecified fall, initial encounter; Y92.009 - Unspecified place in unspecified non- institutional (private) residence as the place of occurrence of the external cause Is this a current diagnosis for this admission?: Yes (2) Persistent atrial fibrillation with rapid ventricular response Is this a current diagnosis for this admission?: Yes (3) Chronic diastolic CHF (congestive heart failure), NYHA class 3 Is this a current diagnosis for this admission?: Yes (4) CKD (chronic kidney disease) stage 4, GFR 15-29 ml/min Is this a current diagnosis for this admission?: Yes (5) Essential hypertension Is this a current diagnosis for this admission?: Yes (6) Diabetes mellitus type 2 in obese Is this a current diagnosis for this admission?: Yes (7) HLD (hyperlipidemia) Qualifiers: Hyperlipidemia type: unspecified Qualified Code(s): E78.5 - Hyperlipidemia, unspecified Is this a current diagnosis for this admission?: Yes (8) GERD (gastroesophageal reflux disease) Qualifiers: Esophagitis presence: without esophagitis Qualified Code(s): K21.9 - Gastro-esophageal reflux disease without esophagitis Is this a current diagnosis for this admission?: Yes (9) Gouty arthropathy, chronic, 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 Is this a current diagnosis for this admission?: Yes (10) Osteoarthritis involving multiple joints on both sides of body Is this a current diagnosis for this admission?: Yes - Time Time Spent with patient: 25-34 minutes Level of Care: TELE Medications reviewed and adjusted accordingly: Yes Anticipated discharge: Home with Homehealth Anticipated DC Timeframe: within 72 hours - Inpatient Certification Based on my medical assessment, after consideration of the patient's comorbidities, presenting symptoms, or acuity I expect that the services needed warrant INPATIENT care.: Yes I certify that my determination is in accordance with my understanding of Medicare's requirements for reasonable and necessary INPATIENT services [42 CFR 412.3e].: Yes Medical Necessity: Significant Comorbidiites Make Outpatient Treatment Too Risky, Need Close Monitoring Due to Risk of Patient Decompensation, Need For Continuous Telemetry Monitoring, Risk of Complication if Not Cared For in Hosp ital, Risk of Diagnosis Which Will Require Inpatient Eval/Care/Monitoring Post Hospital Care: D/C Cut Off Saw Tender Metal Documentation - Plan Summary Plan Summary: Continue current medication management. Request cardiology consultation with Dr. Luc Antoine, for need of further evaluation and management for possible sick sinus syndrome supper imposed on her persistent atrial fibrillation
[2020-05-31] MEDS: HYDRALAZINE HCL 25 MG TABLET PO SCH ×3 (06:26→22:18)
--- NOTE | 2020-05-31 07:55 | PDOC PROGRESS REPORT ---
Subjective Date:: 05/31/20 Subjective:: CAROLINA KAYE is a 84 year old female with history of hypertension, hyperlipidemia, type 2 diabetes, CKD, heart failure with preserved ejection fraction, longstanding persistent atrial fibrillation/flutter anticoagulated with low-dose Eliquis who is consulted to our service for further evaluation of pauses. The patient had been in her usual state of health until May 29 when she presented to our emergency department via EMS after suffering a fall at home. The patient states that she was sitting at the edge of her bed when she became generalized weak and started shaking. She did not have enough strength to remain in the bed and slipped to the floor. She tried to get up but once again felt very weak and shaky, had some chest discomfort and shortness of breath therefore she called her daughter for help. EMS was summoned and, per emergency room notes, apparently she was found in [place] however no rhythm strips were obtained and apparently the patient converted spontaneously. At the time of her index event she denied loss of consciousness as well as diaphoresis. 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 She was awakened and felt fine. Unfortunately throughout the day she continues to have pauses that last anywhere from 3 to 5 seconds and today at 1437 she had another 8-second pause. She states that she f elt very weak, short of breath and shaky but did not lose consciousness. Of note, she had been on carvedilol 12.5 mg twice daily however she only received 1 dose of the medication more than 12 hours ago and subsequently the drug was discontinued. Her most recent EKG demonstrates atrial flutter with variable AV block, right bundle branch block with a heart rate of 58 bpm. 05/31/2020: The patient had an uneventful night and has no complaints this morning. Unfortunately she tested positive for COVID-19 therefore her transfer to [facility] have been put on hold. Her telemetry continues to show atrial flutter with a slow ventricular response and recurrent pauses between 3 to 5 seconds mainly when the patient is asleep. She had remained asymptomatic throughout these episodes last night. Physical exam on 05/31/2020: GENERAL: Pleasant and conversational. Obese. Oriented x3 with normal mood. Not in acute distress. Well groomed and well developed. HEENT: Normocephalic, atraumatic. Pupils equal. Sclerae anicteric. Oropharynx moist. NECK: No JVD. No carotid bruits. LUNGS: Clear to auscultation bilaterally. Normal respiratory effort without the use of accessory muscles or intercostal retractions. CARDIOVASCULAR: Irregularly irregular rate and rhythm, bradycardic, no murmurs, rubs, or gallops. PMI not displaced. ABDOMEN: No masses or tenderness to palpation. No bruit. No splenomegaly or hepatomegaly. No abdominal aorta bruit noted. EXTREMITIES: 1+ pitting edema bilaterally, no cyanosis, no clubbing. +2 pulses femoral and pedal pulses bilaterally. SKIN: No lesions or rashes. MUSCULOSKELETAL: No chest tenderness to palpation. NEUROLOGIC: Nonfocal. No gross sensory or motor deficits bilateral upper or lower extremities. Reason For Visit: RECURRENT FALLS AT HOME;PERSISTENT ATRIAL FIB Physical Exam Vital Signs: Temp Pulse Resp BP Pulse Ox 98.5 F 57 L 24 H 109/72 95 05/31/20 04:08 05/31/20 04:08 05/31/20 04:08 05/31/20 04:08 05/31/20 04:08 Intake & Output 05/30/20 05/31/20 06/01/20 06:59 06:59 06:59 Intake Total 740 961 Output Total 1000 Balance 740 -39 Weight 88.5 kg 91.8 kg Results Laboratory Results: 05/30/20 02:50 05/30/20 02:50 05/29/20 05/29/20 05/29/20 01:30 18:48 18:48 Creatine Kinase 53 CK-MB (CK-2) 0.85 Troponin I 0.019 0.025 NT-Pro-B Natriuret Pep 2100 H 05/30/20 05/30/20 05/30/20 02:50 02:50 11:00 Creatine Kinase 47 45 CK-MB (CK-2) 0.65 Troponin I 0.022 NT-Pro-B Natriuret Pep 05/30/20 11:00 Creatine Kinase CK-MB (CK-2) 0.59 Troponin I 0.025 NT-Pro-B Natriuret Pep Impressions: Chest X-Ray 05/29/20 01:57 IMPRESSION: Clear lungs. Head CT 05/29/20 01:57 IMPRESSION: No acute intracranial findings. Abdomen/Pelvis CT 05/29/20 01:58 IMPRESSION: No definite acute inflammatory process. Indeterminate right lower quadrant soft tissue mass. 05/30/20 02:50 05/30/20 02:50 MCV 86 fl (80-97) 05/30/20 02:50 MCH 27.1 pg (27.0-33.4) 05/30/20 02:50 MCHC 31.6 g/dL (32.0-36.0) L 05/30/20 02:50 RDW 17.8 % (11.5-14.0) H 05/30/20 02:50 Seg Neutrophils % 54.9 % (42-78) 05/30/20 02:50 Chloride 114 mmol/L (98-107) H 05/30/20 02:50 Carbon Dioxide 21 mmol/L (22-30) L 05/30/20 02:50 Anion Gap 8 (5-19) 05/30/20 02:50 Est GFR ( Amer) 19 (>60) L 05/30/20 02:50 Glucose 118 mg/dL (75-110) H 05/30/20 02:50 Calcium 9.5 mg/dL (8.4-10.2) 05/30/20 02:50 Magnesium 2.1 mg/dL (1.6-2.3) 05/29/20 01:30 Total Bilirubin 0.5 mg/dL (0.2-1.3) 05/30/20 02:50 AST 31 U/L (14-36) 05/30/20 02:50 Alkaline Phosphatase 104 U/L (38-126) 05/30/20 02:50 Total Protein 6.7 g/dL (6.3-8.2) 05/30/20 02:50 Albumin 3.2 g/dL (3.5-5.0) L 05/30/20 02:50 05/29/20 05/29/20 05/29/20 01:30 18:48 18:48 Creatine Kinase 53 CK-MB (CK-2) 0.85 Troponin I 0.019 0.025 NT-Pro-B Natriuret Pep 2100 H 05/30/20 05/30/20 05/30/20 02:50 02:50 11:00 Creatine Kinase 47 45 CK-MB (CK-2) 0.65 Troponin I 0.022 NT-Pro-B Natriuret Pep 05/30/20 11:00 Creatine Kinase CK-MB (CK-2) 0.59 Troponin I 0.025 NT-Pro-B Natriuret Pep Current Medication List Generic Name Dose Route Start Last Admin Trade Name Freq PRN Reason Stop Dose Admin Allopurinol 200 mg 05/30/20 10:00 05/30/20 11:09 Allopurinol 100 Mg Tablet PO 06/29/20 09:59 200 mg DAILY SONIA Administration Apixaban 2.5 mg 05/30/20 10:00 05/30/20 18:20 Apixaban 2.5 Mg Tablet PO 06/29/20 09:59 2.5 mg BID SONIA Administration Calcitriol 0.25 mcg 05/30/20 10:00 05/30/20 11:10 Calcitriol 0.25 Mcg Capsule PO 06/29/20 09:59 0.25 mcg DAILY SONIA Administration Dextrose 12.5 gm 05/29/20 22:00 Dextrose 50%-Water Syringe 12.5 Gm/25 Ml Dose IV 06/28/20 21:59 PRN PRN FOR BG 50-69 IN ALERT PATIENT Protocol Dextrose 25 gm 05/29/20 22:00 Dextrose 50%-Water Syringe 25 Gm/50 Ml Dose IV 06/28/20 21:59 PRN PRN Protocol Ferrous Sulfate 325 mg 05/30/20 10:00 05/30/20 18:20 Ferrous Sulfate 325 Mg Tablet PO 06/29/20 09:59 325 mg BID SONIA Administration Furosemide 40 mg 05/30/20 10:00 05/30/20 11:10 Furosemide 40 Mg Tablet PO 06/29/20 09:59 40 mg DAILY SONIA Administration Glucagon 1 mg 05/29/20 22:00 Glucagon,Human Recomb 1 Mg Inj IM 06/28/20 21:59 PRN PRN EVALUATE FOR BG < 70 Protocol Glucose 15 gm 05/29/20 22:00 Dextrose 40% Gel 15 Gm Tube PO 06/28/20 21:59 PRN PRN FOR BG 50-69 IN ALERT PATIENT Protocol Glucose 30 gm 05/29/20 22:00 Dextrose 40% Gel 15 Gm Tube X 2 PO 06/28/20 21:59 PRN PRN FOR BG < 50 IN ALERT PATIENT Protocol Hydralazine HCl 25 mg 05/29/20 22:00 05/31/20 06:26 Hydralazine Hcl 25 Mg Tablet PO 06/28/20 21:59 25 mg Q8 SONIA Administration Insulin Glargine 25 unit 05/31/20 08:00 Insulin Glargine,Hum.Rec.Anlog 1,000 Unit/10 Ml Vial SUBCUT 06/30/20 07:59 QAM SONIA Insulin Human Lispro 0 - 12 unit 05/29/20 22:00 05/30/20 21:59 Insulin Lispro 100 Unit/Ml 3 Ml Vial SUBCUT 06/28/20 21:59 2 unit ACHS SONIA Administration Protocol Losartan Potassium 100 mg 05/30/20 10:00 05/30/20 11:09 Losartan Potassium 50 Mg Tablet PO 06/29/20 09:59 100 mg DAILY SONIA Administration Multivitamins 1 tab 05/30/20 10:00 05/30/20 11:10 Multivitamin Tablet PO 06/29/20 09:59 1 tab DAILY SONIA Administration Nateglinide 120 mg 05/30/20 08:00 05/30/20 18:20 Nateglinide 60 Mg Tablet PO 06/29/20 07:59 120 mg MEALS SONIA Administration Elllw-6-Aeju Ethyl Esters 1 gm 05/30/20 10:00 05/30/20 11:10 [place]-3 Acid Ethyl Esters 1 Gm Capsule PO 06/29/20 09:59 1 gm DAILY SONIA Administration Patient Own Medication 25 units 05/29/20 19:45 Insulin Degludec [Tresiba Flextouch U-100] SUBCUT 06/28/20 19:44 .DAILY SONIA Discontinued Medications Generic Name Dose Route Start Last Admin Trade Name Freq PRN Reason Stop Dose Admin Amlodipine Besylate 5 mg 05/30/20 10:00 Amlodipine Besylate 5 Mg Tablet PO 06/29/20 09:59 DAILY SONIA Amlodipine Besylate 5 mg 05/30/20 10:00 05/30/20 11:09 Amlodipine Besylate 5 Mg Tablet PO 06/29/20 09:59 5 mg DAILY SONIA Administration Apixaban 2.5 mg 05/29/20 19:30 05/29/20 20:14 Apixaban 2.5 Mg Tablet PO 05/29/20 19:31 2.5 mg NOW ONE Administration Carvedilol 12.5 mg 05/29/20 19:45 Carvedilol 12.5 Mg Tablet PO 06/28/20 19:44 Q12 [facility] Carvedilol 12.5 mg 05/29/20 20:35 05/30/20 11:10 Carvedilol 12.5 Mg Tablet PO 06/28/20 20:34 Not Given Q12 [facility] Furosemide 40 mg 05/30/20 10:00 Furosemide 40 Mg Tablet PO 06/29/20 09:59 DAILY [facility] Hydralazine HCl 25 mg 05/29/20 22:00 Hydralazine Hcl 25 Mg Tablet PO 06/28/20 21:59 Q8 [facility] Insulin Glargine 25 unit 05/30/20 08:00 05/30/20 10:42 Insulin Glargine,Hum.Rec.Anlog 1,000 Unit/10 Ml Vial (Pyx) SUBCUT 05/30/20 23:59 Not Given QAM [facility] Patient Own Medication 300 mg 05/30/20 10:00 Irbesartan [Avapro] PO 06/29/20 09:59 DAILY [facility] Assessment & Plan - Diagnosis (1) Sinus pause Is this a current diagnosis for this admission?: Yes Plan: She does continue to have pauses that are between 3 to 5 seconds particularly when she is asleep. She remains asymptomatic during these episodes. No more long pauses as of yesterday afternoon. Unfortunately she could not be transferred to [facility] due to her positive Covid test. Recommendations: -Continue to avoid AV dmitry agents. -Continue with cardiac telemetry. -Zoll pads on her chest. -We will continue to follow with you. (2) Congestive heart failure Qualifiers: Heart failure type: diastolic Is this a current diagnosis for this admission?: Yes Plan: She is currently euvolemic and without heart failure symptoms. Recommendations: -Continue with current medical management. -Restrict fluid intake to 1500 cc daily. -Low sodium diet, less than 1500 mg daily. -Strict intake and output. -Daily weights. (3) HTN (hypertension) Qualifiers: Hypertension type: essential hypertension Qualified Code(s): I10 - Essential (primary) hypertension Is this a current diagnosis for this admission?: Yes Plan: Her blood pressure is at goal. We will continue with current medical management.
[2020-05-31] MEDS: INSULIN LISPRO 100 UNIT/ML 3 ML VIAL SUBCUT SCH ×4 (09:30→22:18)
[2020-05-31] MEDS: ALLOPURINOL 100 MG TABLET PO SCH (09:45)
[2020-05-31] MEDS: APIXABAN 2.5 MG TABLET PO SCH ×2 (09:46→17:13)
[2020-05-31] MEDS: OMEGA-3 ACID ETHYL ESTERS 1 GM CAPSULE PO SCH (09:46)
[2020-05-31] MEDS: FERROUS SULFATE 325 MG TABLET PO SCH ×2 (09:46→17:13)
[2020-05-31] MEDS: CALCITRIOL 0.25 MCG CAPSULE PO SCH (09:46)
[2020-05-31] MEDS: NATEGLINIDE 60 MG TABLET PO SCH ×3 (09:46→16:28)
[2020-05-31] MEDS: LOSARTAN POTASSIUM 50 MG TABLET PO SCH (09:47)
[2020-05-31] MEDS: FUROSEMIDE 40 MG TABLET PO SCH (09:47)
[2020-05-31] MEDS: MULTIVITAMIN TABLET PO SCH (09:47)
[2020-05-31] MEDS: INSULIN GLARGINE,HUM.REC.ANLOG 1,000 UNIT/10 ML VIAL SUBCUT SCH (09:48)
[2020-05-31] MEDS ORDERED: INSULIN GLARGINE,HUM.REC.ANLOG 1,000 UNIT/10 ML VIAL (PYX) SUBCUT ONE (09:54)
--- NOTE | 2020-05-31 15:20 | PDOC PROGRESS REPORT ---
Subjective Date:: 05/31/20 Subjective:: Patient denied any chest pain or difficulty with breathing. She had a short duration asystole episode lasted 5-6 seconds earlier today on her alarm security or surveillance monitor. She remain asymptomatic. No nausea, vomiting, or abdominal pain. No fever or chills. Her transfer to [facility] is on hold due to positive status on rapid COVID-19 test. Patient remain asymptomatic for covid infection. Reason For Visit: RECURRENT FALLS AT HOME;PERSISTENT ATRIAL FIB Physical Exam Vital Signs: Temp Pulse Resp BP Pulse Ox 98.4 F 57 L 18 124/52 L 98 05/31/20 11:14 05/31/20 11:14 05/31/20 11:14 05/31/20 11:14 05/31/20 11:14 Intake & Output 05/30/20 05/31/20 06/01/20 06:59 06:59 06:59 Intake Total 740 961 360 Output Total 1000 200 Balance 740 -39 160 Weight 88.5 kg 91.8 kg Physical Exam: General appearance: PRESENT: no acute distress, obese Head exam: PRESENT: atraumatic, normocephalic Eye exam: PRESENT: conjunctiva pink. ABSENT: sclera icterus Mouth exam: PRESENT: moist Respiratory exam: PRESENT: clear to auscultation nurys Cardiovascular exam: PRESENT: irregular rhythm, +S1, +S2 Vascular exam: ABSENT: pallor Extremities exam: PRESENT: pedal edema - very minimal ankle edema Neurological exam: PRESENT: alert, awake, oriented to person, oriented to place, oriented to time, oriented to situation, CN II-XII grossly intact. ABSENT: motor sensory deficit Skin exam: PRESENT: dry, warm Results Laboratory Results: 05/30/20 02:50 05/30/20 02:50 05/29/20 05/29/20 05/29/20 01:30 18:48 18:48 Creatine Kinase 53 CK-MB (CK-2) 0.85 Troponin I 0.019 0.025 NT-Pro-B Natriuret Pep 2100 H 05/30/20 05/30/20 05/30/20 02:50 02:50 11:00 Creatine Kinase 47 45 CK-MB (CK-2) 0.65 Troponin I 0.022 NT-Pro-B Natriuret Pep 05/30/20 11:00 Creatine Kinase CK-MB (CK-2) 0.59 Troponin I 0.025 NT-Pro-B Natriuret Pep Impressions: Chest X-Ray 05/29/20 01:57 IMPRESSION: Clear lungs. Head CT 05/29/20 01:57 IMPRESSION: No acute intracranial findings. Abdomen/Pelvis CT 05/29/20 01:58 IMPRESSION: No definite acute inflammatory process. Indeterminate right lower quadrant soft tissue mass. Assessment & Plan - Diagnosis (1) Fall in home Qualifiers: Encounter type: initial encounter Qualified Code(s): W19.XXXA - Unspecified fall, initial encounter; Y92.009 - Unspecified place in unspecified non- institutional (private) residence as the place of occurrence of the external cause Is this a current diagnosis for this admission?: Yes (2) Persistent atrial fibrillation with rapid ventricular response Is this a current diagnosis for this admission?: Yes (3) Chronic diastolic CHF (congestive heart failure), NYHA class 3 Is this a current diagnosis for this admission?: Yes (4) CKD (chronic kidney disease) stage 4, GFR 15-29 ml/min Is this a current diagnosis for this admission?: Yes (5) Essential hypertension Is this a current diagnosis for this admission?: Yes (6) Diabetes mellitus type 2 in obese Is this a current diagnosis for this admission?: Yes (7) HLD (hyperlipidemia) Qualifiers: Hyperlipidemia type: unspecified Qualified Code(s): E78.5 - Hyperlipidemia, unspecified Is this a current diagnosis for this admission?: Yes (8) GERD (gastroesophageal reflux disease) Qualifiers: Esophagitis presence: without esophagitis Qualified Code(s): K21.9 - Gastro-esophageal reflux disease without esophagitis Is this a current diagnosis for this admission?: Yes (9) Gouty arthropathy, chronic, 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 Meanwhile in view of her advance age and morbidities, I will proceed to treat with Ivermectin and maintain her on all other current medicati on management. - Time Time Spent with patient: 25-34 minutes Level of Care: IMCU Medications reviewed and adjusted accordingly: Yes Anticipated discharge: Other - we miguel angel continue to folow up on possible tertiary transfer for pacemaker placement. Anticipated DC Timeframe: within 72 hours - Inpatient Certification Based on my medical assessment, after consideration of the patient's comorbidities, presenting symptoms, or acuity I expect that the services needed warrant INPATIENT care.: Yes I certify that my determination is in accordance with my understanding of Medicare's requirements for reasonable and necessary INPATIENT services [42 CFR 412.3e].: Yes Medical Necessity: Significant Comorbidiites Make Outpatient Treatment Too Risky, Need Close Monitoring Due to Risk of Patient Decompensation, Need For Continuous Telemetry Monitoring, Need for Surgery, Risk of Complication if Not Cared For in Hospital, Risk of Diagnosis Which Will Require Inpatient Eval/Care/ Monitoring Post Hospital Care: D/C or Transfer Summary - Plan Summary Plan Summary: See attending physician orders for details about care plan.
[2020-05-31] MEDS: VITAMIN B COMPLEX TABLET PO SCH (16:28)
[2020-05-31] MEDS: ZINC SULFATE 220 MG CAPSULE PO SCH (16:29)
[2020-05-31] MEDS ORDERED: IVERMECTIN 3 MG TABLET PO ONE (16:30)
[2020-05-31] MEDS: ASCORBIC ACID 500 MG TABLET PO SCH (17:13)
[2020-06-01] MEDS: HYDRALAZINE HCL 25 MG TABLET PO SCH ×3 (06:31→22:16)
[2020-06-01] MEDS: INSULIN LISPRO 100 UNIT/ML 3 ML VIAL SUBCUT SCH ×4 (08:44→22:18)
[2020-06-01] MEDS: CALCITRIOL 0.25 MCG CAPSULE PO SCH (09:31)
[2020-06-01] MEDS: FUROSEMIDE 40 MG TABLET PO SCH (09:31)
[2020-06-01] MEDS: INSULIN GLARGINE,HUM.REC.ANLOG 1,000 UNIT/10 ML VIAL SUBCUT SCH (09:31)
[2020-06-01] MEDS: APIXABAN 2.5 MG TABLET PO SCH ×2 (09:31→17:00)
[2020-06-01] MEDS: OMEGA-3 ACID ETHYL ESTERS 1 GM CAPSULE PO SCH (09:31)
[2020-06-01] MEDS: MULTIVITAMIN TABLET PO SCH (09:31)
[2020-06-01] MEDS: LOSARTAN POTASSIUM 50 MG TABLET PO SCH (09:32)
[2020-06-01] MEDS: FERROUS SULFATE 325 MG TABLET PO SCH ×2 (09:32→17:00)
[2020-06-01] MEDS: NATEGLINIDE 60 MG TABLET PO SCH ×3 (09:32→17:00)
[2020-06-01] MEDS: ALLOPURINOL 100 MG TABLET PO SCH (09:32)
[2020-06-01] MEDS: ASCORBIC ACID 500 MG TABLET PO SCH ×2 (09:32→17:00)
[2020-06-01] MEDS: ZINC SULFATE 220 MG CAPSULE PO SCH (09:32)
[2020-06-01] MEDS: VITAMIN B COMPLEX TABLET PO SCH (09:34)
--- NOTE | 2020-06-01 10:46 | PDOC PROGRESS REPORT ---
Subjective Date:: 06/01/20 Subjective:: Patient denied any chest pain or difficulty with breathing. No incident of asystole on her combination operator so far today. No nausea, vomiting, or abdominal pain. No fever or chills. Her COVID-19 amplification test was positive. She remain on standby external pacer maker support at this time. Reason For Visit: RECURRENT FALLS AT HOME;PERSISTENT ATRIAL FIB Physical Exam Vital Signs: Temp Pulse Resp BP Pulse Ox 97.5 F 57 L 16 119/61 96 06/01/20 03:20 06/01/20 07:00 06/01/20 03:20 06/01/20 03:20 06/01/20 03:20 Intake & Output 05/31/20 06/01/20 06/02/20 06:59 06:59 06:59 Intake Total 961 1420 Output Total 1000 1200 Balance -39 220 Weight 91.8 kg 94.5 kg Physical Exam: General appearance: PRESENT: no acute distress, obese Head exam: PRESENT: atraumatic, normocephalic Eye exam: PRESENT: conjunctiva pink. ABSENT: sclera icterus Mouth exam: PRESENT: moist Respiratory exam: PRESENT: clear to auscultation nurys Cardiovascular exam: PRESENT: irregular rhythm, +S1, +S2 Vascular exam: ABSENT: pallor Extremities exam: PRESENT: pedal edema - very minimal ankle edema Neurological exam: PRESENT: alert, awake, oriented to person, oriented to place, oriented to time, oriented to situation, CN II-XII grossly intact. ABSENT: motor sensory deficit Skin exam: PRESENT: dry, warm Results Laboratory Results: 05/30/20 02:50 05/30/20 02:50 05/29/20 05/29/20 05/29/20 01:30 18:48 18:48 Creatine Kinase 53 CK-MB (CK-2) 0.85 Troponin I 0.019 0.025 NT-Pro-B Natriuret Pep 2100 H 05/30/20 05/30/20 05/30/20 02:50 02:50 11:00 Creatine Kinase 47 45 CK-MB (CK-2) 0.65 Troponin I 0.022 NT-Pro-B Natriuret Pep 05/30/20 11:00 Creatine Kinase CK-MB (CK-2) 0.59 Troponin I 0.025 NT-Pro-B Natriuret Pep Impressions: Chest X-Ray 05/29/20 01:57 IMPRESSION: Clear lungs. Head CT 05/29/20 01:57 IMPRESSION: No acute intracranial findings. Abdomen/Pelvis CT 05/29/20 01:58 IMPRESSION: No definite acute inflammatory process. Indeterminate right lower quadrant soft tissue mass. Assessment & Plan - Diagnosis (1) Fall in home Qualifiers: Encounter type: initial encounter Qualified Code(s): W19.XXXA - Unspecified fall, initial encounter; Y92.009 - Unspecified place in unspecified non- institutional (private) residence as the place of occurrence of the external cause Is this a current diagnosis for this admission?: Yes (2) Persistent atrial fibrillation with rapid ventricular response Is this a current diagnosis for this admission?: Yes (3) Chronic diastolic CHF (congestive heart failure), NYHA class 3 Is this a current diagnosis for this admission?: Yes (4) CKD (chronic kidney disease) stage 4, GFR 15-29 ml/min Is this a current diagnosis for this admission?: Yes (5) Essential hypertension Is this a current diagnosis for this admission?: Yes (6) Diabetes mellitus type 2 in obese Is this a current diagnosis for this admission?: Yes (7) HLD (hyperlipidemia) Qualifiers: Hyperlipidemia type: unspecified Qualified Code(s): E78.5 - Hyperlipidemia, unspecified Is this a current diagnosis for this admission?: Yes (8) GERD (gastroesophageal reflux disease) Qualifiers: Esophagitis presence: without esophagitis Qualified Code(s): K21.9 - Gastro-esophageal reflux disease without esophagitis Is this a current diagnosis for this admission?: Yes (9) Gouty arthropathy, chronic, 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 Is this a current diagnosis for this admission?: Yes (10) Osteoarthritis involving multiple joints on both sides of body Is this a current diagnosis for this admission?: Yes (11) Asymptomatic COVID-19 virus infection Is this a current diagnosis for this admission?: Yes - Time Time Spent with patient: 25-34 minutes Level of Care: IMCU Medications reviewed and adjusted accordingly: Yes Anticipated DC Timeframe: within 72 hours - Inpatient Certification Based on my medical assessment, after consideration of the patient's comorbidities, presenting symptoms, or acuity I expect that the services needed warrant INPATIENT care.: Yes I certify that my determination is in accordance with my understanding of Medicare's requirements for reasonable and necessary INPATIENT services [42 CFR 412.3e].: Yes Medical Necessity: Significant Comorbidiites Make Outpatient Treatment Too Risky, Need Close Monitoring Due to Risk of Patient Decompensation, Need For Continuous Telemetry Monitoring, Risk of Complication if Not Cared For in Hospital, Risk of Diagnosis Which Will Require Inpatient Eval/Care/Monitoring Post Hospital Care: D/C or Transfer Summary - Plan Summary Plan Summary: Continue her current medication management. Repeat Ivermectin second dose tomorrow. Discussed further intervention with technical education teacher team.
--- NOTE | 2020-06-01 11:07 | PDOC PROGRESS REPORT ---
Subjective Date:: 06/01/20 Subjective:: CAROLINA KAYE is a 84 year old female with history of hypertension, hyperlipidemia, type 2 diabetes, CKD, heart failure with preserved ejection fraction, longstanding persistent atrial fibrillation/flutter anticoagulated with low-dose Eliquis who is consulted to our service for further evaluation of pauses. The patient had been in her usual state of health until May 29 when she presented to our emergency department via EMS after suffering a fall at home. The patient states that she was sitting at the edge of her bed when she became generalized weak and started shaking. She did not have enough strength to remain in the bed and slipped to the floor. She tried to get up but once again felt very weak and shaky, had some chest discomfort and shortness of breath therefore she called her daughter for help. EMS was summoned and, per emergency room notes, apparently she was found in [place] however no rhythm strips were obtained and apparently the patient converted spontaneously. At the time of her index event she denied loss of consciousness as well as diaphoresis. She was admitted to our facility and was noted to have 3 to 4-second pauses which became more frequently and more prolonged up to the point she had a 7-second pause in the screed person. She was awakened and felt fine. Unfortunately throughout the day she continues to have pauses that last anywhere from 3 to 5 seconds and today at 1437 she had another 8-second pause. She states that she f elt very weak, short of breath and shaky but did not lose consciousness. Of note, she had been on carvedilol 12.5 mg twice daily however she only received 1 dose of the medication more than 12 hours ago and subsequently the drug was discontinued. Her most recent EKG demonstrates atrial flutter with variable AV block, right bundle branch block with a heart rate of 58 bpm. 06/01/2020: The patient had an uneventful night and has no complaints this morning and is in good spirits. The nursing staff reports that she had been walking in the room without any complaints. Unfortunately she tested positive for COVID-19 therefore her transfer to [facility] have been put on hold. Her telemetry continues to show atrial flutter with a slow ventricular response and recurrent pauses between 3 to 5 seconds mainly when the patient is both asleep and awake however she has remained asymptomatic and without associated chest pain, dizziness, lightheadedness, syncope or presyncope. There has been no recurrence of very long pauses. Unfortunately her repeat Covid test came back positive again. Physical exam on 06/01/2020: The physical exam was deferred today however she is in good spirits, speaking in full sentences and in no respiratory distress when I interviewed her. Reason For Visit: RECURRENT FALLS AT HOME;PERSISTENT ATRIAL FIB Physical Exam Vital Signs: Temp Pulse Resp BP Pulse Ox 97.5 F 56 L 16 119/61 96 06/01/20 03:20 06/01/20 03:20 06/01/20 03:20 06/01/20 03:20 06/01/20 03:20 Intake & Output 05/30/20 05/31/20 06/01/20 06:59 06:59 06:59 Intake Total 964 876 2003 Output Total 1000 1200 Balance 740 -39 120 Weight 88.5 kg 91.8 kg Results Laboratory Results: 05/30/20 02:50 05/30/20 02:50 05/29/20 05/29/20 05/29/20 01:30 18:48 18:48 Creatine Kinase 53 CK-MB (CK-2) 0.85 Troponin I 0.019 0.025 NT-Pro-B Natriuret Pep 2100 H 05/30/20 05/30/20 05/30/20 02:50 02:50 11:00 Creatine Kinase 47 45 CK-MB (CK-2) 0.65 Troponin I 0.022 NT-Pro-B Natriuret Pep 05/30/20 11:00 Creatine Kinase CK-MB (CK-2) 0.59 Troponin I 0.025 NT-Pro-B Natriuret Pep Impressions: Chest X-Ray 05/29/20 01:57 IMPRESSION: Clear lungs. Head CT 05/29/20 01:57 IMPRESSION: No acute intracranial findings. Abdomen/Pelvis CT 05/29/20 01:58 IMPRESSION: No definite acute inflammatory process. Indeterminate right lower quadrant soft tissue mass. 05/30/20 02:50 05/30/20 02:50 MCV 86 fl (80-97) 05/30/20 02:50 MCH 27.1 pg (27.0-33.4) 05/30/20 02:50 MCHC 31.6 g/dL (32.0-36.0) L 05/30/20 02:50 RDW 17.8 % (11.5-14.0) H 05/30/20 02:50 Seg Neutrophils % 54.9 % (42-78) 05/30/20 02:50 Chloride 114 mmol/L (98-107) H 05/30/20 02:50 Carbon Dioxide 21 mmol/L (22-30) L 05/30/20 02:50 Anion Gap 8 (5-19) 05/30/20 02:50 Est GFR ( Amer) 19 (>60) L 05/30/20 02:50 Glucose 118 mg/dL (75-110) H 05/30/20 02:50 Calcium 9.5 mg/dL (8.4-10.2) 05/30/20 02:50 Magnesium 2.1 mg/dL (1.6-2.3) 05/29/20 01:30 Total Bilirubin 0.5 mg/dL (0.2-1.3) 05/30/20 02:50 AST 31 U/L (14-36) 05/30/20 02:50 Alkaline Phosphatase 104 U/L (38-126) 05/30/20 02:50 Total Protein 6.7 g/dL (6.3-8.2) 05/30/20 02:50 Albumin 3.2 g/dL (3.5-5.0) L 05/30/20 02:50 05/29/20 05/29/20 05/29/20 01:30 18:48 18:48 Creatine Kinase 53 CK-MB (CK-2) 0.85 Troponin I 0.019 0.025 NT-Pro-B Natriuret Pep 2100 H 05/30/20 05/30/20 05/30/20 02:50 02:50 11:00 Creatine Kinase 47 45 CK-MB (CK-2) 0.65 Troponin I 0.022 NT-Pro-B Natriuret Pep 05/30/20 11:00 Creatine Kinase CK-MB (CK-2) 0.59 Troponin I 0.025 NT-Pro-B Natriuret Pep Current Medication List Generic Name Dose Route Start Last Admin Trade Name Freq PRN Reason Stop Dose Admin Allopurinol 200 mg 05/30/20 10:00 06/01/20 09:32 Allopurinol 100 Mg Tablet PO 06/29/20 09:59 200 mg DAILY SONIA Administration Apixaban 2.5 mg 05/30/20 10:00 06/01/20 09:31 Apixaban 2.5 Mg Tablet PO 06/29/20 09:59 2.5 mg BID SONIA Administration Ascorbic Acid 500 mg 05/31/20 18:00 06/01/20 09:32 Ascorbic Acid 500 Mg Tablet PO 06/30/20 17:59 500 mg BID SONIA Administration Calcitriol 0.25 mcg 05/30/20 10:00 06/01/20 09:31 Calcitriol 0.25 Mcg Capsule PO 06/29/20 09:59 0.25 mcg DAILY SONIA Administration Dextrose 12.5 gm 05/29/20 22:00 Dextrose 50%-Water Syringe 12.5 Gm/25 Ml Dose IV 06/28/20 21:59 PRN PRN FOR BG 50-69 IN ALERT PATIENT Protocol Dextrose 25 gm 05/29/20 22:00 Dextrose 50%-Water Syringe 25 Gm/50 Ml Dose IV 06/28/20 21:59 PRN PRN Protocol Ferrous Sulfate 325 mg 05/30/20 10:00 06/01/20 09:32 Ferrous Sulfate 325 Mg Tablet PO 06/29/20 09:59 325 mg BID SONIA Administration Furosemide 40 mg 05/30/20 10:00 06/01/20 09:31 Furosemide 40 Mg Tablet PO 06/29/20 09:59 40 mg DAILY SONIA Administration Glucagon 1 mg 05/29/20 22:00 Glucagon,Human Recomb 1 Mg Inj IM 06/28/20 21:59 PRN PRN EVALUATE FOR BG < 70 Protocol Glucose 15 gm 05/29/20 22:00 Dextrose 40% Gel 15 Gm Tube PO 06/28/20 21:59 PRN PRN FOR BG 50-69 IN ALERT PATIENT Protocol Glucose 30 gm 05/29/20 22:00 Dextrose 40% Gel 15 Gm Tube X 2 PO 06/28/20 21:59 PRN PRN FOR BG < 50 IN ALERT PATIENT Protocol Hydralazine HCl 25 mg 05/29/20 22:00 06/01/20 06:31 Hydralazine Hcl 25 Mg Tablet PO 06/28/20 21:59 25 mg Q8 SONIA Administration Insulin Glargine 25 unit 05/31/20 08:00 06/01/20 09:31 Insulin Glargine,Hum.Rec.Anlog 1,000 Unit/10 Ml Vial SUBCUT 06/30/20 07:59 25 unit QAM SONIA Administration Insulin Human Lispro 0 - 12 unit 05/29/20 22:00 06/01/20 08:44 Insulin Lispro 100 Unit/Ml 3 Ml Vial SUBCUT 06/28/20 21:59 Not Given ACHS SONIA Protocol Ivermectin 12 mg 06/02/20 18:00 Ivermectin 3 Mg Tablet PO 06/02/20 18:01 NOW ONE Losartan Potassium 100 mg 05/30/20 10:00 06/01/20 09:32 Losartan Potassium 50 Mg Tablet PO 06/29/20 09:59 100 mg DAILY SONIA Administration Multivitamins 1 tab 05/30/20 10:00 06/01/20 09:31 Multivitamin Tablet PO 06/29/20 09:59 1 tab DAILY SONIA Administration Nateglinide 120 mg 05/30/20 08:00 06/01/20 09:32 Nateglinide 60 Mg Tablet PO 06/29/20 07:59 120 mg MEALS SONIA Administration Yscwd-[id number] Ethyl Esters 1 gm 05/30/20 10:00 06/01/20 09:31 [place]-3 Acid Ethyl Esters 1 Gm Capsule PO 06/29/20 09:59 1 gm DAILY SONIA Administration Patient Own Medication 25 units 05/29/20 19:45 Insulin Degludec [Tresiba Flextouch U-100] SUBCUT 06/28/20 19:44 .DAILY SONIA Vitamin B Complex 1 tab 05/31/20 16:30 06/01/20 09:34 Vitamin B Complex Tablet PO 06/30/20 16:29 1 tab DAILY OSNIA Administration Zinc Sulfate 220 mg 05/31/20 16:30 06/01/20 09:32 Zinc Sulfate 220 Mg Capsule PO 06/30/20 16:29 220 mg DAILY SONIA Administration Discontinued Medications Generic Name Dose Route Start Last Admin Trade Name Freq PRN Reason Stop Dose Admin Amlodipine Besylate 5 mg 05/30/20 10:00 Amlodipine Besylate 5 Mg Tablet PO 06/29/20 09:59 DAILY SONIA Amlodipine Besylate 5 mg 05/30/20 10:00 05/30/20 11:09 Amlodipine Besylate 5 Mg Tablet PO 06/29/20 09:59 5 mg DAILY SONIA Administration Apixaban 2.5 mg 05/29/20 19:30 05/29/20 20:14 Apixaban 2.5 Mg Tablet PO 05/29/20 19:31 2.5 mg NOW ONE Administration Carvedilol 12.5 mg 05/29/20 19:45 Carvedilol 12.5 Mg Tablet PO 06/28/20 19:44 Q12 [facility] Carvedilol 12.5 mg 05/29/20 20:35 05/30/20 11:10 Carvedilol 12.5 Mg Tablet PO 06/28/20 20:34 Not Given Q12 SONIA Furosemide 40 mg 05/30/20 10:00 Furosemide 40 Mg Tablet PO 06/29/20 09:59 DAILY [facility] Hydralazine HCl 25 mg 05/29/20 22:00 Hydralazine Hcl 25 Mg Tablet PO 06/28/20 21:59 Q8 [facility] Insulin Glargine 25 unit 05/30/20 08:00 05/30/20 10:42 Insulin Glargine,Hum.Rec.Anlog 1,000 Unit/10 Ml Vial (Pyx) SUBCUT 05/30/20 23:59 Not Given QAM [facility] Insulin Glargine Confirm 05/31/20 09:54 05/31/20 09:59 Insulin Glargine,Hum.Rec.Anlog 1,000 Unit/10 Ml Vial (Pyx) Administered 05/31/20 09:55 Not Given Dose 1 unit SUBCUT .STK-MED ONE Ivermectin 12 mg 05/31/20 16:30 05/31/20 17:14 Ivermectin 3 Mg Tablet PO 05/31/20 16:31 12 mg NOW ONE Administration Patient Own Medication 300 mg 05/30/20 10:00 Irbesartan [Avapro] PO 06/29/20 09:59 DAILY [facility] Assessment & Plan - Diagnosis (1) Sinus pause Is this a current diagnosis for this admission?: Yes Plan: She does continue to have pauses that are between 3 to 5 seconds both when she is asleep and when she is awake however she has remained asymptomatic. There has been no recurrence of long pauses. She remains asymptomatic during these episodes. Unfortunately [facility] to her positive Cov[facility] test. I did discuss the patient with Dr. Calle, community association manager with [facility], who agrees with current management and continued observation. We will try to transfer the patient as soon as possible, unfortunately there are no beds available. Recommendations: -Continue to avoid AV dmitry agents. -Continue with cardiac telemetry. -Zoll pads on her chest. -We will continue to follow with you. (2) Congestive heart failure Qualifiers: Heart failure type: diastolic Is this a current diagnosis for this admission?: Yes Plan: She is currently euvolemic and without heart failure symptoms. Recommendations: -Continue with current medical management. -Restrict fluid intake to 1500 cc daily. -Low sodium diet, less than 1500 mg daily. -Strict intake and output. -Daily weights. (3) HTN (hypertension) Qualifiers: Hypertension type: essential hypertension Qualified Code(s): I10 - Essential (primary) hypertension Is this a current diagnosis for this admission?: Yes Plan: Her blood pressure is at goal. We will continue with current medical management.
[2020-06-02] MEDS: HYDRALAZINE HCL 25 MG TABLET PO SCH ×3 (05:27→22:25)
[2020-06-02] MEDS: INSULIN LISPRO 100 UNIT/ML 3 ML VIAL SUBCUT SCH ×4 (08:37→22:19)
[2020-06-02] MEDS: NATEGLINIDE 60 MG TABLET PO SCH ×3 (08:45→16:14)
[2020-06-02] MEDS: INSULIN GLARGINE,HUM.REC.ANLOG 1,000 UNIT/10 ML VIAL SUBCUT SCH (08:47)
--- NOTE | 2020-06-02 09:39 | PDOC PROGRESS REPORT ---
Subjective Date:: 06/02/20 Subjective:: CAROLINA KAYE is a 84 year old female with history of hypertension, hyperlipidemia, type 2 diabetes, CKD, heart failure with preserved ejection fraction, longstanding persistent atrial fibrillation/flutter anticoagulated with low-dose Eliquis who is consulted to our service for further evaluation of pauses. The patient had been in her usual state of health until May 29 when she presented to our emergency department via EMS after suffering a fall at home. The patient states that she was sitting at the edge of her bed when she became generalized weak and started shaking. She did not have enough strength to remain in the bed and slipped to the floor. She tried to get up but once again felt very weak and shaky, had some chest discomfort and shortness of breath therefore she called her daughter for help. EMS was summoned and, per emergency room notes, apparently she was found in [place] however no rhythm strips were obtained and apparently the patient converted spontaneously. At the time of her index event she denied loss of consciousness as well as diaphoresis. She was admitted to our facility and was noted to have 3 to 4-second pauses which became more frequently and more prolonged up to the point she had a 7-second pause in the shopper's aide. She was awakened and felt fine. Unfortunately throughout the day she continues to have pauses that last anywhere from 3 to 5 seconds and today at 1437 she had another 8-second pause. She states that she f elt very weak, short of breath and shaky but did not lose consciousness. Of note, she had been on carvedilol 12.5 mg twice daily however she only received 1 dose of the medication more than 12 hours ago and subsequently the drug was discontinued. Her most recent EKG demonstrates atrial flutter with variable AV block, right bundle branch block with a heart rate of 58 bpm. 06/02/2020: The patient had an uneventful night and has no complaints this morning. There has been no recurrence of her prolonged pauses even though she continues to have less frequent 3 to 5-second pauses. She remains asymptomatic. Unfortunately she tested positive for COVID-19 therefore her transfer to [facility] have been put on hold. Her telemetry continues to show atrial flutter with a slow ventricular response and recurrent pauses between 3 to 5 seconds. She denies cardiac complaints particularly chest pain, shortness of breath, dizziness, lightheadedness, syncope and presyncope. Physical exam on 06/02/2020: GENERAL: Pleasant and conversational. Oriented x3 with normal mood. Not in acute distress. Well groomed and well developed. HEENT: Normocephalic, atraumatic. Pupils equal. Sclerae anicteric. Oropharynx moist. NECK: No JVD. No carotid bruits. LUNGS: Clear to auscultation bilaterally. Normal respiratory effort without the use of accessory muscles or intercostal retractions. CARDIOVASCULAR: Irregularly irregular rate and rhythm, no murmurs, rubs, or gallops. PMI not displaced. ABDOMEN: No masses or tenderness to palpation. No bruit. No splenomegaly or he patomegaly. No abdominal aorta bruit noted. EXTREMITIES: No edema, no cyanosis, no clubbing. +2 pulses femoral and pedal pulses bilaterally. SKIN: No lesions or rashes. MUSCULOSKELETAL: No chest tenderness to palpation. NEUROLOGIC: Nonfocal. No gross sensory or motor deficits bilateral upper or lower extremities. Reason For Visit: RECURRENT FALLS AT HOME;PERSISTENT ATRIAL FIB Physical Exam Vital Signs: Temp Pulse Resp BP Pulse Ox 97.5 F 61 24 H 149/65 H 94 06/02/20 03:45 06/02/20 03:45 06/02/20 03:45 06/02/20 03:45 06/02/20 03:45 Intake & Output 06/01/20 06/02/20 06/03/20 06:59 06:59 06:59 Intake Total 1420 200 Output Total 1200 2050 Balance 220 -1850 Weight 94.5 kg 92.1 kg Results Laboratory Results: 05/30/20 02:50 05/30/20 02:50 05/29/20 05/29/20 05/29/20 01:30 18:48 18:48 Creatine Kinase 53 CK-MB (CK-2) 0.85 Troponin I 0.019 0.025 NT-Pro-B Natriuret Pep 2100 H 05/30/20 05/30/20 05/30/20 02:50 02:50 11:00 Creatine Kinase 47 45 CK-MB (CK-2) 0.65 Troponin I 0.022 NT-Pro-B Natriuret Pep 05/30/20 11:00 Creatine Kinase CK-MB (CK-2) 0.59 Troponin I 0.025 NT-Pro-B Natriuret Pep Impressions: Chest X-Ray 05/29/20 01:57 IMPRESSION: Clear lungs. Head CT 05/29/20 01:57 IMPRESSION: No acute intracranial findings. Abdomen/Pelvis CT 05/29/20 01:58 IMPRESSION: No definite acute inflammatory process. Indeterminate right lower quadrant soft tissue mass. 05/30/20 02:50 05/30/20 02:50 MCV 86 fl (80-97) 05/30/20 02:50 MCH 27.1 pg (27.0-33.4) 05/30/20 02:50 MCHC 31.6 g/dL (32.0-36.0) L 05/30/20 02:50 RDW 17.8 % (11.5-14.0) H 05/30/20 02:50 Seg Neutrophils % 54.9 % (42-78) 05/30/20 02:50 Chloride 114 mmol/L (98-107) H 05/30/20 02:50 Carbon Dioxide 21 mmol/L (22-30) L 05/30/20 02:50 Anion Gap 8 (5-19) 05/30/20 02:50 Est GFR ( Amer) 19 (>60) L 05/30/20 02:50 Glucose 118 mg/dL (75-110) H 05/30/20 02:50 Calcium 9.5 mg/dL (8.4-10.2) 05/30/20 02:50 Magnesium 2.1 mg/dL (1.6-2.3) 05/29/20 01:30 Total Bilirubin 0.5 mg/dL (0.2-1.3) 05/30/20 02:50 AST 31 U/L (14-36) 05/30/20 02:50 Alkaline Phosphatase 104 U/L (38-126) 05/30/20 02:50 Total Protein 6.7 g/dL (6.3-8.2) 05/30/20 02:50 Albumin 3.2 g/dL (3.5-5.0) L 05/30/20 02:50 05/29/20 05/29/20 05/29/20 01:30 18:48 18:48 Creatine Kinase 53 CK-MB (CK-2) 0.85 Troponin I 0.019 0.025 NT-Pro-B Natriuret Pep 2100 H 05/30/20 05/30/20 05/30/20 02:50 02:50 11:00 Creatine Kinase 47 45 CK-MB (CK-2) 0.65 Troponin I 0.022 NT-Pro-B Natriuret Pep 05/30/20 11:00 Creatine Kinase CK-MB (CK-2) 0.59 Troponin I 0.025 NT-Pro-B Natriuret Pep Assessment & Plan - Diagnosis (1) Sinus pause Is this a current diagnosis for this admission?: Yes Plan: She does continue to have pauses that are between 3 to 5 seconds however these are less frequent now and she continues to be asymptomatic. Recommendations: -Continue to avoid AV dmitry agents. -Continue with cardiac telemetry. -Zoll pads on her chest. -We will continue to follow with you. (2) Congestive heart failure Qualifiers: Heart failure type: diastolic Is this a current diagnosis for this admission?: Yes Plan: She is currently euvolemic and without heart failure symptoms. Recommendations: -Continue with current medical management. -Restrict fluid intake to 1500 cc daily. -Low sodium diet, less than 1500 mg daily. -Strict intake and output. -Daily weights. (3) HTN (hypertension) Qualifiers: Hypertension type: essential hypertension Qualified Code(s): I10 - Essential (primary) hypertension Is this a current diagnosis for this admission?: Yes Plan: Her blood pressure is at goal. We will continue with current medical management.
[2020-06-02] MEDS: MULTIVITAMIN TABLET PO SCH (10:00)
[2020-06-02] MEDS: FUROSEMIDE 40 MG TABLET PO SCH (10:00)
[2020-06-02] MEDS: FERROUS SULFATE 325 MG TABLET PO SCH ×2 (10:00→17:52)
[2020-06-02] MEDS: ZINC SULFATE 220 MG CAPSULE PO SCH (10:00)
[2020-06-02] MEDS: LOSARTAN POTASSIUM 50 MG TABLET PO SCH (10:01)
[2020-06-02] MEDS: APIXABAN 2.5 MG TABLET PO SCH ×2 (10:01→17:52)
[2020-06-02] MEDS: ASCORBIC ACID 500 MG TABLET PO SCH ×2 (10:01→17:52)
[2020-06-02] MEDS: VITAMIN B COMPLEX TABLET PO SCH (10:01)
[2020-06-02] MEDS: OMEGA-3 ACID ETHYL ESTERS 1 GM CAPSULE PO SCH (10:02)
[2020-06-02] MEDS: CALCITRIOL 0.25 MCG CAPSULE PO SCH (10:02)
[2020-06-02] MEDS: ALLOPURINOL 100 MG TABLET PO SCH (10:02)
[2020-06-02] MEDS ORDERED: IVERMECTIN 3 MG TABLET PO ONE (18:00)
--- NOTE | 2020-06-02 20:26 | PDOC PROGRESS REPORT ---
Subjective Date:: 06/02/20 Subjective:: Patient seen by the bedside she has sinus pauses, she was supposed to be transfe r to [facility], she was accepted in transfer essentially for the placement of permanent pacemaker, she tested positive for SARS-CoV-2 infection, she is not symptomatic from the infection, the transfer was placed on hold Reason For Visit: RECURRENT FALLS AT HOME;PERSISTENT ATRIAL FIB Physical Exam Vital Signs: Temp Pulse Resp BP Pulse Ox 98.2 F 58 L 18 169/72 H 98 06/02/20 16:00 06/02/20 16:00 06/02/20 16:00 06/02/20 16:00 06/02/20 16:00 Intake & Output 06/01/20 06/02/20 06/03/20 06:59 06:59 06:59 Intake Total 1420 200 840 Output Total 1200 2050 Balance 220 -1850 840 Weight 94.5 kg 92.1 kg General appearance: PRESENT: no acute distress Eye exam: PRESENT: PERRLA Respiratory exam: PRESENT: clear to auscultation nurys Cardiovascular exam: PRESENT: +S1, +S2 GI/Abdominal exam: PRESENT: soft Results Laboratory Results: 05/30/20 02:50 05/30/20 02:50 05/29/20 05/29/20 05/29/20 01:30 18:48 18:48 Creatine Kinase 53 CK-MB (CK-2) 0.85 Troponin I 0.019 0.025 NT-Pro-B Natriuret Pep 2100 H 05/30/20 05/30/20 05/30/20 02:50 02:50 11:00 Creatine Kinase 47 45 CK-MB (CK-2) 0.65 Troponin I 0.022 NT-Pro-B Natriuret Pep 05/30/20 11:00 Creatine Kinase CK-MB (CK-2) 0.59 Troponin I 0.025 NT-Pro-B Natriuret Pep Impressions: Chest X-Ray 05/29/20 01:57 IMPRESSION: Clear lungs. Head CT 05/29/20 01:57 IMPRESSION: No acute intracranial findings. Abdomen/Pelvis CT 05/29/20 01:58 IMPRESSION: No definite acute inflammatory process. Indeterminate right lower quadrant soft tissue mass. Assessment & Plan - Diagnosis (1) Sinus pause Is this a current diagnosis for this admission?: Yes Plan: Patient followed by Dr. Patino, cardiology, permanent pacemaker placement recommended, transfer on hold because of positive Covid test (2) COVID-19 Is this a current diagnosis for this admission?: Yes Plan: Patient is not symptomatic from SARS-CoV-2 ? False positive result (3) Chronic diastolic (congestive) heart failure Is this a current diagnosis for this admission?: Yes - Time Time Spent with patient: 25-34 minutes Level of Care: IMCU Medications reviewed and adjusted accordingly: Yes Anticipated discharge: Home, [facility] Anticipated DC Timeframe: Other
[2020-06-03] MEDS: HYDRALAZINE HCL 25 MG TABLET PO SCH ×3 (06:26→21:52)
[2020-06-03] MEDS: INSULIN LISPRO 100 UNIT/ML 3 ML VIAL SUBCUT SCH ×4 (08:23→21:55)
[2020-06-03] MEDS: VITAMIN B COMPLEX TABLET PO SCH (09:25)
[2020-06-03] MEDS: MULTIVITAMIN TABLET PO SCH (09:25)
[2020-06-03] MEDS: FUROSEMIDE 40 MG TABLET PO SCH (09:25)
[2020-06-03] MEDS: ALLOPURINOL 100 MG TABLET PO SCH (09:26)
[2020-06-03] MEDS: OMEGA-3 ACID ETHYL ESTERS 1 GM CAPSULE PO SCH (09:26)
[2020-06-03] MEDS: LOSARTAN POTASSIUM 50 MG TABLET PO SCH (09:26)
[2020-06-03] MEDS: NATEGLINIDE 60 MG TABLET PO SCH ×3 (09:26→17:34)
[2020-06-03] MEDS: INSULIN GLARGINE,HUM.REC.ANLOG 1,000 UNIT/10 ML VIAL SUBCUT SCH (09:26)
[2020-06-03] MEDS: CALCITRIOL 0.25 MCG CAPSULE PO SCH (09:26)
[2020-06-03] MEDS: ASCORBIC ACID 500 MG TABLET PO SCH ×2 (09:26→17:34)
[2020-06-03] MEDS: FERROUS SULFATE 325 MG TABLET PO SCH ×2 (09:26→17:34)
[2020-06-03] MEDS: ZINC SULFATE 220 MG CAPSULE PO SCH (09:26)
[2020-06-03] MEDS: APIXABAN 2.5 MG TABLET PO SCH ×2 (09:26→17:34)
--- NOTE | 2020-06-03 09:32 | PDOC PROGRESS REPORT ---
Subjective Date:: 06/03/20 Subjective:: CAROLINA KAYE is a 84 year old female with history of hypertension, hyperlipidemia, type 2 diabetes, CKD, heart failure with preserved ejection fraction, longstanding persistent atrial fibrillation/flutter anticoagulated with low-dose Eliquis who is consulted to our service for further evaluation of pauses. The patient had been in her usual state of health until May 29 when she presented to our emergency department via EMS after suffering a fall at home. The patient states that she was sitting at the edge of her bed when she became generalized weak and started shaking. She did not have enough strength to remain in the bed and slipped to the floor. She tried to get up but once again felt very weak and shaky, had some chest discomfort and shortness of breath therefore she called her daughter for help. EMS was summoned and, per emergency room notes, apparently she was found in [place] however no rhythm strips were obtained and apparently the patient converted spontaneously. At the time of her index event she denied loss of consciousness as well as diaphoresis. She was admitted to our facility and was noted to have 3 to 4-second pauses which became more frequently and more prolonged up to the point she had a 7-second pause in the director alliance marketing. She was awakened and felt fine. Unfortunately throughout the day she continues to have pauses that last anywhere from 3 to 5 seconds and today at 1437 she had another 8-second pause. She states that she f elt very weak, short of breath and shaky but did not lose consciousness. Of note, she had been on carvedilol 12.5 mg twice daily however she only received 1 dose of the medication more than 12 hours ago and subsequently the drug was discontinued. Her most recent EKG demonstrates atrial flutter with variable AV block, right bundle branch block with a heart rate of 58 bpm. 06/03/2020: The patient had an uneventful night and has no cardiac complaints this morning. She specifically denies chest pain, shortness of breath, dizziness, lightheadedness, syncope and presyncope as well as diaphoresis. There has been no recurrence of her very prolonged pauses even though she continues to have less frequent 3 to 5-second pauses during which she remains asymptomatic. Unfortunately she tested positive for COVID-19 therefore her transfer to [facility] have been put on hold. Her telemetry continues to show atrial flutter with a slow ventricular response and recurrent pauses betw een 3 to 5 seconds some of which when she is asleep or when she is falling asleep. Physical exam on 06/03/2020: GENERAL: Pleasant and conversational. Oriented x3 with normal mood. Not in acute distress. Well groomed and well developed. HEENT: Normocephalic, atraumatic. Pupils equal. Sclerae anicteric. Oropharynx moist. NECK: No JVD. No carotid bruits. LUNGS: Clear to auscultation bilaterally. Normal respiratory effort without the use of accessory muscles or intercostal retractions. CARDIOVASCULAR: Irregularly irregular rate and rhythm, no murmurs, rubs, or gallops. PMI not displaced. ABDOMEN: No masses or tenderness to palpation. No bruit. No splenomegaly or hepatomegaly. No abdominal aorta bruit noted. EXTREMITIES: No edema, no cyanosis, no clubbing. +2 pulses femoral and pedal pulses bilaterally. SKIN: No lesions or rashes. MUSCULOSKELETAL: No chest tenderness to palpation. NEUROLOGIC: Nonfocal. No gross sensory or motor deficits bilateral upper or lower extremities. Reason For Visit: RECURRENT FALLS AT HOME;PERSISTENT ATRIAL FIB Physical Exam Vital Signs: Temp Pulse Resp BP Pulse Ox 97.5 F 60 24 H 143/58 H 99 06/03/20 03:29 06/03/20 03:29 06/03/20 03:29 06/03/20 03:29 06/03/20 03:29 Intake & Output 06/02/20 06/03/20 06/04/20 06:59 06:59 06:59 Intake Total 200 1080 Output Total 2049 Balance -1850 1080 Weight 92.1 kg 91 kg Results Laboratory Results: 05/30/20 02:50 05/30/20 02:50 05/29/20 05/29/20 05/29/20 01:30 18:48 18:48 Creatine Kinase 53 CK-MB (CK-2) 0.85 Troponin I 0.019 0.025 NT-Pro-B Natriuret Pep 2100 H 05/30/20 05/30/20 05/30/20 02:50 02:50 11:00 Creatine Kinase 47 45 CK-MB (CK-2) 0.65 Troponin I 0.022 NT-Pro-B Natriuret Pep 05/30/20 11:00 Creatine Kinase CK-MB (CK-2) 0.59 Troponin I 0.025 NT-Pro-B Natriuret Pep Impressions: Chest X-Ray 05/29/20 01:57 IMPRESSION: Clear lungs. Head CT 05/29/20 01:57 IMPRESSION: No acute intracranial findings. Abdomen/Pelvis CT 05/29/20 01:58 IMPRESSION: No definite acute inflammatory process. Indeterminate right lower quadrant soft tissue mass. Assessment & Plan - Diagnosis (1) Sinus pause Is this a current diagnosis for this admission?: Yes Plan: She does continue to have pauses that are between 3 to 5 seconds however these are less frequent now and she continues to be asymptomatic. I will rediscussed the case with EP at [facility] for further management/recommendations. Recommendations: -Continue to avoid AV dmitry agents. -Continue with cardiac telemetry. -Zoll pads on her chest. -We will continue to follow with you. (2) Congestive heart failure Qualifiers: Heart failure type: diastolic Is this a current diagnosis for this admission?: Yes Plan: She is currently euvolemic and without heart failure symptoms. Recommendations: -Continue with current medical management. -Restrict fluid intake to 1500 cc daily. -Low sodium diet, less than 1500 mg daily. -Strict intake and output. -Daily weights. (3) HTN (hypertension) Qualifiers: Hypertension type: essential hypertension Qualified Code(s): I10 - Essential (primary) hypertension Is this a current diagnosis for this admission?: Yes Plan: Her blood pressure is at goal. We will continue with current medical sommer talley.
--- NOTE | 2020-06-03 18:01 | PDOC PROGRESS REPORT ---
Subjective Date:: 06/03/20 Subjective:: Patient seen by the bedside she has sinus pauses, she was supposed to be transfe r to [facility], she was accepted in transfer essentially for the placement of permanent pacemaker, she tested positive for SARS-CoV-2 infection, she is not symptomatic from the infection, the transfer was placed on hold 06/03/2020 Patient remained asymptomatic from positive SARS-CoV-2 infection, could this be a false positive test?, We will repeat the Covid test, patient was supposed to be transfer to [facility] for permanent pacemaker placement Reason For Visit: RECURRENT FALLS AT HOME;PERSISTENT ATRIAL FIB Physical Exam Vital Signs: Temp Pulse Resp BP Pulse Ox 97.6 F 61 16 142/64 H 99 06/03/20 11:56 06/03/20 14:00 06/03/20 11:56 06/03/20 11:56 06/03/20 11:56 Intake & Output 06/02/20 06/03/20 06/04/20 06:59 06:59 06:59 Intake Total 200 1080 Output Total 2050 Balance -1850 1080 Weight 92.1 kg 91 kg General appearance: PRESENT: no acute distress Eye exam: PRESENT: PERRLA Respiratory exam: PRESENT: clear to auscultation nurys Cardiovascular exam: PRESENT: +S1, +S2 GI/Abdominal exam: PRESENT: soft Neurological exam: PRESENT: alert Results Laboratory Results: 05/30/20 02:50 05/30/20 02:50 05/29/20 05/29/20 05/29/20 01:30 18:48 18:48 Creatine Kinase 53 CK-MB (CK-2) 0.85 Troponin I 0.019 0.025 NT-Pro-B Natriuret Pep 2100 H 05/30/20 05/30/20 05/30/20 02:50 02:50 11:00 Creatine Kinase 47 45 CK-MB (CK-2) 0.65 Troponin I 0.022 NT-Pro-B Natriuret Pep 05/30/20 11:00 Creatine Kinase CK-MB (CK-2) 0.59 Troponin I 0.025 NT-Pro-B Natriuret Pep Impressions: Chest X-Ray 05/29/20 01:57 IMPRESSION: Clear lungs. Head CT 05/29/20 01:57 IMPRESSION: No acute intracranial findings. Abdomen/Pelvis CT 05/29/20 01:58 IMPRESSION: No definite acute inflammatory process. Indeterminate right lower quadrant soft tissue mass. Assessment & Plan - Diagnosis (1) Sinus pause Is this a current diagnosis for this admission?: Yes (2) COVID-19 Is this a current diagnosis for this admission?: Yes Plan: Patient is not symptomatic from SARS-CoV-2 ? False positive result,repeat TEST (3) Chronic diastolic (congestive) heart failure Is this a current diagnosis for this admission?: Yes - Time Time Spent with patient: 25-34 minutes Level of Care: IMCU Medications reviewed and adjusted accordingly: Yes [facility] Anticipated DC Timeframe: Other
[2020-06-04] MEDS: HYDRALAZINE HCL 25 MG TABLET PO SCH ×3 (06:04→22:32)
[2020-06-04] MEDS: INSULIN GLARGINE,HUM.REC.ANLOG 1,000 UNIT/10 ML VIAL SUBCUT SCH (09:39)
[2020-06-04] MEDS: ASCORBIC ACID 500 MG TABLET PO SCH ×2 (09:40→17:28)
[2020-06-04] MEDS: FERROUS SULFATE 325 MG TABLET PO SCH ×2 (09:40→17:28)
[2020-06-04] MEDS: ZINC SULFATE 220 MG CAPSULE PO SCH (09:40)
[2020-06-04] MEDS: LOSARTAN POTASSIUM 50 MG TABLET PO SCH (09:40)
[2020-06-04] MEDS: APIXABAN 2.5 MG TABLET PO SCH ×2 (09:40→17:28)
[2020-06-04] MEDS: NATEGLINIDE 60 MG TABLET PO SCH ×3 (09:40→17:27)
[2020-06-04] MEDS: CALCITRIOL 0.25 MCG CAPSULE PO SCH (09:40)
[2020-06-04] MEDS: ALLOPURINOL 100 MG TABLET PO SCH (09:40)
[2020-06-04] MEDS: OMEGA-3 ACID ETHYL ESTERS 1 GM CAPSULE PO SCH (09:40)
[2020-06-04] MEDS: FUROSEMIDE 40 MG TABLET PO SCH (09:41)
[2020-06-04] MEDS: INSULIN LISPRO 100 UNIT/ML 3 ML VIAL SUBCUT SCH ×4 (09:41→22:30)
[2020-06-04] MEDS: MULTIVITAMIN TABLET PO SCH (09:41)
[2020-06-04] MEDS: VITAMIN B COMPLEX TABLET PO SCH (09:41)
--- NOTE | 2020-06-04 10:20 | PDOC PROGRESS REPORT ---
Subjective Date:: 06/04/20 Subjective:: CAROLINA KAYE is a 84 year old female with history of hypertension, hyperlipidemia, type 2 diabetes, CKD, heart failure with preserved ejection fraction, longstanding persistent atrial fibrillation/flutter anticoagulated with low-dose Eliquis who is consulted to our service for further evaluation of pauses. The patient had been in her usual state of health until May 29 when she presented to our emergency department via EMS after suffering a fall at home. The patient states that she was sitting at the edge of her bed when she became generalized weak and started shaking. She did not have enough strength to remain in the bed and slipped to the floor. She tried to get up but once again felt very weak and shaky, had some chest discomfort and shortness of breath therefore she called her daughter for help. EMS was summoned and, per emergency room notes, apparently she was found in [place] however no rhythm strips were obtained and apparently the patient converted spontaneously. At the time of her index event she denied loss of consciousness as well as diaphoresis. She was admitted to our facility and was noted to have 3 to 4-second pauses which became more frequently and more prolonged up to the point she had a 7-second pause in the clinical nurse educator. She was awakened and felt fine. Unfortunately throughout the day she continues to have pauses that last anywhere from 3 to 5 seconds and today at 1437 she had another 8-second pause. She states that she f elt very weak, short of breath and shaky but did not lose consciousness. Of note, she had been on carvedilol 12.5 mg twice daily however she only received 1 dose of the medication more than 12 hours ago and subsequently the drug was discontinued. Her most recent EKG demonstrates atrial flutter with variable AV block, right bundle branch block with a heart rate of 58 bpm. 06/04/2020: The patient had an uneventful night and has no cardiac complaints this morning. She specifically denies chest pain, shortness of breath, dizziness, lightheadedness, syncope and presyncope as well as diaphoresis. There has been no recurrence of her very prolonged pauses and her recurrent 3 to 5-second pauses are diminished greatly. According to the nursing staff she only had one 2-second pause yesterday which was also asymptomatic. Unfortunately she tested positive for COVID-19 therefore her transfer to [facility] have been put on hold. Her telemetry continues to show atrial flutter with a slow ventricular response and less frequent pauses between 3 to 5 seconds some of which when she is asleep or when she is falling asleep. Physical exam on 06/04/2020: GENERAL: Pleasant and conversational. Oriented x3 with normal mood. Not in acute distress. Well groomed and well developed. HEENT: Normocephalic, atraumatic. Pupils equal. Sclerae anicteric. Oropharynx moist. NECK: No JVD. No carotid bruits. LUNGS: Clear to auscultation bilaterally. Normal respiratory effort without the use of accessory muscles or intercostal retractions. CARDIOVASCULAR: Irregularly irregular rate and rhythm, no murmurs, rubs, or gallops. PMI not displaced. ABDOMEN: No masses or tenderness to palpation. No bruit. No splenomegaly or hepatomegaly. No abdominal aorta bruit noted. EXTREMITIES: No edema, no cyanosis, no clubbing. +2 pulses femoral and pedal pulses bilaterally. SKIN: No lesions or rashes. MUSCULOSKELETAL: No chest tenderness to palpation. NEUROLOGIC: Nonfocal. No gross sensory or motor deficits bilateral upper or lower extremities. Reason For Visit: RECURRENT FALLS AT HOME;PERSISTENT ATRIAL FIB Physical Exam Vital Signs: Temp Pulse Resp BP Pulse Ox 97.7 F 59 L 17 138/55 H 100 06/04/20 07:56 06/04/20 07:56 06/04/20 07:56 06/04/20 07:56 06/04/20 07:56 Intake & Output 06/03/20 06/04/20 06/05/20 06:59 06:59 06:59 Intake Total 1080 1328 Balance 1080 1328 Weight 91 kg 90.6 kg Results Laboratory Results: 05/30/20 02:50 05/30/20 02:50 05/29/20 05/29/20 05/29/20 01:30 18:48 18:48 Creatine Kinase 53 CK-MB (CK-2) 0.85 Troponin I 0.019 0.025 NT-Pro-B Natriuret Pep 2100 H 05/30/20 05/30/20 05/30/20 02:50 02:50 11:00 Creatine Kinase 47 45 CK-MB (CK-2) 0.65 Troponin I 0.022 NT-Pro-B Natriuret Pep 05/30/20 11:00 Creatine Kinase CK-MB (CK-2) 0.59 Troponin I 0.025 NT-Pro-B Natriuret Pep Impressions: Chest X-Ray 05/29/20 01:57 IMPRESSION: Clear lungs. Head CT 05/29/20 01:57 IMPRESSION: No acute intracranial findings. Abdomen/Pelvis CT 05/29/20 01:58 IMPRESSION: No definite acute inflammatory process. Indeterminate right lower quadrant soft tissue mass. Assessment & Plan - Diagnosis (1) Sinus pause Is this a current diagnosis for this admission?: Yes Plan: She does continue to have pauses that are between 3 to 5 seconds however these are much less frequent now and she continues to be asymptomatic. I rediscussed the case with EP at [facility] and we agreed that the patient could potentially go home with outpatient cardiac monitoring with live monitoring capabilities. Unfortunately after making several phone calls we could not locate one of those devices therefore we will continue monitoring her in the hospital until she tested negative for Covid. Recommendations: -Continue to avoid AV dmitry agents. -Continue with cardiac telemetry. -Zoll pads on her chest. -We will continue to follow with you. (2) Congestive heart failure Qualifiers: Heart failure type: diastolic Is this a current diagnosis for this admission?: Yes Plan: She is currently euvolemic and without heart failure symptoms. Recommendations: -Continue with current medical management. -Restrict fluid intake to 1500 cc daily. -Low sodium diet, less than 1500 mg daily. -Strict intake and output. -Daily weights. (3) HTN (hypertension) Qualifiers: Hypertension type: essential hypertension Qualified Code(s): I10 - Essential (primary) hypertension Is this a current diagnosis for this admission?: Yes Plan: Her blood pressure is at goal. We will continue with current medical management.
--- NOTE | 2020-06-04 21:21 | PDOC PROGRESS REPORT ---
Subjective Date:: 06/04/20 Subjective:: Patient seen by the bedside she has sinus pauses, she was supposed to be transfe r to [facility], she was accepted in transfer essentially for the placement of permanent pacemaker, she tested positive for SARS-CoV-2 infection, she is not symptomatic from the infection, the transfer was placed on hold 06/03/2020 Patient remained asymptomatic from positive SARS-CoV-2 infection, could this be a false positive test?, We will repeat the Covid test, patient was supposed to be transfer to [facility] for permanent pacemaker placement 06/04/2020 Patient seen by the bedside, she was seen by Dr. Patino, oncology, repeat SARS-CoV-2 test was done, result pending Reason For Visit: RECURRENT FALLS AT HOME;PERSISTENT ATRIAL FIB Physical Exam Vital Signs: Temp Pulse Resp BP Pulse Ox 98.1 F 62 19 136/65 H 100 06/04/20 16:50 06/04/20 16:50 06/04/20 12:13 06/04/20 16:50 06/04/20 16:50 Intake & Output 06/03/20 06/04/20 06/05/20 06:59 06:59 06:59 Intake Total 1080 1328 702 Balance 1080 1328 702 Weight 91 kg 90.6 kg General appearance: PRESENT: no acute distress Eye exam: PRESENT: PERRLA Respiratory exam: PRESENT: clear to auscultation nurys Cardiovascular exam: PRESENT: +S1, +S2 GI/Abdominal exam: PRESENT: soft Neurological exam: PRESENT: alert Results Laboratory Results: 05/30/20 02:50 05/30/20 02:50 05/29/20 05/29/20 05/29/20 01:30 18:48 18:48 Creatine Kinase 53 CK-MB (CK-2) 0.85 Troponin I 0.019 0.025 NT-Pro-B Natriuret Pep 2100 H 05/30/20 05/30/20 05/30/20 02:50 02:50 11:00 Creatine Kinase 47 45 CK-MB (CK-2) 0.65 Troponin I 0.022 NT-Pro-B Natriuret Pep 05/30/20 11:00 Creatine Kinase CK-MB (CK-2) 0.59 Troponin I 0.025 NT-Pro-B Natriuret Pep Impressions: Chest X-Ray 05/29/20 01:57 IMPRESSION: Clear lungs. Head CT 05/29/20 01:57 IMPRESSION: No acute intracranial findings. Abdomen/Pelvis CT 05/29/20 01:58 IMPRESSION: No definite acute inflammatory process. Indeterminate right lower quadrant soft tissue mass. Assessment & Plan - Diagnosis (1) Sinus pause Is this a current diagnosis for this admission?: Yes (2) COVID-19 Is this a current diagnosis for this admission?: Yes Plan: Patient is not symptomatic from SARS-CoV-2 ? False positive result,repeat TEST (3) Chronic diastolic (congestive) heart failure Is this a current diagnosis for this admission?: Yes - Time Time Spent with patient: 25-34 minutes Level of Care: IMCU Medications reviewed and adjusted accordingly: Yes Anticipated discharge: Home
[2020-06-05] MEDS: HYDRALAZINE HCL 25 MG TABLET PO SCH ×2 (05:53→13:28)
[2020-06-05] MEDS: INSULIN LISPRO 100 UNIT/ML 3 ML VIAL SUBCUT SCH ×2 (08:36→12:35)
[2020-06-05] MEDS: INSULIN GLARGINE,HUM.REC.ANLOG 1,000 UNIT/10 ML VIAL SUBCUT SCH (08:36)
[2020-06-05] MEDS: NATEGLINIDE 60 MG TABLET PO SCH ×2 (09:15→12:37)
[2020-06-05 10:07] LABS: ANION GAP 10 (5-19); BLOOD UREA NITROGEN 40 mg/dL (7-20); CALCIUM 10.6 mg/dL (8.4-10.2); CARBON DIOXIDE 25 mmol/L (22-30); CHLORIDE 105 mmol/L (98-107); GLUCOSE 131 mg/dL (75-110); POTASSIUM 4.1 mmol/L (3.6-5.0)
[2020-06-05] MEDS: ZINC SULFATE 220 MG CAPSULE PO SCH (10:54)
[2020-06-05] MEDS: MULTIVITAMIN TABLET PO SCH (10:54)
[2020-06-05] MEDS: ALLOPURINOL 100 MG TABLET PO SCH (10:54)
[2020-06-05] MEDS: APIXABAN 2.5 MG TABLET PO SCH (10:54)
[2020-06-05] MEDS: OMEGA-3 ACID ETHYL ESTERS 1 GM CAPSULE PO SCH (10:54)
[2020-06-05] MEDS: CALCITRIOL 0.25 MCG CAPSULE PO SCH (10:54)
[2020-06-05] MEDS: LOSARTAN POTASSIUM 50 MG TABLET PO SCH (10:54)
[2020-06-05] MEDS: FUROSEMIDE 40 MG TABLET PO SCH (10:54)
[2020-06-05] MEDS: FERROUS SULFATE 325 MG TABLET PO SCH (10:54)
[2020-06-05] MEDS: ASCORBIC ACID 500 MG TABLET PO SCH (10:55)
[2020-06-05] MEDS: VITAMIN B COMPLEX TABLET PO SCH (10:55)
[2020-06-05 13:21] VITALS: BP 169/72
--- NOTE | 2020-06-05 14:32 | PDOC PROGRESS REPORT ---
Subjective Date:: 06/05/20 Subjective:: CAROLINA KAYE is a 84 year old female with history of hypertension, hyperlipidemia, type 2 diabetes, CKD, heart failure with preserved ejection fraction, longstanding persistent atrial fibrillation/flutter anticoagulated with low-dose Eliquis who is consulted to our service for further evaluation of pauses. The patient had been in her usual state of health until May 29 when she presented to our emergency department via EMS after suffering a fall at home. The patient states that she was sitting at the edge of her bed when she became generalized weak and started shaking. She did not have enough strength to remain in the bed and slipped to the floor. She tried to get up but once again felt very weak and shaky, had some chest discomfort and shortness of breath therefore she called her daughter for help. EMS was summoned and, per emergency room notes, apparently she was found in [place] however no rhythm strips were obtained and apparently the patient converted spontaneously. At the time of her index event she denied loss of consciousness as well as diaphoresis. 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 She was awakened and felt fine. Unfortunately throughout the day she continues to have pauses that last anywhere from 3 to 5 seconds and today at 1437 she had another 8-second pause. She states that she f elt very weak, short of breath and shaky but did not lose consciousness. Of note, she had been on carvedilol 12.5 mg twice daily however she only received 1 dose of the medication more than 12 hours ago and subsequently the drug was discontinued. Her most recent EKG demonstrates atrial flutter with variable AV block, right bundle branch block with a heart rate of 58 bpm. 06/05/2020: The patient had an uneventful night and has no cardiac complaints this morning. She specifically denies chest pain, shortness of breath, dizziness, lightheadedness, syncope and presyncope as well as diaphoresis. There has been no recurrence of her very prolonged pauses and her recurrent 3 to 5-second pauses are diminished greatly, as a matter of fact, telemetry does not show further pauses this long and the nursing staff reports that she only had 1 pause that was 2-second long and totally asymptomatic. Her most recent Covid test has been negative and she continues to be asymptomatic. Her telemetry continues to show atrial flutter with a slow ventricular response without significant pauses. This morning she expressed to me that she really wants to go home. Physical exam on 06/05/2020: GENERAL: Pleasant and conversational. Oriented x3 with normal mood. Not in acute distress. Well groomed and well developed. HEENT: Normocephalic, atraumatic. Pupils equal. Sclerae anicteric. Oropharynx moist. NECK: No JVD. No carotid bruits. LUNGS: Clear to auscultation bilaterally. Normal respiratory effort without the use of accessory muscles or intercostal retractions. CARDIOVASCULAR: Irregularly irregular rate and rhythm, no murmurs, rubs, or gallops. PMI not displaced. ABDOMEN: No masses or tenderness to palpation. No bruit. No splenomegaly or hepatomegaly. No abdominal aorta bruit noted. EXTREMITIES: No edema, no cyanosis, no clubbing. +2 pulses femoral and pedal pulses bilaterally. SKIN: No lesions or rashes. MUSCULOSKELETAL: No chest tenderness to palpation. NEUROLOGIC: Nonfocal. No gross sensory or motor deficits bilateral upper or lower extremities. Reason For Visit: RECURRENT FALLS AT HOME;PERSISTENT ATRIAL FIB Physical Exam Vital Signs: Temp Pulse Resp BP Pulse Ox 98.0 F 60 20 125/42 L 96 06/05/20 03:38 06/05/20 07:00 06/05/20 03:38 06/05/20 03:38 06/05/20 03:38 Intake & Output 06/04/20 06/05/20 06/06/20 06:59 06:59 06:59 Intake Total 1328 702 Balance 1328 702 Weight 90.6 kg 92.7 kg Results Laboratory Results: 05/30/20 02:50 05/30/20 02:50 05/29/20 05/29/20 05/29/20 01:30 18:48 18:48 Creatine Kinase 53 CK-MB (CK-2) 0.85 Troponin I 0.019 0.025 NT-Pro-B Natriuret Pep 2100 H 05/30/20 05/30/20 05/30/20 02:50 02:50 11:00 Creatine Kinase 47 45 CK-MB (CK-2) 0.65 Troponin I 0.022 NT-Pro-B Natriuret Pep 05/30/20 11:00 Creatine Kinase CK-MB (CK-2) 0.59 Troponin I 0.025 NT-Pro-B Natriuret Pep Impressions: Chest X-Ray 05/29/20 01:57 IMPRESSION: Clear lungs. Head CT 05/29/20 01:57 IMPRESSION: No acute intracranial findings. Abdomen/Pelvis CT 05/29/20 01:58 IMPRESSION: No definite acute inflammatory process. Indeterminate right lower quadrant soft tissue mass. Assessment & Plan - Diagnosis (1) Sinus pause Is this a current diagnosis for this admission?: Yes Plan: She is significantly improved from the arrhythmic standpoint. Thorough review of her telemetry demonstrates that her pulses are greatly diminished, they are now rare in occurrence and the longest one was only 2 seconds and totally asymptomatic. Her most recent Covid test came back negative and she is eager to go home. At this point I believe she is safe to go home with close outpatient follow-up with EP. The case was again discussed with EP who agrees with the plan. She will actually be seen in our office in [place] by one of our electrophysiologists, Dr. Donahue. Recommendations: -Continue to avoid AV dmitry agents. -Continue with cardiac telemetry. -Follow up with EP, Dr. Donahue, in [place] as scheduled on JUN 28. (2) Congestive heart failure Qualifiers: Heart failure type: diastolic Is this a current diagnosis for this admission?: Yes Plan: She is currently euvolemic and without heart failure symptoms. Recommendations: -She will f/u as scheduled. (3) HTN (hypertension) Qualifiers: Hypertension type: essential hypertension Qualified Code(s): I10 - Essential (primary) hypertension Is this a current diagnosis for this admission?: Yes Plan: Her blood pressure is at goal. We will continue with current medical management.
--- NOTE | 2020-06-05 19:44 | PDOC DISCHARGE SUMMARY ---
Impression - Admit/DC Date/PCP Admission Date/Primary Care Provider: 05/30/20 11:57 GABRIELLA SHOOK Discharge Date: 06/05/20 - Discharge Diagnosis (1) Sinus pause Is this a current diagnosis for this admission?: Yes (2) COVID-19 Is this a current diagnosis for this admission?: Yes (3) Chronic diastolic (congestive) heart failure Is this a current diagnosis for this admission?: Yes (4) Repeated falls Is this a current diagnosis for this admission?: Yes (5) Persistent atrial fibrillation with rapid ventricular response Is this a current diagnosis for this admission?: Yes (6) Asymptomatic COVID-19 virus infection Is this a current diagnosis for this admission?: Yes - Additional Information Resuscitation Status: Full Code Discharge Diet: Diabetic Discharge Activity: Activity As Tolerated, Balance Activity w/Rest, Weigh Daily Referrals: GABRIELLA SHOOK MD [Primary Care Provider] - 06/15/20 10:00 am David GALLEGOS MD [ACTIVE STAFF] - Follow up as needed Home Medications: Insulin Aspart [Novolog Flexpen] 0 units SQ .PERSLIDINGSCALE 02/28/18 Irbesartan [Avapro] 300 mg PO DAILY 02/28/18 Nateglinide [Starlix] 120 mg PO TID 02/28/18 Apixaban [Eliquis 2.5 mg Tablet] 2.5 mg PO BID #60 tablet 04/12/18 Hydralazine HCl [Apresoline 25 mg Tablet] 25 mg PO Q8 #90 tablet 04/12/18 Calcitriol [Rocaltrol 0.25 mcg Capsule] 0.25 mcg PO DAILY 03/17/20 Dexlansoprazole [Dexilant 30 mg Capsule] 30 mg PO DAILY 03/17/20 Insulin Degludec [Tresiba Flextouch U-100] 25 units SQ DAILY 03/17/20 [place]-3 Fatty Acids [[place]-3] 1,000 mg PO DAILY 04/03/20 Allopurinol [Zyloprim 100 mg Tablet] 200 mg PO DAILY 05/29/20 Amlodipine Besylate [Norvasc 5 mg Tablet] 5 mg PO DAILY 05/29/20 Ferrous Sulfate [Feosol 325 mg Tablet] 325 mg PO BID 05/29/20 Furosemide [Lasix 40 mg Tablet] 40 mg PO DAILY 05/29/20 Multivitamin [Tab-A-Yony (Multiple Vitamin) Tablet] 1 tab PO DAILY 05/29/20 History of Present Illiness History of Present Illness: CAROLINA KAYE is a 84 year old female ,she presented to the ED via EMS due t incident of fall at home. Patent reported that she was sitting on the edge of her bed after her usual prayer routine and suddenly found her self sliding to the floor. She was managed to get off the floor but had a second episode still in her bedroom with subsequent difficulty getting off the floor for which she call her daughter who alerted the EMS. She reported hitting side of her bed against her walking cane. She denied any chest pain but reported intermittent episode of palpitation and felling unwell. She denied loss of consciousness or focal weakness. She reported compliance with her medications including Eliqius and Carvedilol. Her initial ED evaluation was significant for elevated NT-Pro BNP, slightly elevated Troponin I level, reported episode of V. tach as per EMS crew, and renal indices comparable with CKD stage 4. She was advised hospitalization for further evaluation and management of her arrhythmia that might contributed to her recurrent falls at home. Her radiology evaluation was devoid of any acute problem Hospital Course Hospital Course: Patient was admitted with recurrent falls at home with reported V.tach by EMS crew. She denied any a chest pain or palpitation. She denied awareness of loss of consciousness. Her initial valuation was significant for persistent atrial fibrillation. On residential monitor she demonstrated several episodes of asystole with pauses lasting 6 to 10 minutes overnight while sleeping but recurred several timed so far today necessitating cardiology consultation. She was since in consultation by Dr. David Patino, band lining bander, with recommendation for pacemaker insertion. Her transfer was to [facility] made and she was accepted by Dr. Zaid Tilley. I discussed issue of transfer with patient and her daughter, Diandra at [phone]. They are both in agreement. She will follow up in the office as instructed upon discharge from [facility].She was supposed to be transferred to [facility] for the placement of permanent pacemaker, SARS-CoV-2 test was done, a prerequisite before intervention could be done, the test, positive because of this result the transfer was canceled..She was seen by the band lining bander Dr. Patino, Patient insisted on going home today, Dr. Patino felt she be discharged home to follow-up with the filer finish on June 08, 2020.She was not symptomatic from the SARS-CoV-2 infection Physical Exam Vital Signs: Temp Pulse Resp BP Pulse Ox 98.0 F 60 20 169/72 H 96 06/05/20 13:15 06/05/20 13:15 06/05/20 13:15 06/05/20 13:15 06/05/20 13:15 Intake & Output 06/04/20 06/05/20 06/06/20 06:59 06:59 06:59 Intake Total 1328 702 Balance 1328 702 Weight 90.6 kg 92.7 kg General appearance: PRESENT: no acute distress Eye exam: PRESENT: PERRLA Respiratory exam: PRESENT: clear to auscultation nurys Cardiovascular exam: PRESENT: +S1, +S2 GI/Abdominal exam: PRESENT: soft Neurological exam: PRESENT: alert, CN II-XII grossly intact Results Laboratory Results: WBC 4.2 10^3/uL (4.0-10.5) 05/30/20 02:50 RBC 3.51 10^6/uL (3.72-5.28) L 05/30/20 02:50 Hgb 9.5 g/dL (12.0-15.5) L 05/30/20 02:50 Hct 30.1 % (36.0-47.0) L 05/30/20 02:50 MCV 86 fl (80-97) 05/30/20 02:50 MCH 27.1 pg (27.0-33.4) 05/30/20 02:50 MCHC 31.6 g/dL (32.0-36.0) L 05/30/20 02:50 RDW 17.8 % (11.5-14.0) H 05/30/20 02:50 Plt Count 146 10^3/uL (150-450) L 05/30/20 02:50 Lymph % (Auto) 31.4 % (13-45) 05/30/20 02:50 [place] % (Auto) 8.7 % (3-13) 05/30/20 02:50 Eos % (Auto) 4.2 % (0-6) 05/30/20 02:50 Baso % (Auto) 0.8 % (0-2) 05/30/20 02:50 Absolute Neuts (auto) 2.3 10^3/uL (1.7-8.2) 05/30/20 02:50 Absolute Lymphs (auto) 1.3 10^3/uL (0.5-4.7) 05/30/20 02:50 Absolute Monos (auto) 0.4 10^3/uL (0.1-1.4) 05/30/20 02:50 Absolute Eos (auto) 0.2 10^3/uL (0.0-0.6) 05/30/20 02:50 Absolute Basos (auto) 0.0 10^3/uL (0.0-0.2) 05/30/20 02:50 Total Counted 100 05/29/20 01:30 Seg Neutrophils % 54.9 % (42-78) 05/30/20 02:50 Seg Neuts % (Manual) 77 % (42-78) 05/29/20 01:30 Lymphocytes % (Manual) 13 % (13-45) 05/29/20 01:30 Monocytes % (Manual) 8 % (3-13) 05/29/20 01:30 Eosinophils % (Manual) 2 % (0-6) 05/29/20 01:30 Basophils % (Manual) 0 % (0-2) 05/29/20 01:30 Abs Neuts (Manual) 3.9 10^3/uL (1.7-8.2) 05/29/20 01:30 Abs Lymphs (Manual) 0.7 10^3/uL (0.5-4.7) 05/29/20 01:30 Abs Monocytes (Manual) 0.4 10^3/uL (0.1-1.4) 05/29/20 01:30 Absolute Eos (Manual) 0.1 10^3/uL (0.0-0.6) 05/29/20 01:30 Abs Basophils (Manual) 0.0 10^3/uL (0.0-0.2) 05/29/20 01:30 Nucleated RBCs 3 /100 WBC (0) 05/29/20 01:30 Platelet Comment ADEQUATE 05/29/20 01:30 Poikilocytosis SLIGHT 05/29/20 01:30 Anisocytosis 2+ 05/29/20 01:30 Target Cells SLIGHT 05/29/20 01:30 Sodium 139.9 mmol/L (137-145) 06/05/20 09:17 Potassium 4.1 mmol/L (3.6-5.0) 06/05/20 09:17 Chloride 105 mmol/L (98-107) 06/05/20 09:17 Carbon Dioxide 25 mmol/L (22-30) 06/05/20 09:17 Anion Gap 10 (5-19) 06/05/20 09:17 BUN 40 mg/dL (7-20) H 06/05/20 09:17 Creatinine 1.83 mg/dL (0.52-1.25) H 06/05/20 09:17 Est GFR ( Amer) 32 (>60) L 06/05/20 09:17 Est GFR (MDRD) Non-Af 26 (>60) L 06/05/20 09:17 Glucose 131 mg/dL (75-110) H 06/05/20 09:17 POC Glucose 142 mg/dL (70-110) H 06/05/20 12:23 Calcium 10.6 mg/dL (8.4-10.2) H 06/05/20 09:17 Magnesium 2.1 mg/dL (1.6-2.3) 05/29/20 01:30 Total Bilirubin 0.5 mg/dL (0.2-1.3) 05/30/20 02:50 Direct Bilirubin 0.3 mg/dL (0.0-0.4) 05/30/20 02:50 Neonat Total Bilirubin Not Reportable 05/30/20 02:50 Neonat Direct Bilirubin Not Reportable 05/30/20 02:50 Neonat Indirect Bili Not Reportable 05/30/20 02:50 AST 31 U/L (14-36) 05/30/20 02:50 ALT 24 U/L (<35) 05/30/20 02:50 Alkaline Phosphatase 104 U/L (38-126) 05/30/20 02:50 Creatine Kinase 45 U/L (30-135) 05/30/20 11:00 CK-MB (CK-2) 0.59 ng/mL (<4.55) 05/30/20 11:00 Troponin I 0.025 ng/mL 05/30/20 11:00 NT-Pro-B Natriuret Pep 2100 pg/mL (<450) H 05/29/20 01:30 Total Protein 6.7 g/dL (6.3-8.2) 05/30/20 02:50 Albumin 3.2 g/dL (3.5-5.0) L 05/30/20 02:50 COVID-19 Source See comment 06/04/20 07:28 COVID-19 ([place]) Not Detected (Not Detect) 06/04/20 07:28 Influenza A (RT-PCR) NEGATIVE (NEGATIVE) 05/30/20 18:59 Influenza B (RT-PCR) NEGATIVE (NEGATIVE) 05/30/20 18:59 RSV (RT-PCR) NEGATIVE (NEGATIVE) 05/30/20 18:59 SARS-CoV-2 Rap RNA(RT-PCR) POSITIVE (NEGATIVE) H 05/30/20 18:59 05/29/20 05/29/20 05/30/20 01:30 18:48 02:50 CK-MB (CK-2) 0.85 0.65 Troponin I 0.019 0.025 0.022 NT-Pro-B Natriuret Pep 2100 H 05/30/20 11:00 CK-MB (CK-2) 0.59 Troponin I 0.025 NT-Pro-B Natriuret Pep Impressions: Chest X-Ray 05/29/20 01:57 IMPRESSION: Clear lungs. Head CT 05/29/20 01:57 IMPRESSION: No acute intracranial findings. Abdomen/Pelvis CT 05/29/20 01:58 IMPRESSION: No definite acute inflammatory process. Indeterminate right lower quadrant soft tissue mass. Stroke Is this a Stroke Patient?: No Acute Heart Failure Is this a Heart Failure Patient?: No
== END 2020-06-05 14:10 | disposition home or self-care (01) | DRG 308 ==
LOC: ER 01:06 → EH 05:04 → 5 06:59 → OBSVTOIN 05-30 11:57 → 3S 05-30 21:05
PROVIDERS: ADMIT Internal Medicine Geriatric Medicine; ATTEND Internal Medicine Geriatric Medicine
DX: I48.11 Longstanding persistent atrial fibrillation (principal); U07.1 COVID-19; I13.0 Hypertensive heart and chronic kidney disease with heart failure and stage 1 through stage 4 chronic kidney disease, or unspecified chronic kidney disease; I50.32 Chronic diastolic (congestive) heart failure; N18.4 Chronic kidney disease, stage 4 (severe); I47.2 Ventricular tachycardia; E11.22 Type 2 diabetes mellitus with diabetic chronic kidney disease; R29.6 Repeated falls; E78.5 Hyperlipidemia, unspecified; W06.XXXA Fall from bed, initial encounter; M1A.9XX0 Chronic gout, unspecified, without tophus (tophi); M89.49 Other hypertrophic osteoarthropathy, multiple sites; I45.10 Unspecified right bundle-branch block; K21.9 Gastro-esophageal reflux disease without esophagitis; G47.30 Sleep apnea, unspecified; Y92.009 Unspecified place in unspecified non-institutional (private) residence as the place of occurrence of the external cause; Z60.2 Problems related to living alone; I25.2 Old myocardial infarction; Z79.899 Other long term (current) drug therapy; Z79.4 Long term (current) use of insulin; Z88.6 Allergy status to analgesic agent; Z79.01 Long term (current) use of anticoagulants
CPT/HCPCS: 36415; 70450; 71046; 74176; 80048; 80053; 82550; 82553; 82962; 83735; 83880; 84484; 85025; 87635; 93005; 93010; 99285; 0241U; C9803; G0378; J1815; J3490